=== PATIENT | female | born 1955 | race Caucasian/White ===

== ENCOUNTER 2020-09-30 14:31 | Emergency (ER) | payer MEDICARE, OTHER, SELFPAY ==
[2020-09-30] VITALS (14 sets, daily range): BP systolic 140–180; BP diastolic 79–96; PULSE 63–84; RESP 9–25; TEMP 36.1–36.5; O2SAT 98–100
--- NOTE | ~2020-09-30 | XR_ITS ---
EXAMINATION: XR chest 1V portable DATE: 09/30/2020 15:19 INDICATION: Cough and fever. TECHNIQUE: A single frontal view of the chest was obtained on 2 radiographs. COMPARISON: Chest 2 views 05/13/2019 FINDINGS: The chest demonstrates clear lungs without pneumonia, pleural effusion, or pneumothorax. Th e heart size is normal. Surgical clips in the right upper quadrant are likely from cholecystectomy. T here are changes of anterior fusion procedure in cervical spine. IMPRESSION: 1. No acute cardiopulmonary disease. Reviewed, dictated and finalized at location A. LANGUAGE TRANSLATOR
--- NOTE | 2020-09-30 14:56 | ED.SOB ---
HPI - SOB/Dyspnea General Chief Complaint: Shortness of Breath/Dyspnea Stated Complaint: covid symptoms Time Seen by Provider: 09/30/20 14:43 Source: patient Mode of arrival: ambulatory Limitations: no limitations History of Present Illness HPI Narrative: Patient is a 65-year-old female who presents with 1 week duration of upper respiratory symptoms with some loose stools and a few episodes of emesis patient notes headache congestion nonproductive cough. Patient's daughter who had been visiting has Covid as well as her family. Patient on arrival no distress does not appear uncomfortable notes also intermittent fever Related Data Home Medications Medication Instructions Recorded Confirmed alprazolam 0.25 mg tablet 0.25 mg PO QID PRN tablet 09/07/20 bupropion HCl 150 mg tablet,12 hr 150 mg PO DAILY 09/07/20 sustained-release calcium citrate 250 mg 1 tablet PO TID 09/07/20 calcium-vitamin D3 5 mcg (200 unit) tablet conjugated estrogens 0.3 mg tablet 0.3 mg PO DAILY 09/07/20 docusate sodium 50 mg capsule 50 mg PO DAILY 09/07/20 fexofenadine 180 mg tablet 180 mg PO DAILY 09/07/20 hydrochlorothiazide 12.5 mg tablet 12.5 mg PO DAILY 09/07/20 ipratropium bromide 0.03 % nasal 2 spray INTRANASAL BID 09/07/20 spray mecobalamin (vitamin B12) 1,000 1,000 mcg PO DAILY 09/07/20 mcg chewable tablet lzqysapf-qbzvwai-wrbc-lutein tablet tablet PO .QD tablet 09/07/20 omeprazole 20 mg capsule,delayed 20 mg PO DAILY 09/07/20 release tramadol 50 mg tablet 50 mg PO Q8H PRN tablet 09/07/20 zolpidem 10 mg tablet 10 mg PO .QHS tablet 09/07/20 Allergies Allergy/AdvReac Type Severity Reaction Status Date / Time No Known Allergies Allergy Unverified 09/30/20 14:55 Review of Systems Review of Systems: All systems reviewed & are unremarkable except as noted in HPI and below PMFSH Past Medical History Medical History Allergic rhinitis Anxiety Convergence insufficiency Depression GERD (gastroesophageal reflux disease) History of closed head injury Hypertension Insomnia Surgical History Surgical History History of cholecystectomy History of fusion of cervical spine History of hysterectomy History of lumpectomy benign History of Yoly-en-Y gastric bypass History of tubal ligation Hx of nasal septoplasty Plantar fasciitis Family History Family History Father Heart disease Mother Breast cancer Other Family history of malignant melanoma Social History Social History Smoking status: Never smoker Alcohol intake: never Gender identity (if verbalized by the patient): Female Exam Narrative: Exam Narrative: GENERAL: Well-appearing, well-nourished, and in no acute distress. HEAD: Normocephalic, atraumatic. EYES: PERRLA and EOMI. ENT: Nares clear, no rhinorrhea or epistaxis. Mucous membranes moist. CHEST: Clear to auscultation. No respiratory distress. No wheezes rales or rhonchi HEART: Regular rate and rhythm. No murmur heard. EXTREMITIES: Normal range of motion. No edema. SKIN: Warm, dry, no rash. NEURO: No focal deficits. Alert and oriented x3. PSYCH: Normal mood and affect. Course Course Emergency Course: Patient evaluated in the emergency department for COVID-19 symptoms patient afebrile nontoxic-appearing no distress was hydrated felt appropriate for outpatient reevaluation patient felt appropriate for outpatient reevaluation given reasons to return no pneumonia no hypoxemia Vital Signs Vital signs: Vital Signs Temperature 97.7 F 09/30/20 14:46 Pulse Rate 72 09/30/20 14:46 Respiratory Rate 16 09/30/20 14:46 Blood Pressure 180/96 H 09/30/20 14:46 Pulse Oximetry 100 09/30/20 14:46 Temperature 97.7 F 09/30/20 14:46 Pulse Rate 72 12
[2020-09-30 15:42] LABS: Basophils Absolute Auto 0.1 K/mm3 (0.0-0.1); Basophils Percent Auto 0.9 % (0.2-1.2); Eosinophils Percent Auto 0.3 % (0-4.4); Hematocrit 42.2 % (37.0-47.0); Hemoglobin 14.5 g/dL (12.0-15.0); Immature Granulocyte Absolute 0.01 K/mm3 (0.00-0.031); Immature Granulocyte Percent A 0.2 % (0-0.5); Lymphocytes Absolute Auto 1.89 K/mm3 (0.9-3.2); Lymphocytes Percent Auto 32.2 % (18.3-44.2); Mean Corpuscular HGB Conc 34.4 g/dl (32-36); Mean Corpuscular Hemoglobin 30.4 pg (26-34); Mean Corpuscular Volume 88.5 fl (80-100); Mean Platelet Volume 9.1 fl (7.4-10.4); Monocytes Absolute Auto 0.3 K/mm3 (0.1-0.6); Monocytes Percent Auto 5.6 % (2.6-8.5); Neutrophils Absolute Auto 3.6 K/mm3 (1.3-6.7); Neutrophils Percent Auto 60.8 % (45.5-73.1); Platelet Count Result 273 k/mm3 (150-375); Red Blood Count 4.77 M/mm3 (4.2-5.4); Red Cell Distribution Width 12.4 % (11.5-14.5); White Blood Count 5.9 K/mm3 (4.5-10.0)
[2020-09-30] MEDS: SODIUM CHLORIDE 0.9% IV 1,000 ML 999 ML IV CONT (15:47)
[2020-09-30 15:53] LABS: Alanine Aminotransferase 16 U/L (4-35); Albumin Level 4.5 g/dL (3.5-5.1); Alkaline Phosphatase 71 U/L (38-126); Anion Gap 9 mmol/L (8-16); Aspartate Amino Transferase 33 U/L (14-36); Bilirubin,Total 1.2 mg/dL (0.2-1.3); Blood Urea Nitrogen 8 mg/dL (7-17); Carbon Dioxide 32 mmol/L (22-30); Chloride 92 mmol/L (98-107); Estimated CRCL calculation 56 ml/min; Estimated Glomerular Filt Rate > 60; Glucose 105 mg/dL (65-105); Magnesium 2.2 mg/dL (1.6-2.3); Potassium 3.6 mmol/L (3.4-5.0); Sodium 133 mmol/L (137-145)
[2020-09-30 23:40] LABS: SARS-CoV-2 RNA PCR Negative
== END 2020-09-30 18:18 | disposition home or self-care (01) ==
PROVIDERS: Emergency Medicine Emergency Medical Services; Emergency Provider Emergency Medicine; PCP Family Medicine
DX: U07.1 COVID-19 (principal); F41.9 Anxiety disorder, unspecified; F32.9 Major depressive disorder, single episode, unspecified; K21.9 Gastro-esophageal reflux disease without esophagitis; I10 Essential (primary) hypertension; H51.11 Convergence insufficiency; Z98.1 Arthrodesis status; Z98.84 Bariatric surgery status
CPT/HCPCS: 36415; 71045; 80053; 83735; 85025; 87635; 96361; 96365; 99284; C9803; J0131; J7030; U0003

== ENCOUNTER 2020-12-28 15:08 | Emergency (ER) | payer MEDICARE, OTHER, SELFPAY ==
--- NOTE | ~2020-12-28 | XR_ITS ---
EXAMINATION: XR lumbar spine 2-3V EXAM DATE: 12/28/2020 19:22 INDICATION: Low back pain shooting towards left leg this morning. TECHNIQUE: Lumber spine frontal, lateral, lateral L5-S1 projections for interpretation. Comparison is made to prior examination from 02/21/2012. FINDINGS: Mild to moderate lumbar levoscoliosis. There is 4 mm retrolisthesis L2 on L3 and L3 on L4, 3 mm anterolisthesis L4 on L5 without spondylolysis. Diffuse mild to moderate lumbar disc disease. T here is severe lower lumbar facet arthropathy. Mild anterior wedged appearance at L1 is unchanged, ch ronic. No acute fracture line. Sacrum, sacroiliac joints, sacral arcuate lines are intact. There are cholecystectomy clips. Some left upper quadrant abdominal clips as well. IMPRESSION: 1. Severe lower lumbar facet arthropathy. 2. Mild to moderate disc disease and levoscoliosis. 3. Mild subluxations. Reviewed, dictated and finalized at location A.
[2020-12-28 15:46] VITALS: BP 180/97; PULSE 78; RESP 18; TEMP 36.5; O2SAT 100
--- NOTE | 2020-12-28 17:05 | ED.GENADULT ---
HPI - General Adult General Chief complaint: Back Pain/Injury <John Hemphill PA-C - Last Filed: 12/28/20 21:02> Stated complaint: low back pain <VIMAL Pablo Last Filed: 12/28/20 21:02> Time Seen by Provider: 12/28/20 16:42 <VIMAL Pablo Last Filed: 12/28/20 21:02> Source: patient and family <VIMLA Pablo Last Filed: 12/28/20 21:02> Mode of arrival: ambulatory <VIMAL Pablo Last Filed: 12/28/20 21:02> Limitations: no limitations <VIMAL Pablo Last Filed: 12/28/20 21:02> History of Present Illness HPI narrative: Patient is a 65-year-old female who presents to emergency department with mid lumbar back pain denies injury or trauma notes that she woke with this patient denies any injury or trauma patient does have history of chronic neck and back pain and headaches patient notes that she did not injure the back or do any strenuous activity patient on arrival appears uncomfortable patient has not been seen for this complaint took Tylenol earlier today with minimal improvement patient denies any recent illness or sick contacts <VIMAL Pablo Last Filed: 12/28/20 21:02> Related Data Home medications: Home Medications Medication Instructions Recorded Confirmed alprazolam 0.25 mg tablet 0.25 mg PO QID PRN tablet 09/07/20 11/04/20 bupropion HCl 150 mg tablet,12 hr 150 mg PO DAILY 09/07/20 11/04/20 sustained-release calcium citrate 250 mg 1 tablet PO TID 09/07/20 11/04/20 calcium-vitamin D3 5 mcg (200 unit) tablet conjugated estrogens 0.3 mg tablet 0.3 mg PO DAILY 09/07/20 11/04/20 docusate sodium 50 mg capsule 50 mg PO DAILY 09/07/20 11/04/20 fexofenadine 180 mg tablet 180 mg PO DAILY 09/07/20 11/04/20 hydrochlorothiazide 12.5 mg tablet 12.5 mg PO DAILY 09/07/20 11/04/20 ipratropium bromide 21 mcg (0.03 2 spray INTRANASAL BID 09/07/20 11/04/20 %) nasal spray mecobalamin (vitamin B12) 1,000 1,000 mcg PO DAILY 09/07/20 11/04/20 mcg chewable tablet wbduectq-msqsfis-mrcl-lutein tablet tablet PO .QD tablet 09/07/20 11/04/20 omeprazole 20 mg capsule,delayed 20 mg PO DAILY 09/07/20 11/04/20 release tramadol 50 mg tablet 50 mg PO Q8H PRN tablet 09/07/20 11/04/20 zolpidem 10 mg tablet 10 mg PO .QHS tablet 09/07/20 11/04/20 <John Hemphill PA-C - Last Filed: 12/28/20 21:02> Allergies/adverse reactions: Allergies Allergy/AdvReac Type Severity Reaction Status Date / Time No Known Allergies Allergy Verified 12/28/20 16:51 <John Hemphill PA-C - Last Filed: 12/28/20 21:02> Review of Systems Review of Systems: All systems reviewed & are unremarkable except as noted in HPI and below <John Hemphill PA-C - Last Filed: 12/28/20 21:02> [facility] Past Medical History Medical History: Medical History Allergic rhinitis Anxiety Convergence insufficiency Depression GERD (gastroesophageal reflux disease) History of closed head injury Hypertension Insomnia <John Hemphill PA-C - Last Filed: 12/28/20 21:02> Surgical History Surgical History: Surgical History History of cholecystectomy History of fusion of cervical spine History of hysterectomy History of lumpectomy benign History of Yoly-en-Y gastric bypass History of tubal ligation Hx of nasal septoplasty Plantar fasciitis <John Hemphill PA-C - Last Filed: 12/28/20 21:02> Family History Family History: Family History Father Heart disease Mother Breast cancer Other Family history of malignant melanoma <John Hemphill PA-C - Last Filed: 12/28/20 21:02> Social History Social History: Social History Smoking status: Never smoker Second hand tobacco smoke exposure: No A
[2020-12-28] MEDS: LIDOCAINE 5% PATCH 1 PATCH TRANSDERM (18:05)
[2020-12-28] MEDS: diazePAM (*CRX) 5 MG TABLET 2.5 MG PO (18:08)
[2020-12-28] MEDS: KETOROLAC 30 MG/ML VIAL (*BKC) IV PUSH (18:08)
[2020-12-28] MEDS: SODIUM CHLORIDE 0.9% IV 1,000 ML 999 ML IV CONT (18:51)
[2020-12-28] MEDS: ONDANSETRON INJ 4 MG/2 ML VIAL IV PUSH (18:51)
[2020-12-28] MEDS: HYDROcodone/acetaminophen (*CRX) 7.5-325 MG TABLET 1 TAB PO (18:59)
--- NOTE | 2020-12-28 19:15 | PC.NURSE ---
Assumed care of pt, pt to XRAY at this time. Spouse at bedside.
[2020-12-28 19:46] VITALS: BP 180/83; PULSE 75; RESP 15; O2SAT 100
[2020-12-28] MEDS: diazePAM INJ (*CRX) 10 MG/2 ML SYRINGE 2.5 MG IV PUSH (19:46)
[2020-12-28 20:05] LABS: Add Urine Microscopic? YES; Appearance Urine Clear (Clear); Bacteria Urine Trace /hpf; Bilirubin Urine Negative (Negative); Blood Urine Negative (Negative); Color Urine Straw (Yellow); Glucose Urine UA Negative (Negative); Ketones Urine 1+ mg/dL (Negative); Leukocyte Esterase Ur Negative LEU/UL (Negative); Mucus Urine Rare /lpf; Nitrate Urine Negative (Negative); Protein Urine Negative (Negative); RBC Urine 0-2 /hpf (0-2); Specific Grav Ur 1.005 (1.001-1.035); Squamous Epithelial Cell Urine Occasional /hpf (Few); Urobilinogen Urine Negative mg/dL (<2.0); WBC Urine 0-3 /hpf
[2020-12-28 20:48] VITALS: BP 163/67; PULSE 71; RESP 18; O2SAT 100
== END 2020-12-28 21:15 | disposition home or self-care (01) ==
PROVIDERS: Emergency Medicine Emergency Medical Services; Emergency Provider General Practice; PCP Family Medicine
DX: M54.16 Radiculopathy, lumbar region (principal); K21.9 Gastro-esophageal reflux disease without esophagitis; I10 Essential (primary) hypertension; F41.9 Anxiety disorder, unspecified; F32.9 Major depressive disorder, single episode, unspecified; Z98.1 Arthrodesis status; Z98.84 Bariatric surgery status
CPT/HCPCS: 72100; 81001; 96361; 96374; 96375; 99284; A9270; J1885; J2405; J3360; J7030

== ENCOUNTER 2020-12-31 00:33 | Emergency (ER) | payer MEDICARE, OTHER, SELFPAY ==
[2020-12-31 00:44] VITALS: BP 164/79; PULSE 77; RESP 15; TEMP 36.4; O2SAT 100
[2020-12-31] MEDS: FAMOTIDINE 20 MG/2 ML VIAL IV PUSH (00:53)
[2020-12-31] MEDS: diphenhydrAMINE HCl INJ 50 MG/ML VIAL IV PUSH (00:55)
[2020-12-31] MEDS: methylPREDNISolone SOD SUCC 125 MG VIAL IV PUSH (00:55)
--- NOTE | 2020-12-31 01:24 | ED.GENADULT ---
HPI - General Adult General Chief complaint: Allergic Reaction Stated complaint: allergic reaction Time Seen by Provider: 12/31/20 00:42 History of Present Illness HPI narrative: Patient is a 65-year-old female who presents to emergency department with chief complaint of allergic reaction. Patient reports she has been treated with medications for her back and today noticed that she started having some swelling in her lips noticed her tongue was a little swollen and had itching on her face and eyes and also swelling around her eyelids. Patient denies shortness of breath denies fever denies nausea vomiting denies urticaria. Related Data Home Medications Medication Instructions Recorded Confirmed alprazolam 0.25 mg tablet 0.25 mg PO QID PRN tablet 09/07/20 12/30/20 bupropion HCl 150 mg tablet,12 hr 150 mg PO DAILY 09/07/20 12/30/20 sustained-release calcium citrate 250 mg 1 tablet PO TID 09/07/20 12/30/20 calcium-vitamin D3 5 mcg (200 unit) tablet conjugated estrogens 0.3 mg tablet 0.3 mg PO DAILY 09/07/20 12/30/20 docusate sodium 50 mg capsule 50 mg PO DAILY 09/07/20 12/30/20 fexofenadine 180 mg tablet 180 mg PO DAILY 09/07/20 12/30/20 hydrochlorothiazide 12.5 mg tablet 12.5 mg PO DAILY 09/07/20 12/30/20 ipratropium bromide 21 mcg (0.03 2 spray INTRANASAL BID 09/07/20 12/30/20 %) nasal spray mecobalamin (vitamin B12) 1,000 1,000 mcg PO DAILY 09/07/20 12/30/20 mcg chewable tablet okeyippo-egkvbuy-phgu-lutein tablet tablet PO .QD tablet 09/07/20 12/30/20 omeprazole 20 mg capsule,delayed 20 mg PO DAILY 09/07/20 12/30/20 release tramadol 50 mg tablet 50 mg PO Q8H PRN tablet 09/07/20 12/30/20 zolpidem 10 mg tablet 10 mg PO .QHS tablet 09/07/20 12/30/20 Allergies Allergy/AdvReac Type Severity Reaction Status Date / Time metaxalone [From Skelaxin] Allergy Swelling Verified 12/31/20 00:50 of Lip/Tongue/Throat Review of Systems Review of Systems: Narrative: A 10 system review of systems was completed on the patient and is negative except for what is stated in the HPI. Nursing and ancillary documentation was reviewed. PMFSH Past Medical History Medical History Allergic rhinitis Anxiety Convergence insufficiency Depression GERD (gastroesophageal reflux disease) History of closed head injury Hypertension Insomnia Surgical History Surgical History History of cholecystectomy History of fusion of cervical spine History of hysterectomy History of lumpectomy benign History of Yoly-en-Y gastric bypass History of tubal ligation Hx of nasal septoplasty Plantar fasciitis Family History Family History Father Heart disease Mother Breast cancer Other Family history of malignant melanoma Social History Social History Smoking status: Never smoker Second hand tobacco smoke exposure: No Alcohol intake: never Substance use: never Substance use type: does not use Gender identity (if verbalized by the patient): Female Exam Narrative: Exam Narrative: GENERAL: Well-appearing, well-nourished, and in no acute distress. HEAD: Normocephalic, atraumatic. EYES: PERRLA and EOMI. ENT: Nares clear, no rhinorrhea or epistaxis. Mucous membranes moist. NECK: Supple. CHEST: Clear to auscultation. No respiratory distress. HEART: Regular rate and rhythm. No murmur heard. Normal peripheral pulses. ABDOMEN: Soft, nontender, nondistended, normal active bowel sounds. EXTREMITIES: Normal range of motion. No edema. SKIN: Warm, dry, there is an allergic type rash of the face.. NEURO: No focal deficits. Alert and oriented x3. PSYCH: Normal mood and affect. Course Vital Signs Vital signs: Vital Signs Temperature 36.4 C 12/31/20 00:44 Pulse Rat
[2020-12-31] MEDS: oxyCODONE/ACETAMINOPHEN (*CRX) 5-325 MG TABLET 1 TABLET PO (02:01)
[2020-12-31] MEDS: ONDANSETRON INJ 4 MG/2 ML VIAL IV PUSH (02:01)
[2020-12-31 02:02] VITALS: BP 144/75; PULSE 74; RESP 15; O2SAT 98
== END 2020-12-31 02:11 | disposition home or self-care (01) ==
PROVIDERS: Emergency Provider Emergency Medicine; PCP Family Medicine
DX: T78.40XA Allergy, unspecified, initial encounter (principal); F41.9 Anxiety disorder, unspecified; F32.9 Major depressive disorder, single episode, unspecified; K21.9 Gastro-esophageal reflux disease without esophagitis; I10 Essential (primary) hypertension; H51.11 Convergence insufficiency; Z98.84 Bariatric surgery status; Z98.1 Arthrodesis status
CPT/HCPCS: 96374; 96375; 99284; A9270; J1200; J2405; J2930

== ENCOUNTER 2021-01-01 10:09 | Emergency (ER) | payer MEDICARE, OTHER, SELFPAY ==
[2021-01-01 10:16] VITALS: BP 144/81; PULSE 84; RESP 16; TEMP 36.7; O2SAT 100
[2021-01-01] MEDS: methylPREDNISolone SOD SUCC 125 MG VIAL IM (10:31)
--- NOTE | 2021-01-01 10:34 | ED.GENADULT ---
HPI - General Adult General Chief complaint: Allergic Reaction Stated complaint: allergic reaction Time Seen by Provider: 01/01/21 10:15 Source: patient Mode of arrival: ambulatory Limitations: no limitations History of Present Illness HPI narrative: Patient is a 65-year-old female who presents to emergency department with chief complaint of allergic reaction. Patient reports she has been treated with medications for her back earlier this week, Gaylord and Skelaxin, and began noticing allergic reaction on Monday. She states she was given a steroid pack but did not take it as her symptoms were improving and she was going to wait until Monday as she receives her second covid shot this weekend. She noticed that she started having some swelling in her eyelids and itching of her tongue. She states she stopped the skelaxin but did take a hydrocodone. She states she took Benadryl one dose yesterday, but no other allergy medications. Patient denies shortness of breath, fever, chills, nausea, vomiting, chest pain, inability to swallow or handle secretions. Related Data Home Medications Medication Instructions Recorded Confirmed alprazolam 0.25 mg tablet 0.25 mg PO QID PRN tablet 09/07/20 12/30/20 bupropion HCl 150 mg tablet,12 hr 150 mg PO DAILY 09/07/20 12/30/20 sustained-release calcium citrate 250 mg 1 tablet PO TID 09/07/20 12/30/20 calcium-vitamin D3 5 mcg (200 unit) tablet conjugated estrogens 0.3 mg tablet 0.3 mg PO DAILY 09/07/20 12/30/20 docusate sodium 50 mg capsule 50 mg PO DAILY 09/07/20 12/30/20 fexofenadine 180 mg tablet 180 mg PO DAILY 09/07/20 12/30/20 hydrochlorothiazide 12.5 mg tablet 12.5 mg PO DAILY 09/07/20 12/30/20 ipratropium bromide 21 mcg (0.03 2 spray INTRANASAL BID 09/07/20 12/30/20 %) nasal spray mecobalamin (vitamin B12) 1,000 1,000 mcg PO DAILY 09/07/20 12/30/20 mcg chewable tablet nmumxhua-cxagumx-tjij-lutein tablet tablet PO .QD tablet 09/07/20 12/30/20 omeprazole 20 mg capsule,delayed 20 mg PO DAILY 09/07/20 12/30/20 release tramadol 50 mg tablet 50 mg PO Q8H PRN tablet 09/07/20 12/30/20 zolpidem 10 mg tablet 10 mg PO .QHS tablet 09/07/20 12/30/20 Allergies Allergy/AdvReac Type Severity Reaction Status Date / Time metaxalone [From Skelaxin] Allergy Swelling Verified 01/01/21 10:20 of Lip/Tongue/Throat Review of Systems Review of Systems: Narrative: CONSTITUTIONAL: Denies fever, chills, or sweats. EYES: Denies visual changes, redness, or discharge. ENT: Denies rhinorrhea, congestion, sore throat, or otalgia. CARDIOVASCULAR: Denies chest pain, palpitations, or edema. RESPIRATORY: Denies cough or dyspnea. GASTROINTESTINAL: Denies abdominal pain, nausea, vomiting, or diarrhea. GENITOURINARY: Denies dysuria or hematuria. SKIN: Reports rash and itching. MUSCULOSKELETAL: Denies back pain, myalgia, or joint pain NEUROLOGIC: Denies headache, numbness, dizziness, or weakness. PSYCHIATRIC: Denies anxiety or depression. [facility] Past Medical History Medical History Allergic rhinitis Anxiety Convergence insufficiency Depression GERD (gastroesophageal reflux disease) History of closed head injury Hypertension Insomnia Surgical History Surgical History History of cholecystectomy History of fusion of cervical spine History of hysterectomy History of lumpectomy benign History of Yoly-en-Y gastric bypass History of tubal ligation Hx of nasal septoplasty Plantar fasciitis Family History Family History Father Heart disease Mother Breast cancer Other Family history of malignant melanoma Social History Social History Smoking status: Never smoker Second hand tobacco smoke exposure: No Alcohol intake: never Substance us
[2021-01-01 12:14] VITALS: BP 138/77; PULSE 80; RESP 18; O2SAT 99
== END 2021-01-01 12:16 | disposition home or self-care (01) ==
PROVIDERS: Emergency Provider Emergency Medicine; PCP Family Medicine
DX: T78.40XA Allergy, unspecified, initial encounter (principal); F41.9 Anxiety disorder, unspecified; F32.9 Major depressive disorder, single episode, unspecified; K21.9 Gastro-esophageal reflux disease without esophagitis; I10 Essential (primary) hypertension; H51.11 Convergence insufficiency; Z98.1 Arthrodesis status; Z98.84 Bariatric surgery status
CPT/HCPCS: 96372; 99283; J2930

== ENCOUNTER 2021-04-23 22:49 | Emergency (ER) | payer MEDICARE, OTHER, SELFPAY ==
--- NOTE | 2021-04-23 23:08 | ECG_ITS ---
Measurements Intervals [place] Rate: 72 P: 64 [place]: 165 QRS: 50 QRSD: 93 T: 45 QT: 411 QTc: 453 Interpretive Statements SINUS RHYTHM NORMAL ECG Electronically Signed On 04-24-2021 7:11:03 CDT by Clifford Jimenez D.O.
[2021-04-23 23:14] VITALS: BP 153/93; PULSE 88; RESP 18; O2SAT 100
[2021-04-23] MEDS: methylPREDNISolone SOD SUCC 125 MG VIAL IV PUSH (23:25)
[2021-04-23] MEDS: FAMOTIDINE 20 MG/2 ML VIAL IV PUSH (23:25)
[2021-04-23] MEDS: diphenhydrAMINE HCl INJ 50 MG/ML VIAL IV PUSH (23:25)
--- NOTE | 2021-04-23 23:46 | ED.GENADULT ---
HPI - General Adult General Chief complaint: Allergic Reaction Stated complaint: Allergic reaction Time Seen by Provider: 04/23/21 23:04 History of Present Illness HPI narrative: Patient 66-year-old female presents the emergency department with chief complaint of allergic reaction. The patient reports this evening she ate some watermelon and cherries and then a little bit later noticed that she started having itching and started having swelling that developed around her face the patient states this feels similar to whenever she had allergic reactions before in the past. Patient reports that her tongue feels slightly swollen but denies significant angioedema of her oropharynx. The patient reports that she is not required epinephrine before in the past with allergic reactions. Related Data Home Medications Medication Instructions Recorded Confirmed alprazolam 0.25 mg tablet 0.25 mg PO QID PRN tablet 09/07/20 12/30/20 bupropion HCl 150 mg tablet,12 hr 150 mg PO DAILY 09/07/20 12/30/20 sustained-release calcium citrate 250 mg 1 tablet PO TID 09/07/20 12/30/20 calcium-vitamin D3 5 mcg (200 unit) tablet conjugated estrogens 0.3 mg tablet 0.3 mg PO DAILY 09/07/20 12/30/20 docusate sodium 50 mg capsule 50 mg PO DAILY 09/07/20 12/30/20 fexofenadine 180 mg tablet 180 mg PO DAILY 09/07/20 12/30/20 ipratropium bromide 21 mcg (0.03 2 spray INTRANASAL BID 09/07/20 12/30/20 %) nasal spray mecobalamin (vitamin B12) 1,000 1,000 mcg PO DAILY 09/07/20 12/30/20 mcg chewable tablet ejchmkfe-ycmgflj-qwme-lutein tablet tablet PO .QD tablet 09/07/20 12/30/20 omeprazole 20 mg capsule,delayed 20 mg PO DAILY 09/07/20 12/30/20 release zolpidem 10 mg tablet 10 mg PO .QHS tablet 09/07/20 12/30/20 Allergies Allergy/AdvReac Type Severity Reaction Status Date / Time metaxalone [From Skelaxin] Allergy Swelling Verified 01/05/21 10:08 of Lip/Tongue/Throat Review of Systems Review of Systems: Narrative: A 10 system review of systems was completed on the patient and is negative except for what is stated in the HPI. Nursing and ancillary documentation was reviewed. [facility] Past Medical History Medical History Allergic rhinitis Anxiety Convergence insufficiency Depression GERD (gastroesophageal reflux disease) History of closed head injury Hypertension Insomnia Surgical History Surgical History History of cholecystectomy History of fusion of cervical spine History of hysterectomy History of lumpectomy benign History of Yoly-en-Y gastric bypass History of tubal ligation Hx of nasal septoplasty Plantar fasciitis Family History Family History Father Heart disease Mother Breast cancer Other Family history of malignant melanoma Social History Social History Smoking status: Never smoker Second hand tobacco smoke exposure: No Alcohol intake: never Substance use: never Substance use type: does not use Gender identity (if verbalized by the patient): Female Exam Narrative: Exam Narrative: GENERAL: Well-appearing, well-nourished, and in no acute distress. HEAD: Normocephalic, atraumatic. EYES: PERRLA and EOMI. ENT: Nares clear, no rhinorrhea or epistaxis. Mucous membranes moist. NECK: Supple. CHEST: Clear to auscultation. No respiratory distress. HEART: Regular rate and rhythm. No murmur heard. Normal peripheral pulses. ABDOMEN: Soft, nontender, nondistended, normal active bowel sounds. EXTREMITIES: Normal range of motion. No edema. SKIN: Warm, dry, no rash. NEURO: No focal deficits. Alert and oriented x3. PSYCH: Normal mood and affect. Course Course Emergency Course: EKG is sinus rhythm rate of [address] elevation or ST depression Vital Signs
[2021-04-24 00:33] VITALS: BP 149/76; PULSE 69; RESP 18; O2SAT 99
[2021-04-24 06:19] VITALS: BP 162/68; PULSE 74; RESP 16; O2SAT 98
== END 2021-04-24 01:30 | disposition home or self-care (01) ==
PROVIDERS: Emergency Provider Emergency Medicine; PCP Family Medicine
DX: T78.40XA Allergy, unspecified, initial encounter (principal); K21.9 Gastro-esophageal reflux disease without esophagitis; I10 Essential (primary) hypertension; H51.11 Convergence insufficiency; F41.9 Anxiety disorder, unspecified; F32.9 Major depressive disorder, single episode, unspecified; Z98.1 Arthrodesis status; Z98.84 Bariatric surgery status
CPT/HCPCS: 93005; 96374; 96375; 99284; J1200; J2930

== ENCOUNTER → 2021-05-21 08:37 | Outpatient (CLI) | payer MEDICARE, OTHER, SELFPAY ==
[2021-05-22 04:11] LABS: SARS-CoV-2 RNA PCR Positive
== END ==
PROVIDERS: PCP Family Medicine; Visit Provider Family Medicine
DX: U07.1 COVID-19 (principal)
CPT/HCPCS: C9803; U0003; U0005

== ENCOUNTER 2021-05-23 06:58 | Inpatient (IN) | payer MEDICARE, OTHER, SELFPAY ==
[2021-05-23] VITALS (8 sets, daily range): BP systolic 128–153; BP diastolic 69–88; PULSE 66–110; RESP 14–20; TEMP 36.5–37.1; O2SAT 99–100; BMI 23.2
--- NOTE | ~2021-05-23 | XR_ITS ---
EXAMINATION: XR chest 1V portable INDICATION: Shortness of breath TECHNIQUE: Portable AP chest at 0822 hours COMPARISON: 09/30/2020 FINDINGS: The lungs are free of acute opacities. There is no pleural effusion or pneumothorax. The ca rdiomediastinal silhouette is normal. There are partially imaged changes of cervical spine fusion pro cedure. IMPRESSION: 1. No acute cardiopulmonary abnormality. Reviewed, dictated and finalized at location A.
[2021-05-23 08:18] LABS: Alveolar/Arterial O2 Gradient 16.6 mmHg; Base Excess ABG 5.9 mEq/l (+/-2.0); Device ROOM AIR; Fractional Inspired Oxygen 21 %; Modified Allen's Test Pass; Oxygen Content ABG 19.4 %vol (16.0-22.0); Oxyhemoglobin 96.3 % THb (90.0-100.0); PCO2 ABG 32.8 mmHg (35.0-45.0); PO2 ABG 93.9 mmHg (80.0-100.0); PO2 FiO2 Ratio Arterial Blood 4.47 %; Site Drawn LEFT RADIAL; Total Hemoglobin 14.3 g/dL (12.0-18.0); pH ABG 7.549 (7.350-7.450)
[2021-05-23 08:22] LABS: Basophils Percent Auto 0.8 % (0.2-1.2); Eosinophils Percent Auto 0.4 % (0-4.4); Hematocrit 42.9 % (37.0-47.0); Hemoglobin 13.9 g/dL (12.0-15.0); Lymphocytes Absolute Auto 1.17 K/mm3 (0.9-3.2); Lymphocytes Percent Auto 44.8 % (18.3-44.2); Mean Corpuscular HGB Conc 32.4 g/dl (32-36); Mean Corpuscular Volume 92.7 fl (80-100); Mean Platelet Volume 11.3 fl (7.4-10.4); Monocytes Absolute Auto 0.3 K/mm3 (0.1-0.6); Monocytes Percent Auto 10.3 % (2.6-8.5); Neutrophils Absolute Auto 1.1 K/mm3 (1.3-6.7); Neutrophils Percent Auto 43.7 % (45.5-73.1); Platelet Count Result 223 k/mm3 (150-375); Red Blood Count 4.63 M/mm3 (4.2-5.4); Red Cell Distribution Width 12.6 % (11.5-14.5); White Blood Count 2.6 K/mm3 (4.5-10.0)
[2021-05-23 08:43] LABS: Alanine Aminotransferase 18 U/L (4-35); Albumin Level 4.2 g/dL (3.5-5.1); Alkaline Phosphatase 53 U/L (38-126); Anion Gap 4 mmol/L (8-16); Aspartate Amino Transferase 48 U/L (14-36); Blood Urea Nitrogen 8 mg/dL (7-17); Calcium 8.6 mg/dL (8.4-10.2); Carbon Dioxide 27 mmol/L (22-30); Chloride 92 mmol/L (98-107); Estimated CRCL calculation 62 ml/min; Estimated Glomerular Filt Rate > 60; Glucose 90 mg/dL (65-110); Potassium 3.7 mmol/L (3.4-5.0); Sodium 123 mmol/L (137-145)
--- NOTE | 2021-05-23 10:17 | ED.GENADULT ---
HPI - General Adult General Chief complaint: Upper Respiratory Infection Stated complaint: COVID +, not feeling well. Time Seen by Provider: 05/23/21 07:40 Source: patient and RN notes reviewed Limitations: no limitations History of Present Illness HPI narrative: Patient is 66 years old white female came from home, complaining of lightheadedness, dizziness, nausea when she tried to stand up. And feeling wobbly while walking. Also feeling dry and thirsty. Started 5 days ago with slight dry cough. 1 day later patient tested positive for COVID-19 infection. Patient is fully vaccinated for Covid 19,, last dose was December 2020. Related Data Home Medications Medication Instructions Recorded Confirmed bupropion HCl 150 mg tablet,12 hr 150 mg PO DAILY 09/07/20 12/30/20 sustained-release conjugated estrogens 0.3 mg tablet 0.3 mg PO DAILY 09/07/20 12/30/20 omeprazole 20 mg capsule,delayed 20 mg PO DAILY 09/07/20 12/30/20 release zolpidem 10 mg tablet 10 mg PO .QHS tablet 09/07/20 12/30/20 alprazolam 0.25 mg tablet 0.25 mg PO DAILY PRN tablet 05/19/21 Allergies Allergy/AdvReac Type Severity Reaction Status Date / Time metaxalone [From Skelaxin] Allergy Swelling Verified 05/23/21 07:24 of Lip/Tongue/Throat Review of Systems Review of Systems: CONSTITUTIONAL: Denies fever, chills, or sweats. EYES: Denies visual changes, redness, or discharge. ENT: Denies rhinorrhea, congestion, sore throat, or otalgia. CARDIOVASCULAR: Denies chest pain, palpitations, or edema. RESPIRATORY: Denies cough or dyspnea. GASTROINTESTINAL: Denies abdominal pain, nausea, vomiting, or diarrhea. GENITOURINARY: Denies dysuria or hematuria. SKIN: Denies rash or itching. MUSCULOSKELETAL: Denies back pain, joint pain, or myalgia. NEUROLOGIC: Denies headache, numbness, or weakness. PSYCHIATRIC: Denies anxiety or depression. [facility] Past Medical History Medical History Allergic rhinitis Anxiety Convergence insufficiency Depression GERD (gastroesophageal reflux disease) History of closed head injury Hypertension Insomnia Surgical History Surgical History History of cholecystectomy History of fusion of cervical spine History of hysterectomy History of lumpectomy benign History of Yoly-en-Y gastric bypass History of tubal ligation Hx of nasal septoplasty Plantar fasciitis Family History Family History Father Heart disease Mother Breast cancer Other Family history of malignant melanoma Social History Social History Smoking status: Never smoker Second hand tobacco smoke exposure: No Alcohol intake: never Substance use: never Substance use type: does not use Gender identity (if verbalized by the patient): Female Exam Narrative: General appearance: Well-developed, well-nourished, looks ill Skin: Normal color Head: Normocephalic, nontraumatic Eyes: Clear conjunctiva ENT: Dry oral cavity Neck: Supple, nontender Chest and respiratory: Airway patent, no respiratory distress, no accessory muscle use Heart: Regular rate/rhythm Abdomen: Soft, nontender, no organomegaly, quiet bowel sounds Vascular: Normal peripheral pulses, normal capillary refill. Musculoskeletal: Normal range of motion, nontender back Neurologic: Alert and oriented ?3, MANAGEMENT LEAD is normal as tested, no gross motor deficit Course Course Emergency Course: Stable Vital Signs Vital signs: Vital Signs Temperature 36.9 C 05/23/21 07:21 Pulse Rate 110 H 05/23/21
[2021-05-23] MEDS: SODIUM CHLORIDE 0.9% IV 1,000 ML 999 ML (10:31)
[2021-05-23] MEDS: SODIUM CHLORIDE 0.9% IV 1,000 ML 999 ML IV CONT (12:55)
[2021-05-23] MEDS: ONDANSETRON INJ 4 MG/2 ML VIAL IV PUSH (13:01)
[2021-05-23] MEDS: SODIUM CHLORIDE 0.9% IV 1,000 ML 150 ML IV CONT ×2 (16:37→23:38)
--- NOTE | 2021-05-23 16:44 | PC.NURSE ---
This patient, Sophie Lara, was admitted to [facility] Room 301-01. Patient/family oriented to hospital policies and general routines including ID bracelet, bed and alarms, visiting hours, pain management, procedures, bathroom and other care routines, personal items, smoking policy, room service/diet, and visiting hours. Information on how to activate the Rapid Response Team has been discussed. Patient/Family are encouraged to report perceived risks to care and to ask questions if they do not understand what they are told or what they should do.
--- NOTE | 2021-05-23 18:03 | PM.IMHP ---
H&P: HPI History of Present Illness Date/Time: 05/23/21 18:03 Chief Complaint: shortness of breath Narrative: Patient is a 66-year-old lady with history of some depression and anxiety presenting with shortness of breath subjectively since Monday. Over this time she has also felt lethargic, and has lost her appetite, and has not been able to taste food, also diminished sense of smell, all classic COVID symptoms. Although she has been vaccinated x2 with the Pfizer vaccine, her sister has COVID, and has been in close proximity with her for quite some time. Patient has been feeling overall better since yesterday, when her symptoms were at her worst, and was not able to fall asleep, and had diaphoresis. And was not able to walk. Past medical history: Depression anxiety sleep Allergies: Metaxalone documented, however patient says only allergies are environmental Medications: Mainly for depression anxiety, including Xanax and bupropion Family history: Heart disease, including early MT in brother Social history: Denies drugs alcohol and tobacco Surgeries: Remote, including hysterectomy ER course: Vitals unremarkable, patient saturating 94 and above on room air, afebrile Labs: No leukocytosis, ABG significant for pH of 7.5, alkalosis Chest x-ray: Consistent with bilateral opacities indicative of COVID Interventions: 1 L normal saline Review of Systems Cardiovascular: Cardiovascular: Denies chest pain and Denies palpitations Respiratory: Respiratory: Denies no additional respiratory complaints, Denies cough, Denies dyspnea and Denies wheezing Gastrointestinal: Gastrointestinal: Denies abdominal pain, Denies bloating, Denies constipation and Denies diarrhea Neurologic: Denies confusion, Denies headache(s) and Denies numbness PMFSH Past Medical History Medical History Allergic rhinitis Anxiety Convergence insufficiency Depression GERD (gastroesophageal reflux disease) History of closed head injury Hypertension Insomnia Surgical History Surgical History History of cholecystectomy History of fusion of cervical spine History of hysterectomy History of lumpectomy benign History of Yoly-en-Y gastric bypass History of tubal ligation Hx of nasal septoplasty Plantar fasciitis Family History Family History Father Heart disease Mother Breast cancer Other Family history of malignant melanoma Social History Social History Smoking status: Never smoker Second hand tobacco smoke exposure: No Alcohol intake: never Substance use: never Substance use type: does not use Gender identity (if verbalized by the patient): Female Spiritual care concerns: No Meds Home Medications and Allergies Home Medications Medication Instructions Recorded Confirmed Type bupropion HCl 150 mg tablet,12 hr 150 mg PO DAILY 09/07/20 05/23/21 History sustained-release conjugated estrogens 0.3 mg tablet 0.3 mg PO DAILY 09/07/20 05/23/21 History omeprazole 20 mg capsule,delayed 20 mg PO DAILY 09/07/20 05/23/21 History release zolpidem 10 mg tablet 10 mg PO .QHS tablet 09/07/20 05/23/21 History epinephrine 0.3 mg/0.3 mL 0.3 mg IM ONCE #2 ea 04/27/21 05/23/21 Rx injection, auto-injector alprazolam 0.25 mg tablet 0.25 mg PO QID PRN tablet 05/19/21 05/23/21 History hydrochlorothiazide 12.5 mg tablet 12.5 mg PO DAILY #90 tablet 05/19/21 05/23/21 Rx ipratropium bromide 21 mcg (0.03 2 spray INTRANASAL BID #90 ml 05/19/21 05/23/21 Rx %) nasal spray Allergies Allergy/AdvReac Type Severity Reaction Status Date / Time metaxalone [From Skelaxin] Allergy Swelling Verified 05/23/21 13:02 of Lip/Tongue/Throat Vital Signs Vital Signs - 24 hr 05/23/21 07:21 05/23/21 12:48 05/23/21 14:10 Temper
[2021-05-23] MEDS: ALPRAZolam (*CRX) 0.25 MG TABLET PO ×2 (18:39→23:30)
[2021-05-23] MEDS: IPRATROPIUM NASAL SPRAY 0.03% 15 ML BOTTLE 2 SPRAY NASAL (19:00)
[2021-05-23] MEDS: ESTROGENS, CONJUGATED 0.3 MG TABLET PO (23:29)
[2021-05-23] MEDS: ZOLPIDEM TARTRATE (*CRX) 5 MG TABLET 10 MG PO (23:30)
[2021-05-24] VITALS: BP 108/60; BP 127/61; PULSE 65; PULSE 69; PULSE 70; RESP 18; TEMP 36.3; TEMP 36.7; O2SAT 100; O2SAT 99
[2021-05-24 04:00] VITALS: BP 126/66; PULSE 66; RESP 18; TEMP 36.6; O2SAT 100
[2021-05-24] MEDS: SODIUM CHLORIDE 0.9% IV 1,000 ML 150 ML IV CONT (06:48)
[2021-05-24 07:01] LABS: Basophils Percent Auto 0.7 % (0.2-1.2); Hematocrit 39.7 % (37.0-47.0); Hemoglobin 13.4 g/dL (12.0-15.0); Lymphocytes Absolute Auto 2.07 K/mm3 (0.9-3.2); Lymphocytes Percent Auto 71.6 % (18.3-44.2); Mean Corpuscular HGB Conc 33.8 g/dl (32-36); Mean Corpuscular Volume 88.8 fl (80-100); Mean Platelet Volume 10.6 fl (7.4-10.4); Monocytes Absolute Auto 0.2 K/mm3 (0.1-0.6); Monocytes Percent Auto 7.6 % (2.6-8.5); Neutrophils Absolute Auto 0.6 K/mm3 (1.3-6.7); Neutrophils Percent Auto 20.1 % (45.5-73.1); Platelet Count Result 213 k/mm3 (150-375); Red Blood Count 4.47 M/mm3 (4.2-5.4); Red Cell Distribution Width 12.3 % (11.5-14.5); White Blood Count 2.9 K/mm3 (4.5-10.0)
[2021-05-24 08:00] VITALS: BP 111/70; PULSE 64; PULSE 72; RESP 16; TEMP 36.9; O2SAT 100
[2021-05-24 08:38] LABS: Alanine Aminotransferase 14 U/L (4-35); Albumin Level 3.7 g/dL (3.5-5.1); Alkaline Phosphatase 59 U/L (38-126); Anion Gap 2 mmol/L (8-16); Aspartate Amino Transferase 28 U/L (14-36); Bilirubin,Total 0.2 mg/dL (0.2-1.3); Blood Urea Nitrogen 7 mg/dL (7-17); Calcium 7.9 mg/dL (8.4-10.2); Carbon Dioxide 25 mmol/L (22-30); Chloride 105 mmol/L (98-107); Estimated CRCL calculation 71 ml/min; Estimated Glomerular Filt Rate > 60; Glucose 81 mg/dL (65-110); Magnesium 1.9 mg/dL (1.6-2.3); Phosphorus 3.4 mg/dL (2.5-4.5); Potassium 3.8 mmol/L (3.4-5.0); Sodium 132 mmol/L (137-145)
[2021-05-24] MEDS: buPROPion HCL SR (12 HR) 150 MG TAB PO (09:20)
[2021-05-24] MEDS: ENOXAPARIN 40 MG/0.4 ML SYRINGE SUB-Q (09:20)
[2021-05-24] MEDS: hydroCHLOROthiazide 12.5 MG CAPSULE PO (09:20)
[2021-05-24] MEDS: PANTOPRAZOLE 40 MG TABLET PO (09:22)
[2021-05-24] MEDS: IPRATROPIUM NASAL SPRAY 0.03% 15 ML BOTTLE 2 SPRAY NASAL ×2 (09:22→18:40)
[2021-05-24] MEDS: ALPRAZolam (*CRX) 0.25 MG TABLET PO ×3 (10:01→21:55)
--- NOTE | 2021-05-24 10:06 | PM.IMPN ---
Progress Note: A&P Assessment and Plan (1) COVID-19 virus infection: Code(s): U07.1 - COVID-19 Status: Acute (2) Acute hyperventilation syndrome: Code(s): F45.8 - Other somatoform disorders Status: Acute (3) Hormone replacement therapy (HRT): Code(s): Z79.890 - Hormone replacement therapy Status: Acute (4) Depression: Code(s): F32.9 - Major depressive disorder, single episode, unspecified Status: Acute (5) Anxiety: Code(s): F41.9 - Anxiety disorder, unspecified Status: Acute (6) GERD (gastroesophageal reflux disease): Code(s): K21.9 - Gastro-esophageal reflux disease without esophagitis Status: Acute (7) Hypertension: Qualifiers: Hypertension type: essential hypertension Qualified Code(s): I10 - Essential (primary) hypertension Code(s): I10 - Essential (primary) hypertension Status: Acute Additional Plan COVID-19 pneumonia patient is vaccinated x2 however lives with daughter who apparently tested positive recently experiencing shortness of breath for the last few days, without cough saturation is 95-100 on room air, therefore remdesivir and steroids are not indicated will admit for observation and monitor oxygen saturation closely anxiety and depression continue home regimen of Xanax and bupropion that appears to be working for her hold Ambien inpatient, can use Benadryl if patient having difficulty getting to sleep Hypovolemic Hyponatremia patient was on ns at 150/hr overnight, however sodium increased significantly by 9 today (123-132) will stop fluids, and check sodium again at noon appreciate nephrology recs as patient Na appears to be labile, and want to prevent rapid changes moving forward Subjective Date/time seen: 05/24/21 10:06 no acute medical complaints, mild headache, no breathing difficulty Review of Systems Constitutional: Constitutional: Denies headache(s) ENT: Denies headache(s) Cardiovascular: Cardiovascular: Denies chest pain, Denies palpitations and Denies dyspnea Respiratory: Respiratory: Denies no additional respiratory complaints, Denies cough, Denies dyspnea and Denies wheezing Gastrointestinal: Gastrointestinal: Denies abdominal pain, Denies bloating, Denies constipation and Denies diarrhea Musculoskeletal: Musculoskeletal: Denies numbness Neurologic: Denies confusion, Denies headache(s) and Denies numbness Psychiatric: Psychiatric: Denies confusion Endocrine: Endocrine: Denies palpitations Allergic/Immunologic: Allergic/Immunologic: Denies wheezing Exam Const: General: no acute distress; No confusion Orientation/consciousness: No confusion Neck: Neck: no JVD Resp: Effort & Inspection: normal respiratory effort Auscultation: clear to auscultation bilaterally Cardio: Rate: regular rate Rhythm: regular rhythm GI: Inspection: non-distended Skin: General skin exam: normal color and no rashes or lesions noted Neuro: General: gait normal and No confusion Speech: normal speech Objective Data Vital Signs Vital Signs: Vital Signs - 24 hr 05/23/21 12:48 05/23/21 14:10 05/23/21 15:18 Temperature 97.7 F 98.2 F 98.3 F Pulse Rate 76 76 81 Respiratory Rate 14 18 16 Blood Pressure 153/82 H 148/77 H 141/69 H Pulse Oximetry 100 99 100 05/23/21 15:45 05/23/21 16:25 05/23/21 16:30 Temperature 98.4 F Pulse Rate 81 70 70 Respiratory Rate 20 20 20 Blood Pressure 141/69 H 137/76 Pulse Oximetry 100 100 100 05/23/21 20:00 05/24/21 00:00 05/24/21 04:00 Temperature 98.8 F 98.1 F 97.8 F Pulse Rate 66 69 66 Respiratory Rate 18 18 18 Blood Pressure 139/71 108/60 126/66 Pulse Oximetry 100 99 100 05/24/21 08:00 Temperature 98.5 F Pulse Rate 72 Respiratory Rate 16 Blood Pressure 111/70 Pulse Oximetry 100 Intake/Output Intake/Output: Intake & Output 05/21/21 05/22/21 05/23/21 05/24/21 23:59 23:59 23:59 23:59 Intake Total 9946 0494
[2021-05-24 12:00] VITALS: BP 125/72; PULSE 65; RESP 16; TEMP 36.9; O2SAT 100
[2021-05-24 13:11] LABS: Alanine Aminotransferase 15 U/L (4-35); Albumin Level 3.7 g/dL (3.5-5.1); Alkaline Phosphatase 63 U/L (38-126); Anion Gap 1 mmol/L (8-16); Aspartate Amino Transferase 28 U/L (14-36); Bilirubin,Total 0.2 mg/dL (0.2-1.3); Blood Urea Nitrogen 6 mg/dL (7-17); Calcium 7.9 mg/dL (8.4-10.2); Carbon Dioxide 30 mmol/L (22-30); Chloride 101 mmol/L (98-107); Estimated CRCL calculation 62 ml/min; Estimated Glomerular Filt Rate > 60; Glucose 82 mg/dL (65-110); Potassium 3.2 mmol/L (3.4-5.0); Sodium 132 mmol/L (137-145)
[2021-05-24 16:00] VITALS: BP 135/77; PULSE 66; RESP 14; TEMP 37.1; O2SAT 99
--- NOTE | 2021-05-24 16:22 | PM.CNNEP ---
Assessment and Plan Assessment and plan (1) Acute hyponatremia: Code(s): E87.1 - Hypo-osmolality and hyponatremia Status: Acute Assessment and Plan: The patient has hyponatremia. It looks like the sodium was only 133 back in September so she has an element of chronic hyponatremia. The sodium was normal in 2017, the only other time it was checked at [place]. That was before her closed head injury. It is possible she has mild hyponatremia from her closed head injury versus hydrochlorothiazide verses bupropion or any combination thereof. It does not look like she has an active cancer occurring. She does not have any chronic pulmonary issue that would cause chronic hyponatremia. The patient has acute hyponatremia on top of the chronic. This is probably related to her COVID possibly as a new lung issue, although her chest x-ray was negative. She might not have been eating as much food since she has lost her taste and so the balance of water plus solute intake might have weaned her toward excess free water intake and the presence of the bupropion, hydrochlorothiazide, close head injury may allow this to tip her toward the hyponatremic state. In addition the patient was dehydrated which can cause worsened hyponatremia. She did improve her sodium when she got some isotonic IV fluids. In fact her sodium improved just a little bit too quickly so I have ordered D5W to be given to bring the sodium level back down and will repeat the sodium after that is in. In the meantime will check for other causes of hyponatremia including cortisol issues, thyroid, and check an SPEP. I will not fluid restriction now since she corrected so quickly but if we get stuck we may have to reconsider this down the line. (2) COVID-19 virus infection: Code(s): U07.1 - COVID-19 Status: Acute Assessment and Plan: The patient is on isolation. She is getting supportive care. (3) History of closed head injury: Code(s): Z87.820 - Personal history of traumatic brain injury Status: Acute Assessment and Plan: This is stable. (4) GERD (gastroesophageal reflux disease): Code(s): K21.9 - Gastro-esophageal reflux disease without esophagitis Status: Acute Assessment and Plan: She is on medication for this (5) Hypertension: Qualifiers: Hypertension type: essential hypertension Qualified Code(s): I10 - Essential (primary) hypertension Code(s): I10 - Essential (primary) hypertension Status: Acute Assessment and Plan: her blood pressure is well controlled. We will hold the hydrochlorothiazide. History of Present Illness Reason for Consult Consult date: 05/24/21 Chief Complaint Chief complaint: COVID +, hyponatremia, neutropenia History of Present Illness Narrative: Sophie is a very pleasant 66-year-old lady who has multiple medical problems including traumatic brain injury about 2 and half years ago, depression, anxiety, sleep disorder, GERD, hypertension, allergic rhinitis. The patient came in the hospital because she was short of breath. This had been going on for a few days. She had poor appetite loss her sense of taste. She was tested in the ER and found to be positive for COVID. Her shortness of breath is better. She is not on oxygen. she was felt to be dehydrated so if she received normal saline overnight. Her sodium level on admission was low at 123. By morning after some IV fluids The sodium sherwin to 132. This was repeated and was still 132. Renal consultation was requested. She is off the IV fluids. The patient says she is up-to-date in cancer screening. She has no past history of cancer herself although her mother had breast cancer. She is on hydrochlorothiazide and bupropion at home although these are not new medications. She says she is thirsty all the time and drinks a lot of fluid but does not really pus
[2021-05-24] MEDS: DEXTROSE 5% 1,000 ML 1,000 ML 200 ML IV CONT (16:29)
[2021-05-24] MEDS: traMADol HCL (*CRX) 50 MG TABLET PO (17:38)
[2021-05-24 18:03] LABS: Sodium 132 mmol/L (137-145)
[2021-05-24 20:00] VITALS: BP 130/62; PULSE 63; RESP 18; TEMP 36.2; O2SAT 99
[2021-05-24 20:25] LABS: Sodium 133 mmol/L (137-145)
[2021-05-24] MEDS: ESTROGENS, CONJUGATED 0.3 MG TABLET PO (21:50)
[2021-05-24] MEDS: ZOLPIDEM TARTRATE (*CRX) 5 MG TABLET 10 MG PO (23:46)
[2021-05-24] MEDS: DOCUSATE SODIUM 100 MG CAPSULE PO (23:46)
[2021-05-25] VITALS (7 sets, daily range): BP systolic 109–150; BP diastolic 61–88; PULSE 65–93; RESP 16–18; TEMP 36.2–37.2; O2SAT 98–100
[2021-05-25 02:19] LABS: Sodium Urine Random 56 meq/L
[2021-05-25 07:05] LABS: Basophils Percent Auto 0.8 % (0.2-1.2); Eosinophils Percent Auto 0.4 % (0-4.4); Hematocrit 38.8 % (37.0-47.0); Hemoglobin 12.5 g/dL (12.0-15.0); Lymphocytes Absolute Auto 1.46 K/mm3 (0.9-3.2); Lymphocytes Percent Auto 58.2 % (18.3-44.2); Mean Corpuscular HGB Conc 32.2 g/dl (32-36); Mean Corpuscular Hemoglobin 30.4 pg (26-34); Mean Corpuscular Volume 94.4 fl (80-100); Mean Platelet Volume 10.6 fl (7.4-10.4); Monocytes Absolute Auto 0.2 K/mm3 (0.1-0.6); Monocytes Percent Auto 8.4 % (2.6-8.5); Neutrophils Absolute Auto 0.8 K/mm3 (1.3-6.7); Neutrophils Percent Auto 32.2 % (45.5-73.1); Platelet Count Result 177 k/mm3 (150-375); Red Blood Count 4.11 M/mm3 (4.2-5.4); Red Cell Distribution Width 12.5 % (11.5-14.5); White Blood Count 2.5 K/mm3 (4.5-10.0)
[2021-05-25 07:11] LABS: Alanine Aminotransferase 14 U/L (4-35); Albumin Level 3.5 g/dL (3.5-5.1); Alkaline Phosphatase 58 U/L (38-126); Anion Gap 5 mmol/L (8-16); Aspartate Amino Transferase 28 U/L (14-36); Bilirubin,Total 0.3 mg/dL (0.2-1.3); Blood Urea Nitrogen 8 mg/dL (7-17); Carbon Dioxide 29 mmol/L (22-30); Chloride 97 mmol/L (98-107); Estimated CRCL calculation 62 ml/min; Estimated Glomerular Filt Rate > 60; Glucose 83 mg/dL (65-110); Phosphorus 3.4 mg/dL (2.5-4.5); Potassium 3.1 mmol/L (3.4-5.0); Sodium 131 mmol/L (137-145)
[2021-05-25] MEDS: POTASSIUM CHLORIDE 20 MEQ TABLET 40 MEQ PO (08:20)
[2021-05-25] MEDS: ENOXAPARIN 40 MG/0.4 ML SYRINGE SUB-Q ×2 (08:23→22:05)
[2021-05-25] MEDS: ALPRAZolam (*CRX) 0.25 MG TABLET PO ×3 (08:23→22:41)
[2021-05-25] MEDS: buPROPion HCL SR (12 HR) 150 MG TAB PO (08:23)
[2021-05-25] MEDS: ONDANSETRON INJ 4 MG/2 ML VIAL IV PUSH (08:23)
[2021-05-25] MEDS: PANTOPRAZOLE 40 MG TABLET PO (08:24)
--- NOTE | 2021-05-25 12:03 | PM.IMPN ---
Progress Note: A&P Assessment and Plan (1) COVID-19 virus infection: Code(s): U07.1 - COVID-19 Status: Acute (2) Acute hyperventilation syndrome: Code(s): F45.8 - Other somatoform disorders Status: Acute (3) Hormone replacement therapy (HRT): Code(s): Z79.890 - Hormone replacement therapy Status: Acute (4) Depression: Code(s): F32.9 - Major depressive disorder, single episode, unspecified Status: Acute (5) Anxiety: Code(s): F41.9 - Anxiety disorder, unspecified Status: Acute (6) GERD (gastroesophageal reflux disease): Code(s): K21.9 - Gastro-esophageal reflux disease without esophagitis Status: Acute (7) Hypertension: Qualifiers: Hypertension type: essential hypertension Qualified Code(s): I10 - Essential (primary) hypertension Code(s): I10 - Essential (primary) hypertension Status: Acute Additional Plan COVID-19 pneumonia patient is vaccinated x2 however lives with daughter who apparently tested positive recently experiencing shortness of breath for the last few days, without cough saturation is 95-100 on room air, therefore remdesivir and steroids are not indicated will admit for observation and monitor oxygen saturation closely anxiety and depression continue home regimen of Xanax and bupropion that appears to be working for her hold Ambien inpatient, can use Benadryl if patient having difficulty getting to sleep Hypovolemic Hyponatremia patient was on ns at 150/hr overnight, however sodium increased significantly by 9 today (123-132) will stop fluids, and check sodium again at noon appreciate nephrology recs as patient Na appears to be labile, and want to prevent rapid changes moving forward 05/25/21 12:03 Patient remains on room air, complains of cough but no shortness of fever or chills patient does complaint of nausea but no vomiting and diarrhea, suspect most likely secondary to COVID-19, will start the patient on Zofran and Imodium, patient with hyponatremia seen by Nephrology suspect multifactorial secondary to history of close head injury, hydrochlorothiazide, bupropion and now with COVID pneumonia patient being hydrated with normal saline and sodium is slightly trending up will continue to monitor. Subjective Date/time seen: 05/25/21 12:03 Patient remains on room air, complains of cough but no shortness of fever or chills patient does complaint of nausea but no vomiting and diarrhea, suspect most likely secondary to COVID-19, will start the patient on Zofran and Imodium, patient with hyponatremia seen by Nephrology suspect multifactorial secondary to history of close head injury, hydrochlorothiazide, bupropion and now with COVID pneumonia patient being hydrated with normal saline and sodium is slightly trending up will continue to monitor. Review of Systems Review of Systems: All systems reviewed & are unremarkable except as noted in HPI and below Exam Narrative: Patient is comfortable, NAD HEENT: eyes are clear and none icteric LUNGS: normal respiratory effort ABD: not distended Lower extremities: no edema SKIN: nonjaundiced Neuro: grossly intact normal speech. Objective Data Vital Signs Vital Signs: Vital Signs - 24 hr 05/24/21 16:00 05/24/21 20:00 05/25/21 00:00 Temperature 98.8 F 97.2 F L 97.3 F L Pulse Rate 66 63 65 Respiratory Rate 14 18 18 Blood Pressure 135/77 130/62 127/61 Pulse Oximetry 99 99 100 05/25/21 05:00 05/25/21 08:00 05/25/21 11:54 Temperature 97.2 F L 98.8 F 98.9 F Pulse Rate 67 93 74 Respiratory Rate 18 16 16 Blood Pressure 122/88 120/76 109/61 Pulse Oximetry 98 100 100 Intake/Output Intake/Output: Intake & Output 05/22/21 05/23/21 05/24/21 05/25/21 23:59 23:59 23:59 23:59 Intake Total 4580 3760 1230 Output Total 2650 1600 Balance 4580 1110 -370 Meds/Results Medications: Active Medications Generic Name Dose Route St
--- NOTE | 2021-05-25 12:19 | PM.PNNEP ---
Progress Note: A&P Assessment and Plan (1) Acute hyponatremia: Code(s): E87.1 - Hypo-osmolality and hyponatremia Status: Acute Assessment and Plan: The patient has hyponatremia. she has chronic hyponatremia. It is possible she has mild hyponatremia from her closed head injury versus hydrochlorothiazide verses bupropion or any combination thereof. The patient has acute hyponatremia on top of the chronic. this may be related to water drinking out of proportion to the food intake tipping the balance toward hyponatremia. sodium iimproved slt too fast so given d5w and now at goal of 131. 8/15 Na 123 8/16 Na 132 8/17 Na 131 then 132 continue watching. no fluid restriction for now. check na in am (2) COVID-19 virus infection: Code(s): U07.1 - COVID-19 Status: Acute Assessment and Plan: The patient is on isolation. She is getting supportive care. (3) History of closed head injury: Code(s): Z87.820 - Personal history of traumatic brain injury Status: Acute Assessment and Plan: This is stable. (4) GERD (gastroesophageal reflux disease): Code(s): K21.9 - Gastro-esophageal reflux disease without esophagitis Status: Acute Assessment and Plan: She is on medication for this (5) Hypertension: Qualifiers: Hypertension type: essential hypertension Qualified Code(s): I10 - Essential (primary) hypertension Code(s): I10 - Essential (primary) hypertension Status: Acute Assessment and Plan: her blood pressure is well controlled. We will continue to hold the hydrochlorothiazide. Subjective Date/time seen: 05/25/21 12:19 Interval history: patient feels better. no cp or sob. anxiety better. no sob or cough but just has more energy. Review of Systems Cardiovascular: Cardiovascular: Reports no additional cardiovascular complaints Respiratory: Respiratory: Reports no additional respiratory complaints Gastrointestinal: Gastrointestinal: Reports no additional gastrointestinal complaints Genitourinary: Genitourinary: Reports no additional female genitourinary complaints Exam Narrative: WDWN in NAD skin no rash head ncat lungs clear cor reg no rub abd BS+ nontender and soft ext no edema. Objective Data Vital Signs Vital Signs: Vital Signs - 24 hr 05/24/21 16:00 05/24/21 20:00 05/25/21 00:00 Temperature 37.1 C 36.2 C L 36.3 C L Pulse Rate 66 63 65 Respiratory Rate 14 18 18 Blood Pressure 135/77 130/62 127/61 Pulse Oximetry 99 99 100 05/25/21 05:00 05/25/21 08:00 05/25/21 11:54 Temperature 36.2 C L 37.1 C 37.2 C Pulse Rate 67 93 74 Respiratory Rate 18 16 16 Blood Pressure 122/88 120/76 109/61 Pulse Oximetry 98 100 100 Intake/Output Intake/Output: Intake & Output 05/22/21 05/23/21 05/24/21 05/25/21 23:59 23:59 23:59 23:59 Intake Total 4580 3760 1230 Output Total 2650 1600 Balance 4580 1110 -370 Meds/Results Medications: Active Medications Generic Name Dose Route Start Last Admin Trade Name Freq PRN Reason Stop Dose Admin Alprazolam 0.25 mg 05/23/21 17:50 05/25/21 08:23 Alprazolam (*Crx) 0.25 Mg Tablet PO 0.25 mg QID PRN Administration Anxiety Bupropion HCl 150 mg 05/24/21 09:00 05/25/21 08:23 Bupropion Hcl Sr (12 Hr) 150 Mg Tab PO 150 mg DAILY NAIN Administration Docusate Sodium 100 mg 05/25/21 21:00 Docusate Sodium 100 Mg Capsule PO 06/24/21 21:01 HS NAIN Enoxaparin Sodium 40 mg 05/25/21 09:00 05/25/21 08:23 Enoxaparin 40 Mg/0.4 Ml Syringe SUB-Q 40 mg Q12HR NAIN Administration Estrogens Conjugated 0.3 mg 05/23/21 21:00 05/24/21 21:50 Estrogens, Conjugated 0.3 Mg Tablet PO 0.3 mg HS NAIN Administration Ipratropium [place] 2 spray 05/23/21 17:00 05/24/21 18:40 Ipratropium Nasal [place] 0.03% 15 Ml Bottle NASAL 2 spray BID NIAN Administration Loperamide HCl 2 mg 05/25/21 11:14
[2021-05-25 12:37] LABS: Sodium 132 mmol/L (137-145)
[2021-05-25] MEDS: traMADol HCL (*CRX) 50 MG TABLET PO (15:08)
[2021-05-25] MEDS: ESTROGENS, CONJUGATED 0.3 MG TABLET PO (22:06)
[2021-05-26] MEDS: ZOLPIDEM TARTRATE (*CRX) 5 MG TABLET 10 MG PO (00:14)
[2021-05-26 03:59] VITALS: BP 132/57; PULSE 66; RESP 17; TEMP 36.7; O2SAT 100
[2021-05-26 06:36] LABS: Albumin Level 3.6 g/dL (3.5-5.1); Anion Gap 4 mmol/L (8-16); Blood Urea Nitrogen 7 mg/dL (7-17); Calcium 8.1 mg/dL (8.4-10.2); Carbon Dioxide 27 mmol/L (22-30); Chloride 104 mmol/L (98-107); Estimated CRCL calculation 71 ml/min; Estimated Glomerular Filt Rate > 60; Glucose 80 mg/dL (65-110); Phosphorus 3.5 mg/dL (2.5-4.5); Potassium 3.4 mmol/L (3.4-5.0); Sodium 135 mmol/L (137-145)
[2021-05-26 08:00] VITALS: BP 132/67; PULSE 72; RESP 16; TEMP 36.8; O2SAT 98
[2021-05-26] MEDS: IPRATROPIUM NASAL SPRAY 0.03% 15 ML BOTTLE 2 SPRAY NASAL (08:19)
[2021-05-26] MEDS: PANTOPRAZOLE 40 MG TABLET PO (08:20)
[2021-05-26] MEDS: POTASSIUM CHLORIDE 20 MEQ TABLET 40 MEQ PO (08:20)
[2021-05-26] MEDS: ALPRAZolam (*CRX) 0.25 MG TABLET PO (08:20)
[2021-05-26] MEDS: ENOXAPARIN 40 MG/0.4 ML SYRINGE SUB-Q (08:20)
[2021-05-26] MEDS: buPROPion HCL SR (12 HR) 150 MG TAB PO (08:21)
[2021-05-26 12:00] VITALS: BP 117/69; PULSE 84; RESP 16; TEMP 36.3; O2SAT 100
--- NOTE | 2021-05-26 14:03 | PM.DS ---
DS: Admitting Diagnosis Admitting Diagnosis Chief Complaint: shortness of breath DS: Discharge Diagnosis Discharge Diagnosis (1) COVID-19 virus infection: Code(s): U07.1 - COVID-19 Status: Acute (2) Acute hyperventilation syndrome: Code(s): F45.8 - Other somatoform disorders Status: Acute (3) Hormone replacement therapy (HRT): Code(s): Z79.890 - Hormone replacement therapy Status: Acute (4) Depression: Code(s): F32.9 - Major depressive disorder, single episode, unspecified Status: Acute (5) Anxiety: Code(s): F41.9 - Anxiety disorder, unspecified Status: Acute (6) GERD (gastroesophageal reflux disease): Code(s): K21.9 - Gastro-esophageal reflux disease without esophagitis Status: Acute (7) Hypertension: Qualifiers: Hypertension type: essential hypertension Qualified Code(s): I10 - Essential (primary) hypertension Code(s): I10 - Essential (primary) hypertension Status: Acute DS: Summary Hospital Course Reason for hospitalization: Chief Complaint: shortness of breath Narrative: Patient is a 66-year-old lady with history of some depression and anxiety presenting with shortness of breath subjectively since Monday. Over this time she has also felt lethargic, and has lost her appetite, and has not been able to taste food, also diminished sense of smell, all classic COVID symptoms. Although she has been vaccinated x2 with the Pfizer vaccine, her sister has COVID, and has been in close proximity with her for quite some time. Patient has been feeling overall better since yesterday, when her symptoms were at her worst, and was not able to fall asleep, and had diaphoresis. And was not able to walk. Hospital Course: patient was discharged on 2020 Patient remains on room air, complains of cough but no shortness of fever or chills patient does complaint of nausea but no vomiting and diarrhea, suspect most likely secondary to COVID-19, will start the patient on Zofran and Imodium, patient with hyponatremia seen by Nephrology suspect multifactorial secondary to history of close head injury, hydrochlorothiazide, bupropion and now with COVID pneumonia patient being hydrated with normal saline and sodium is slightly trending up will continue to monitor. patient's diarrhea have resolved, sodium is close to normal, is clinically stable will discharge the patient today Time Spent with Patient Time attestation: Total time spent providing and/or coordinating discharge services: Exam Narrative: Patient is comfortable, NAD HEENT: eyes are clear and none icteric LUNGS: normal respiratory effort ABD: not distended Lower extremities: no edema SKIN: nonjaundiced Neuro: grossly intact normal speech. DS: Data Data Completed and Pending Labs on day of discharge: Labs from last 24 hours 05/26/21 05:42 Sodium 135 L Potassium 3.4 Chloride 104 Carbon Dioxide 27 Anion Gap 4 L BUN 7 Creatinine 0.60 L Estim Creat Clear Calc 71 Estimated GFR > 60 Glucose 80 Calcium 8.1 L Phosphorus 3.5 Albumin 3.6 Discharge Plan Discharge Attending physician on discharge: Brenton Pablo Consulting providers: Darryl Parks ; Emil Nunez Discharging Clinician: Brenton Pablo Patient Disposition: Home, Self-Care Activity: as tolerated Diet: heart healthy Discharge Instructions: Patient will need to follow up with her primary care and repeat CBC in 2 weeks, Patient to wear mask and keep social distance and avoid general public. patient is instructed if any symptoms redevelop to go to nearest ER. Patient Instructions: Antibiotic Form Stand Alone Forms: General Discharge Information Follow-up/Referrals: Mango French MD [Primary Care Provider] - Discharge Medications: New loperamide 2 mg Capsule 2 mg PO PRN PRN (Reason: Diarrhea) Qty: 20 RF: 0 ondansetron HCl [Zofran] 4 mg tab
[2021-05-26 15:18] VITALS: O2SAT 98
[2021-05-28 21:59] LABS: Osmolality, Urine 238 mOsm/kg (50-1200)
== END 2021-05-26 15:40 | disposition home or self-care (01) | DRG 178 ==
LOC: ANHED 10:28 → ANH3MEDSUR 14:05
PROVIDERS: Internal Medicine Nephrology; Admitting Provider Internal Medicine; Emergency Provider Emergency Medicine; PCP Family Medicine; Visit Provider Family Medicine
DX: U07.1 COVID-19 (principal); E87.1 Hypo-osmolality and hyponatremia; F45.8 Other somatoform disorders; I10 Essential (primary) hypertension; K21.9 Gastro-esophageal reflux disease without esophagitis; F41.9 Anxiety disorder, unspecified; F32.9 Major depressive disorder, single episode, unspecified; Z90.49 Acquired absence of other specified parts of digestive tract; Z90.710 Acquired absence of both cervix and uterus; Z98.1 Arthrodesis status; Z79.890 Hormone replacement therapy; Z87.820 Personal history of traumatic brain injury
CPT/HCPCS: 36415; 36600; 71045; 80053; 80069; 82533; 82805; 83735; 83930; 83935; 84100; 84295; 84300; 84443; 85025; 96361; 96372; 96374; 96375; 99285; A9270; C9803; G0378; J0131; J1650; J2405; J7030; J7070; U0003; U0005

== ENCOUNTER 2021-06-25 10:20 | Emergency (ER) | payer MEDICARE, OTHER, SELFPAY ==
--- NOTE | ~2021-06-25 | XR_ITS ---
EXAMINATION: XR chest 2V DATE: 06/25/2021 10:50 INDICATION: Left chest pain TECHNIQUE: PA and lateral views of the chest are obtained. COMPARISON: 05/23/2021 FINDINGS: The lungs are free of acute opacities. There is no pleural effusion or pneumothorax. The ca rdiomediastinal silhouette is normal. There is mild thoracic spondylosis. There are surgical changes in the upper abdomen and lower cervical spine. IMPRESSION: 1. No acute cardiopulmonary abnormality. Reviewed, dictated and finalized at location A.
--- NOTE | 2021-06-25 10:25 | ECG_ITS ---
Measurements Intervals [place] Rate: 70 P: 72 IA: 159 QRS: 63 QRSD: 99 T: 48 QT: 381 QTc: 412 Interpretive Statements SINUS RHYTHM NORMAL ECG Electronically Signed On 06-25-2021 14:04:17 CDT by Clifford Jiemnez D.O.
[2021-06-25 10:27] VITALS: PULSE 72; RESP 16; TEMP 36.7; O2SAT 100
[2021-06-25 10:48] LABS: Basophils Absolute Auto 0.1 K/mm3 (0.0-0.1); Basophils Percent Auto 1.2 % (0.2-1.2); Eosinophils Absolute Auto 0.1 K/mm3 (0-0.3); Eosinophils Percent Auto 1.2 % (0-4.4); Hematocrit 39.1 % (37.0-47.0); Hemoglobin 13.1 g/dL (12.0-15.0); Immature Granulocyte Absolute 0.01 K/mm3 (0.00-0.031); Immature Granulocyte Percent A 0.2 % (0-0.5); Lymphocytes Absolute Auto 2.13 K/mm3 (0.9-3.2); Lymphocytes Percent Auto 50.2 % (18.3-44.2); Mean Corpuscular HGB Conc 33.5 g/dl (32-36); Mean Corpuscular Hemoglobin 30.8 pg (26-34); Mean Platelet Volume 9.2 fl (7.4-10.4); Monocytes Absolute Auto 0.3 K/mm3 (0.1-0.6); Monocytes Percent Auto 7.8 % (2.6-8.5); Neutrophils Absolute Auto 1.7 K/mm3 (1.3-6.7); Neutrophils Percent Auto 39.4 % (45.5-73.1); Platelet Count Result 237 k/mm3 (150-375); Red Blood Count 4.25 M/mm3 (4.2-5.4); Red Cell Distribution Width 13.4 % (11.5-14.5); White Blood Count 4.2 K/mm3 (4.5-10.0)
[2021-06-25 10:58] LABS: INR 0.9; Prothrombin Time 12.1 Seconds (11.1-14.7)
[2021-06-25 10:59] LABS: Partial Thromboplastin Time 25.9 SECONDS (22.3-36.8)
[2021-06-25 11:00] LABS: Anion Gap 8 mmol/L (8-16); Blood Urea Nitrogen 10 mg/dL (7-17); Calcium 9.3 mg/dL (8.4-10.2); Carbon Dioxide 31 mmol/L (22-30); Chloride 95 mmol/L (98-107); Estimated CRCL calculation 62 ml/min; Estimated Glomerular Filt Rate > 60; Glucose 96 mg/dL (65-110); Potassium 3.8 mmol/L (3.4-5.0); Sodium 134 mmol/L (137-145)
[2021-06-25 11:11] LABS: Troponin I < 0.012 ng/mL (0.000-0.034)
[2021-06-25 11:49] VITALS: BP 149/89; PULSE 74; RESP 18; O2SAT 100
[2021-06-25 11:50] VITALS: PULSE 76
[2021-06-25] MEDS: ASPIRIN 81 MG CHEWABLE TABLET 324 MG PO (11:50)
--- NOTE | 2021-06-25 12:47 | ED.CHESTPAIN ---
HPI - Chest Pain General Chief Complaint: Chest Pain Stated Complaint: CP, Time Seen by Provider: 06/25/21 12:08 Source: patient and RN notes reviewed Mode of arrival: ambulatory Limitations: no limitations History of Present Illness HPI narrative: This is a 66 year old female with history of GERD, anxiety and hypertension who presents for evaluation chest pain. Patient reports yesterday around noon she developed burning mid sternal chest. She believed this pain was due to due to heart burn so she took Tums and Mylanta yesterday. She had no relief so she was worried about having a heart attack due to significant family history. Today she had left arm burning so she came to ER. She has not take any medication today. She denies associated cough, nausea, vomiting, shortness of breath or diaphoresis with her pain. She reports having similar pain after eating for while now. She has history of Gastric bypass 13 years ago. Related Data Home Medications Medication Instructions Recorded Confirmed bupropion HCl 150 mg tablet,12 hr 150 mg PO DAILY 09/07/20 06/07/21 sustained-release conjugated estrogens 0.3 mg tablet 0.3 mg PO DAILY 09/07/20 06/07/21 omeprazole 20 mg capsule,delayed 20 mg PO DAILY 09/07/20 06/07/21 release zolpidem 10 mg tablet 10 mg PO .QHS tablet 09/07/20 06/07/21 alprazolam 0.25 mg tablet 0.25 mg PO QID PRN tablet 05/19/21 06/07/21 docusate sodium 150 mg PO HS 05/24/21 06/07/21 Allergies Allergy/AdvReac Type Severity Reaction Status Date / Time metaxalone [From Skelaxin] Allergy Swelling Verified 06/25/21 11:47 of Lip/Tongue/Throat Review of Systems Review of Systems: All systems reviewed & are unremarkable except as noted in HPI and below PMFSH Past Medical History Medical History Allergic rhinitis Anxiety Convergence insufficiency Depression GERD (gastroesophageal reflux disease) History of closed head injury Hypertension Insomnia Surgical History Surgical History History of cholecystectomy History of fusion of cervical spine History of hysterectomy History of lumpectomy benign History of Yoly-en-Y gastric bypass History of tubal ligation Hx of nasal septoplasty Plantar fasciitis Family History Family History Father Heart disease Mother Breast cancer Other Family history of malignant melanoma Social History Social History Smoking status: Never smoker Second hand tobacco smoke exposure: No Alcohol intake: never Substance use: never Substance use type: does not use Gender identity (if verbalized by the patient): Female Sexual Orientation (if Verbalized by the Patient): Straight or Heterosexual Spiritual care concerns: No Exam Const: General: no acute distress and alert Orientation/consciousness: patient oriented x3 Eyes: EOM: EOMs intact bilaterally Resp: Effort & Inspection: normal respiratory effort and no retractions Auscultation: clear to auscultation bilaterally Cardio: Rate: regular rate Rhythm: regular rhythm Heart sounds: no murmurs GI: GI Palp: Yes Soft to palpation, No Tenderness to palpation present (GI) and No Guarding due to palpation present (GI) Auscultation: normal bowel sounds Skin: General skin exam: normal color Rashes: no rashes Neuro: General: patient oriented x3, moves all extremities and CN's II-XI intact bilaterally Extrem: General: normal to inspection Psych: Mental Status: mental status grossly normal Affect: normal affect Course Reevaluation(s) Reevaluation #1: PAtient feels much better after GI cocktail. This is likely GI but she will follow up with PCP given significant family history . I spoke with TECHNICAL SERVICES SPECIALIST at Dr. French's office and they will follow up with patient.
[2021-06-25] MEDS: BELLADONNA ALK/PHENOB ELIX 10 ML, MAG HYDROX/ALUMINUM HYD/SIMETH 30 ML, LIDOCAINE HCL 2... PO (12:55)
[2021-06-25 13:01] VITALS: BP 169/85; PULSE 70; RESP 18; O2SAT 100
[2021-06-25 13:12] LABS: D Dimer < 0.22 ug/mL (<0.48)
[2021-06-25 14:13] VITALS: BP 148/76; PULSE 76; RESP 18; O2SAT 98
[2021-06-25 14:17] LABS: Troponin I < 0.012 ng/mL (0.000-0.034)
[2021-06-25 15:51] VITALS: BP 140/76; PULSE 80; RESP 20; O2SAT 99
== END 2021-06-26 04:49 | disposition home or self-care (01) ==
PROVIDERS: Emergency Medicine; Emergency Provider General Practice; PCP Family Medicine
DX: R07.89 Other chest pain (principal); F41.9 Anxiety disorder, unspecified; F32.9 Major depressive disorder, single episode, unspecified; I10 Essential (primary) hypertension; G47.00 Insomnia, unspecified; Z87.19 Personal history of other diseases of the digestive system; Z90.49 Acquired absence of other specified parts of digestive tract; Z98.1 Arthrodesis status; Z90.710 Acquired absence of both cervix and uterus; Z98.84 Bariatric surgery status; Z98.51 Tubal ligation status
CPT/HCPCS: 36415; 71046; 80048; 84484; 85025; 85380; 85610; 85730; 93005; 99284; A9270

== ENCOUNTER 2021-07-28 03:11 | Day surgery (SDC) | payer MEDICARE, OTHER, SELFPAY ==
--- NOTE | 2021-07-27 10:27 | WPDANESEPPF ---
Anes - Initial Pre Proc Eval Procedure: Operation Date: 07/28/21 11:00 Proposed Procedures p Esophagogastroduodenoscopy - Papi Cagle MD Date/Time: 07/27/21 10:27 Surgeon: Papi Cagle MD Pre Op Diagnosis: dysphagia Patient Data Age: 66 Gender: F Height: Weight: Allergies Allergy/AdvReac Type Severity Reaction Status Date / Time No Known Allergies Allergy Verified 07/28/21 10:41 Home Medications Medication Instructions Recorded Confirmed Type bupropion HCl 150 mg tablet,12 hr 150 mg PO DAILY 09/07/20 07/09/21 History sustained-release conjugated estrogens 0.3 mg tablet 0.3 mg PO DAILY 09/07/20 07/09/21 History zolpidem 10 mg tablet 10 mg PO .QHS tablet 09/07/20 07/09/21 History epinephrine 0.3 mg/0.3 mL 0.3 mg IM ONCE #2 ea 04/27/21 07/09/21 Rx injection, auto-injector alprazolam 0.25 mg tablet 0.25 mg PO QID PRN tablet 05/19/21 07/09/21 History hydrochlorothiazide 12.5 mg tablet 12.5 mg PO DAILY #90 tablet 05/19/21 07/09/21 Rx ipratropium bromide 21 mcg (0.03 2 spray INTRANASAL BID #90 ml 05/19/21 07/09/21 Rx %) nasal spray docusate sodium 150 mg PO HS 05/24/21 07/09/21 History loperamide 2 mg PO PRN PRN #20 cap 05/26/21 07/09/21 Rx ondansetron HCl [Zofran] 4 mg PO Q8H PRN #20 tablet 05/26/21 07/09/21 Rx benzonatate 200 mg capsule 200 mg PO TID PRN #30 cap 06/15/21 07/09/21 Rx omeprazole 40 mg capsule,delayed 40 mg PO DAILY #30 cap 06/28/21 07/09/21 Rx release Patient hx anesthesia problems: none Family hx anesthesia problems: none Results Review: All pre-operative results and documents have been reviewed as part of the pre-operative evaluation. [facility] Past Medical History Medical History Allergic rhinitis Anxiety Convergence insufficiency Depression GERD (gastroesophageal reflux disease) History of closed head injury Hypertension Insomnia Surgical History Surgical History History of cholecystectomy History of fusion of cervical spine History of hysterectomy History of lumpectomy benign History of Yoly-en-Y gastric bypass History of tubal ligation Hx of nasal septoplasty Plantar fasciitis Family History Family History Father Heart disease Mother Breast cancer Other Family history of malignant melanoma Social History Social History (Updated 06/28/21 @ 10:26 by Helena Vo MA) Smoking status: Never smoker Second hand tobacco smoke exposure: No Alcohol intake: never Substance use: never Substance use type: does not use Living arrangements: with family Gender identity (if verbalized by the patient): Female Sexual Orientation (if Verbalized by the Patient): Straight or Heterosexual Spiritual care concerns: No Anes - Eval Final PreProcedure Day of Procedure 07/27/21 10:27 Patient weight: normal Heart: regular rate and rhythm Lungs: clear to auscultation and normal air movement Airway: Mallampati scale class II Neurological: alert and oriented Last oral intake: >/= 8 hours ASA classification: III Emergent: no Anesthetic plan: proceed Anesthesia type and monitoring: general GIVS and standard monitoring Results Review: All pre-operative results and documents have been reviewed as part of the pre-operative evaluation. Informed Consent: The patient's anesthetic plan and its attendant risks and benefits were discussed with the patient/family/POA. Questions were solicited and answers provided to the satisfaction of the patient/family/POA.
[2021-07-28 10:42] VITALS: BP 139/81; PULSE 74; RESP 16; TEMP 36.7; O2SAT 100; BMI 23.9
[2021-07-28] MEDS: LACTATED RINGERS 1,000 ML 150 ML IV CONT (10:55)
--- NOTE | 2021-07-28 11:24 | PM.HPGS ---
History of Present Illness History of Present Illness Consent: Risks, benefits, and alternatives have been discussed and questions answered. Patient agrees to proceed with procedure. Chief complaint: dysphagia Narrative: Sophie Lara is a 66 year old female with gastric bypass years ago lately with chest discomfort, better after using omeprazole. Review of Systems Constitutional: Constitutional: Denies headache(s) and Denies weakness Eyes: Eyes: Denies blurry vision ENT: Reports Normal hearing present, Denies headache(s) and Denies neck pain Cardiovascular: Cardiovascular: Denies chest pain and Denies dyspnea Respiratory: Respiratory: Denies dyspnea Gastrointestinal: Gastrointestinal: Reports no additional gastrointestinal complaints Genitourinary: Genitourinary: Denies dysuria Musculoskeletal: Musculoskeletal: Denies neck pain Integumentary/Breasts: Skin/Breast: Denies dry skin Neurologic: Reports Normal hearing present, Denies headache(s) and Denies weakness Psychiatric: Psychiatric: Denies anxiety Endocrine: Endocrine: Denies change in body appearance Hematologic/Lymphatic: Hematologic/Lymphatic: Denies easy bleeding Allergic/Immunologic: Allergic/Immunologic: Denies urticaria PMFSH Past Medical History Medical History (Updated 07/28/21 @ 11:25 by Papi Cagle MD) Allergic rhinitis Anxiety Convergence insufficiency Depression GERD (gastroesophageal reflux disease) History of closed head injury Hypertension Insomnia Non-cardiac chest pain Surgical History Surgical History (Updated 07/28/21 @ 11:25 by Papi Cagle MD) History of cholecystectomy History of fusion of cervical spine History of hysterectomy History of lumpectomy benign History of Yoly-en-Y gastric bypass History of tubal ligation Hx of nasal septoplasty Plantar fasciitis Family History Family History Father Heart disease Mother Breast cancer Other Family history of malignant melanoma Social History Social History (Updated 06/28/21 @ 10:26 by Helena Vo MA) Smoking status: Never smoker Second hand tobacco smoke exposure: No Alcohol intake: never Substance use: never Substance use type: does not use Living arrangements: with family Gender identity (if verbalized by the patient): Female Sexual Orientation (if Verbalized by the Patient): Straight or Heterosexual Spiritual care concerns: No Meds Home Medications and Allergies Home Medications Medication Instructions Recorded Confirmed Type bupropion HCl 150 mg tablet,12 hr 150 mg PO DAILY 09/07/20 07/28/21 History sustained-release conjugated estrogens 0.3 mg tablet 0.3 mg PO DAILY 09/07/20 07/28/21 History zolpidem 10 mg tablet 10 mg PO .QHS tablet 09/07/20 07/28/21 History epinephrine 0.3 mg/0.3 mL 0.3 mg IM ONCE #2 ea 04/27/21 07/28/21 Rx injection, auto-injector alprazolam 0.25 mg tablet 0.25 mg PO QID PRN tablet 05/19/21 07/28/21 History hydrochlorothiazide 12.5 mg tablet 12.5 mg PO DAILY #90 tablet 05/19/21 07/28/21 Rx ipratropium bromide 21 mcg (0.03 2 spray INTRANASAL BID #90 ml 05/19/21 07/28/21 Rx %) nasal spray docusate sodium 150 mg PO HS 05/24/21 07/28/21 History loperamide 2 mg PO PRN PRN #20 cap 05/26/21 07/28/21 Rx ondansetron HCl [Zofran] 4 mg PO Q8H PRN #20 tablet 05/26/21 07/28/21 Rx benzonatate 200 mg capsule 200 mg PO TID PRN #30 cap 06/15/21 07/28/21 Rx omeprazole 40 mg capsule,delayed 40 mg PO DAILY #30 cap 06/28/21 07/28/21 Rx release Allergies Allergy/AdvReac Type Severity Reaction Status Date / Time No Known Allergies Allergy Verified 07/28/21 10:41 Vital Signs Vital Signs - 24 hr 07/28/21 10:42 Temperature 98.1 F Pulse Rate 74 Respiratory Rate 16 Blood Pressure 139/81 Pulse Oximetry 100 Exam Const: General: comfortable and no acute distress HENMT: General nose exam: Normal
[2021-07-28 11:38] VITALS: BP 135/63; PULSE 75; RESP 11; O2SAT 100
[2021-07-28 11:48] VITALS: BP 120/96; PULSE 66; RESP 17; O2SAT 100
[2021-07-28 11:58] VITALS: BP 148/70; PULSE 60; RESP 14; O2SAT 100
== END 2021-07-28 12:25 | disposition home or self-care (01) ==
PROVIDERS: PCP Family Medicine; Visit Provider Internal Medicine Gastroenterology
PROC: 0DJ08ZZ Inspection of Upper Intestinal Tract, Via Natural or Artificial Opening Endoscopic (ICD-10-PCS; CPT 43235; principal; 2021-07-28 11:00)
DX: R07.89 Other chest pain (principal); Z98.84 Bariatric surgery status; H51.11 Convergence insufficiency; I10 Essential (primary) hypertension; K21.9 Gastro-esophageal reflux disease without esophagitis; F41.8 Other specified anxiety disorders; G47.00 Insomnia, unspecified; Z98.1 Arthrodesis status
CPT/HCPCS: 43239; 88305; J2704; J7120

== ENCOUNTER 2021-08-05 17:04 | Emergency (ER) | payer MEDICARE, OTHER, SELFPAY ==
[2021-08-05 17:12] VITALS: BP 149/81; PULSE 85; RESP 16; TEMP 36.7; O2SAT 100
--- NOTE | 2021-08-05 19:23 | ED.ALLEREA ---
HPI - Allergic Reaction General Chief complaint: Allergic Reaction Stated complaint: ALL RX, SWOLLEN EYES,TINGLING TONGUE Time Seen by Provider: 08/05/21 19:22 Source: patient Mode of arrival: ambulatory Limitations: no limitations History of Present Illness HPI narrative: The patient is a 66 yo female with a history of HTN, s/p CHI, GERD, AR, depression, anxiety, insomnia, HRT, s/p gastric bypass, allergic reactions, presenting for evaluation of allergic reaction. Patient states that [place] [employer] [place], patient with immediate eye swelling, tingling of her tongue and lips. Patient states she has a history of allergic reaction in December in the past for which there has not been a confirmed trigger. Patient has not followed up with allergy at this point but is waiting for cancellation appointment. Patient states that she did not have any shortness of breath, wheezing, nausea or vomiting. No abdominal pain. No episodes of diarrhea. No rash or hives. Patient took 50 mg of p.o. Benadryl with much improvement in her symptoms. She came to the emergency department because the last time this occurred, she had extensive swelling of her eyes and did require epinephrine. Patient denies any pain at this point. She reports itching and watering of her eyes. She denies eye pain or vision changes. Patient denies any new soaps, lotions or detergents. Related Data Home Medications Medication Instructions Recorded Confirmed bupropion HCl 150 mg tablet,12 hr 150 mg PO DAILY 09/07/20 07/30/21 sustained-release conjugated estrogens 0.3 mg tablet 0.3 mg PO DAILY 09/07/20 07/30/21 zolpidem 10 mg tablet 10 mg PO .QHS tablet 09/07/20 07/30/21 alprazolam 0.25 mg tablet 0.25 mg PO QID PRN tablet 05/19/21 07/30/21 Allergies Allergy/AdvReac Type Severity Reaction Status Date / Time azithromycin AdvReac Mild GI upset Verified 07/30/21 14:18 Review of Systems Review of Systems: CONSTITUTIONAL: Denies fever, chills, or sweats. EYES: Denies visual changes, redness, or discharge. Reports mild eyelid edema, itching eyes. ENT: Denies rhinorrhea, congestion, sore throat, or otalgia. CARDIOVASCULAR: Denies chest pain, palpitations, or edema. RESPIRATORY: Denies cough or dyspnea. GASTROINTESTINAL: Denies abdominal pain, nausea, vomiting, or diarrhea. GENITOURINARY: Denies dysuria or hematuria. SKIN: Denies rash or itching. MUSCULOSKELETAL: Denies back pain, joint pain, or myalgia. NEUROLOGIC: Denies headache, numbness, or weakness. [facility] Past Medical History Medical History Allergic rhinitis Anxiety Convergence insufficiency COVID-19 virus infection Depression GERD (gastroesophageal reflux disease) History of closed head injury Hypertension Insomnia Non-cardiac chest pain Surgical History Surgical History History of cholecystectomy History of fusion of cervical spine History of hysterectomy History of lumpectomy benign History of Yoly-en-Y gastric bypass History of tubal ligation Hx of nasal septoplasty Plantar fasciitis Family History Family History Father Heart disease Mother Breast cancer Other Family history of malignant melanoma Social History Social History Smoking status: Never smoker Second hand tobacco smoke exposure: No Alcohol intake: never Substance use: never Substance use type: does not use Gender identity (if verbalized by the patient): Female Sexual Orientation (if Verbalized by the Patient): Straight or Heterosexual Spiritual care concerns: No Exam Narrative: GENERAL: Awake, alert, conversant HEAD: Normocephalic, atraumatic. EYES: PERRLA and EOMI. ENT: Nares clear, no rhinorrhea or epistaxis. Mucous membranes moist. Uvula is midlin
[2021-08-05] MEDS: diphenhydrAMINE HCl CAP 25 MG CAPSULE PO (20:05)
[2021-08-05] MEDS: FAMOTIDINE 20 MG TABLET PO (20:06)
[2021-08-05 20:13] VITALS: BP 125/86; PULSE 88; RESP 18; O2SAT 98
[2021-08-05 20:47] VITALS: BP 125/77; PULSE 77; RESP 12; O2SAT 100
[2021-08-05] MEDS: ARTIFICIAL TEARS OPHTH SOLN 15 ML BOTTLE 1 DROP EACH EYE (20:47)
[2021-08-05] MEDS: ERYTHROMYCIN OPHTH OINTMENT 1 GM TUBE 1 APPLIC EACH EYE (20:47)
== END 2021-08-05 21:07 | disposition home or self-care (01) ==
LOC: ANHED 20:11
PROVIDERS: Emergency Provider Emergency Medicine; PCP Family Medicine
DX: T78.40XA Allergy, unspecified, initial encounter (principal); K21.9 Gastro-esophageal reflux disease without esophagitis; I10 Essential (primary) hypertension; Z86.16 Personal history of COVID-19; F32.9 Major depressive disorder, single episode, unspecified; F41.9 Anxiety disorder, unspecified; H51.11 Convergence insufficiency; Z98.1 Arthrodesis status; Z98.84 Bariatric surgery status
CPT/HCPCS: 99283; A9270; J1100

== ENCOUNTER 2021-12-16 09:12 | Outpatient (CLI) | payer MEDICARE, OTHER, SELFPAY ==
--- NOTE | ~2021-12-16 | DEXA_ITS ---
Bone Density Report Name: BREEZY MCKINNEY Age: 66 Sex: Female Ethnicity: White Date of : 1955 Indication: postmenopausal; hysterectomy; Referring Provider: Ortiz Corrales Study: Bone densitometry was performed. Exam Date: December 16, 2021 Accession number: [id number] Bone Density: Region BMD T-score Z-score Classification AP Spine (L1-L4) 1.168 1.1 2.9 Normal Femoral Neck (Left) 0.776 -0.7 0.9 Normal Total Hip (Left) 0.871 -0.6 0.7 Normal Total Hip Bilateral Avg 0.886 -0.5 0.8 Normal Femoral Neck (Right) 0.800 -0.4 1.1 Normal Total Hip (Right) 0.900 -0.3 0.9 Normal World Health Organization criteria for BMD impression classify patients as: Normal (T-score at or above -1.0), Osteopenia (T-score between -1.0 and -2.5), or Osteoporosis (T-score at or below -2.5). 10-year Fracture Risk: FRAX not reported because: All T-scores for Spine Total, Hip Total, Femoral Neck at or above -1.0 Clinical Information Provided by Patient: Has used the following medications: Vitamin D, Calcium Has the following medical conditions: Hysterectomy Patient maximum height was 66 Menopause Age: 49 No regular weight bearing exercise Drinks caffeinated beverages Onset of menses at age 13 Number of children 1 Impression: The patient has normal bone mass. Discussion: BONE DENSITY IS ABOVE THE MINIMUM DESIRABLE LEVEL AT ALL SKELETAL SITES TESTED. This patient?s bone mineral density is above the minimum desirable level (T-score -1.0 or better) at all sites measured. The patient should follow a healthful lifestyle (good nutrition with adequate calcium and vitamin D, and appropriate weight-bearing exercise). Follow-Up: Consider repeating this study in 5 years or sooner if there is some new clinical indication. Reported by: APOORVA on 12/16/2021 9:40:00 AM. Reviewed, dictated and finalized at location AMukesh HAMMER
== END 2021-12-16 09:13 | disposition home or self-care (01) ==
LOC: ANHIMG 09:14
PROVIDERS: PCP Family Medicine; Visit Provider Physician Assistant
DX: Z78.0 Asymptomatic menopausal state (principal)
CPT/HCPCS: 77080

== ENCOUNTER 2021-12-27 00:14 | Day surgery (SDC) | payer MEDICARE, OTHER, SELFPAY ==
[2021-12-15 14:47] VITALS: BMI 25.3
--- NOTE | 2021-12-25 12:47 | WPDANESEPPF ---
Anes - Initial Pre Proc Eval Procedure: Operation Date: 12/27/21 08:00 Proposed Procedures p Screening Colonoscopy - Papi Cagle MD Date/Time: 12/25/21 12:47 Surgeon: Papi Cagle MD Pre Op Diagnosis: neoplasm screening Patient Data Age: 66 Gender: F Height: 1.65 m Weight: 69 kg Allergies Allergy/AdvReac Type Severity Reaction Status Date / Time azithromycin AdvReac Mild GI upset Verified 12/27/21 06:39 Home Medications Medication Instructions Recorded Confirmed Type bupropion HCl 150 mg tablet,12 hr 150 mg PO DAILY 09/07/20 12/15/21 History sustained-release conjugated estrogens 0.3 mg tablet 0.3 mg PO DAILY 09/07/20 12/15/21 History zolpidem 10 mg tablet 10 mg PO .QHS tablet 09/07/20 12/15/21 History epinephrine 0.3 mg/0.3 mL 0.3 mg IM ONCE #2 ea 04/27/21 12/15/21 Rx injection, auto-injector alprazolam 0.25 mg tablet 0.25 mg PO QID PRN tablet 05/19/21 12/15/21 History ipratropium bromide 21 mcg (0.03 2 spray INTRANASAL BID #90 ml 05/19/21 12/15/21 Rx %) nasal spray tramadol 50 mg tablet 50 mg PO Q8H PRN #90 tablet 07/30/21 12/15/21 Rx hydrochlorothiazide 12.5 mg tablet 12.5 mg PO DAILY #90 tablet 09/20/21 12/15/21 Rx omeprazole 20 mg capsule,delayed 20 mg PO DAILY #90 cap 09/20/21 12/15/21 Rx release buspirone 5 mg tablet 5 mg PO TID #90 tablet 11/01/21 12/15/21 Rx Patient hx anesthesia problems: none Family hx anesthesia problems: none Results Review: All pre-operative results and documents have been reviewed as part of the pre-operative evaluation. [facility] Past Medical History Medical History Allergic rhinitis Anxiety Convergence insufficiency COVID-19 virus infection Depression GERD (gastroesophageal reflux disease) History of closed head injury Hypertension Insomnia Non-cardiac chest pain Surgical History Surgical History History of cholecystectomy History of fusion of cervical spine History of hysterectomy History of lumpectomy benign History of Yoly-en-Y gastric bypass History of tubal ligation Hx of nasal septoplasty Plantar fasciitis Family History Family History Father Heart disease Mother Breast cancer Other Family history of malignant melanoma Social History Social History Smoking status: Never smoker Second hand tobacco smoke exposure: No Alcohol intake: never Substance use: never Substance use type: does not use Living arrangements: with family Gender identity (if verbalized by the patient): Female Sexual Orientation (if Verbalized by the Patient): Straight or Heterosexual Spiritual care concerns: No Anes - Eval Final PreProcedure Day of Procedure 12/25/21 12:47 Patient weight: overweight Heart: regular rate and rhythm Lungs: clear to auscultation and normal air movement Airway: Mallampati scale class II Neurological: alert and oriented Last oral intake: >/= 8 hours ASA classification: II Emergent: no Anesthetic plan: proceed Anesthesia type and monitoring: general GIVS and standard monitoring Results Review: All pre-operative results and documents have been reviewed as part of the pre-operative evaluation. Informed Consent: The patient's anesthetic plan and its attendant risks and benefits were discussed with the patient/family/POA. Questions were solicited and answers provided to the satisfaction of the patient/family/POA.
[2021-12-27 06:40] VITALS: BP 139/81; PULSE 97; RESP 20; O2SAT 100; BMI 25.1
[2021-12-27] MEDS: LACTATED RINGERS 1,000 ML 150 ML IV CONT (06:57)
--- NOTE | 2021-12-27 07:22 | PM.HPGS ---
History of Present Illness History of Present Illness Consent: Risks, benefits, and alternatives have been discussed and questions answered. Patient agrees to proceed with procedure. Chief complaint: neoplasm screening Narrative: Sophie Lara is a 66 year old female here for screening colonoscopy, last one more than 10 years ago. Review of Systems Constitutional: Constitutional: Denies headache(s) and Denies weakness Eyes: Eyes: Denies blurry vision ENT: Reports Normal hearing present, Denies headache(s) and Denies neck pain Cardiovascular: Cardiovascular: Denies chest pain and Denies dyspnea Respiratory: Respiratory: Denies dyspnea Gastrointestinal: Gastrointestinal: Reports no additional gastrointestinal complaints Genitourinary: Genitourinary: Denies dysuria Musculoskeletal: Musculoskeletal: Denies neck pain Integumentary/Breasts: Skin/Breast: Denies dry skin Neurologic: Reports Normal hearing present, Denies headache(s) and Denies weakness Psychiatric: Psychiatric: Denies anxiety Endocrine: Endocrine: Denies change in body appearance Hematologic/Lymphatic: Hematologic/Lymphatic: Denies easy bleeding Allergic/Immunologic: Allergic/Immunologic: Denies urticaria PMFSH Past Medical History Medical History (Updated 12/27/21 @ 07:23 by Papi Cagle MD) Allergic rhinitis Anxiety Colon cancer screening Convergence insufficiency COVID-19 virus infection Depression GERD (gastroesophageal reflux disease) History of closed head injury Hypertension Insomnia Non-cardiac chest pain Surgical History Surgical History History of cholecystectomy History of fusion of cervical spine History of hysterectomy History of lumpectomy benign History of Yoly-en-Y gastric bypass History of tubal ligation Hx of nasal septoplasty Plantar fasciitis Family History Family History Father Heart disease Mother Breast cancer Other Family history of malignant melanoma Social History Social History Smoking status: Never smoker Second hand tobacco smoke exposure: No Alcohol intake: never Substance use: never Substance use type: does not use Living arrangements: with family Gender identity (if verbalized by the patient): Female Sexual Orientation (if Verbalized by the Patient): Straight or Heterosexual Spiritual care concerns: No Meds Home Medications and Allergies Home Medications Medication Instructions Recorded Confirmed Type bupropion HCl 150 mg tablet,12 hr 150 mg PO DAILY 09/07/20 12/15/21 History sustained-release conjugated estrogens 0.3 mg tablet 0.3 mg PO DAILY 09/07/20 12/15/21 History zolpidem 10 mg tablet 10 mg PO .QHS tablet 09/07/20 12/15/21 History epinephrine 0.3 mg/0.3 mL 0.3 mg IM ONCE #2 ea 04/27/21 12/15/21 Rx injection, auto-injector alprazolam 0.25 mg tablet 0.25 mg PO QID PRN tablet 05/19/21 12/15/21 History ipratropium bromide 21 mcg (0.03 2 spray INTRANASAL BID #90 ml 05/19/21 12/15/21 Rx %) nasal spray tramadol 50 mg tablet 50 mg PO Q8H PRN #90 tablet 07/30/21 12/15/21 Rx hydrochlorothiazide 12.5 mg tablet 12.5 mg PO DAILY #90 tablet 09/20/21 12/15/21 Rx omeprazole 20 mg capsule,delayed 20 mg PO DAILY #90 cap 09/20/21 12/15/21 Rx release buspirone 5 mg tablet 5 mg PO TID #90 tablet 11/01/21 12/15/21 Rx Allergies Allergy/AdvReac Type Severity Reaction Status Date / Time azithromycin AdvReac Mild GI upset Verified 12/27/21 06:39 Vital Signs Vital Signs - 24 hr 12/27/21 06:40 Pulse Rate 97 Respiratory Rate 20 Blood Pressure 139/81 Pulse Oximetry 100 Exam Const: General: comfortable and no acute distress HENMT: General nose exam: Normal nares present Eyes: General: appearance normal, both eyes and all related structures Neck: Neck: no JVD R
[2021-12-27 07:50] VITALS: BP 113/71; PULSE 79; RESP 22; O2SAT 100
[2021-12-27 08:00] VITALS: BP 153/84; PULSE 75; RESP 15; O2SAT 100
[2021-12-27 08:10] VITALS: BP 144/76; PULSE 76; RESP 22; O2SAT 100
== END 2021-12-27 08:21 | disposition home or self-care (01) ==
PROVIDERS: PCP Family Medicine; Visit Provider Internal Medicine Gastroenterology
PROC: 0DJD8ZZ Inspection of Lower Intestinal Tract, Via Natural or Artificial Opening Endoscopic (ICD-10-PCS; CPT 45378; principal; 2021-12-27 08:00)
DX: Z12.11 Encounter for screening for malignant neoplasm of colon (principal); D12.0 Benign neoplasm of cecum; K57.30 Diverticulosis of large intestine without perforation or abscess without bleeding; K64.8 Other hemorrhoids; I10 Essential (primary) hypertension; K21.9 Gastro-esophageal reflux disease without esophagitis; F41.8 Other specified anxiety disorders; Z98.1 Arthrodesis status; Z98.84 Bariatric surgery status
CPT/HCPCS: 45385; 88305; J2001; J2704; J7120

== ENCOUNTER 2022-01-02 07:31 | Emergency (ER) | payer MEDICARE, OTHER, SELFPAY ==
--- NOTE | ~2022-01-02 | XR_ITS ---
EXAMINATION: XR chest 2V DATE: 01/02/2022 08:42 INDICATION: Shortness of breath and cough TECHNIQUE: PA and lateral views of the chest were obtained. COMPARISON: Chest radiograph dated 06/25/2021 FINDINGS: The lungs are clear with no focal airspace opacities, pulmonary edema, pleural effusion or pneumothor ax. The cardiomediastinal silhouette is normal. Cholecystectomy clips in the right upper quadrant. Ad ditional surgical clips in the left upper quadrant. Plate-screw fixation for mid to lower cervical an terior spinal fusion. IMPRESSION: 1. No acute cardiopulmonary disease. Reviewed, dictated and finalized at location A.
[2022-01-02 07:34] VITALS: BP 164/87; PULSE 90; RESP 16; TEMP 36.6; O2SAT 97
--- NOTE | 2022-01-02 08:13 | ED.GENADULT ---
HPI - General Adult General Chief complaint: Upper Respiratory Infection Stated complaint: URI Time Seen by Provider: 01/02/22 07:45 Source: patient History of Present Illness HPI narrative: 66-year-old female presented to the emergency department for evaluation of 1 week of chest tightness cough and nasal congestion. Patient states over the course of the last week she has had worsening symptoms including cough nasal congestion and chest tightness. Patient states sometimes the cough is so bad that she feels she has to catch her breath. Patient is vaccinated against COVID. Patient did have Covid back in May. Patient is not a smoker. Related Data Home Medications Medication Instructions Recorded Confirmed bupropion HCl 150 mg tablet,12 hr 150 mg PO DAILY 09/07/20 12/15/21 sustained-release conjugated estrogens 0.3 mg tablet 0.3 mg PO DAILY 09/07/20 12/15/21 zolpidem 10 mg tablet 10 mg PO .QHS tablet 09/07/20 12/15/21 alprazolam 0.25 mg tablet 0.25 mg PO QID PRN tablet 05/19/21 12/15/21 Allergies Allergy/AdvReac Type Severity Reaction Status Date / Time azithromycin AdvReac Mild GI upset Verified 01/02/22 07:43 Review of Systems Review of Systems: CONSTITUTIONAL: Denies fever, chills, or sweats. EYES: Denies visual changes, redness, or discharge. ENT: Nasal congestion CARDIOVASCULAR: Denies chest pain, palpitations, or edema. RESPIRATORY: Cough and chest tightness. GASTROINTESTINAL: Denies abdominal pain, nausea, vomiting, or diarrhea. GENITOURINARY: Denies dysuria or hematuria. SKIN: Denies rash or itching. MUSCULOSKELETAL: Denies back pain, joint pain, or myalgia. NEUROLOGIC: Denies headache, numbness, or weakness. [facility] Past Medical History Medical History (Updated 01/02/22 @ 09:04 by Dakotah Hoover MD) Allergic rhinitis Anxiety Colon cancer screening Convergence insufficiency COVID-19 virus infection Depression GERD (gastroesophageal reflux disease) History of closed head injury Hypertension Insomnia Non-cardiac chest pain Surgical History Surgical History History of cholecystectomy History of fusion of cervical spine History of hysterectomy History of lumpectomy benign History of Yoly-en-Y gastric bypass History of tubal ligation Hx of nasal septoplasty Plantar fasciitis Family History Family History Father Heart disease Mother Breast cancer Other Family history of malignant melanoma Social History Social History Smoking status: Never smoker Second hand tobacco smoke exposure: No Alcohol intake: never Substance use: never Substance use type: does not use Gender identity (if verbalized by the patient): Female Sexual Orientation (if Verbalized by the Patient): Straight or Heterosexual Spiritual care concerns: No Exam Narrative: APPEARANCE: Well appearing, no pain, no distress, well-nourished. HEAD: normocephalic, atraumatic. EYES: PERRLA/EOMI, conjunctivae clear. NOSE: Normal no drainage THROAT: Pharynx clear, no exudate. NECK: Supple. No adenopathy, no masses. RESPIRATORY: Airway patent, respirations nonlabored. Clear to auscultation bilaterally, no rales, rhonchi, wheezing. CARDIOVASCULAR: Regular rate and rhythm without murmurs rubs or gallops. ABDOMINAL: Soft, nontender, nondistended, normal bowel sounds MUSCULOSKELETAL: Moves all extremities. Strength/ROM intact, No edema, No calf tenderness. NEURO: Alert. Cranial nerves II through XII intact. Grossly intact SKIN: Warm, dry. Normal Color Course Course Emergency Course: Patient did feel improved with treatment. Patient was negative for influenza. Chest x-ray showed no acute cardiopulmonary abnormality. Patient was discharged home with albuterol for chest tightness and Tessalon Perles for cough. All questions and concerns were addressed V
[2022-01-02 08:27] VITALS: PULSE 80; RESP 22
[2022-01-02] MEDS: ALBUTEROL SULFATE NEB 2.5 MG/0.5 ML INH 5 MG INHALATION (08:27)
[2022-01-02 08:33] VITALS: PULSE 87; RESP 22
[2022-01-02] MEDS: BENZONATATE 100 MG CAPSULE 200 MG PO (09:18)
[2022-01-02] MEDS: AZITHROMYCIN 250 MG TABLET 500 MG PO (09:18)
== END 2022-01-02 09:29 | disposition home or self-care (01) ==
PROVIDERS: Emergency Provider Emergency Medicine; PCP Family Medicine
DX: R05.9 Cough, unspecified (principal); I10 Essential (primary) hypertension; K21.9 Gastro-esophageal reflux disease without esophagitis; F41.9 Anxiety disorder, unspecified; F32.A Depression, unspecified; Z86.16 Personal history of COVID-19; Z98.1 Arthrodesis status; Z98.84 Bariatric surgery status
CPT/HCPCS: 71046; 87804; 94640; 99283; A9270

== ENCOUNTER 2022-03-01 15:09 | Outpatient (CLI) | payer MEDICARE, OTHER, SELFPAY ==
--- NOTE | ~2022-03-01 | XR_ITS ---
EXAMINATION: XR chest 2V 03/01/2022 15:36 INDICATION: Mid chest pain. PROCEDURE: 2 view chest COMPARISON: Comparison to multiple prior studies sequentially, with oldest reviewed study dated 09/09. FINDINGS: The lungs are clear. The cardiomediastinal silhouette is within normal limits. There are no pleural effusions. There is no pneumothorax suspected. IMPRESSION: 1: NO ACUTE CARDIOPULMONARY DISEASE. Reviewed, dictated and finalized at location A.
[2022-03-01 15:31] LABS: Basophils Absolute Auto 0.1 K/mm3 (0.0-0.1); Basophils Percent Auto 1.2 % (0.2-1.2); Eosinophils Percent Auto 0.6 % (0-4.4); Hematocrit 40.9 % (37.0-47.0); Hemoglobin 13.5 g/dL (12.0-15.0); Immature Granulocyte Absolute 0.01 K/mm3 (0.00-0.031); Immature Granulocyte Percent A 0.2 % (0-0.5); Lymphocytes Absolute Auto 1.56 K/mm3 (0.9-3.2); Lymphocytes Percent Auto 31.3 % (18.3-44.2); Mean Corpuscular Hemoglobin 30.3 pg (26-34); Mean Corpuscular Volume 91.9 fl (80-100); Mean Platelet Volume 9.6 fl (7.4-10.4); Monocytes Absolute Auto 0.4 K/mm3 (0.1-0.6); Monocytes Percent Auto 8.4 % (2.6-8.5); Neutrophils Absolute Auto 2.9 K/mm3 (1.3-6.7); Neutrophils Percent Auto 58.3 % (45.5-73.1); Platelet Count Result 274 k/mm3 (150-375); Red Blood Count 4.45 M/mm3 (4.2-5.4); Red Cell Distribution Width 12.8 % (11.5-14.5)
[2022-03-01 16:15] LABS: Alanine Aminotransferase 20 U/L (6-35); Albumin Level 4.4 g/dL (3.5-5.1); Alkaline Phosphatase 63 U/L (38-126); Anion Gap 6 mmol/L (8-16); Aspartate Amino Transferase 36 U/L (14-36); Bilirubin,Total 0.9 mg/dL (0.2-1.3); Blood Urea Nitrogen 12 mg/dL (7-17); Calcium 9.2 mg/dL (8.4-10.2); Carbon Dioxide 33 mmol/L (22-30); Chloride 93 mmol/L (98-107); Estimated Glomerular Filt Rate > 60; Glucose 99 mg/dL (65-110); Potassium 3.3 mmol/L (3.4-5.0); Sodium 132 mmol/L (137-145)
[2022-03-01 16:27] LABS: Troponin I < 0.012 ng/mL (0.000-0.034)
[2022-03-01 16:45] LABS: Thyroid Stimulating Hormone 0.903 uIU/mL (0.465-4.680)
== END 2022-03-01 15:10 | disposition home or self-care (01) ==
PROVIDERS: PCP Family Medicine; Visit Provider Physician Assistant
DX: R07.89 Other chest pain (principal); I10 Essential (primary) hypertension
CPT/HCPCS: 36415; 71046; 80053; 84443; 84484; 85025

== ENCOUNTER 2022-06-11 15:49 | Emergency (ER) | payer MEDICARE, OTHER, SELFPAY ==
[2022-06-11] VITALS (9 sets, daily range): BP systolic 110–157; BP diastolic 47–82; PULSE 69–83; RESP 10–20; TEMP 36.8; O2SAT 99–100
--- NOTE | 2022-06-11 16:17 | ED.ALLEREA ---
HPI - Allergic Reaction General Chief complaint: Allergic Reaction Stated complaint: allergic reaction Time Seen by Provider: 06/11/22 15:57 Source: patient and family Mode of arrival: ambulatory Limitations: no limitations History of Present Illness HPI narrative: Patient is 67 years old white female presents with sudden onset of swelling eyes with severe itching and tearing, numbness at the tip of the tongue and lips. She denies difficulty swallowing or breathing. History of allergy, was seen by service technician without a specific diagnosis, patient on inhaler as needed, patient went with her to shopping center with a lot of plants, [place] and trees.. Related Data Home Medications Medication Instructions Recorded Confirmed bupropion HCl 150 mg tablet,12 hr 150 mg PO DAILY 09/07/20 04/29/22 sustained-release conjugated estrogens 0.3 mg tablet 0.3 mg PO DAILY 09/07/20 04/29/22 (Premarin) zolpidem 10 mg tablet 10 mg PO .QHS 09/07/20 04/29/22 alprazolam 0.25 mg tablet 0.25 mg PO QID PRN Anxiety 05/19/21 04/29/22 Allergies Allergy/AdvReac Type Severity Reaction Status Date / Time azithromycin AdvReac Mild GI upset Verified 04/28/22 13:00 Review of Systems Review of Systems: All systems reviewed & are unremarkable except as noted in HPI and below PMFSH Past Medical History Medical History Allergic rhinitis Anxiety Colon cancer screening Convergence insufficiency COVID-19 virus infection Depression GERD (gastroesophageal reflux disease) History of closed head injury Hypertension Insomnia Non-cardiac chest pain Surgical History Surgical History History of cholecystectomy History of fusion of cervical spine History of hysterectomy History of lumpectomy benign History of Yoly-en-Y gastric bypass History of tubal ligation Hx of nasal septoplasty Plantar fasciitis Family History Family History Father Heart disease Mother Breast cancer Other Family history of malignant melanoma Social History Social History Smoking status: Never smoker Second hand tobacco smoke exposure: No Alcohol intake: never Substance use: never Substance use type: does not use Gender identity (if verbalized by the patient): Female Sexual Orientation (if Verbalized by the Patient): Straight or Heterosexual Spiritual care concerns: No Exam Narrative: General appearance: Well-developed, well-nourished Skin: Normal color Head: Normocephalic, nontraumatic Eyes: Edematous changes of the eyelids bilaterally, injected conjunctivae bilaterally, TEARS bilaterally ENT: Oropharynx normal, ears normal, nose normal Neck: Supple, nontender Chest and respiratory: Airway patent, no respiratory distress, no accessory muscle use Heart: Regular rate/rhythm Neurologic: Alert and oriented ?3, MANAGER RADIATION is normal as tested, no gross motor deficit Course Reevaluation(s) Reevaluation #1: Patient feeling much better, no tingling of the tongue or lips anymore, her allergic conjunctivitis improved up to 80%. Patient feeling great and ready to go home. Date: 06/11/22 Time: 17:42 Vital Signs Vital signs: Vital Signs Temperature 36.8 C 06/11/22 16:05 Pulse Rate 78 06/11/22 16:05 Respiratory Rate 18 06/11/22 16:05 Blood Pressure 155/82 H 06/11/22 16:05 Pulse Oximetry 100 06/11/22 16:05 Oxygen Delivery Room Air 06/11/22 16:05 Temperature 36.8 C 06/11/22 16:05 Pulse Rate 78 06/11/22 16:05 Respiratory Rate 18
[2022-06-11] MEDS: methylPREDNISolone SOD SUCC 125 MG VIAL IV PUSH (16:26)
[2022-06-11] MEDS: EPINEPHrine HCL INJ 1 MG/ML AMPUL 0.3 MG IM (16:26)
[2022-06-11] MEDS: FAMOTIDINE 20 MG/2 ML VIAL IV PUSH (16:50)
[2022-06-11] MEDS: OLOPATADINE 0.1% OPHTH SOLN 5 ML BTL 1 DROP EACH EYE (17:22)
== END 2022-06-11 18:01 | disposition home or self-care (01) ==
PROVIDERS: Emergency Provider Emergency Medicine; PCP Family Medicine
DX: T78.40XA Allergy, unspecified, initial encounter (principal); H10.11 Acute atopic conjunctivitis, right eye; K21.9 Gastro-esophageal reflux disease without esophagitis; I10 Essential (primary) hypertension; Z86.16 Personal history of COVID-19; Z98.84 Bariatric surgery status; F41.9 Anxiety disorder, unspecified; F32.A Depression, unspecified
CPT/HCPCS: 96372; 96374; 96375; 99284; A9270; J0171; J2930

== ENCOUNTER 2022-11-08 15:44 | Outpatient (CLI) | payer MEDICARE, OTHER, SELFPAY ==
--- NOTE | ~2022-11-08 | XR_ITS ---
XR knee LT min 4V 11/08/2022 16:17 Indication: Left knee pain Procedure: 4 views left knee Comparison: No prior studies for comparison. Findings: No fracture, subluxation or dislocation. No significant joint effusion. No foreign bodies. No joint space narrowing. Impression: 1: No significant bone or joint abnormality. Reviewed, dictated and finalized at location A. GRAM MAKER Impression: 1: No significant bone or joint abnormality.
== END 2022-11-08 15:45 | disposition home or self-care (01) ==
LOC: ANHIMG 15:48
PROVIDERS: PCP Family Medicine; Visit Provider Physician Assistant
DX: M25.562 Pain in left knee (principal)
CPT/HCPCS: 73564

== ENCOUNTER 2023-06-26 09:32 | Outpatient (CLI) | payer MEDICARE, OTHER, SELFPAY ==
[2023-06-26 10:34] LABS: Influenza A QL RT-PCR Negative (Negative); Influenza B QL RT-PCR Negative (Negative); SARS-CoV-2 RNA PCR Negative (Negative)
== END 2023-06-26 09:33 | disposition home or self-care (01) ==
PROVIDERS: PCP Family Medicine; Visit Provider Physician Assistant
DX: R50.9 Fever, unspecified (principal)
CPT/HCPCS: 87636

== ENCOUNTER 2023-09-07 12:19 | Outpatient (CLI) | payer MEDICARE, OTHER, SELFPAY ==
--- NOTE | ~2023-09-07 | XR_ITS ---
EXAMINATION: XR lumbar spine min 4V, XR sacrum coccyx min 2V DATE: 09/07/2023 12:52 INDICATION: Low back pain post fall TECHNIQUE: 1. Anteroposterior, lateral, and bilateral oblique views of the lumbar spine, and cone-down lateral v iew of the lumbosacral junction were obtained. 2. AP, angled AP and lateral views of the sacrum and coccyx were obtained. COMPARISON: 12/28/2020 and 02/21/2012 FINDINGS: Unchanged tenting the lumbar levoscoliosis. Also unchanged is 3-4 degree retrolisthesis L2 on L3 and L3 on L4 and 3 mm anterolisthesis L4 on L5. Chronic mild likely physiologic anterior wedging at L1. R emaining vertebral body heights are normal. Mild to moderate right-sided predominant disc height loss at L3-L4. Otherwise mild disc height loss with mild degenerative endplate changes throughout the rem ainder of the lumbar and visualized lower thoracic spine. No pars interarticularis defects. There is severe bilateral facet osteoarthritis at L4-L5 and on the left at L5-S1. Moderate facet osteoarthriti s on the right at L5-S1 and mild facet osteoarthritis the more cephalad lumbar spine. Sacral arches a re intact. No evident fracture. Stable appearance of mild rightward deviation of the coccyx which cou ld be either developmental or sequela of old trauma. There is mild osteoarthritis at the bilateral sa croiliac joints. Multiple phleboliths in the pelvis. Cholecystectomy clips in right upper quadrant. T here are additional surgical clips in the left abdomen. IMPRESSION: 1. No significant interval change in mild to moderate lumbar spondylosis with severe lower lumbar fac et osteoarthritis. Reviewed, dictated and finalized at location A. UET LINE COOK IMPRESSION: 1. No significant interval change in mild to moderate lumbar spondylosis with s evere lower lumbar facet osteoarthritis.
== END 2023-09-07 12:20 | disposition home or self-care (01) ==
PROVIDERS: PCP Family Medicine; Visit Provider Physician Assistant
DX: M54.50 Low back pain, unspecified (principal); M53.3 Sacrococcygeal disorders, not elsewhere classified; Z91.81 History of falling
CPT/HCPCS: 72110; 72220

== ENCOUNTER 2023-10-19 13:31 | Outpatient (CLI) | payer MEDICARE, OTHER, SELFPAY ==
--- NOTE | 2023-10-19 13:53 | ECHO_ITS ---
Patient Info Name: Sophie Lara Age: 68 years : 1955 Gender: Female Ht: 65 in Wt: 177 lbs BSA: 1.94 m2 HR: 74 bpm BP: 143 / 86 mmHg Technical Quality: Good Exam Date: 10/19/2023 2:00 PM Exam Location: Echo Lab Patient Status: Outpatient Admit Date: 10/19/2023 Staff Ordering Physician: Ortiz Corrales PA-C Attending Provider: Ortiz Corrales PA-C Referring Physician: Antoni PÉREZ; Exam Type: CA echo doppler color flow Study Info Indications I10 - Essential (primary) hypertension R06.09 - Other forms of dyspnea Complete two-dimensional, color flow and Doppler transthoracic echocardiogram is performed. Summary 1. Complete two-dimensional, color flow and Doppler transthoracic echocardiogram is performed. 2. Left ventricular chamber dimension is normal. 3. Left ventricular systolic function is normal, estimated at 60-65%. 4. The left ventricular diastolic function is grade I diastolic dysfunction. 5. E/e' 10 is mildly elevated. 6. Left atrial chamber dimension is moderately enlarged. 7. The mitral valve has moderately calcified annulus. 8. There is mild mitral valve regurgitation. 9. There is trace tricuspid valve regurgitation. Left Ventricle E/e' 10 is mildly elevated. Left ventricular chamber dimension is normal. Left ventricular systolic function is normal, estimated at 60-65%. The left ventricular diastolic function is grade I diastolic dysfunction. Right Ventricle Right ventricular systolic function is normal and with normal TAPSE 2.5 cm. Right ventricular chamber dimension is normal. Left Atria Left atrial chamber dimension is moderately enlarged. Right Atria Right atrial chamber dimension is normal. Aortic Valve The aortic valve is trileaflet. There is no aortic valve stenosis. There is no aortic valve regurgitation. Pulmonic Valve There is no pulmonic regurgitation. Mitral Valve The mitral valve has moderately calcified annulus. There is no mitral valve stenosis. There is mild mitral valve regurgitation. Tricuspid Valve There is trace tricuspid valve regurgitation. RVSP is not calculated due to an inadequate TR jet. Pericardium/Pleural There is no pericardial effusion. Inferior Vena Cava Normal inferior vena cava with >50% collapse upon inspiration consistent with normal right atrial pressure, 5 mmHg. Aorta The aortic root size at the sinus of Valsalva is normal. Left Ventricular Outflow Tract Name Value Normal LVOT 2D LVOT Diameter 2.0 cm LVOT Doppler LVOT Peak Gradient 3 mmHg LVOT Mean Gradient 1 mmHg LVOT VTI 24 cm LVOT VTI/AV VTI Ratio 0.7 LVOT Stroke Volume 76 ml LVOT CO 4.7 l/min LVOT CI 2.4 l/min/m2 Pulmonic Valve Name Value Normal PV Doppler PV Peak Gradient 2 mmHg
== END 2023-10-19 13:32 | disposition home or self-care (01) ==
LOC: ANHCARD 13:34
PROVIDERS: PCP Family Medicine; Visit Provider Physician Assistant
DX: M79.89 Other specified soft tissue disorders (principal); I10 Essential (primary) hypertension; R06.09 Other forms of dyspnea; R93.1 Abnormal findings on diagnostic imaging of heart and coronary circulation; I34.81 Nonrheumatic mitral (valve) annulus calcification; I34.0 Nonrheumatic mitral (valve) insufficiency; I07.1 Rheumatic tricuspid insufficiency
CPT/HCPCS: 93306

== ENCOUNTER 2024-04-13 18:47 | Emergency (ER) | payer MEDICARE, OTHER, SELFPAY ==
[2024-04-13] VITALS (9 sets, daily range): BP systolic 147–182; BP diastolic 63–97; PULSE 71–81; RESP 9–18; TEMP 36.3–37.3; O2SAT 97–100
--- NOTE | ~2024-04-13 | XR_ITS ---
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 RESULT: Lines, tubes, and devices: ACDF hardware. Surgical clips over the GE junction and right upper quadra nt. Lungs and pleura: Clear. Cardiomediastinal silhouette: Stable. Other: No acute osseous or upper abdominal finding. IMPRESSION: No acute cardiopulmonary process. Reviewed, dictated and finalized at location K.
--- NOTE | 2024-04-13 18:49 | ECG_ITS ---
Test Date: 2024-04-13 18:55:52 Measurements Intervals [place] Rate: 78 P: 56 TX: 161 QRS: 56 QRSD: 96 T: 50 QT: 382 QTc: 436 Interpretive Statements SINUS RHYTHM BASELINE ARTIFACT- I, II, III, AVR, AVL NORMAL ECG No previous ECG available for comparison Electronically Signed On 04-14-2024 07:32:49 CDT by Clifford Jimenez D.O.
[2024-04-13 19:03] LABS: Basophils Absolute Auto 0.1 K/mm3 (0.0-0.1); Basophils Percent Auto 0.8 % (0.2-1.2); Eosinophils Percent Auto 0.5 % (0-4.4); Hemoglobin 13.5 g/dL (12.0-15.0); Immature Granulocyte Absolute 0.01 K/mm3 (0.00-0.031); Immature Granulocyte Percent A 0.1 % (0-0.5); Lymphocytes Percent Auto 38.1 % (18.3-44.2); Mean Corpuscular HGB Conc 34.6 g/dl (32-36); Mean Corpuscular Volume 89.4 fl (80-100); Mean Platelet Volume 9.5 fl (7.4-10.4); Monocytes Absolute Auto 0.6 K/mm3 (0.1-0.6); Monocytes Percent Auto 7.4 % (2.6-8.5); Neutrophils Percent Auto 53.1 % (45.5-73.1); Platelet Count Result 289 k/mm3 (150-375); Red Blood Count 4.36 M/mm3 (4.2-5.4); Red Cell Distribution Width 13.3 % (11.5-14.5); White Blood Count 7.6 K/mm3 (4.5-10.0)
[2024-04-13] MEDS: ASPIRIN 81 MG CHEWABLE TABLET 324 MG PO (19:03)
[2024-04-13 19:13] LABS: Alanine Aminotransferase 19 U/L (6-35); Albumin Level 4.6 g/dL (3.5-5.1); Alkaline Phosphatase 71 U/L (38-126); Anion Gap 9 mmol/L (4-12); Aspartate Amino Transferase 34 U/L (14-36); Blood Urea Nitrogen 15 mg/dL (7-17); Calcium 9.2 mg/dL (8.4-10.2); Carbon Dioxide 29 mmol/L (22-30); Chloride 89 mmol/L (98-107); Estimated CRCL calculation 56 ml/min; Estimated Glomerular Filt Rate > 60; Glucose 102 mg/dL (65-110); Lipase 243 U/L (23-300); Potassium 3.5 mmol/L (3.4-5.0); Sodium 127 mmol/L (137-145)
[2024-04-13 19:15] LABS: INR 0.9; Prothrombin Time 12.4 Seconds (11.1-14.7)
[2024-04-13 19:17] LABS: Partial Thromboplastin Time 21.6 Seconds (22.3-36.8)
[2024-04-13 19:25] LABS: Troponin I < 0.012 ng/mL (0.000-0.034)
--- NOTE | 2024-04-13 22:01 | ECG_ITS ---
Test Date: 2024-04-13 22:01:16 Measurements Intervals [place] Rate: 66 P: 59 OR: 180 QRS: 47 QRSD: 97 T: 30 QT: 418 QTc: 440 Interpretive Statements SINUS RHYTHM BASELINE ARTIFACT- I, II, III, AVR, AVL, AVF NORMAL ECG Compared to ECG 04/13/2024 18:55:52 No significant changes Electronically Signed On 04-14-2024 07:44:51 CDT by Clifford Jimenez D.O.
[2024-04-13 22:21] LABS: Troponin I < 0.012 ng/mL (0.000-0.034)
--- NOTE | 2024-04-13 22:47 | ED.CHESTPAIN ---
HPI - Chest Pain General Chief Complaint: Chest Pain Stated Complaint: CHEST PAIN X 1/2 HOUR Time Seen by Provider: 04/13/24 19:03 History of Present Illness HPI narrative: Patient presents here after she had been moving furniture with her at home and started having some chest pressure. States it feels like it and Jose Elias wrap around her chest, with little bit of numbness to her left arm. Symptoms resolving. Family history of cardiac disease, no personal history. Related Data Home Medications Medication Instructions Recorded Confirmed bupropion HCl 150 mg tablet,12 hr 150 mg PO DAILY 09/07/20 02/29/24 sustained-release zolpidem 10 mg tablet 10 mg PO .QHS 09/07/20 02/29/24 alprazolam 0.25 mg tablet 0.25 mg PO QID PRN Anxiety 05/19/21 02/29/24 fexofenadine 180 mg tablet 180 mg PO DAILY 03/23/23 02/29/24 (Linda Allergy) Allergies Allergy/AdvReac Type Severity Reaction Status Date / Time No Known Allergies Allergy Verified 04/13/24 19:00 Review of Systems Review of Systems: All systems reviewed & are unremarkable except as noted in HPI and below PMFSH Past Medical History Medical History (Updated 04/13/24 @ 22:47 by Beth Pelaez MD) Allergic rhinitis Anxiety Colon cancer screening Convergence insufficiency COVID-19 virus infection Depression GERD (gastroesophageal reflux disease) History of closed head injury Hypertension Insomnia Non-cardiac chest pain Trochanteric bursitis, right hip Surgical History Surgical History History of cholecystectomy History of fusion of cervical spine History of hysterectomy History of lumpectomy benign History of Yoly-en-Y gastric bypass History of tubal ligation Hx of nasal septoplasty Plantar fasciitis Family History Family History Father Heart disease Mother Breast cancer Other Family history of malignant melanoma Social History Social History (Updated 02/29/24 @ 14:20 by Justa Baron CMA) Social History: caffeine use Smoking status: Never smoker Second hand tobacco smoke exposure: No Alcohol intake: never Substance use: never Substance use type: does not use Living arrangements: with family Occupation/Education: retired Gender identity (if verbalized by the patient): Female Sexual Orientation (if Verbalized by the Patient): Straight or Heterosexual Spiritual care concerns: No Exam Narrative: EXAMINATION OF ORGAN SYSTEMS/BODY AREAS: Constitutional: Vital signs per nursing GENERAL:[No acute distress, non-toxic appearing.] HEAD: Normal with no signs of head trauma. EYES: EOMI, conjunctiva normal ENT: Hearing grossly intact LUNGS: Nonlabored breathing. HEART: [Regular rate and rhythm], normal radial pulses ABD: [Soft], [nontender to palpation] EXT: Normal range of motion SKIN: [No rashes or lesions.] NEURO: [Alert and oriented x 3. No gross focal sensory or strength deficits.] PSYCH: Normal affect Course Vital Signs Vital signs: Vital Signs Temperature 97.4 F L 04/13/24 18:52 Pulse Rate 81 04/13/24 18:52 Respiratory Rate 18 04/13/24 18:52 Blood Pressure 182/87 H 04/13/24 18:52 Pulse Oximetry 100 04/13/24 18:52 Oxygen Delivery Room Air 04/13/24 18:52 Temperature 97.4 F L 04/13/24 18:52 Pulse Rate 74 04/13/24 21:32 Respiratory Rate 12 04/13/24 21:32 Blood Pressure 154/75 H 04/13/24 21:32 Pulse Oximetry 98 04/13/24 21:32 Oxygen Delivery Room Air 04/13/24 18:58 MDM - Chest Pain MDM Narrative Medical decision making narrative: ED COURSE AND MEDICAL DECISION MAKIN-year-old female presenting with chest pain; with some associated shortness of breath, nausea, radiation to left arm. EKG done in triage negative for acute ischemic changes. Cardiac workup is initiated. EKG: Performed in triage and interpreted by me. Normal sin
== END 2024-04-13 23:10 | disposition home or self-care (01) ==
PROVIDERS: Emergency Medicine; Emergency Provider Emergency Medicine; PCP Family Medicine
DX: R07.9 Chest pain, unspecified (principal); I10 Essential (primary) hypertension
CPT/HCPCS: 36415; 71046; 80053; 83690; 84484; 85025; 85610; 85730; 93005; 99284; A9270

== ENCOUNTER 2024-05-13 16:27 | Outpatient (CLI) | payer MEDICARE, OTHER, SELFPAY ==
--- NOTE | ~2024-05-13 | XR_ITS ---
[id number] Ordering provider: Mango French MD History: . M25.562 - Pain in left knee, NKI, PAIN FOR 3 DAYS . Comparison: None. FINDINGS: BONES: No acute fracture or dislocation. JOINT SPACES: Normal. SOFT TISSUES: Normal. IMPRESSION: No acute osseous abnormality left knee. Reviewed, dictated and finalized at location A.
--- NOTE | ~2024-05-13 | XR_ITS ---
[id number] Ordering provider: Mango French MD History: . M25.561 - Pain in right knee, NKI, PAIN FOR 3 DAYS . Comparison: None. FINDINGS: BONES: No acute fracture or dislocation. JOINT SPACES: Normal. SOFT TISSUES: Normal. IMPRESSION: No acute osseous abnormality right knee. Reviewed, dictated and finalized at location A.
== END 2024-05-13 16:28 | disposition home or self-care (01) ==
LOC: ANHIMG 16:29
PROVIDERS: PCP Family Medicine; Visit Provider Family Medicine
DX: M25.561 Pain in right knee (principal); M25.562 Pain in left knee
CPT/HCPCS: 73560

== ENCOUNTER 2024-05-21 10:18 | Outpatient (CLI) | payer MEDICARE, OTHER, SELFPAY ==
--- NOTE | ~2024-05-21 | MR_ITS ---
EXAMINATION: MR knee LT wo con DATE: 05/21/2024 11:03 INDICATION: Left knee pain. TECHNIQUE: Magnetic resonance imaging (MRI) of the left knee was performed without intravenous contra st. Sequences included axial PD-weighted FS FSE, coronal PD-weighted FSE and PD-weighted FS FSE, sagi ttal PD-weighted FSE, and sagittal T2-weighted FS FSE. COMPARISON: Left knee radiographs 05/13/2024 FINDINGS: Medial compartment: There is a complex tear involving body and posterior horn of medial meniscus. There is shallow partia l-thickness cartilage loss of femoral condyle and tibial condyle. Lateral compartment: There is an upper surface horizontal tear of anterior horn of lateral meniscus. There is cartilage arroyo rface irregularity of tibial condyle and femoral condyle. Patellofemoral compartment: There is deep cartilage fissuring of patellar median ridge and cartilage surface irregularity of the medial and lateral facets. There is cartilage surface irregularity of trochlea. Ligaments and tendons: The anterior and posterior cruciate ligaments are normal. There are changes of prior sprains of media l collateral ligament and fibular collateral ligament characterized by thickening and increased signa l intensity proximally. There is mild patellar tendinopathy. Fluid: There is a large knee joint effusion. There is mild prepatellar and superficial infrapatellar bursiti s. IMPRESSION: 1. Mild tricompartmental chondrosis. 2. Tears of medial and lateral menisci. 3. Large knee joint effusion. Reviewed, dictated and finalized at location A.
== END 2024-05-21 10:19 ==
LOC: MICIMG 10:19
PROVIDERS: PCP Family Medicine; Visit Provider Nurse Practitioner Family
DX: S83.282A Other tear of lateral meniscus, current injury, left knee, initial encounter (principal); S83.242A Other tear of medial meniscus, current injury, left knee, initial encounter; M25.462 Effusion, left knee; M94.262 Chondromalacia, left knee; X58.XXXA Exposure to other specified factors, initial encounter
CPT/HCPCS: 73721

== ENCOUNTER 2024-08-13 09:50 | Outpatient (CLI) | payer MEDICARE, OTHER, SELFPAY ==
--- NOTE | ~2024-08-13 | MR_ITS ---
MRI of the right knee Clinical history: Pain Technique: Coronal proton density and proton density-weighted images, sagittal proton-density and T2 fat-sat images, and axial proton-density fat-saturated images were acquired. Findings: Anterior and posterior cruciate ligaments are intact. Medial collateral ligament and the la teral collateral ligament complex are intact. Popliteus tendon is intact. There is horizontal tear extensive involving the anterior horn lateral meniscus extending into the morales dy segment. No medial meniscal tear seen. There is mild chondromalacia along the lateral patellar facet. There is minimal subchondral reactive marrow edema at the patellar apex. Remaining articular cartilage and bone marrow signals are intact. Extensor mechanism is intact. Small joint effusion present. No Rodney's cyst. Impression: Extensive horizontal tear of the anterior horn and body of the lateral meniscus. Mild chondromalacia patella, as above. Reviewed, dictated and finalized at [facility]. Impression: Extensive horizontal tear of the anterior horn and body of the lateral meniscus . Mild chondromalacia patella, as above.
== END 2024-08-13 09:51 | disposition home or self-care (01) ==
LOC: MICIMG 09:50
PROVIDERS: PCP Nurse Practitioner Family; Visit Provider Nurse Practitioner Family
DX: S83.281A Other tear of lateral meniscus, current injury, right knee, initial encounter (principal); X58.XXXA Exposure to other specified factors, initial encounter; M22.41 Chondromalacia patellae, right knee
CPT/HCPCS: 73721

== ENCOUNTER 2024-10-07 09:08 | Outpatient (CLI) | payer MEDICARE, OTHER, SELFPAY ==
[2024-10-07 10:03] LABS: Anion Gap 2 mmol/L (4-12); Blood Urea Nitrogen 11 mg/dL (7-17); Calcium 8.7 mg/dL (8.4-10.2); Carbon Dioxide 27 mmol/L (22-30); Chloride 101 mmol/L (98-107); Estimated Glomerular Filt Rate > 60; Glucose 87 mg/dL (65-110); Potassium 3.7 mmol/L (3.4-5.0); Sodium 130 mmol/L (137-145)
== END 2024-10-07 09:09 | disposition home or self-care (01) ==
LOC: ANHSURGERY 09:14
PROVIDERS: Anesthesiology; PCP Family Medicine; Visit Provider Orthopaedic Surgery
DX: Z01.818 Encounter for other preprocedural examination (principal); I10 Essential (primary) hypertension
CPT/HCPCS: 36415; 80048

== ENCOUNTER 2024-10-15 00:28 | Day surgery (SDC) | payer MEDICARE, OTHER, SELFPAY ==
[2024-09-27 11:41] VITALS: BMI 28.6
--- NOTE | 2024-09-27 13:25 | PC.NURSE ---
Report to the Outpatient Waiting Room, entrance under the green pavilion located off [facility], at time __11:30AM on date ___10/15/24.____. Planned Procedure Time: __1:30PM .? Time changes happen often and if your time is changed the preop area will call you the afternoon before. - You and your visitor will be asked to self-screen and do not enter if you have any COVID symptoms. Please call surgeon if you need to reschedule. - A mask is optional within the hospital at this time. Patients may have clear liquids (water, carbonated beverages, clear teas, apple juice) until 3 hours prior to surgery (10:30AM) with a maximum of 20 ounces. - No food from midnight until time of surgery and no smoking. This includes no chewing gum, candy or mints. Take only the following medications with a SIP of water on the morning of surgery: BUPROPION, BUSPIRONE. MAY USE INHALER, CLONAZEPAM & TRAMADOL NEEDED. DO NOT STOP ANY OF YOUR OTHER PRESCRIPTION MEDICATIONS PRIOR TO SURGERY EXCEPT THE FOLLOWING Medications to discontinue per physician ____HOLD ASPIRIN 7 DAYS PRE-OP PER DR CARNEY- LAST DOSE 10/07/24. HOLD ALL VITAMINS/SUPPLEMENTS 3 DAYS PRE-OP PER ANESTHESIA- LAST DOSE- 10/11/23. Please no make-up, nail filipino, hairspray, perfume, deodorant, or body powder the day of surgery.? No jewelry (including any body piercings) or valuables the day of surgery, leave them at home.? Please take a shower or bath the night before, or the morning of, surgery with an antibacterial soap.? Wear comfortable, loose fitting clothing.? Children are encouraged to wear pajamas. - Jewelry must be removed prior to entering the operating room.? Rings and piercings that are not removed may be cut off. - The hospital will not accept responsibility for valuables.? - Please leave all valuables, including medications, at home the day of surgery. If you are going home after surgery, a licensed road oiling truck driver must drive you home.? - NO public transportation without another adult if you receive anesthesia. - We recommend that an adult stay with you for 24 hours following discharge. - We also recommend that you do not drive, make important decision, drink alcoholic beverages, or take any drugs that were not prescribed by your health care provider for at least 24 hours after your discharge time. Follow any additional instructions given to you from your surgeon. Telephone instructions given to PATIENT and asked if any additional questions and then verbalized understanding. Patient advised to call surgeon office or pre surgery nurse liaison [phone] if any additional questions.
[2024-10-15] VITALS (12 sets, daily range): BP systolic 106–156; BP diastolic 62–87; PULSE 66–87; RESP 10–18; TEMP 36.1–36.6; O2SAT 98–100
--- NOTE | 2024-10-15 07:37 | WPDHPUPDATE1 ---
History and Physical Update Update Date/Time: 10/15/24 07:37 History and Physical has been reviewed, including an updated exam of the patient. There are NO changes in the patient's condition. Risks, benefits, and alternatives have been discussed and questions answered. Patient agrees to proceed with procedure.
[2024-10-15] MEDS: LACTATED RINGERS 1,000 ML 30 ML IV CONT ×2 (08:45→11:57)
[2024-10-15 09:22] LABS: Sodium 131 mmol/L (137-145)
--- NOTE | 2024-10-15 09:48 | WPDANESEPPF ---
Anes - Initial Pre Proc Eval Procedure: Operation Date: 10/15/24 10:30 Proposed Procedures p Left Knee Arthroscopy - López Mcgill MD Date/Time: 10/15/24 09:48 Surgeon: López Mcgill MD Pre Op Diagnosis: left knee lateral meniscus tear Patient Data Age: 69 Gender: F Height: 1.65 m Weight: 78.4 kg Last Vital Signs Temp 36.1 C L 10/15/24 09:00 Pulse 66 10/15/24 09:00 Resp 14 10/15/24 09:00 BP 142/62 H 10/15/24 09:00 Pulse Ox 100 10/15/24 09:00 O2 Del Method Room Air 10/15/24 09:00 Allergies Allergy/AdvReac Type Severity Reaction Status Date / Time No Known Allergies Allergy Verified 10/15/24 09:29 Home Medications ?Medication ?Instructions ?Recorded ?Confirmed ?Type bupropion HCl 150 mg tablet,12 hr 150 mg PO DAILY 09/07/20 10/15/24 History sustained-release zolpidem 10 mg tablet 10 mg PO .QHS 09/07/20 10/15/24 History fexofenadine 180 mg tablet 180 mg PO DAILY 03/23/23 10/15/24 History (Linda Allergy) aspirin 81 mg tablet,delayed 81 mg PO DAILY 05/23/24 10/15/24 History release (Adult Aspirin Regimen) clonazepam 0.5 mg tablet 0.5 mg PO BID 05/23/24 10/15/24 History nitroglycerin 0.4 mg sublingual 0.4 mg sublingual ONCE PRN chest 05/23/24 10/07/24 History tablet pain rosuvastatin 5 mg tablet 5 mg PO DAILY 05/23/24 10/15/24 History valacyclovir 500 mg tablet 1,000 mg (2 x 500 mg) PO BID PRN 05/27/24 10/07/24 Rx cold sores #90 tabs ipratropium bromide 42 mcg (0.06 2 spray intranasal BID #15 mL 09/12/24 10/15/24 Rx %) nasal spray buspirone 15 mg tablet 15 mg PO TID 09/27/24 10/15/24 History calcium 200 mg (as 5 tablet PO DAILY 09/27/24 10/15/24 History citrate)-vitamin D3 6.25 mcg (250 unit) tablet (Citracal-D3 Petites) chlorhexidine gluconate 4 % 1 applic topical ONCE #237 mL 09/27/24 10/15/24 Rx topical liquid (Hibiclens) cyanocobalamin (vitamin B-12) 1,000 mcg sublingual DAILY 09/27/24 10/15/24 History 1,000 mcg sublingual lozenge conjugated estrogens 0.3 mg tablet 0.3 mg PO DAILY #90 tabs 10/07/24 10/15/24 Rx (Premarin) diphenhydramine HCl 25 mg capsule 25 mg PO QHS PRN sleep #30 caps 10/07/24 10/15/24 Rx epinephrine 0.3 mg/0.3 mL 0.3 mg (0.3 mL) IM ONCE #2 ea 10/07/24 10/15/24 Rx injection, auto-injector (EpiPen 2-Godfrey) hydrochlorothiazide 25 mg tablet 25 mg PO DAILY #90 tabs 10/07/24 10/15/24 Rx lidocaine 5 % topical patch 1 patch topical DAILY PRN back 10/07/24 10/15/24 Rx pain #30 ea potassium chloride 10 mEq 10 meq PO DAILY #90 tabs 10/07/24 10/15/24 Rx tablet,extended release tramadol 50 mg tablet 50 mg PO Q8H PRN Headache #90 tabs 10/07/24 10/15/24 Rx fluticasone fur. 200 mcg-umeclid 1 inh inhalation HS 10/15/24 10/15/24 History 62.5 mcg-vilant 25 mcg inhalat.powder (Trelegy Ellipta) omeprazole 20 mg capsule,delayed 20 mg PO DAILY PRN indigestion 10/15/24 10/15/24 History release Laboratory Tests 10/15/24 08:59 Sodium 131 L mmol/L (137-145) Patient hx anesthesia problems: post op nausea/vomiting Family hx anesthesia problems: none Results Review: All pre-operative results and documents have been reviewed as part of the pre-operative evaluation. [facility]LY [facility] Past Medical History Medical History Lateral meniscus tear Right knee pain Tear meniscus knee Degenerative joint disease of knee Effusion of knee joint Left knee pain Trochanteric bursitis, right hip Colon cancer screening Non-cardiac chest pain COVID-19 virus infection Convergence insufficiency History of closed head injury Insomnia Anxiety Depression Allergic rhinitis GERD (gastroesophageal reflux disease) Hypertension Surgical History Surgical History History of lumpectomy benign History of hysterectomy History of tubal ligation History of fusion of cervical spine History of cholecystectomy Plantar fasciitis Hx of nasal septoplasty History of Yoly-en-Y gastric bypass Family History Family History Father Heart disease Mother Breast cancer Other Family history of malignant melanoma Social History Social History Social History: caffeine use Smoking status: Never smoker Second hand tobacco smoke exposure: No Alcohol intake: never Substance use: never Substance use type: does not use Living arrangements: with family Additional living arrangements comments: [facility] Occupation/Education: retired Gender identity (if verbalized by the patient): Female Sexual Orientation (if Verbalized by the Patient): Straight or Heterosexual Spiritual care concerns: No Anes - Eval Final PreProcedure Day of Procedure 10/15/24 09:48 Patient weight: overweight Heart: regular rate and rhythm Lungs: clear to auscultation Airway: Mallampati scale class II Neurological: alert and oriented Last oral intake: >/= 8 hours ASA classification: III Emergent: no Anesthetic plan: proceed Anesthesia type and monitoring: general LMA and standard monitoring Results Review: All pre-operative results and documents have been reviewed as part of the pre-operative evaluation. Informed Consent: The patient's anesthetic plan and its attendant risks and benefits were discussed with the patient/family/POA. Questions were solicited and answers provided to the satisfaction of the patient/family/POA.
[2024-10-15] MEDS: ACETAMINOPHEN 500 MG TABLET 1000 MG PO (09:55)
[2024-10-15] MEDS: ceFAZolin 2 GM/D5W 50 ML 2 GM/50 ML BAG IVPB (10:51)
[2024-10-15] MEDS: BUPivacaine HCL 0.5% 10 ML AMP 30 ML INFILTRATE (11:26)
[2024-10-15] MEDS: fentaNYL CITRATE INJ (*CRX) 100 MCG/2 ML VIAL 25 MCG IV PUSH ×6 (12:20→12:36)
--- NOTE | 2024-10-15 12:40 | W.PM.PROC2 ---
Procedure Note - Detailed Date of Procedure 10/15/24 Pre-op Diagnosis left knee medial and lateral meniscus tear Post-op Diagnosis Same Procedure Performed LEFT KNEE SCOPE Surgeon López Mcgill MD Anesthesia General Description of Procedure PATIENT WAS TAKEN TO THE OR. LEFT LEG WAS PREPPED AND DRAPED STERILE. TROCARS WERE PLACED IN THE USUAL FASHION. CAMERA WAS INTRODUCED. THERE WAS CHONDROMALACIA TO THE PATELLA FEMORAL JOINT. THERE WAS A LOT OF SYNOVITIS IN ALL COMPARTMENTS. THE MEDIAL COMPARTMENT SHOWED CHONDROMALACIA TO THE MEDIAL FEMORAL CONDYLE. A SHAVER WAS USED TO PREFORM A CHONDROPLASTY. THERE WAS A COMPLEX MEDIAL MENISCUS TEAR. THE TEAR WAS RESECTED WITH A BITER AND A SHAVER DOWN TO A SMOOTH BASE. THE ACL WAS INTACT. THE LATERAL MENISCUS WAS TORN AND WAS RESECTED DOWN TO A SMOOTH BASE. THE LATERAL COMPARTMENT HAD GRADE 2 CHONDROMALACIA. CHONDROPLASTY WAS PREFORMED. A SYNOVECTOMY WAS PREFORMED WELL. THE PATELLO FEMORAL JOINT UNDERWENT CHONDROPLASTY. THERE WAS GRADE AND 3 CHONDROMALACIA IN PART OF THE TROCHLEA AND PART OF THE PATELLA. SYNOVECTOMY WAS PREFORMED IN THE SUPERIOR MEDIAL COMPARTMENT. THE WOUNDS WERE APPROXIMATED WITH 4.0 NYLON. STERILE DRESSING WAS APPLIED. PATIENT WAS EXTUBATED. Estimated Blood Loss -5.0 Complications No immediate complications Condition Stable Disposition PACU
[2024-10-15] MEDS: ONDANSETRON INJ 4 MG/2 ML VIAL IV PUSH (12:51)
[2024-10-15] MEDS: diphenhydrAMINE HCl INJ 50 MG/ML VIAL 25 MG IV PUSH (13:05)
[2024-10-15] MEDS: oxyCODONE HCL (*CRX) 5 MG TAB IR PO (13:52)
== END 2024-10-15 14:45 | disposition home or self-care (01) ==
PROVIDERS: Anesthesiology; PCP Family Medicine; Visit Provider Orthopaedic Surgery
PROC: (CPT 29870; principal; 2024-10-15 10:30)
DX: S83.232A Complex tear of medial meniscus, current injury, left knee, initial encounter (principal); S83.282A Other tear of lateral meniscus, current injury, left knee, initial encounter; M94.262 Chondromalacia, left knee; M65.862 Other synovitis and tenosynovitis, left lower leg; I10 Essential (primary) hypertension; K21.9 Gastro-esophageal reflux disease without esophagitis; G47.00 Insomnia, unspecified; F41.9 Anxiety disorder, unspecified; F32.A Depression, unspecified; X58.XXXA Exposure to other specified factors, initial encounter; Z79.82 Long term (current) use of aspirin; Z79.891 Long term (current) use of opiate analgesic; Z79.51 Long term (current) use of inhaled steroids; Z98.890 Other specified postprocedural states; Z98.51 Tubal ligation status; Z98.1 Arthrodesis status; Z90.49 Acquired absence of other specified parts of digestive tract; Z98.84 Bariatric surgery status; Z80.3 Family history of malignant neoplasm of breast; Z80.8 Family history of malignant neoplasm of other organs or systems; Z82.49 Family history of ischemic heart disease and other diseases of the circulatory system
CPT/HCPCS: 29880; 36415; 84295; A9270; J0690; J1100; J1200; J2003; J2250; J2405; J2704; J3010; J7120

== ENCOUNTER 2025-04-17 09:29 | Outpatient (CLI) | payer MEDICARE, OTHER, SELFPAY ==
--- NOTE | ~2025-04-17 | XR_ITS ---
EXAM/PROCEDURE: XR abdomen/kub 1V - 04/17/2025 9:36 CDT HISTORY: 70 years old Female with K59.00 - Constipation X 1 MONTH COMPARISON: None available. TECHNIQUE: AP view(s) of the abdomen. FINDINGS: The bowel gas pattern is normal. There is no evidence for obstruction. Status post cholecystectomy. S urgical clips are seen in the left upper quadrant. No free intraperitoneal air is identified on this supine radiograph. The visualized soft tissue shadows are unremarkable. No gross bony abnormalities are seen. Visualized portions of lung bases are clear. IMPRESSION: No acute process. Reviewed, dictated and finalized at location A. IMPRESSION: No acute process.
--- OUTSIDE RECORDS SUMMARY | 2025-04-17 09:37 | XMS_ITS | Clinical Summary ---
Author Organization [employer] [facility] Address [address] [place] [id number] Care Team Providers Care Hand Shoes Sewer Name Role Phone Delfino Lima MD Primary Care Provider Family History Medical History Relation Name Comments Breast Cancer Mother Relation Name Status Comments Mother Social History Tobacco Use Types Packs/Day Years Used Date Smoking Tobacco: Never Assessed Comments Unknown Sex and Gender Information Value Date Recorded Sex Assigned at Not on file Legal Sex Female 10:30 PM CDT Gender Identity Not on file Sexual Orientation Not on file Plan of Treatment Health Maintenance Due Date Last Done Comments DTAP/TDAP/TD VACCINES (1 - Tdap) 02/07/1975 COLORECTAL SCREENING 02/07/2001 Colorectal Cancer Screening 02/07/2001 FIT-DNA Q 3 years 02/07/2001 FIT/FOBT Q 1 year 02/07/2001 Flex Sig/CT Colonography Q 5 years 02/07/2001 PNEUMOCOCCAL VACCINE 50+ YEA RS (1 of 1 - PCV) 02/07/2006 ZOSTER VACCINE (1 of 2) 02/07/2006 OSTEOPOROSIS SCREENING 02/07/2021 BREAST CANCER SCREENING 05/25/2021 05/25/2020, 11/12 INFLUENZA VACCINE (#1) 2025 RSV VACCINE (60+ or ) (1 - 1-dose 75+ series) 02/07/2031 Procedures Procedure Name Priority Date/Time Associated Diagnosis Comments MAMMO SCREEN BILAT W OR WO CAD Routine 05/25/2020 2:59 PM CDT Breast cancer screening by mammogram from Last 3 Months or Most Recently Relevant to Health Maintenance Results * MAMMO SCREEN BILAT W OR WO CAD (05/25/2020 2:59 PM CDT) Anatomical Region Laterality Modality Breast Bilateral Mammography 05/25/2020 3:00 PM CDT Impressions 05/25/2020 3:33 PM CDT IMPRESSION: No mammographic evidence of malignancy. RECOMMENDATIONS: Routine screening mammogram in one year. DICTATION LOCATION: [facility] Narrative 05/25/2020 3:33 PM CDT MAMMO SCREEN BILAT W OR WO CAD DATE: 05/25/2020 2:59 PM HISTORY: Routine screening TECHNIQUE: Full field digital craniocaudal and mediolateral oblique projections of both breasts were obtained. Computer aided diagnosis was performed. COMPARISON: 11/12/2018, 05/19/2017 and 03/14/2016. BREAST COMPOSITION: Heterogeneously dense, which limits the sensitivity of mammography. FINDINGS: No suspicious mass, suspicious microcalcifications, or architectural distortion in either breast is identified. Since the prior study, there has been no significant interval change. The computer aided diagnosis detects no significant abnormality. OVERALL FINAL ASSESSMENT: BI-RADS CATEGORY 1: Negative. Procedure Note Dimitri Roberts MD - 05/25/2020 MAMMO SCREEN BILAT W OR WO CAD DATE: 05/25/2020 2:59 PM HISTORY: Routine screening TECHNIQUE: Full field digital craniocaudal and mediolateral oblique projections of both breasts were obtained. Computer aided diagnosis was performed. COMPARISON: 11/12/2018, 05/19/2017 and 03/14/2016. BREAST COMPOSITION: Heterogeneously dense, which limits the sensitivity of mammography. FINDINGS: No suspicious mass, suspicious microcalcifications, or architectural distortion in either breast is identified. Since the prior study, there has been no significant interval change. The computer aided diagnosis detects no significant abnormality. OVERALL FINAL ASSESSMENT: BI-RADS CATEGORY 1: Negative. IMPRESSION: No mammographic evidence of malignancy. RECOMMENDATIONS: Routine screening mammogram in one year. DICTATION LOCATION: [facility] Vaibhav Garsia MD MAMMO ORDERABLES Final Result from Last 3 Months or Most Recently Relevant to Health Maintenance Insurance MEDICARE PART A AND B [facility] Care Teams Hand Shoes Sewer Relationship Specialty Start Date End Date Delfino Lima MD [address] [place] [address] PCP - General 06/12/18
--- OUTSIDE RECORDS SUMMARY | 2025-04-17 09:37 | XMS_ITS | Referral Summary ---
Author Organization [facility] Address [address] [place] [address] Care Team Providers Care Standard Machine Stitcher Name Role Phone Mango French MD Primary Care Provider Serafin Galicia DPM Unavailable [phone] Encounters Date Type Department Care Team Description 03/04/2025 Telephone [facility] Cardiology [address] [place] [phone] Martha Nguyen MD 02/17/2025 9:00 AM CDT Office Visit [facility] Medical [facility] Cardiology [address] [place] [phone] Martha Nguyen MD Essential hypertension (Primary Dx); WHEELER (dyspnea on exertion); Other chest pain; Family history of ischemic heart disease 02/10/2025 9:58 AM CDT - 02/10/2025 11:59 PM CDT Hospital Encounter [facility] [address] [place] [address] Screening mammogram, encounter for Discharge Disposition: Discharge to home or self care from Last 3 Months Allergies No known active allergies Medications cyanocobalamin (Vitamin B-12) 1,000 mcg tabletIndicatio ns:Prevention of Vitamin B12 Deficiency Take 1 tablet (1,000 mcg total) by mouth once a week Active calcium citrate/vitamin D3 (CITRACAL + D ORAL) Take 5 tablets by mouth daily Active folic acid/multivit-m in/lutein (CENTRUM SILVER ORAL) Take 2 tablets by mouth daily Active omeprazole (PriLOSEC) 20 mg capsule Take 1 capsule (20 mg total) by mouth daily Active buPROPion SR (WELLBUTRIN SR) 150 mg 12 hr tablet Take 1 tablet (150 mg total) by mouth daily Active HYDROCHLOROTHIA ZIDE ORAL Take 25 mg by mouth daily after lunch Active Trelegy Ellipta 200-62.5-25 mcg inhaler Inhale 1 puff as needed 2 Active zolpidem (AMBIEN) 10 mg tablet Take 1 tablet (10 mg total) by mouth nightly 8 Active traMADoL (ULTRAM) 50 mg tablet Take 1 tablet (50 mg total) by mouth every 6 (six) hours for 7 days 28 tablet 2 Active Additional Information Patient taking differently:50 mg oralAs needed, Reported on 02/17/2025 valACYclovir (VALTREX) 1 gram tablet Take 1 tablet (1,000 mg total) by mouth as needed Active Premarin 0.3 mg tablet 4 Active lidocaine (LIDODERM) 5 % daily as needed 4 Active potassium chloride ER 10 mEq CR tablet 4 Active clonazePAM (KlonoPIN) 0.5 mg tablet Take 1 tablet (0.5 mg total) by mouth 2 (two) times a day Active fexofenadine (JOHN) 180 mg tablet Take 1 tablet (180 mg total) by mouth daily Active busPIRone (BUSPAR) 10 mg tablet Take 1 tablet (10 mg total) by mouth 3 (three) times a day 4 Active docusate sodium (COLACE) 100 mg capsuleIndicati ons:constipatio n Take 3 capsules (300 mg total) by mouth nightly Active nitroglycerin (NITROSTAT) 0.[address] 1 tablet (0.4 mg total) under the tongue every 5 (five) minutes as needed for chest pain May repeat dose every 5 minutes for up to 3 doses total. 25 tablet 3 4 Active aspirin (Enteric Coated Aspirin) 81 mg enteric coated tablet Take 1 tablet (81 mg total) by mouth daily 4 04/29/20 25 Active ipratropium (ATROVENT) 42 mcg (0.06 %) nasal spray Administer 2 sprays into each nostril 2 (two) times a day 360 mL 3 5 Active rosuvastatin (CRESTOR) 5 mg tablet Take 1 tablet (5 mg total) by mouth daily 90 tablet 3 5 03/04/20 26 Active Active Problems Problem Noted Date Diagnosed Date Family history of ischemic heart disease 024 Essential hypertension 12/08/2023 WHEELER (dyspnea on exertion) 12/08/2023 Other chest pain 12/08/2023 Mild intermittent asthma without complication Deviated nasal septum 09/27/2019 Overview (09/27/2019): Added automatically from request for surgery [id number] Hypertrophy of nasal turbinates 09/27/2019 Overview (09/27/2019): Added automatically from request for surgery [id number] Depression 08/14/2012 Overview (01/13/2017): Depression Social History Tobacco Use Types Packs/Day Years Used Date Smoking Tobacco: Never Smokeless Tobacco: Never Tobacco Cessation:Counseling Given: Not Answered Alcohol Use Standard Drinks/Week Comments No 0 (1 standard drink = 0.6 oz pur e alcohol) AUDIT-C Answer Date Recorded Q1: How often do you have a drink containing alc ohol? Never 03/09/2022 Average Number of Drinks Not on file 022 Frequency of Binge Drinking Not on file 10/2021 Comments No Sex and Gender Information Value Date Recorded Sex Assigned at Not on file Legal Sex Female 10:58 AM MEDIA SERVICES DIRECTOR Gender Identity Female 12/04/2020 6:25 AM MEDIA SERVICES DIRECTOR Sexual Orientation Straight 12/04/2020 6: 25 AM MEDIA SERVICES DIRECTOR Last Filed Vital Signs Vital Sign Reading Time Taken Comments Blood Pressure 100/60 02/17/2025 9:00 AM CDT Pulse 80 02/17/2025 9:00 AM CDT Temperature 36.8 C (98.2 F) 07/02/2023 8:54 AM CDT Respiratory Rate 18 12/08/2023 9:55 AM MEDIA SERVICES DIRECTOR Oxygen Saturation 94% 02/17/2025 9:00 AM CDT Inhaled Oxygen Concentration - - Weight 73.5 kg (162 lb) 02/17/2025 9:00 AM CDT Height 167.6 cm (5' 6) 02/17/2025 9:00 AM CDT Body Mass Index 26.15 02/17/2025 9:00 AM CDT Plan of Treatment Not on file Medical Devices Implanted Type Area Senior Devops Engineer Device Identifier Shelf Expiration Date Model / Serial / Lot Unknown N/A: Neck Implantech [employer] 3x2in 1 Short Term Implantable Thk.03in Sheeting - [id number] Implanted:Qty: 1 on 11/01/2019 by Galo Chaney MD at [facility] Bilateral : Nose Implantech [id number] 01/08/2024 / / [id number] Procedures Procedure Name Priority Date/Time Associated Diagnosis Comments POCT LIPID PANEL Routine 02/17/2025 9:33 AM CDT Essential hypertension SCREENING MAMMOGRAM BILATERAL W ANIVAL Schedule Routine, Read Routine (OP Routine) 02/10/2025 10:22 AM CDT Screening mammogram, encounter for DEXA AXIAL SKELETON BONE DENSITY 1 OR MORE SITES Routine 08/06/2013 2:28 PM CDT from Last 3 Months or Most Recently Relevant to Health Maintenance Results * POCT lipid panel (02/17/2025 9:33 AM CDT) Cholesterol, POC 161 <200 MG/DL Comment:GLU = 73 HDL, POC 90 >=40 mg/dL Triglycerides, POC 69 <=149 mg/dL LDL Cholesterol POC 57 <=129 mg/dL Chol/HDL Ratio, POC 0.6 NONE Non-HDL Cholesterol, POC 71 NONE mg/dL Cholesterol Total, POC 161 30 - 199 mg/dL Capillary blood 02/17/2025 9 :33 AM CDT us Jareer Otham Rodney Nguyen MD POINT OF CARE TEST O RDERABLES Final Result * Screening Mammogram Bilateral W Anival (02/10/2025 10:22 AM CDT) Anatomical Region Laterality Modality Breast Bilateral Mammography Impressions 02/10/2025 10:33 AM CDT BI-RADS ATLAS category (overall): 2 - Benign There is no mammographic evidence of malignancy. A 1 year screening mammogram is recommended. The patient has been or will be contacted. We recommend annual screening mammography for women at average risk of breast cancer beginning at age 40, based on guidelines of the [employer] (ACR Practice Parameter for the Performance of Screening and Diagnostic Mammography) and [employer]. For women with and elevated risk of breast cancer, please refer to the ACR Practice Parameter for specific screening recommendations. The patient will be entered into a reminder system with a target due date of 1 year for her next screening exam. Narrative 02/10/2025 10:33 AM CDT Screening Mammogram Bilateral W Anival: 02/10/25 The study was acquired using full field digital technology and interpreted from soft copy. 2D digital mammographic views, as well as 3D digital tomosynthesis were performed in the CC and MLO projections. CLINICAL: Screening mammogram, encounter for. No relevant medical history has been documented for this patient. History of breast cancer in Mother, Other. COMPARISONS: 11/13/2023 Screening Mammogram Bilateral W Anival 09/19/2022 Screening Mammogram Bilateral W Anival 05/03/2022 Diagnostic Mammogram Right W Anival 05/03/2022 US Breast Right Limited BREAST TISSUE: There are scattered areas of fibroglandular density. FINDINGS: There are stable postoperative findings in the right breast. There are benign calcifications in the left breast. There is no new suspicious finding in either breast on mammogram. us Self Screening Mammogram IMG MAMMO PROCEDURES Fi nal Result * Dexa Axial Skeleton Bone Density 1 or 2 Site (08/06/2013 2:28 PM CDT) Anatomical Region Laterality Modality Body N/A Radiographic Jazmin ging 08/06/2013 2:28 PM CDT Impressions 08/06/2013 4:36 PM CDT 1. Normal bone mineral density of the lumbar spine, decreased 6.8% since baseline. 2. Normal bone mineral density of the left hip, decreased 21% since baseline. THIS IS AN ELECTRONICALLY VERIFIED REPORT 08/06/2013 4:33 PM: Lenny Hartley M.D. Lenny Hartley M.D. MD: 04:33 PM 04:33 PM [facility] [EOD] Narrative 08/06/2013 4:36 PM CDT EXAMINATION: Bone Density Study (DEXA) HISTORY: Post menopausal woman with clinical concern for low bone mineral density. COMPARISON: 03/14/2012, 03/14/2011, 01/18/2010, 01/30/2009, 12/12/2007 TECHNIQUE: Dual-energy X-ray absorptiometry of the lumbar spine and total left hip were performed. FINDINGS: Lumbar spine (from L1 through L4): The bone mineral density is 1.219 gm / cm sq. The T score is 1.6. The percentage of young normal mean is 116%. Total Left Hip: The bone mineral density is 1.036 gm / cm sq. The T score is 0.8. The percentage of young normal mean is 110%. Procedure Note Provider, MD Renetta - 02/23/2021 EXAMINATION: Bone Density Study (DEXA) HISTORY: Post menopausal woman with clinical concern for low bone mineral density. COMPARISON: 03/14/2012, 03/14/2011, 01/18/2010, 01/30/2009, 12/12/2007 TECHNIQUE: Dual-energy X-ray absorptiometry of the lumbar spine and totalleft hip were performed. FINDINGS: Lumbar spine (from L1 through L4): The bone mineral density is 1.219 gm / cm sq. The T score is 1.6. The percentage of young normal mean is 116%. Total Left Hip: The bone mineral density is 1.036 gm / cm sq. The T score is 0.8. The percentage of young normal mean is 110%. IMPRESSION: 1. Normal bone mineral density of the lumbar spine, decreased 6.8% since baseline. 2. Normal bone mineral density of the left hip, decreased 21% sincebaseline. THIS IS AN ELECTRONICALLY VERIFIED REPORT 08/06/2013 4:33 PM: Lenny Hartley M.D. Lenny Hartley M.D. MD: 04:33 PM 04:33 PM [facility] [EOD] Delfino Lima MD IMG DXA PROCEDURES Final Result from Last 3 Months or Most Recently Relevant to Health Maintenance Insurance MEDICARE [employer] MEDICARE FOR LIFE MEDICARE FOR LIFE Advance Directives For more information, please contact: [phone] * Full Code (Latest Code Status on File) Date Activated Date Inactivated Comments 11/01/2019 2:17 PM 11/01/2019 8:39 PM Care Teams Standard Machine Stitcher Relationship Specialty Start Date End Date Mango French MD [address] [place] [address] PCP - General Family Medicine 07/18/21 Serafin Galicia, DPRekha [address] [place] [address] Consulting Physician Podiatry 03/09/22
--- OUTSIDE RECORDS SUMMARY | 2025-04-17 09:37 | XMS_ITS | Clinical Summary ---
Author Organization [facility] Address [address] [place] [address] Care Team Providers Care Marketing Communications Manager Name Role Phone Mango French MD Primary Care Provider Serafin Galicia DPM Unavailable [phone] Allergies No known active allergies Medications cyanocobalamin [...] (09/27/2019): Added automatically from request for surgery [id number] Hypertrophy of nasal turbinates 09/27/2019 Overview (09/27/2019): Added automatically from request for surgery [id number] Depression 08/14/2012 Overview (01/13/2017): Depression Encounters Date Type Department Care Team Description 03/04/2025 Telephone [facility] Cardiology [address] [place] [address] Martha Nguyen MD 02/17/2025 9:00 AM CDT Office Visit [facility] Cardiology [address] [place] [address] Martha Nguyen MD Essential hypertension (Primary Dx); WHEELER (dyspnea on exertion); Other chest pain; Family history of ischemic heart disease 02/10/2025 9:58 AM CDT - 02/10/2025 11:59 PM CDT Hospital Encounter [facility] Medical Office [id number] [facility] [address] [place] [address] Screening mammogram, encounter for Discharge Disposition: Discharge to home or self care from Last 3 Months Surgical History Surgery Date Site/Laterality Comments GASTRIC BYPASS CHOLECYSTECTOMY HYSTERECTOMY CERVICAL FUSION ANKLE SURGERY Right BREAST LUMPECTOMY Left TUBAL LIGATION BREAST BIOPSY FOOT SURGERY 10/09/2021 - 11/08/2021 Left VARICOSE VEIN SURGERY 02/07/2016 - 03/08/2016 Left Medical History Medical History Date Comments Deviated nasal septum Hypertrophy of nasal turbinates Depression Migraine Anxiety Vertigo Hypertension Nephrolithiasis PONV (postoperative nausea and vomiting) has used patch in the past, pretty severe Concussion 2018 Hearing loss right Asthma Anxiety Covid-19 05/2021 Family History Medical History Relation Name Comments Heart disease Father Chavo Rebolledo Heart disease; Breast cancer Mother Cancer, breast ; Breast cancer Other 3 Cancer, breast ; Colon cancer Other 4 Cancer, colon; Relation Name Status Comments Father Chavo Rebolledo Alive Mother Alive Other 1 Alive Other 2 Alive Other 3 Other 4 Social History Tobacco Use Types Packs/Day Years [...] on file Legal Sex Female 10:58 AM NON LICENSED OPERATOR Gender Identity Female 12/04/2020 6:25 AM NON LICENSED OPERATOR Sexual Orientation Straight 12/04/2020 6: 25 AM NON LICENSED OPERATOR Obstetrics History Para Term AB IAB SAB Ectopic Multiple Livin g Live Births 1 Date Outcome GA Total Labor Labor/2nd/3rd Weight Sex Type Anes PTL Brooke A1 A5 Name Clin Last Filed Vital Signs Vital Sign Reading Time Taken Comments Blood Pressure 100/60 02/17/2025 9:00 AM CDT Pulse 80 02/17/2025 9:00 AM CDT Temperature 36.8 C (98.2 F) 07/02/2023 8:54 AM CDT Respiratory Rate 18 12/08/2023 9:55 AM NON LICENSED OPERATOR Oxygen Saturation 94% 02/17/2025 9:00 AM CDT Inhaled Oxygen Concentration - - Weight 73.5 kg (162 lb) 02/17/2025 9:00 AM CDT Height 167.6 cm (5' 6) 02/17/2025 9:00 AM CDT Body Mass Index 26.15 02/17/2025 9:00 AM CDT Plan of Treatment Health Maintenance Due Date Last Done Comments Colon Cancer Screening-Colonoscopy 1955 Depression Screening 1955 Hepatitis C Screening 1955 Hepatitis B Screening 02/07/1974 Pneumococcal vaccine 65+ (1 of 2 - PCV) 02/07/1975 Zoster Vaccine (1 of 2) 02/07/2006 Osteoporosis Screening-Bone Density Scan 08/06/2015 08/06/2013 Well Visit 65+ 02/07/2021 Fall Risk Assessment 03/02/2023 03/02/2022 Covid-19 Vaccine (4 - 2023-2 5 season) 2024 12/12/2021, 01/02/2021, 12/12/2020 Influenza Vaccine (#1) 2025 07/10/2020, 2014 DTaP/Tdap/Td Vaccine (3 - Td or Tdap) 06/17/2025 06/17/2015, 06/17/2015 Breast Cancer Screening-Mammogram 02/10/2026 02/10/2025, 11/13/2023, 09/19/2022, Additional history exists Medical Devices Implanted Type Area Substation Operator Automatic Device Identifier Shelf Expiration Date Model / Serial / Lot Unknown N/A: Neck Implantech [employer] 3x2in 1 Short Term Implantable Thk.03in Sheeting - [id number] Implanted:Qty: 1 on 11/01/2019 by Galo Chaney MD at [facility] Bilateral : Nose Implantech [id number] 01/08/2024 / / [id number] Procedures Procedure Name Priority Date/Time Associated Diagnosis [...] Capillary blood 02/17/2025 9 :33 AM CDT Martha Nguyen MD POINT OF CARE TEST O [...] age 40, based on guidelines of the [employer] (ACR Practice Parameter for the Performance of Screening and Diagnostic Mammography) and [employer]. For women [...] Hartley M.D. MD: 04:33 PM 04:33 PM [facility] [EOD] Narrative 08/06/2013 4:36 PM CDT EXAMINATION: [...] Hartley M.D. MD: 04:33 PM 04:33 PM [facility] [EOD] Delfino Lima MD IMG DXA PROCEDURES Final Result from Last 3 Months or Most Recently Relevant to Health Maintenance [place] [address] [facility] MEDICARE FOR LIFE MEDICARE FOR LIFE Advance Directives For more information, please contact: [phone] * Full Code (Latest Code Status on File) Date Activated Date Inactivated Comments 11/01/2019 2:17 PM 11/01/2019 8:39 PM Care Teams Marketing Communications Manager Relationship Specialty Start Date End Date Mango French MD [address] [place] [address] PCP - General Family Medicine 07/18/21 Serafin Galicia, CAROL [address] [place] [address] Consulting Physician Podiatry 03/09/22
--- OUTSIDE RECORDS SUMMARY | 2025-04-17 09:37 | XMS_ITS | Clinical Summary ---
Author Organization [facility] [employer] Address [address] [place] [address] Care Team Providers Care Software Sales Manager Name Role Phone Mango French MD Primary Care Provider [phone] Source Comments [facility] [employer],non-owned Affiliates and Associated Physician Practices is amultiple site organization consisting of ambulatory clinics and hospital sitesin [place], [place], [place] and [place]. This disclosure is being madepursuant to the Care Everywhere program and may not contain all information available regarding this patient. Last updated 18.[facility] [employer] Allergies Active Allergy Reactions Criticality Noted Date Comments Codeine Nausea and/or Vomiting Other reaction(s): Nausea only Reaction: NAUSEA, VOMITING, Methylprednisolone Rash Medium Reaction: RASH Morphine Other,Nausea and/or Vomiting Low Reaction: NAUSEA, VOMITING, Medications * Be aware that medications may not be up to date on this document. Alwaysverify current medications with the patient. ALPRAZolam (XANAX) 0.25 MG tablet Take 0.25 mg by mouth 3 times daily. Active estrogens, conjugated synthetic B, (ENJUVIA) 0.3 MG tablet Take 0.3 mg by mouth once daily. Active omeprazole (PRILOSEC) 20 MG capsule Take 20 mg by mouth daily before breakfast. Active calcium citrate (CITRACAL 950) 950 MG tablet Take by mouth 4 times daily. Active ondansetron (ZOFRAN) 4 MG tablet Take 1 Tab by mouth every 4 hours as needed for Nausea/Vomi ting. 12 Tab 0 05/15/2012 Active WELLBUTRIN SR 150 MG tablet 09/06/2018 Activ e PREMARIN 0.3 MG tablet 10/12/2018 Active zolpidem (AMBIEN) 10 MG tablet 09/06/2018 Active valACYclovir (VALTREX) 500 MG tablet PRN 12/12/2018 Active Active Problems Problem Noted Date Diagnosed Date Chronic migraine 12/28/2018 Peripheral vestibulopathy, left 12/02/2018 Chronic anxiety 12/02/2018 Post concussion syndrome 10/30/2018 Family History Relation Name Status Comments Father Mother Alive Social History Tobacco Use Types Packs/Day Years Used Date Smoking Tobacco: Never Smokeless Tobacco: Never Alcohol Use Standard Drinks/Week Comments No 0 (1 standard drink = 0.6 oz pur e alcohol) Comments No Sex and Gender Information Value Date Recorded Sex Assigned at Not on file Legal Sex Female 1:53 PM HUMAN RESOURCES BENEFITS ADMINISTRATOR Gender Identity Not on file Sexual Orientation Not on file Occupation Industry Job Start Date Job End Date Retired Not on file Not on file Not on file Last Filed Vital Signs Vital Sign Reading Time Taken Comments Blood Pressure 149/92 04/02/2019 12:57 PM CDT Pulse 87 04/02/2019 12:57 PM CDT Temperature 36.4 C (97.6 F) 05/15/2012 7:26 PM CDT Respiratory Rate 16 05/15/2012 7:26 PM CDT Oxygen Saturation 100% 05/15/2012 7:26 PM CDT Inhaled Oxygen Concentration - - Weight 76.7 kg (169 lb) 04/02/2019 12:57 PM CDT Height 167.6 cm (5' 6) 04/02/2019 12:57 PM CDT Body Mass Index 27.28 04/02/2019 12:57 PM CDT Plan of Treatment Health Maintenance Due Date Last Done Comments BONE DENSITY TESTING 1955 COLOGUARD (AGES 45-75) - COL ON CA SCREENING 1955 COLON MONITORING 1956 COLONOSCOPY - COLON CA SCREENING 1956 CT COLONOGRAPHY - COLON CA SCREENING 1955 Colorectal Cancer Screening 1955 FIT - COLON CA SCREENING 1956 FLEX SIG - COLON CA SCREENING 1955 LIPID TESTING 1955 MAMMOGRAM 1955 MEDICARE AWV 12 MONTHS 1955 HEPATITIS C SCREENING 02/03/1974 DTAP/TDAP/TD VACCINES (1 - Tdap) 02/07/1975 PNEUMOCOCCAL VACCINE 50+ (1 of 1 - PCV) 02/07/2006 ZOSTER VACCINE (1 of 2) 02/07/2006 Respiratory Syncytial Virus (RSV) Vaccine Pt: or over 60 yrs (1 - Risk 60-74 years 1-dose series) 2016 SCREENING FOR DIABETES 10/30/2018 05/15/2012 COVID-19 VACCINE (1 - 2023-2 5 season) 2024 DEPRESSION SCREENING 10/09/2024 INFLUENZA VACCINE (Season Ended) 2025 HEPATITIS B VACCINE Aged Out No longe r eligible based on patient's age to complete this topic HIB VACCINE Aged Out No longer eligi ble based on patient's age to complete this topic HPV VACCINE Aged Out No longer eligi ble based on patient's age to complete this topic MENINGOCOCCAL (Group B) VACC INE SHARED DECISION-MAKING Aged Out No longer eligibl e based on patient's age to complete this topic MENINGOCOCCAL GROUPS A/C/Y/W VACCINE Aged Out No longer eligible b ased on patient's age to complete this topic Procedures Procedure Name Priority Date/Time Associated Diagnosis Comments COMPREHENSIVE METABOLIC PANEL STAT 05/15/2012 5:05 PM CDT from Last 3 Months or Most Recently Relevant to Health Maintenance Results * (ABNORMAL) COMPREHENSIVE METABOLIC PANEL (05/15/2012 5:05 PM CDT) Glucose 116(H) 65 - 105 mg/dl [facility] BUN 9 7 - 21 mg/dl [facility] Creatinine 0.66 0.50 - 1.30 mg/dl [facility] Sodium 140 136 - 145 mmol/L [facility] Potassium 4.0 3.5 - 5.1 mmol/L [facility] Chloride 104 98 - 107 mmol/L [facility] CO2 27 22 - 30 mmol/L [facility] Calcium 9.0 8.5 - 10.1 mg/dl [facility] Bilirubin Total 1.0 0.2 - 1.0 mg/dl [facility] Alkaline Phosphatase 58 38 - 126 U/L [facility] AST 22 5 - 40 U/L [facility] ALT 21 12 - 78 U/L [facility] Protein Total 7.1 6.4 - 8.2 gm/dl [facility] Albumin 3.8 3.4 - 5.0 gm/dl [facility] eGFR By MDRD >60 >60 [facility] Blood specimen (specimen) BLOOD SPECIMEN / Unknown 05/15/2012 5:05 PM CDT 05/15/2012 5:13 PM CDT us Víctor Hopper DO LAB - CHEMISTRY ORDERABLES Shanta sylvester Result [facility] [address] [id number] from Last 3 Months or Most Recently Relevant to Health Maintenance Insurance MEDICARE [facility] (Home[address] [id number] MEDICARE [facility] Care Teams Software Sales Manager Relationship Specialty Start Date End Date Mango French MD [address] [place] [address] PCP - General 08/02/21
--- OUTSIDE RECORDS SUMMARY | 2025-04-17 09:37 | XMS_ITS | Encounter Summary ---
Author Organization [facility] Address [address] [place] [address] Care Team Providers Care Senior Cognos Developer Name Role Phone Mango French MD Primary Care Provider [phone] Encounter Details Date Type Department Care Team (Late st Contact Info) Description 12/18/2020 Lab Requisition [facility] [address] [place] [id number] Leo Hernandez MD [address] [place] [address] Social History Tobacco Use Types Packs/Day Years Used Date Smoking Tobacco: Never Smokeless Tobacco: Never Alcohol Use Standard Drinks/Week Comments No 0 (1 standard drink = 0.6 oz pur e alcohol) Comments No Sex and Gender Information Value Date Recorded Sex Assigned at Not on file Legal Sex Female 1:53 PM LAY OUT MACHINE OPERATOR Gender Identity Not on file Sexual Orientation Not on file Occupation Industry Job Start Date Job End Date Retired Not on file Not on file Not on file documented as of this encounter Plan of Treatment Not on file documented as of this encounter Procedures Procedure Name Priority Date/Time Associated Diagnosis Comments DERMATOPATHOLOGY Routine 12/16/2020 3:33 AM LAY OUT MACHINE OPERATOR documented in this encounter Results * DERMATOPATHOLOGY (12/16/2020 3:33 AM LAY OUT MACHINE OPERATOR) Case Report Dermatopathology Report Case: [id number] Authorizing Provider: Leo Hernandez MD Collected: 12/16/2020 03:33 AM Ordering Location: [facility] Received: 12/18/2020 07:28 AM Pathologist: Stella Burk MD Specimen: Skin, right mid back 1:58 PM CDT DERMATOPATHOLOGY LABORATORY Final Diagnosis Specimen A. 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 Path#[id number] 1:58 PM CDT DERMATOPATHOLOGY LABORATORY Gross Description Specimen A: Received is one formalin filled container labeled with the patient's name and designated right mid back. The specimen consists of a shave biopsy measuring 8x5x1 mm. Jar 0. 1:58 PM CDT DERMATOPATHOLOGY LABORATORY Microscopic Description Specimen A. SKIN, right mid back: This is a junctional nevus. There is architectural disorder characterized by a lentiginous proliferation of melanocytes between irregular nevus nests of cells along the dermal-epidermal junction. There is underlying lamellar fibroplasia of the papillary dermis. (Junctional Loc's Nevus or Junctional Dysplastic Nevus) 1 1:58 PM CDT DERMATOPATHOLOGY LABORATORY Disclaimer An external and internal positive and negative controls are appropriate for the histochemical, immunohistochemical and immunofluorescence stain(s) in this case (if any), except where stated explicitly. The performance characteristics of the stain(s) cited in this report were developed and its performance characteristic determined by the Dermatopathology Laboratory at [facility], directed by Dr. Viv Tracy. These tests need not be, and therefore are not, approved by the [place] Food and Drug Administration. The tests are used for clinical purposes. Billing Codes Specimen Charges Stain Charges 16286 1 1 1:58 PM CDT DERMATOPATHOLOGY LABORATORY Embedded Images 1:58 PM CDT DERMATOPATHOLOGY LABORATORY Pathology/Cytolo gy TISSUE SPECIMEN FROM SKIN / Unknown 12/16/2020 3:33 AM LAY OUT MACHINE OPERATOR 12/18/2020 7:28 AM LAY OUT MACHINE OPERATOR Leo Hernandez MD LAB - PATHOLOGY/CYTOLOGY ORDER NORMAN Final Result DERMATOPATHOLOGY LABORATORY [facility] - Department of Dermatology [facility] Medicine [address] [place] [address], [address] [phone] documented in this encounter Visit Diagnoses Not on filedocumented in this encounter Care Teams Senior Cognos Developer Relationship Specialty Start Date End Date Mango French MD [address] [place] [address] PCP - General 08/02/21 documented as of this encounter
--- OUTSIDE RECORDS SUMMARY | 2025-04-17 09:37 | XMS_ITS | Encounter Summary ---
Author Organization [facility] Address [address] [place] [address] Care Team Providers Care Conduit Installer Name Role Phone Mango French MD Primary Care Provider [phone] Encounter Details Date Type Department Care Team (Late st Contact Info) Description 08/17/2022 Lab Requisition [facility] [address] [place] [id number] Leo Hernandez MD [address] [place] [address] Social History Tobacco Use Types Packs/Day Years Used Date Smoking Tobacco: Never Smokeless Tobacco: Never Alcohol Use Standard Drinks/Week Comments No 0 (1 standard drink = 0.6 oz pur e alcohol) Comments No Sex and Gender Information Value Date Recorded Sex Assigned at Not on file Legal Sex Female 1:53 PM LEAD DRIVER Gender Identity Not on file Sexual Orientation Not on file Occupation Industry Job Start Date Job End Date Retired Not on file Not on file Not on file documented as of this encounter Plan of Treatment Not on file documented as of this encounter Procedures Procedure Name Priority Date/Time Associated Diagnosis Comments DERMATOPATHOLOGY Routine 08/03/2022 12:0 0 AM CDT documented in this encounter Results * DERMATOPATHOLOGY (08/03/2022 12:00 AM CDT) Case Report Dermatopathology Report Case: [id number] Authorizing Provider: Leo Hernandez MD Collected: 08/03/2022 12:00 AM Ordering Location: [facility] Received: 08/17/2022 11:38 AM Pathologist: Stella Burk MD Specimen: Skin, left lower lat leg 12:37 PM [facility] DERMATOPATHOLOGY LABORATORY Final Diagnosis Specimen A. SKIN, left lower lat leg: HYPERPLASTIC (HYPERTROPHIC) ACTINIC KERATOSIS, ERODED (L57.0) (see microscopic description) 12:37 PM LEAD DRIVER DERMATOPATHOLOGY LABORATORY at [address] [facility] Clinical History ISK vs SCC vs BCC. Path#[id number] 12:37 PM [facility] DERMATOPATHOLOGY LABORATORY Gross Description Specimen A: Received is one formalin filled container labeled with the patient's name and designated left lower lat leg. The specimen consists of a shave biopsy measuring 11x9x1 mm. Jar 0. 12:37 PM LEAD DRIVER DERMATOPATHOLOGY LABORATORY Microscopic Description Specimen A. SKIN, left lower lat leg: There is hyperkeratosis alternating with parakeratosis. There is epidermal hyperplasia with disorderly maturation of keratinocytes with nuclear pleomorphism confined to the lower half of the epidermis. The epidermis is focally eroded. BerEP4 stains with lower epidermis only weakly. Mib-1 stain highlights proliferating keratinocytes within the lower half of the epidermis. 12:37 PM [facility] DERMATOPATHOLOGY LABORATORY Disclaimer An external and internal positive and negative controls are appropriate for the histochemical, immunohistochemical and immunofluorescence stain(s) in this case (if any), except where stated explicitly. The performance characteristics of the stain(s) cited in this report were developed and its performance characteristic determined by the Dermatopathology Laboratory at [facility], directed by Dr. Viv Tracy. These tests need not be, and therefore are not, approved by the [place] Food and Drug Administration. The tests are used for clinical purposes. Billing Codes Specimen Charges Stain Charges 90700 1 06054 21771 1 1 12:37 PM [facility] DERMATOPATHOLOGY LABORATORY Embedded Images 12:37 PM [facility] DERMATOPATHOLOGY LABORATORY Pathology/Cytolog y TISSUE SPECIMEN FROM SKIN / Unknown 08/03/2022 08/17/2022 11:38 AM LEAD DRIVER us Leo Hernandez MD LAB - PATHOLOGY/CYTOLOGY ORDER NORMAN Final Result DERMATOPATHOLOGY LABORATORY [facility] - Department of Dermatology [address], [address] [phone] documented in this encounter Visit Diagnoses Not on filedocumented in this encounter Care Teams Conduit Installer Relationship Specialty Start Date End Date Mango French MD [address] [place] [address] PCP - General 08/02/21 documented as of this encounter
--- OUTSIDE RECORDS SUMMARY | 2025-04-17 09:37 | XMS_ITS | Clinical Summary ---
Author Organization [facility] Address [address] [place] [address] Care Team Providers Care Food Service Associate Name Role Phone Mango French MD Primary Care Provider [phone] Allergies Active Allergy Reactions Criticality Noted Date Comments Codeine Nausea and Vomiting,Nausea Only,Vomiting Low 10/07/2021 Other reaction(s): Nausea only Reaction: NAUSEA, VOMITING, Methylprednisolone Rash Medium 10/07/2021 Reaction: RASH Morphine Nausea and Vomiting,Nausea Only,Vomiting Low 10/07/2021 Reaction: NAUSEA, VOMITING, Oxycodone-Acetaminophen Vomiting Low 10/15/2019 Medications ALPRAZolam 0.25 MG tablet Take 0.25 mg by mouth 4 (four) times a day. Active buPROPion SR 100 MG 12 hr tablet Take 150 mg by mouth daily. Active calcium citrate 950 (200 CA) MG Tab tablet Take 600 mg by mouth daily. Takes since gastric bypass Active Estrogens Conj Synthetic B 0.3 MG Tab Take 0.3 mg by mouth daily. premarin Active omeprazole 20 MG capsule Take 20 mg by mouth daily. Active traMADol 50 MG tablet Take 1 tablet by mouth as needed. Takes for migraines, not taken in a while Active zolpidem CR 12.5 MG tablet Take 10 mg by mouth nightly. Active hydroCHLOROthi azide 12.5 MG tablet Take 12.5 mg by mouth every morning. Active Multiple Vitamins-[place] als (MULTIVITAMIN ADULTS OR) Take 2 tablets by mouth daily. Active Docusate Sodium (STOOL SOFTENER OR) Take 3 tablets by mouth nightly. Active polyethylene glycol packet Take 17 g by mouth nightly. Dissolve powder in 240 mL water Active busPIRone 5 MG tablet Take 5 mg by mouth see administration instructions. New, started Monday Take one tablet at bedtime, then two tablets for the next week. Now up to three times daily Active Cyanocobalamin (B-12) [address] 1 tablet under the tongue weekly. Active Active Problems No known active problems Family History Medical History Relation Comments No Known Problems Brother 1 Heart Attack Brother 2 Heart Attack Father Cancer Mother breast (mastecto my bilateral) renal failure stage four Mother No Known Problems Sister Relation Status Comments Brother 1 Alive Brother 2 Alive Father father and all o f his siblings had cardiac issues. Mother Alive Sister Alive Social History Tobacco Use Types Packs/Day Years Used Date Smoking Tobacco: Never Smokeless Tobacco: Never Alcohol Use Standard Drinks/Week Comments No 0 (1 standard drink = 0.6 oz pur e alcohol) Comments No Sex and Gender Information Value Date Recorded Sex Assigned at Not on file Legal Sex Female 6:55 PM CDT Gender Identity Not on file Sexual Orientation Not on file Last Filed Vital Signs Vital Sign Reading Time Taken Comments Blood Pressure 137/74 10/13/2021 12:46 PM KISS MACHINE OPERATOR Pulse 64 10/13/2021 12:46 PM KISS MACHINE OPERATOR Temperature 36.8 C (98.3 F) 10/13/2021 12:46 PM KISS MACHINE OPERATOR Respiratory Rate 16 10/13/2021 12:46 PM KISS MACHINE OPERATOR Oxygen Saturation 100% 10/13/2021 12:46 PM KISS MACHINE OPERATOR Inhaled Oxygen Concentration - - Weight 67.4 kg (148 lb 9.4 oz) 10/13/2021 8:00 A M KISS MACHINE OPERATOR Height 166.4 cm (5' 5.5) 10/13/2021 8:00 AM KISS MACHINE OPERATOR Body Mass Index 24.35 10/13/2021 8:00 AM KISS MACHINE OPERATOR Plan of Treatment Health Maintenance Due Date Last Done Comments Colorectal Cancer Screening Colonoscopy (10 Years) 1955 Hepatitis C 02/07/1974 Mammogram Screening 1996 Pneumococcal Vaccine: 50+ Years (1 of 1 - PCV) 02/07/2006 Zoster Vaccines (1 of 2) 02/07/2006 Annual Medicare Wellness Visit 02/07/2021 Dexa Scan (General) 02/07/2021 COVID-19 Vaccine (2023-2 5 season) 2024 01/02/2021, 12/12/2020 DTaP, Tdap and Td Vaccines ( 2 - Td or Tdap) 06/17/2025 06/17/2015 RSV Immunization or 60+ Years (1 - 1-dose 75+ series) 02/07/2031 Meningococcal B Vaccine Aged Out No l onger eligible based on patient's age to complete this topic Meningococcal Vaccine Aged Out No linda gaviota eligible based on patient's age to complete this topic RSV Immunizations Under 20 Months Aged Out No longer eligible b ased on patient's age to complete this topic Insurance [employer] MEDICARE Care Teams Food Service Associate Relationship Specialty Start Date End Date Mango French MD [address] [place] [address] PCP - General FAMILY PRACTICE 10/07/21
== END 2025-04-17 09:30 | disposition home or self-care (01) ==
PROVIDERS: PCP Family Medicine; Visit Provider Physician Assistant
DX: K59.00 Constipation, unspecified (principal); R14.0 Abdominal distension (gaseous)
CPT/HCPCS: 74018

== ENCOUNTER 2025-04-21 17:26 | Inpatient (IN) | payer MEDICARE, OTHER, SELFPAY ==
--- NOTE | ~2025-04-21 | CT_ITS ---
EXAMINATION: CT abdomen pelvis w con DATE: 04/21/2025 23:13 INDICATION: concern for SBO TECHNIQUE: Computed tomography (CT) of the abdomen and pelvis was performed with 100 mL Omnipaque-350 intravenous contrast. Automated exposure control and iterative reconstruction technique were employe d. The dose-length product was 410.42 mGy-cm. COMPARISON: None. FINDINGS: Lower thorax: Mitral calcification. Minimal bibasilar scar/atelectasis. Liver: Scattered subcentimeter hypodensities, too small to characterize but most likely represent cys ts or hemangiomas. Biliary/Gallbladder: Gallbladder is absent. No bile duct dilation. Pancreas: No mass or duct dilation. Spleen: Normal. Adrenals:No mass. Kidneys: No hydronephrosis. No obstructing calcification. 1.2 cm indeterminate density right upper po le and 1.2 cm indeterminate density left upper pole lesions. GI tract: Status post gastric bypass surgery. Small hiatal hernia. Mild distal esophageal and gastric wall edema. Uncomplicated small bowel anastomosis. No small or large bowel dilation. Normal appendix . Diverticulosis without diverticulitis. Mesentery/Peritoneum: No ascites, mass, or free air. Retroperitoneum: No mass. Atherosclerotic calcifications of intra-abdominal arterial vessels. Pelvis: Mild urinary bladder wall thickening. Absent uterus. Normal bilateral ovaries. Soft Tissues: Small uncomplicated fat-containing umbilical hernia. Fat density mass in the proximal l eft thigh muscles measuring up to 11.1 cm. Bones: No acute osseous finding. IMPRESSION: No CT evidence of bowel obstruction. Uncomplicated appearing gastric bypass. Mild esophagitis/gastritis. Indeterminate density bilateral renal lesions, recommend timely outpatient MRI or CT without and with contrast. 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 Mild urinary bladder wall thickening as can be seen with cystitis. Reviewed, dictated and finalized at location K.
--- OUTSIDE RECORDS SUMMARY | 2025-04-21 17:29 | XMS_ITS | Clinical Summary ---
Author Organization [facility] Address [address] [place] [address] Care Team Providers Care Marketing Producer Name Role Phone Manog French MD Primary Care Provider Serafin Galicia DPM Unavailable [phone] Allergies No known active allergies Medications cyanocobalamin [...] (09/27/2019): Added automatically from request for surgery [id number] Hypertrophy of nasal turbinates 09/27/2019 Overview (09/27/2019): Added automatically from request for surgery [id number] Depression 08/14/2012 Overview (01/13/2017): Depression Encounters Date Type Department Care Team Description 03/04/2025 Telephone [facility] Cardiology [address] [place] [address] Martha Nguyen MD 02/17/2025 9:00 AM CDT Office Visit [facility] Cardiology [address] [place] [address] Martha Nguyen MD Essential hypertension (Primary Dx); WHEELER (dyspnea on exertion); Other chest pain; Family history of ischemic heart disease 02/10/2025 9:58 AM CDT - 02/10/2025 11:59 PM CDT Hospital Encounter [facility] [address] [address] [facility] [address] [place] [address] Screening mammogram, encounter for Discharge Disposition: Discharge [...] on file Legal Sex Female 10:58 AM BAGGING SALVAGER Gender Identity Female 12/04/2020 6:25 AM BAGGING SALVAGER Sexual Orientation Straight 12/04/2020 6: 25 AM BAGGING SALVAGER Obstetrics History Para Term AB IAB SAB [...] CDT Respiratory Rate 18 12/08/2023 9:55 AM BAGGING SALVAGER Oxygen Saturation 94% 02/17/2025 9:00 AM CDT [...] history exists Medical Devices Implanted Type Area Vp Care Management Device Identifier Shelf Expiration Date Model / Serial / Lot Unknown N/A: Neck [employer]plant[employer] 3x2in 1 Short Term Implantable Thk.03in Sheeting - [id number] Implanted:Qty: 1 on 11/01/2019 by Galo Chaney MD at [facility] Bilateral : Nose Implantech [id number] 01/08/2024 / / [id number] Procedures Procedure Name Priority Date/Time Associated Diagnosis [...] age 40, based on guidelines of the [employer] [place] (ACR Practice Parameter for the Performance of Screening and Diagnostic Mammography) and [place]. For women [...] Hartley M.D. MD: 04:33 PM 04:33 PM [facility] [EOD] Delfino Lima MD IMG DXA PROCEDURES Final Result from Last 3 Months or Most Recently Relevant to Health Maintenance Insurance MEDICARE [facility] [employer] MEDICARE FOR LIFE MEDICARE FOR LIFE Advance Directives For more information, please contact: [phone] * Full Code (Latest Code Status on File) Date Activated Date Inactivated Comments 11/01/2019 2:17 PM 11/01/2019 8:39 PM Care Teams Marketing Producer Relationship Specialty Start Date End Date Mango French MD [address] [place] [address] PCP - General Family Medicine 07/18/21 Serafin Galicia, CAROL [address] [place] [address] Consulting Physician Podiatry 03/09/22
--- OUTSIDE RECORDS SUMMARY | 2025-04-21 17:29 | XMS_ITS | Referral Summary ---
Author Organization [facility] Building C Address [address] [place] [address] Care Team Providers Care Editor Continuity And Script Name Role Phone Mango French MD Primary Care Provider Serafin Galicia DPM Unavailable [phone] Encounters Date Type Department Care Team Description 03/04/2025 Telephone [facility] [address] [place] [phone] Martha Nguyen MD 02/17/2025 9:00 AM CDT Office Visit [facility] Cardiology [address] [place] [phone] Martha Nguyen MD Essential hypertension (Primary Dx); WHEELER (dyspnea on exertion); Other chest pain; Family history of ischemic heart disease 02/10/2025 9:58 AM CDT - 02/10/2025 11:59 PM CDT Hospital Encounter [facility] B[facility] [address] [place] [address] Screening mammogram, encounter for Discharge [...] (09/27/2019): Added automatically from request for surgery [id number] Hypertrophy of nasal turbinates 09/27/2019 Overview (09/27/2019): Added automatically from request for surgery [id number] Depression 08/14/2012 Overview (01/13/2017): Depression Social History [...] on file 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 Gender Identity Female 12/04/2020 6:25 AM 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 Sexual Orientation Straight 12/04/2020 6: 25 AM 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 Last Filed Vital Signs Vital Sign Reading Time Taken Comments Blood Pressure 100/60 02/17/2025 9:00 AM CDT Pulse 80 02/17/2025 9:00 AM CDT Temperature 36.8 C (98.2 F) 07/02/2023 8:54 AM CDT Respiratory Rate 18 12/08/2023 9:55 AM 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 Oxygen Saturation 94% 02/17/2025 9:00 AM CDT Inhaled Oxygen Concentration - - Weight 73.5 kg (162 lb) 02/17/2025 9:00 AM CDT Height 167.6 cm (5' 6) 02/17/2025 9:00 AM CDT Body Mass Index 26.15 02/17/2025 9:00 AM CDT Plan of Treatment Not on file Medical Devices Implanted Type Area Security System Sales Consultant Device Identifier Shelf Expiration Date Model / Serial / Lot Unknown N/A: Neck Implantech [employer] 3x2in 1 Short Term Implantable Thk.03in Sheeting - [id number] Implanted:Qty: 1 on 11/01/2019 by Galo Chaney MD at [facility] Bilateral : Nose Implantech [id number] 01/08/2024 / / [id number] Procedures Procedure Name Priority Date/Time Associated Diagnosis [...] age 41, based on guidelines of the [place] (ACR Practice Parameter for the Performance of Screening and Diagnostic Mammography) and [place] [employer]. For women [...] Hartley M.D. MD: 04:33 PM 04:33 PM [facility] [EOD] Narrative 08/06/2013 4:36 PM CDT EXAMINATION: [...] Hartley M.D. MD: 04:33 PM 04:33 PM [facility] [EOD] Delfino Lima MD IMG DXA PROCEDURES Final Result from Last 3 Months or Most Recently Relevant to Health Maintenance Insurance MEDICARE [facility] Address: [address] [address] [place] [address] [employer] MEDICARE FOR LIFE MEDICARE FOR LIFE Advance Directives For more information, please contact: [phone] * Full Code (Latest Code Status on File) Date Activated Date Inactivated Comments 11/01/2019 2:17 PM 11/01/2019 8:39 PM Care Teams Editor Continuity And Script Relationship Specialty Start Date End Date Mango French MD [address] [place] [address] PCP - General Family Medicine 07/18/21 Serafin Galicia, DPRekha [address] [place] [address] Consulting Physician Podiatry 03/09/22
--- OUTSIDE RECORDS SUMMARY | 2025-04-21 17:29 | XMS_ITS | Continuity of Care Document ---
Author Name [facility] Organization [facility] Care Team Providers Care Government Service Executive Name Role Phone [facility] Unavailable Unavailable Medications Combined list of outpatient medications from Department of Defense and Veterans Affairs facilities.Medications provided include 1) outpatient medications from the last 15 months, and 2) patient-reported medications. Medication Details Route Status Patient Instructions Prescription Expires Prescription Number Last Dispense Date Ordering Provider Order Date Order Qty Source ALPRAZolam 0.25 mg tablet See dose instruct ions in comments , # 120 EA, 3 total refill(s ), Acute Complet ed 04/23/2023 3 2022 120.0 Ambulat ory Pharmac y ALPRAZolam 0.25 mg tablet 0.25 mg, Oral, QID, # 120 EA, 0 total refill(s ), Hard Stop Oral (given by mouth) Complet ed 03/17/2024 3 2023 120.0 Ambulat ory Pharmac y ALPRAZolam 0.25 mg tablet 0.25 mg, Oral, QID, # 120 EA, 3 total refill(s ), Hard Stop Oral (given by mouth) Complet ed 08/19/2023 3 2022 120.0 Ambulat ory Pharmac y ALPRAZolam 0.25 mg tablet 0.25 mg, Oral, TID, # 90 EA, 1 total refill(s ), Hard Stop Oral (given by mouth) Discont inued 05/01/2024 4 2023 90.0 Ambulat ory Pharmac y ALPRAZolam 0.25 mg tablet 0.25 mg, Oral, TID, # 90 EA, 0 total refill(s ), Hard Stop Oral (given by mouth) Complet ed 04/14/2024 4 2023 90.0 Ambulat ory Pharmac y azelaic acid 15% topical gel APPLY TO FACE TWICE A DAY DIRECTED , # 50 g, 3 total refill(s ), Acute Complet ed 05/31/20232022 50.0 Ambulat ory Pharmac y azelaic acid 20% topical cream APPLY TO FACE TWICE A DAY DIRECTED , # 50 g, 2 total refill(s ), Acute Complet ed 05/31/2023 2 2022 50.0 Ambulat ory Pharmac y azelastine 137 mcg/inh (0.1%) nasal spray ADMINIST ER 2 SPRAYS INTO EACH NOSTRIL DAILY, # 30 mL, 5 total refill(s ), Acute Complet ed 06/28/2023 2 2022 30.0 Ambulat ory Pharmac y benzonatate 100 mg capsule 200 mg, Oral, TID, # 60 EA, 0 total refill(s ), Hard Stop Oral (given by mouth) Complet ed 06/07/2024 4 2023 60.0 Ambulat ory Pharmac y buPROPion (ZYBAN EQ) 150 MG ORAL TB12 Do not drink alcohol. Take or use exactly as directed .Obtain advice for OTCs.May impair driving. Swallow whole.Ch milo with your doctor before becoming . 02/13/2025 [id number] 4 2023 90 [facility] ([facility]) buPROPion 150 mg/12 hours (SR) oral tablet, extended release TAKE ONE TABLET IN THE MORNING, # 90 EA, 0 total refill(s ), Acute Discont inued 05/18/20232022 90.0 Ambulat ory Pharmac y buPROPion 150 mg/12 hours (SR) oral tablet, extended release TAKE ONE TABLET IN THE MORNING, # 90 EA, 0 total refill(s ), Acute Complet ed 02/19/20242023 90.0 Ambulat ory Pharmac y buPROPion SR 100 mg/12 hour tablet 100 mg, Oral, every morning, # 90 EA, 0 total refill(s ), Hard Stop Oral (given by mouth) Discont inued 05/18/2023 3 2022 90.0 Ambulat ory Pharmac y buPROPion SR 150 mg/12 hour tablet 150 mg, Oral, # 90 EA, 0 total refill(s ), Hard Stop Oral (given by mouth) Discont inued 05/18/2023 3 2022 90.0 Ambulat ory Pharmac y buPROPion SR 150 mg/12 hour tablet 150 mg, Oral, every morning, # 90 EA, 0 total refill(s ), Hard Stop Oral (given by mouth) Discont inued 05/01/2024 4 2023 90.0 Ambulat ory Pharmac y buPROPion SR 150 mg/12 hour tablet See Instruct ions, 0, 0, # 90 EA, 0 total refill(s ), Hard Stop Complet ed 02/20/2024 3 2023 90.0 Ambulat ory Pharmac y buPROPion SR 150 mg/12 hour tablet = 1 tab(s), Oral, Daily, # 90 EA, 1 total refill(s ), Hard Stop Oral (given by mouth) Ordered 11/21/2025 5 2024 90.0 Ambulat ory Pharmac y buPROPion SR 150 mg/12 hour tablet 150 mg, Oral, # 90 EA, 0 total refill(s ), Hard Stop Oral (given by mouth) Discont inued 07/23/2024 4 2023 90.0 Ambulat ory Pharmac y buPROPion SR 150 mg/12 hour tablet = 1 tab(s), Oral, Daily, # 90 EA, 0 total refill(s ), Hard Stop Oral (given by mouth) Complet ed 10/18/2024 4 2024 90.0 Ambulat ory Pharmac y buPROPion SR 150 mg/12 hour tablet 150 mg, Oral, every morning, # 90 EA, 0 total refill(s ), Hard Stop Oral (given by mouth) Discont inued 05/01/2024 3 2023 90.0 Ambulat ory Pharmac y busPIRone 10 mg tablet 10 mg, Oral, TID, # 270 EA, 0 total refill(s ), Hard Stop Oral (given by mouth) Complet ed 07/31/2024 4 2023 270.0 Ambulat ory Pharmac y busPIRone 10 mg tablet 10 mg, Oral, TID, # 270 EA, 0 total refill(s ), Hard Stop Oral (given by mouth) Discont inued 05/01/2024 4 2023 270.0 Ambulat ory Pharmac y busPIRone 15 mg tablet = 1 tab(s), Oral, TID, # 270 EA, 0 total refill(s ), Hard Stop Oral (given by mouth) Discont inued 11/28/2024 5 2024 270.0 Ambulat ory Pharmac y busPIRone 15 mg tablet = 1 tab(s), Oral, TID, # 270 EA, 0 total refill(s ), Hard Stop Oral (given by mouth) Complet ed 10/18/2024 4 2024 270.0 Ambulat ory Pharmac y busPIRone 15 mg tablet See Instruct ions, Take 2 tablets by mouth every morning, 1 tablet by mouth each afternoo n and 1 tablet by mouth every night., # 360 EA, 1 total refill(s ), Soft Stop Ordered 5 2024 360.0 Ambulat ory Pharmac y busPIRone 5 mg tablet 5 mg, Oral, TID, # 90 EA, 1 total refill(s ), Hard Stop Oral (given by mouth) Discont inued 01/18/2024 4 2023 90.0 Ambulat ory Pharmac y Clonazepam (Teva Brand) Tablet 0.5 mg Oral May cause drowsine ss.Do not drink alcohol. Take or use exactly as directed .Obtain advice for OTCs.May impair driving. Federal law prohibit s transfer of prescrip tion.Do not take if . 09/16/2024 [id number] 4 2023 90 [facility] ([facility]) Clonazepam (Teva Brand) Tablet 0.5 mg Oral May cause drowsine ss.Do not drink alcohol. Take or use exactly as directed .Obtain advice for OTCs.May impair driving. Federal law prohibit s transfer of prescrip tion.Do not take if . 08/12/2024 [id number] 4 2023 90 [facility] ([facility]) clonazePAM 0.5 mg tablet 0.5 mg, Oral, TID, # 90 EA, 0 total refill(s ), Hard Stop Oral (given by mouth) Discont inued 03/22/2024 4 2023 90.0 Ambulat ory Pharmac y clonazePAM 0.5 mg tablet = 1 tab(s), Oral, BID, # 60 EA, 0 total refill(s ), Hard Stop Oral (given by mouth) Complet ed 09/29/2024 4 2023 60.0 Ambulat ory Pharmac y clonazePAM 0.5 mg tablet 0.5 mg, Oral, Daily, # 30 EA, 0 total refill(s ), Hard Stop Oral (given by mouth) Discont inued 10/18/2023 4 2023 30.0 Ambulat ory Pharmac y clonazePAM 0.5 mg tablet = 1 tab(s), Oral, BID, # 60 EA, 2 total refill(s ), Hard Stop Oral (given by mouth) Discont inued 02/24/2025 5 2024 60.0 Ambulat ory Pharmac y clonazePAM 0.5 mg tablet See Instruct ions, # 60 EA, 0 total refill(s ), Hard Stop Discont inued 06/28/2024 4 2023 60.0 Ambulat ory Pharmac y clonazePAM 0.5 mg tablet = 1 tab(s), Oral, BID, # 60 EA, 0 total refill(s ), Hard Stop Oral (given by mouth) Complet ed 07/14/2024 4 2023 60.0 Ambulat ory Pharmac y clonazePAM 0.5 mg tablet 0.5 mg, Oral, TID, # 90 EA, 1 total refill(s ), Hard Stop Oral (given by mouth) Discont inued 05/30/2024 4 2023 90.0 Ambulat ory Pharmac y clonazePAM 0.5 mg tablet = 1 tab(s), Oral, BID, # 60 EA, 2 total refill(s ), Soft Stop Oral (given by mouth) Discont inued 03/17/2025 5 2024 60.0 Ambulat ory Pharmac y clonazePAM 0.5 mg tablet = 1 tab(s), Oral, BID, # 60 EA, 2 total refill(s ), Soft Stop Oral (given by mouth) Ordered 5 2024 60.0 Ambulat ory Pharmac y clonazePAM 0.5 mg tablet = 1 tab(s), Oral, BID, # 60 EA, 1 total refill(s ), Hard Stop Oral (given by mouth) Discont inued 11/28/2024 5 2024 60.0 Ambulat ory Pharmac y clonazePAM 0.5 mg tablet = 1 tab(s), Oral, BID, # 60 EA, 0 total refill(s ), Hard Stop Oral (given by mouth) Complet ed 08/19/2024 4 2023 60.0 Ambulat ory Pharmac y clonazePAM 0.5 mg tablet See Instruct ions, Oral, # 45 EA, 0 total refill(s ), Soft Stop Oral (given by mouth) Discont inued 03/17/2025 5 2024 45.0 Ambulat ory Pharmac y Compounded Prilosec Capsule Conventiona l 20 mg Oral Take or use exactly as directed .Obtain advice for OTCs.Swa llow whole. 02/20/2025 [id number] 4 2023 90 [facility] ([facility]) conjugated estrogens 0.3 mg tablet See Instruct ions, Oral, 0, # 90 EA, 2 total refill(s ), Hard Stop Oral (given by mouth) Ordered 11/21/2025 5 2024 90.0 Ambulat ory Pharmac y EPINEPHrine (eqv-epi-pe n) 0.3mg autoinjecto r kit [2EA] See Instruct ions, # 2 EA, 3 total refill(s ), Hard Stop Ordered 10/07/2025 5 2024 2.0 Ambulat ory Pharmac y Estrogens, Conjugated (Premarin) Tablet 0.3 mg Oral Take or use exactly as directed .Do not take if . 03/14/2025 [id number] 4 [address] [place] [address] [facility] ([facility]) flutic/umec lid/vilant 200-62.5-25 mcg inh (60EA) = 1 puff(s), Inhale, Daily, # 60 EA, 1 total refill(s ), Hard Stop Inhala tion (breat he in) Ordered 08/19/2025 5 2024 60.0 Ambulat ory Pharmac y Fluticasone Furoate 0.2mg/Actua t + Umeclidiniu m Coram 0.0625 mg/ Actuat + Vilanterol Trifenatate 0.025 mg/Actuat Disk w/inhalatio n device, Inhalation 03/14/2025 [id number] 03/14 4 [address] [place] [address] [facility] ([facility]) hydroCHLORO thiazide 25 mg tablet See Instruct ions, # 90 EA, 1 total refill(s ), Hard Stop Discont inued 04/23/2024 4 2023 90.0 Ambulat ory Pharmac y hydroCHLORO thiazide 25 mg tablet See Instruct ions, # 90 EA, 1 total refill(s ), Hard Stop Ordered 10/07/2025 5 2024 90.0 Ambulat ory Pharmac y hydroCHLORO thiazide 25 mg tablet 25 mg, Oral, Daily, # 90 EA, 1 total refill(s ), Hard Stop Oral (given by mouth) Complet ed 03/22/2024 3 2023 90.0 Ambulat ory Pharmac y hydroCHLORO thiazide 25 mg tablet See Instruct ions, # 90 EA, 1 total refill(s ), Hard Stop Discont inued 10/08/2024 4 2023 90.0 Ambulat ory Pharmac y hydrOXYzine hydrochlori de 50 mg tablet See Instruct ions, Oral, # 60 EA, 2 total refill(s ), Soft Stop Oral (given by mouth) Ordered 5 2024 60.0 Ambulat ory Pharmac y ipratropium 21 mcg/inh (0.03%) nasal spray ADMINIST ER 2 SPRAYS INTO EACH NOSTRIL THREE TIMES A DAY, # 30 mL, 10 total refill(s ), Acute Complet ed 06/28/2023 3 2022 30.0 Ambulat ory Pharmac y ipratropium 42 mcg/inh nasal spray [15mL] See Instruct ions, 0, # 15 mL, 3 total refill(s ), Hard Stop Ordered 09/12/2025 5 2024 15.0 Ambulat ory Pharmac y ipratropium 42 mcg/inh nasal spray [15mL] See Instruct ions, # 45 mL, 3 total refill(s ), Hard Stop Discont inued 09/16/2024 4 2023 45.0 Ambulat ory Pharmac y ipratropium 42 mcg/inh nasal spray [15mL] See Instruct ions, # 45 mL, 2 total refill(s ), Acute Complet ed 12/14/2023 3 2023 45.0 Ambulat ory Pharmac y lidocaine 5% patch See Instruct ions, # 30 EA, 2 total refill(s ), Hard Stop Ordered 10/07/2025 5 2024 30.0 Ambulat ory Pharmac y lidocaine 5% patch See Instruct ions, # 30 EA, 2 total refill(s ), Hard Stop Complet ed 03/22/2024 4 2023 30.0 Ambulat ory Pharmac y METHYLPREDN ISOLONE (methylpred nisolone), 4 MG, TAB DS PK, ORAL, ZYDUS PHARMACEU, 21 ea. DOSE-PACK Cancele d [id number] : 2023 0 Pharmac y Data Transac [employer] y nitroglycer in 0.4 mg sublingual tablet [25EA] See Instruct ions, # 25 EA, 3 total refill(s ), Hard Stop Ordered 04/29/2025 4 2023 25.0 Ambulat ory Pharmac y omeprazole 20 mg oral delayed release capsule TAKE ONE CAPSULE BY MOUTH EVERY DAY, # 90 EA, 1 total refill(s ), Acute Complet ed 09/21/2023 3 2022 90.0 Ambulat ory Pharmac y om[address] 20 mg capsule See Instruct ions, # 90 EA, 3 total refill(s ), Hard Stop Ordered 10/07/2025 5 2024 90.0 Ambulat ory Pharmac y omep[address]ole [address] 20 mg capsule 20 mg, See Instruct ions, Oral, Daily, # 90 EA, 2 total refill(s ), Hard Stop Oral (given by mouth) Complet ed 03/22/2024 4 2023 90.0 Ambulat ory Pharmac y om[address] 20 mg capsule 20 mg, Oral, Daily, # 90 EA, 2 total refill(s ), Hard Stop Oral (given by mouth) Discont inued 10/08/2024 4 2023 90.0 Ambulat ory Pharmac y potassium chloride ER 10 mEq tablet 10 mEq, Oral, Daily, # 90 EA, 1 total refill(s ), Hard Stop Oral (given by mouth) Discont inued 04/23/2024 3 2023 90.0 Ambulat ory Pharmac y potassium chloride ER [EQV-Klor-C on] 10 mEq tablet See Instruct ions, # 90 EA, 1 total refill(s ), Hard Stop Discont inued 04/23/2024 4 2023 90.0 Ambulat ory Pharmac y potassium chloride ER [EQV-Klor-C on] 10 mEq tablet See Instruct ions, # 90 EA, 1 total refill(s ), Hard Stop Ordered 10/07/2025 5 2024 90.0 Ambulat ory Pharmac y potassium chloride ER [EQV-Klor-C on] 10 mEq tablet See Instruct ions, # 90 EA, 1 total refill(s ), Hard Stop Discont inued 10/08/2024 4 2023 90.0 Ambulat ory Pharmac y Premarin 0.3 mg tablet See Instruct ions, Oral, # 90 EA, 1 total refill(s ), Hard Stop Oral (given by mouth) Discont inued 03/15/2024 4 2023 90.0 Ambulat ory Pharmac y Premarin 0.3 mg tablet See Instruct ions, # 90 EA, 2 total refill(s ), Hard Stop Discont inued 11/28/2024 4 2024 90.0 Ambulat ory Pharmac y Premarin 0.3 mg tablet 0.3 mg, Oral, Daily, # 90 EA, 2 total refill(s ), Hard Stop Oral (given by mouth) Discont inued 10/08/2024 4 2023 90.0 Ambulat ory Pharmac y rosuvastati n 5 mg tablet See Instruct ions, # 90 EA, 3 total refill(s ), Soft Stop Ordered 5 2024 90.0 Ambulat ory Pharmac y rosuvastati n 5 mg tablet See Instruct ions, # 30 EA, 11 total refill(s ), Hard Stop Complet ed 02/21/2025 5 2024 30.0 Ambulat ory Pharmac y traMADol 50 mg tablet 50 mg, Oral, every 8 hr, # 90 EA, 0 total refill(s ), Hard Stop Oral (given by mouth) Complet ed 06/23/2024 4 2023 90.0 Ambulat ory Pharmac y traMADol 50 mg tablet See Instruct ions, Oral, # 90 EA, 0 total refill(s ), Hard Stop Oral (given by mouth) Complet ed 04/03/2024 4 2023 90.0 Ambulat ory Pharmac y traMADol 50 mg tablet See Instruct ions, # 90 EA, 0 total refill(s ), Hard Stop Complet ed 11/07/2024 4 2024 90.0 Ambulat ory Pharmac y traMADol 50 mg tablet 50 mg, Oral, every 8 hr, # 90 EA, 0 total refill(s ), Hard Stop Oral (given by mouth) Complet ed 07/30/2024 4 2023 90.0 Ambulat ory Pharmac y traMADol 50 mg tablet See Instruct ions, Oral, # 90 EA, 0 total refill(s ), Hard Stop Oral (given by mouth) Complet ed 09/19/2023 3 2022 90.0 Ambulat ory Pharmac y traMADol 50 mg tablet = 1 tab(s), Oral, # 90 EA, 0 total refill(s ), Soft Stop Oral (given by mouth) Ordered 5 2024 90.0 Ambulat ory Pharmac y Tramadol Hydrochlori de 50 mg Tablet, Oral (Major) May cause drowsine ss.Obtai n advice for OTCs.Fed era law prohibit s transfer of prescrip tion. 07/30/2024 [id number] 4 2023 90 [facility] ([facility]) traZODone 50 mg tablet See Instruct ions, Oral, # 90 EA, 0 total refill(s ), Hard Stop Oral (given by mouth) Complet ed 09/12/2024 4 2023 90.0 Ambulat ory Pharmac y Trelegy Ellipta 200 mcg-62.5 mcg-25 mcg inh [60EA] See Instruct ions, Inhale, Daily, # 60 EA, 0 total refill(s ), Hard Stop Inhala tion (breat he in) Discont inued 03/14/2024 4 2023 60.0 Ambulat ory Pharmac y Trelegy Ellipta 200 mcg-62.5 mcg-25 mcg inh [60EA] See Instruct ions, Inhale, Daily, # 60 EA, 5 total refill(s ), Hard Stop Inhala tion (breat he in) Discont inued 08/20/2024 4 2023 60.0 Ambulat ory Pharmac y Trelegy Ellipta 200 mcg-62.5 mcg-25 mcg inh [60EA] See Instruct ions, # 60 EA, 0 total refill(s ), Hard Stop Discont inued 03/15/2024 3 2023 60.0 Ambulat ory Pharmac y valACYclovi r 1 g tablet 1 g, Oral, TID, # 21 EA, 2 total refill(s ), Hard Stop Oral (given by mouth) Discont inued 05/23/2024 4 2023 21.0 Ambulat ory Pharmac y valACYclovi r 500 mg tablet 500 mg, Oral, Daily, # 30 EA, 3 total refill(s ), Hard Stop Oral (given by mouth) Discont inued 05/27/2024 4 2023 30.0 Ambulat ory Pharmac y valACYclovi r 500 mg tablet 1000 mg, Oral, BID, # 90 EA, 0 total refill(s ), Hard Stop Oral (given by mouth) Discont inued 05/27/2024 4 2023 90.0 Ambulat ory Pharmac y valACYclovi r 500 mg tablet See Instruct ions, # 90 EA, 0 total refill(s ), Hard Stop Complet ed 06/20/2024 4 2023 90.0 Ambulat ory Pharmac y zolpidem 10 mg tablet = 1 tab(s), Oral, Daily, # 90 EA, 1 total refill(s ), Soft Stop Oral (given by mouth) Ordered 5 2024 90.0 Ambulat ory Pharmac y zolpidem 10 mg tablet See Instruct ions, 0, 0, # 30 EA, 1 total refill(s ), Hard Stop Discont inued 11/18/2024 4 2024 30.0 Ambulat ory Pharmac y zolpidem 10 mg tablet 10 mg, Oral, # 90 EA, 0 total refill(s ), Hard Stop Oral (given by mouth) Discont inued 05/01/2024 4 2023 90.0 Ambulat ory Pharmac y zolpidem 10 mg tablet 10 mg, Oral, # 90 EA, 0 total refill(s ), Hard Stop Oral (given by mouth) Discont inued 07/23/2024 4 2023 90.0 Ambulat ory Pharmac y zolpidem 10 mg tablet See Instruct ions, Oral, # 90 EA, 0 total refill(s ), Hard Stop Oral (given by mouth) Discont inued 01/30/2025 5 2024 90.0 Ambulat ory Pharmac y zolpidem 10 mg tablet See dose instruct ions in comments , # 30 EA, 2 total refill(s ), Acute Complet ed 04/23/2023 3 2022 30.0 Ambulat ory Pharmac y zolpidem 10 mg tablet = 1 tab(s), Oral, Daily, # 30 EA, 0 total refill(s ), Hard Stop Oral (given by mouth) Complet ed 08/19/2024 4 2023 30.0 Ambulat ory Pharmac y zolpidem 10 mg tablet 10 mg, Oral, every day at bedtime, # 90 EA, 0 total refill(s ), Hard Stop Oral (given by mouth) Complet ed 02/17/2024 3 2023 90.0 Ambulat ory Pharmac y zolpidem 10 mg tablet 10 mg, Oral, Daily, # 90 EA, 0 total refill(s ), Hard Stop Oral (given by mouth) Complet ed 08/19/2023 3 2022 90.0 Ambulat ory Pharmac y Zolpidem Tartrate (Ambien Godfrey) Tablet 10 mg Oral May cause drowsine ss.[place] law prohibit s transfer of prescrip tion. 08/12/2024 [id number] 4 2023 90 [facility] ([facility]) Allergies, Adverse Reactions, Alerts Combined list of allergies from Department of Defense and Veterans Affairs facilities. It does not include entries that were removed or entered in error. Substance Category Reaction Severity Reaction type Status Date Reported Comments Source No Known Allergies Drug allergy (disorder) active 09/25/2015 [facility] ([facility]) Immunizations Combined list of available immunizations from the Department of Defense and Veterans Affairs facilities. Immunization Series Date Given Administered By Site Reaction Lot Number CVX Code Drug Wireless Sales Associate Status Comments Source Influenza, injectable, MDCK, preservative free, quadrivalent 2019 [facility], () Not Given Influenza , injectabl e, MDCK, preservat дмитрий free, quadrival ent DoD Influenza, seasonal, injectable, preservative free 2014 [facility], () Not Given Influenza , seasonal, injectabl e, preservat дмитрий free DoD Procedures Combined list of: 1) Procedures from Department of Veterans Affairs facilities going back up to thelast 18 months, not all [place] non-surgical procedures are included; 2) All procedures from the Department of Defense facilities. Procedure Procedure Type Code Date Perfomer Comments Sourc e No data available for this section Ambulatory P harmacy Social History Combined list of available smoking, tobacco, and other social history from Department of Defense and Veterans Affairs facilities. Social History Type Response Date Comment Sourc e This section is an empty social history section. [facility] Assessment and Plan Combined list of future care activities from Department of Defense and Veterans Affairs facilities (e.g., assessment and plan notes, appointments, orders, and referrals). Additional future care activities may be listed in the Plan of Care section. Result Assessment and Plan Date Source Assessment and Plan No data available for this section 04/21/2025 Ambulatory Pharmacy Functional Status Combined list of recent functional and cognitive assessments recorded at Department of Defense and Veterans Affairs ([place]).VA Functional [place] Measurement (FIM) Scale: 1 = Total Assistance (Subject = 0% +), 2 = Maximal Assistance (Subject = 25% +), 3 = Moderate Assistance (Subject = 50% +), 4 = Minimal Assistance (Subject = 75% +), 5 = Supervision, 6 = Modified [place] (Device), 7 = Complete [place] (Timely, Safely). Assessment Date/Time Source Assessment Type Assessment Skill Assessment Score Assessment Details No data available for this section
--- OUTSIDE RECORDS SUMMARY | 2025-04-21 17:29 | XMS_ITS | Data Portability ---
Author Organization [place] [facility],, Myriam morales Address [address] [place] [address] Assessment No assessment recorded. Plan of Treatment Reminders Order Date Submit Date Provider Last Modified By Organization Details Last Modified Time Details Appointments None recorde d. Lab allergy test, skin 2018 bandar [facility], [address], [place], [address], 9 15:59:15 Referral None recorde d. Procedures None recorde d. Surgeries None recorde d. Imaging None recorde d. Medication Orders ipratro pium bromide 42 mcg (0.06 %) nasal spray 2018 bandar Not available 9 13:00:02 Spiriva Respima t 2.5 mcg/act uation solutio n for inhalat ion 2018 019 [id number], [address], [place], [id number], 9 14:48:31 Trelegy Ellipta 100 mcg-62. 5 mcg-25 mcg powder for inhalat ion 2018 019 [facility][id number], [address], [place], [id number], 9 11:22:06 ipratro pium bromide 42 mcg (0.06 %) nasal spray 2018 019 [facility][id number], [address], [place], [place], [id number], 9 12:54:21 azelast ine 137 mcg (0.1 %) nasal spray 2018 019 [email or web address] Not available 9 11:21:42 azelast ine 137 mcg (0.1 %) nasal spray 2018 019 [facility] #[id number], [address], [place], [place], [id number], 9 11:21:42 Patient TargetsNo targets recorded. Patient Instructions Encounter Date Encounter Id Patient Instructions Last Modified By Organization Details Last Modified Time 05/27/2019 [id number] managing your allergies: care instructions [email or web address] Not available 05/27/2019 14:42:14 seasonal allergies: care instructions [email or web address] Not available 05/27/2019 14:42:14 06/25/2019 [id number] asthma in adults: care instructions [email or web address] Not available 06/25/2019 12:53:42 learning about asthma [email or web address] Not available 06/25/2019 12:53:41 07/25/2019 [id number] asthma in adults: care instructions [email or web address] Not available 07/25/2019 13:00:03 learning about asthma [email or web address] Not available 07/25/2019 13:00:03 08/23/2019 [id number] rhinitis: care instructions [email or web address] Not available 08/23/2019 11:24:24 Reason for Referral None Reported. Results Created Date Observation Date Name Description Value Unit Range Abnormal Flag Note LastModifiedBy Organization Detail LastModifiedTime 05/27/2005/27/2019 aller gy test, skin Mites positi ve Not Available [facility] [address], [place], [address], 05/27/2019 13:13:32 05/27/2005/27/2019 aller gy test, skin Mold positi ve Not Available [facility] [address], [place], [address], 05/27/2019 13:13:32 05/27/20 19 05/27/2019 aller gy test, skin Cat positi ve Not Available [facility] [address], [place], [address], 05/27/2019 13:13:32 05/27/2005/27/2019 aller gy test, skin Dog positi ve Not Available [facility] [address] [facility] [address], [place], [address], 05/27/2019 13:13:32 05/27/2005/27/2019 aller gy test, skin Trees positi ve Not Available [facility] [address] [facility] [address], [place], [address], 05/27/2019 13:13:32 05/27/2005/27/2019 aller gy test, skin Grass positi ve Not Available [facility] [address] [facility] [address], [place], [address], 05/27/2019 13:13:32 05/27/2005/27/2019 aller gy test, skin Ragweed negati ve Not Available [facility] [address] [facility] [address], [place], [address], 05/27/2019 13:13:32 05/21/2005/13/2019 XR, chest , 2 view No observ ation record ed. [facility] [address] [facility] [address], [place], [address], 05/21/2019 15:07:32 Result Notes None recorded. Problems No Known Problems Medical Equipment None Reported. Allergies No known drug allergies Medications Name Sig Start Date Stop Date Status Note LastModified by Organization Details LastModified Time Wellbutrin SR 150 mg tablet, 12 hr sustained-r elease active Not Available Not Available Not Available valacyclovi r 500 mg tablet active Not Available Not Available Not Available alprazolam 0.25 mg tablet active Not Available Not Available Not Available omeprazole 20 mg capsule,del ayed release active Not Available Not Available Not Available azelastine 137 mcg (0.1 %) nasal spray Beattie 2 sprays twice a day by intranasa l route. 08/23 completed Not Available Not Available Not Available zolpidem 10 mg tablet active Not Available Not Available No t Available ipratropium bromide 42 mcg (0.06 %) nasal spray Beattie 2 sprays 3 times a day by intranasa l route. active Not Available Not Available No t Available fluticasone propionate 50 mcg/actuati on nasal spray,suspe nsion 08/23 completed Not Available Not Available Not Available Premarin 0.3 mg tablet active Not Available Not Available Not Available hydrochloro thiazide 12.5 mg tablet active Not Available Not Available Not Available Spiriva Respimat 2.5 mcg/actuati on solution for inhalation Inhale 2 puffs every day by inhalatio n route. 2018 active Not Available Not Available Not Avai lable Trelegy Ellipta 100 mcg-62.5 mcg-25 mcg powder for inhalation Inhale 1 puff every day by inhalatio n route. 08/23 completed Not Available Not Available Not Available Vitals Date Recorded Body height Body mass index (BMI) Body weight Body temperature Systolic And Diastolic Provider Name and Address Organization Details Last Updated DateTime 05/27/2019 165.1 cm 29.1 kg/m2 62180.6 6 g 98.1 [degF] 200/98 mm[Hg] Minal [facility], 9 13:00:37 Date Recorded Body height Body mass index (BMI) Body weight Body temperature Systolic And Diastolic Provider Name and Address Organization Details Last Updated DateTime 06/25/2019 165.1 cm 29 kg/m2 10276.0 7 g 97.6 [degF] 145/75 mm[Hg] M[facility], 9 12:12:58 Date Recorded Body height Body mass index (BMI) Body weight Body temperature Systolic And Diastolic Provider Name and Address Organization Details Last Updated DateTime 07/25/2019 165.1 cm 28.5 kg/m2 65979.3 g 98.3 [degF] 130/75 mm[Hg] Minal Wu [place] [facility], 9 12:29:45 Date Recorded Body height Body mass index (BMI) Body weight Body temperature Systolic And Diastolic Provider Name and Address Organization Details Last Updated DateTime 08/23/2019 165.1 cm 28.1 kg/m2 82382.1 1 g 97.7 [degF] 148/82 mm[Hg] Minal [facility], 9 10:39:51 Social History None recorded. Functional Status None recorded. Mental Status None recorded. Family History Nothing Reported. Medical History Condition Response Diabetes N Anxiety Disorder N Coronary Artery Disease N Gout N Arthritis N Kidney Stones N Hyperthyroidism N Tuberculosis N Cancer N Diverticulitis N Stroke N Asthma N Allergies N COPD N Depression N Stress N Hypothyroidism N GERD/Reflux N High Cholesterol N Liver Disease N Heart Disease N Pulmonary Embolism N Fibromyalgia N Hypertension N Osteoporosis N Kidney Disease N Gynecological HistoryNo gynecological history recorded. Obstetrics History GPAL:G 0 P 0 0 0 0 Past Encounters Encounter ID Performer Location Encounter Start Date Encounter Closed Date Diagnosis/Indication Diagnosis SNOMED-CT Code Diagnosis ICD10 Code Diagnosis Note [id number] Jermaine yanez MD OFFICE [address] [place] [phone] 8 05/27/2019 12:47:59 05/27/2019 15:09:11 Allergic rhinitis caused by pollen 63404189 J30.1 The patient's symptoms are compatible with allergic rhinitis. Skin testing confirmed the allergic nature of this condition. The three fundamenta l therapeuti c strategies were discussed with the patient. These include allergen avoidance, pharmacolo gic interventi on with intranasal corticoste roids, antihistam shaheen, and potentiall y intranasal antihistam shaheen. Finally allergy immunother apy was discussed. The patient was started on Nasacort and azelastine . [id number] Jermaine yanez MD OFFICE [address] [place] [phone] 06/25/2019 11:53:40 06/25/2019 13:03:25 Cough variant asthma 895332361 J45.991 We will try her on Trelegy as well as a ipratropiu m bromide nasal spray. Will return in 1 month for repeat evaluation . [id number] Jermanie yanez MD OFFICE [address] [place] [address] [place], [place] [address] 07/25/2019 12:08:15 07/25/2019 13:07:38 Cough variant asthma 826289535 J45.991 We will try switching her to Spiriva and continue him on the ipratropiu m bromide [id number] Jermaine yanez MD OFFICE [address] [place] [address],[facility] [address] [place] [phone] 8 08/23/2019 10:10:06 08/23/2019 11:28:38 Chronic rhinitis 10143231 J31.0 Chronic nasal congestion unresponsi ve to multiple nasal sprays. Will have her continue using ipratropiu m bromide 2 sprays on each side of her nose just once a day. She will use nasal saline 5 times a day. Health Concerns Section Related Observation LastModified by Organization Detai ls LastModified Time None Recorded Concern Status LastModified by Organization Details LastModified Time None Recorded Advance Directives Directive None Recorded Payers Insurance Date Sequence Insurance Name Policy Number Policy Urias Covered Member ID Urias Member ID Guarantor Name 08/21/2019 1 [place] Sophie Lara [id number] Sophie [place] 08/21/2019 2 FOR LIFE ( - MEDICARE SUPPLEMENT) Wade Lara [id number] Sophie Duavl Lara Notes Date Note Type Note Provider Name and Address Organization Details Recorded Time 05/27/2019 text/html Sophie comes in with a history of sinus congestion, stuffiness, and drainage which is perennial in nature. She tends up getting treated as if this represents a sinus infection 2-3 times a year with the antibiotics rarely improving symptoms. She is recently has seen Dr. Jordan who performed a CT after 3 rounds of Augmentin and she was completely clear. She was sent here for evaluation of possible allergies. She has tried Flonase, a long-acting antihistamine, and Benadryl at bedtime with modest improvement in symptoms. She has no other significant medical history. Jermaine Brumfield MD [address] [place], [place] [address], [place], [address], [facility], 05/27/2019 15:59:41 06/25/2019 text/html Shelley comes in wit h a cough which is productive of clear white bubbly sputum. It seems to be worse during the day. She rarely wakes up at night with this. She has tried nasal steroids as well as nasal antihistamines with no significant improvement. She is known to be a topic from her skin testing on the last visit. She has not tried any inhalers for this cough. MD [address], [place], [address], [facility], 06/25/2019 17:27:34 07/25/2019 text/html Shelley comes in for follow-up of her cough variant asthma. She is really been doing well taking ipratropium bromide nasal spray as well as trilogy. She however got oral irritation from the trilogy and stopped it. Her cough did return she wondering if there something else she could use. MD [address], [place], [address], [facility], 07/25/2019 14:50:49 08/23/2019 text/html Shelley comes in feeling much better in regards to her cough on the Spiriva though the ipratropium bromide nasal spray does not seem to have helped her sinus congestion. She does however feel like her mouth is quite dry. She has cut back on the Protropin bromide to just twice a day from 3 times a day and is been using the Spiriva 2.5 mcg per puff 2 puffs once daily. He denies any purulent secretions. She has had an MRI of her sinuses which were negative. MD [address], [place], [address], [facility], 08/23/2019 12:52:21 OBGyn Episode No OBEpisode recorded.
--- OUTSIDE RECORDS SUMMARY | 2025-04-21 17:29 | XMS_ITS | Patient Health Record ---
Author Organization [facility] [employer] Address [address] [facility] [address] [place] [address] Care Team Providers Care Virtual Classroom Manager Name Role Phone Mango French MD Primary Care Provider Unavaila Leana Duran Unavailable [phone] Corbin Chanda Unavailable [phone] Allergies No Known Allergies Results Component Value Reference Range Notes UDT Reviewed date:09/13/2024 03:54:43 PM Interpretation: Performing Lab: Notes/Report: THC n 0 - 50 ng/ml Cocaine n 0 - 300 ng/ml Amphetamine n 0 - 1000 ng/ml Buprenorphine (BUP) n 0 - 10 ng/ml Secobarbital (Bar) n 0 - 300 ng/ml Oxazepam (BZO) n 0 - 300 ng/ml 3-xnrsowsegx-3,5-nmjblfjo-9, 3-diphenylpyr rolidine (EDDP) n 0 - 300 ng/ml Methamphetamine (MET) n 0 - 1000 ng/ml Methylenedioxymethamphetamine (MDMA) n 0 - 500 ng/ml Morphine (MOP 300/[id number]) n 0 - 300 ng/ml Methadone (MTD) n 0 - 300 ng/ml Phencyclidine (PCP) n 0 - 25 ng/ml Nortriptyline (TCA) n 0 - 1000 ng/ml Oxycodone n 0 - 300 ng/ml x n 0 - 300 ng/ml UDT Reviewed date:11/21/2024 02:52:23 PM Interpretation: Performing Lab: Notes/Report: THC N 0 - 50 ng/ml Cocaine N 0 - 300 ng/ml Amphetamine N 0 - 1000 ng/ml Buprenorphine (BUP) N 0 - 10 ng/ml Secobarbital (Bar) N 0 - 300 ng/ml Oxazepam (BZO) N 0 - 300 ng/ml 2-ywhxolznpt-2,9-ulgtleew-1, 3-diphenylpyr rolidine (EDDP) N 0 - 300 ng/ml Methamphetamine (MET) N 0 - 1000 ng/ml Methylenedioxymethamphetamine (MDMA) N 0 - 500 ng/ml Morphine (MOP 300/[id number]) N 0 - 300 ng/ml Methadone (MTD) N 0 - 300 ng/ml Phencyclidine (PCP) N 0 - 25 ng/ml Nortriptyline (TCA) N 0 - 1000 ng/ml Oxycodone N 0 - 300 ng/ml x N 0 - 300 ng/ml UDT Reviewed date:01/20/2025 02:51:46 PM Interpretation: Performing Lab: Notes/Report: THC NEG 0 - 50 ng/ml Cocaine NEG 0 - 300 ng/ml Amphetamine NEG 0 - 1000 ng/ml Buprenorphine (BUP) NEG 0 - 10 ng/ml Secobarbital (Bar) NEG 0 - 300 ng/ml Oxazepam (BZO) NEG 0 - 300 ng/ml 4-qwhmelabdu-8,7-dvetxsth-1, 3-diphenylpyr rolidine (EDDP) NEG 0 - 300 ng/ml Methamphetamine (MET) NEG 0 - 1000 ng/ml Methylenedioxymethamphetamine (MDMA) NEG 0 - 500 ng/ml Morphine (MOP 300/[id number]) NEG 0 - 300 ng/ml Methadone (MTD) NEG 0 - 300 ng/ml Phencyclidine (PCP) NEG 0 - 25 ng/ml Nortriptyline (TCA) NEG 0 - 1000 ng/ml Oxycodone NEG 0 - 300 ng/ml x NEG 0 - 300 ng/ml Zolpidem Reviewed date:01/27/2025 12:42:09 PM Interpretation: Performing Lab: Notes/Report: Benzodiazepines Reviewed date:01/27/2025 12:42:02 PM Interpretation: Performing Lab:[address] [place] [address], [address] [place] [address], Director - [id number] Notes/Report: An exception occurred while processing this report and so it has incomplete data. Please contact [employer] for assistance. Not Medicated Consistent Not Medicated Consistent Medicated Consistent Not Medicated Consistent Not Medicated Consistent Not Medicated Consistent Not Medicated Consistent Not Medicated Consistent Not Medicated Consistent Medicated Consistent 7-Aminoclonazepam 145.9 20.0 ng/mL Temazepam NEGATIVE 40.0 ng/mL Oxazepam NEGATIVE 40.0 ng/mL Midazolam NEGATIVE 40.0 ng/mL Lorazepam NEGATIVE 40.0 ng/mL Nordiazepam NEGATIVE 40.0 ng/mL Diazepam NEGATIVE 40.0 ng/mL Clonazepam NEGATIVE 20.0 ng/mL Hydroxyalprazolam NEGATIVE 20.0 ng/mL Alprazolam NEGATIVE 20.0 ng/mL PDF Report [email or web address] RC_ORU Validity Testing Reviewed date:01/27/2025 12:42:15 PM Interpretation: Performing Lab: Notes/Report: Not Medicated Consistent Not Medicated Consistent Not Medicated Consistent Not Medicated Consistent Specific [place] 1.005 1.003 - 1.030 pH 6.9 3.0 - 10.9 Oxidants -10 200 g/mL Creatinine 63.3 20.0 - 300.0 mg/dL UDT Reviewed date:03/17/2025 12:18:06 PM Interpretation: Performing Lab: Notes/Report: THC n 0 - 50 ng/ml Cocaine n 0 - 300 ng/ml Amphetamine n 0 - 1000 ng/ml Buprenorphine (BUP) n 0 - 10 ng/ml Secobarbital (Bar) n 0 - 300 ng/ml Oxazepam (BZO) n 0 - 300 ng/ml 9-epolvgqgaz-1,7-szyiqphv-2, 3-diphenylpyr rolidine (EDDP) n 0 - 300 ng/ml Methamphetamine (MET) n 0 - 1000 ng/ml Methylenedioxymethamphetamine (MDMA) n 0 - 500 ng/ml Morphine (MOP 300/[id number]) n 0 - 300 ng/ml Methadone (MTD) n 0 - 300 ng/ml Phencyclidine (PCP) n 0 - 25 ng/ml Nortriptyline (TCA) n 0 - 1000 ng/ml Oxycodone n 0 - 300 ng/ml x n 0 - 300 ng/ml Reason For Referral No Information Medications Medication SIG (Take, Route, Frequency, Duration) Notes Start Date End Date Status clonazePAM 0.5 MG 1 tablet Orally Twice a day; Duration: 30 days As needed 03/17/2025 Active Zolpidem Tartrate 10 MG 1 tablet Oral once a day; Duration: 90 days As needed for insomnia 11/21/2024 09/12/2025 Active hydroCHLOROthiazide 25 MG Oral; Duration : 90 Days Active busPIRone HCl 15 MG 2 tablets every morning, 1 tablet each afternoon, 1 tablet every night Oral; Duration: 90 days do not fill until pt requests Active Nitroglycerin 0.4 MG Sublingual; Duration: 30 Days Active buPROPion HCl ER (SR) 150 MG 1 tablet Oral Once a day; Duration: 90 days Active Lidocaine 5% External 02/14/2024 Active Omeprazole 20 MG Oral 02/14/2024 Ac tive Potassium Chloride ER 10 MEQ Oral 02/14/2024 Active Vitamin B-12 1000 MCG Sublingual 02/14/2024 Active hydrOXYzine HCl 50 MG 1-2 tablets at bedtime Orally daily; Duration: 30 days As needed for sleep, do not take with benadryl 03/17/2025 Active traMADol HCl 50 MG Oral; Duration: 30 Days Active Omeprazole 20 MG Oral; Duration: 90 Days Active Rosuvastatin Calcium 5 MG Oral; Duration : 30 Days Active Immunizations Vaccine Route Administration Date Status Comme nts Pfizer [employer]inger[employer] Covid-19 Vac cine 2nd dose Unknown 01/02/2021 Administered Pfizer [employer] Covid-19 Vac cine 2nd dose Unknown 12/12/2021 Administered Social History Tobacco Use: Social History Observation Description Date Details (start date - stop date) Never Smoker NA - NA Sex Assigned At : Social History Observation Description Sex Assigned At Female Tobacco Control (Standard) Question Answer Notes Tobacco use: Nonsmoker AUDIT-C (Standard) Question Answer Notes Did you have a drink containing alcohol in the p ast year? No Problems Problem Type SNOMED Code ICD Code Onset Dates Problem Status W/U Status Risk Notes Problem Severe recurrent major depression without psychotic features (08347212) Major depressive disorder, recurrent severe without psychotic features (F33.2) Active confirmed Problem Generalized anxiety disorder (68983131) Generalized anxiety disorder (F41.1) Active confirmed Problem Posttraumatic stress disorder (19800313) Post-traumatic stress disorder, chronic (F43.12) Active confirmed Problem Insomnia disorder related to another mental disorder (40859602) Insomnia due to other mental disorder (F51.05) Active confirmed Problem Recurrent major depression (30524565) Major depressive disorder, recurrent, in remission (F33.40) Active confirmed Problem Recurrent major depression in remission (15965770) MDD (major depressive disorder), recurrent, in partial remission (F33.41) Active confirmed Vital Signs Heart Rate 77 /min 03/17/2025 Height-cm 165.10 cm 03/17/2025 Blood pressure diastolic 73 mm Hg 03/17/2025 Weight-kg 71.67 kg 03/17/2025 Height 65.00 in 03/17/2025 Blood pressure systolic 112 mm Hg 03/17/2025 Weight 158 lbs 03/17/2025 BMI 26.29 kg/m2 03/17/2025 Encounters Encounter Location Date Provider Diagnosis [employer] [facility] [address] [facility] [address] [place] [address] 05/01/2024 Thena Corbin Major depressive disorder, recurrent severe without psychotic features F33.2 ; Generalized anxiety disorder F41.1 ; Post-traumatic stress disorder, chronic F43.12 and Insomnia due to other mental disorder F51.[address] [facility] [employer] [facility] [address] [address] 06/13/2024 Thena Corbin Major depressive disorder, recurrent severe without psychotic features F33.2 ; Post-traumatic stress disorder, chronic F43.12 ; Generalized anxiety disorder F41.1 and Insomnia due to other mental disorder F51.[address] [facility] [employer] [facility] [address] [address] 07/19/2024 Thena Corbin Generalized anxiety disorder F41.1 ; Post-traumatic stress disorder, chronic F43.12 ; Major depressive disorder, recurrent, moderate F33.1 and Insomnia due to other mental disorder F51.[address] [facility] [employer] [facility] [address] [address] 09/12/2024 Thena Corbin Generalized anxiety disorder F41.1 ; MDD (major depressive disorder), recurrent, in partial remission F33.41 ; Post-traumatic stress disorder, chronic F43.12 and Insomnia due to other mental disorder F51.[address] [facility] [employer] [facility] [address] [address] 11/21/2024 Thena Corbin Generalized anxiety disorder F41.1 ; Post-traumatic stress disorder, chronic F43.12 ; Insomnia due to other mental disorder F51.05 ; Major depressive disorder, recurrent, moderate F33.1 and Benign essential HTN I10 [facility] [address] [place] [address] 01/20/2025 Leana Bro Generalized anxiety disorder F41.1 ; Major depressive disorder, recurrent, in remission F33.40 ; Post-traumatic stress disorder, chronic F43.12 ; Insomnia due to other mental disorder F51.05 ; Encounter for screening for depression Z13.31 and Encounter for screening for cardiovascular disorders Z13.6 [facility] [address] [place] [address] 03/17/2025 Leana Bro Generalized anxiety disorder F41.1 ; MDD (major depressive disorder), recurrent, in partial remission F33.41 ; Post-traumatic stress disorder, chronic F43.12 ; Insomnia due to other mental disorder F51.05 ; Encounter for screening for cardiovascular disorders Z13.6 and Negative depression screening Z13.31 [facility] [address] [place] [address] 08/26/2024 Thena Corbin Generalized anxiety disorder F41.1 and Insomnia due to other mental disorder F51.05 [facility] [address] [place] [address] 11/15/2024 Thena Corbin Insomnia due to othe r mental disorder F51.05 [facility] [address] [place] [address] 05/01/2024 Thena Corbin [facility] [address] [place] [address] 05/28/2024 Thena Corbin Generalized anxiety disorder F41.1 [facility] [address] [place] [address] 05/28/2024 Thena Corbin [facility], [facility] [address] [place] [address] 09/19/2024 Thena Corbin Generalized anxiety disorder F41.1 [facility] [address] [place] [address] 09/26/2024 Thena Corbin [facility], [facility] [address] [place] [address] 11/15/2024 Chanda Springt Assessments Encounter Date Diagnosis (ICD Code) Assessment Notes Treatment Notes Treatment Clinical Notes Section Notes 05/01/2024 Major depressive disorder, recurrent severe without psychotic features (ICD-10 - F33.2) 06/13/2024 Major depressive disorder, recurrent severe without psychotic features (ICD-10 - F33.2) 11/15/2024 Insomnia due to other mental disorder (ICD-10 - F51.05) 09/12/2024 MDD (major depressive disorder), recurrent, in partial remission (ICD-10 - F33.41) 09/19/2024 Generalized anxiety disorder (ICD-10 - F41.1) 11/21/2024 Generalized anxiety disorder (ICD-10 - F41.1) 11/21/2024 Post-traumatic stress disorder, chronic (ICD-10 - F43.12) 01/20/2025 Generalized anxiety disorder (ICD-10 - F41.1) 03/17/2025 Generalized anxiety disorder (ICD-10 - F41.1) Long-Term Risks of Benzodiazepines Benzodiazepines are commonly prescribed for anxiety, insomnia, and seizures, but their long-term use is associated with several significant risks, particularly in older adults. - Chronic benzodiazepine use can lead to physical and psychological dependence. - Withdrawal symptoms include rebound anxiety, insomnia, agitation, tremors, and, in severe cases, seizures. - Tapering is often required to prevent withdrawal complications. - Long-term use is linked to memory problems, reduced attention, and delayed thinking/reaction s. - Some studies suggest an increased risk of dementia, though causality remains debated. - Benzodiazepines cause sedation, impaired coordination, and muscle weakness, significantly increases fall risk. This can be especially dangerous in those on blood thinners and with medical conditions such as osteoporosis - The elderly are particularly vulnerable due to decreased metabolism and clearance of benzodiazepines, leading to prolonged sedation and enhanced adverse effects. - Increased sensitivity to cognitive impairment, delirium, and paradoxical reactions (e.g., agitation, aggression). 06/13/2024 Post-traumatic stress disorder, chronic (ICD-10 - F43.12) 05/01/2024 Generalized anxiety disorder (ICD-10 - F41.1) 05/28/2024 Generalized anxiety disorder (ICD-10 - F41.1) 07/19/2024 Generalized anxiety disorder (ICD-10 - F41.1) 07/19/2024 Post-traumatic stress disorder, chronic (ICD-10 - F43.12) 08/26/2024 Generalized anxiety disorder (ICD-10 - F41.1) 09/12/2024 Generalized anxiety disorder (ICD-10 - F41.1) 03/17/2025 MDD (major depressive disorder), recurrent, in partial remission (ICD-10 - F33.41) 01/20/2025 Major depressive disorder, recurrent, in remission (ICD-10 - F33.40) 09/12/2024 Post-traumatic stress disorder, chronic (ICD-10 - F43.12) 08/26/2024 Insomnia due to other mental disorder (ICD-10 - F51.05) 07/19/2024 Major depressive disorder, recurrent, moderate (ICD-10 - F33.1) 05/01/2024 Post-traumatic stress disorder, chronic (ICD-10 - F43.12) 06/13/2024 Generalized anxiety disorder (ICD-10 - F41.1) 03/17/2025 Post-traumatic stress disorder, chronic (ICD-10 - F43.12) 11/21/2024 Insomnia due to other mental disorder (ICD-10 - F51.05) 11/21/2024 Major depressive disorder, recurrent, moderate (ICD-10 - F33.1) 03/17/2025 Insomnia due to other mental disorder (ICD-10 - F51.05) Risks of Chronic Zolpidem (Ambien) Use - Long-term use can lead to physical and psychological dependence. - Stopping suddenly may cause withdrawal symptoms like anxiety, tremors, and rebound insomnia. Gradual tapering is recommended to minimize withdrawal effects - Over time, your body may require higher doses to achieve the same effect, increasing the risk of overdose and side effects. - Chronic use may affect memory, concentration, and decision-making. - Especially in older adults, Ambien can cause dizziness and impaired coordination, increasing the risk of falls and fractures. - Some users engage in activities (e.g., driving, eating, or talking) while not fully awake and have no memory of these actions. - Long-term use is linked to depression, anxiety, and mood swings. - Can worsen existing mental health conditions. - Combining Ambien with alcohol, benzodiazepines, or opioids increases the risk of respiratory depression, overdose, and . 01/20/2025 Post-traumatic stress disorder, chronic (ICD-10 - F43.12) 06/13/2024 Insomnia due to other mental disorder (ICD-10 - F51.05) 05/01/2024 Insomnia due to other mental disorder (ICD-10 - F51.05) 07/19/2024 Insomnia due to other mental disorder (ICD-10 - F51.05) 09/12/2024 Insomnia due to other mental disorder (ICD-10 - F51.05) 01/20/2025 Insomnia due to other mental disorder (ICD-10 - F51.05) 03/17/2025 Encounter for screening for cardiovascular disorders (ICD-10 - Z13.6) 11/21/2024 Benign essential HTN (ICD-10 - I10) 01/20/2025 Encounter for screening for depression (ICD-10 - Z13.31) 03/17/2025 Negative depression screening (ICD-10 - Z13.31) 01/20/2025 Encounter for screening for cardiovascular disorders (ICD-10 - Z13.6) 09/12/2024 Other 01/20/2025 Other Sophie Bales, female patient with history of brain injury 5 years ago, presenting for medication management of anxiety and sleep issues. Generalized Anxiety Disorder Assessment: Patient reports anxiety is pretty good most of the time with current medication regimen. She has been tapering off long-term benzodiazepine use (Xanax for over 20 years) and transitioned to clonazepam about a year ago. Current regimen includes buspirone 15 mg twice daily and clonazepam 0.5 mg twice daily. Patient occasionally feels she could use an additional dose mid-morning. History of brain injury 5 years ago significantly impacted anxiety levels initially. Plan: - Decrease clonazepam to 0.5 mg PO TID (half tablet three times daily) - Patient informed this represents a 25% dose reduction - Pharmacy to be asked to cut tablets to ensure accurate dosing - Continue buspirone 15 mg PO BID - Follow up in 8 weeks to reassess medication efficacy and tolerability Insomnia Assessment: Patient reports ongoing use of Ambien for sleep. Long-term use of Ambien carries risks similar to benzodiazepines. Patient did not report specific sleep concerns with current regimen. Plan: - Continue zolpidem (Ambien) 1 tablet PO qHS - Discuss risks of long-term zolpidem use and potential for future tapering - Consider alternative sleep aids, such as diphenhydramine (Benadryl), especially if patient has allergies History of Brain Injury Assessment: Patient reports brain injury 5 years ago, resulting in need for speech and physical therapy. Ongoing symptoms include light and sound sensitivity. Recent increase in headache frequency, potentially related to vision changes as per recent eye examination. Plan: - Monitor for changes in neurological symptoms - Encourage follow-up with cribber for new glasses if prescribed Chronic Idiopathic Urticaria/Angioed ginger Assessment: Patient reports history of recurrent episodes of eye swelling and itching, requiring multiple ER visits. Extensive allergy testing has been inconclusive. Patient has been prescribed an EpiPen for emergency use. No recent episodes reported. Plan: - Continue current management with EpiPen as needed for severe reactions - Monitor for recurrence of symptoms 03/17/2025 Francisco Bales is a female patient with a history of anxiety, depression, and brain injury, presenting with ongoing anxiety symptoms and sleep difficulties. Anxiety Assessment: Patient reports ongoing anxiety symptoms, including physical manifestations such as hand shaking during high anxiety episodes. She has a family history of anxiety, noting her father experienced similar symptoms. The patient is currently taking buspirone 15 mg three times daily, which she feels has been helpful. She was previously on Xanax for about 20 years and is now transitioning to clonazepam. The transition from benzodiazepines may be contributing to her current symptoms. Plan: - Continue buspirone 15 mg PO TID - Continue clonazepam - Patient may try taking half a tablet to adjust dosage - Informed patient that physical symptoms may be partly due to withdrawal from benzodiazepine transition - Consider adding propranolol for physical anxiety symptoms - Follow up in 2 months to reassess anxiety management Insomnia Assessment: Patient reports difficulty falling asleep and maintaining sleep. She is currently using Ambien, which is not always effective. She has been supplementing with Benadryl for sleep. The patient attributes her sleep difficulties to racing thoughts and inability to shut down her brain. Plan: - Continue Ambien as needed for sleep - Discontinue Benadryl for sleep - Start hydroxyzine as needed for sleep - May take 1-2 tablets - Can try half tablet if waking up in the middle of the night - Educate patient on potential long-term effects of Ambien use - Follow up in 2 months to reassess sleep quality and medication efficacy Depression Assessment: Patient reports improvement in depressive symptoms, stating her current state is nothing compared to what I used to be at all. She denies current suicidal ideation. The patient is taking Wellbutrin 150 mg daily for depression management. Plan: - Continue Wellbutrin 150 mg PO daily Plan Of Treatment Next Appt Details Provider Name:Leana stein, 05/15/2025 09:00:00 AM, [address], [facility] [address], [place], [address], Provider Name:Leana stein, 05/16/2025 08:45:00 AM, [address], [address], [place], [address], Insurance Providers Payer Name Payer Address Payer Phone Subscriber Number Group Number Insured Name Patient Relationship to Insured Coverage Start Date Coverage End Date Medicare-I l Medicare [address] [place] [address] [id number] SOPHIE MCKINNEY Self - patient is the insured For Life [address] [place] [address] [id number] SOPHIE MCKINNEY Self - patient is the insured Medical (General) History Medical History History ICD Code Problems: Chronic post-concussion headac he Chronic post-traumatic stress disorder Concussion injury of brain Family bereavement Insomnia disorder related to another men marta disorder Severe recurrent major depression withou t psychotic features Past Psychiatric History: Anxiety Disord er undefined Surgical History Surgery Date(Month/Year) Hysterectomy/revise vagina (43652) 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
--- OUTSIDE RECORDS SUMMARY | 2025-04-21 17:30 | XMS_ITS | Patient Health Record ---
Author Organization [facility] Address [address] [place], [place] [address] Care Team Providers Care Commercial Lines Insurance Agent Name Role Phone FrenchMango cadena Unavailable Unavailable Reason For Referral No Information Medications Medication SIG (Take, Route, Frequency, Duration) Notes Start Date End Date Status 12 HR bupropion hydrochloride 150 MG Extended Release Oral Tablet [Wellbutrin] ORAL 12 HR bupropion hydrochloride 150 MG Extended Release Oral Tablet [Wellbutrin]Original [id number] HR bupropion hydrochloride 150 MG Extended Release Oral Tablet [Wellbutrin] *Reorder from [facility] for eRx and 02/09/2018 Active omeprazole 20 MG Delayed Release Oral Tablet [Prilosec] ORAL omeprazole 20 MG Delayed Release Oral Tablet [Prilosec]Original Medicationomeprazole 20 MG Delayed Release Oral Tablet [Prilosec] *Reorder from [facility] for eRx and Interaction Alerts* 02/09/2018 Active zolpidem tartrate 10 MG Oral Tablet [Ambien] ORAL zolpidem tartrate 10 MG Oral Tablet [Ambien]Original Medicationzolpidem tartrate 10 MG Oral Tablet [Ambien] *Reorder from [facility] for eRx and Interaction Alerts* 02/09/2018 Active calcium carbonate 1250 MG / cholecalciferol 1000 UNT / vitamin K 0.4 MG Chewable Tablet ORAL calcium carbonate 1250 MG / cholecalciferol 1000 UNT / vitamin K 0.4 MG Chewable TabletOriginal Medicationcalcium carbonate 1250 MG / cholecalciferol 1000 UNT / vitamin K 0.4 MG Chewable Tablet *Reorder from Tn 02/09/2018 Active cobamamide 0.1 MG / vitamin B12 5 MG Sublingual Tablet cobamamide 0.1 MG / vitamin B12 5 MG Sublingual TabletOriginal Medicationcobamamide 0.1 MG / vitamin B12 5 MG Sublingual Tablet *Reorder from [facility] for eRx and Interaction Alerts* 02/09/2018 Active estrogens, conjugated (CARE HOME) 0.3 MG Oral Tablet [Premarin] ORAL estrogens, conjugated (CARE HOME) 0.3 MG Oral Tablet [Premarin]Original Medicationestrogens, conjugated (CARE HOME) 0.3 MG Oral Tablet [Premarin] *Reorder from [facility] for eRx and Interaction Alerts* 04/16/2021 Active alprazolam 0.25 MG Oral Tablet [Xanax] ORAL alprazolam 0.25 MG Oral Tablet [Xanax]Original Medicationalprazolam 0.25 MG Oral Tablet [Xanax] *Reorder from [facility] for eRx and Interaction Alerts* 02/09/2018 Active Plan Of Treatment No Information Insurance Providers Payer Name Payer Address Payer Phone Subscriber Number Group Number Insured Name Patient Relationship to Insured Coverage Start Date Coverage End Date Medicare Part B [facility] [address] [place] [address] [id number] BREEZY MCKINNEY Self - patient is the insured [employer] [address] [place], [place] [id number] ANU MCKINNEY Spouse - patient is the spouse of the insured
--- OUTSIDE RECORDS SUMMARY | 2025-04-21 17:30 | XMS_ITS | Encounter Summary ---
Author Organization [facility] Address [address] [facility] [place] [address] Care Team Providers Care Urban Planning Professor Name Role Phone Mango French MD Primary Care Provider [phone] Encounter Details Date Type Department Care Team (Late st Contact Info) Description 08/17/2022 Lab Requisition [facility] Care DermPath Lab [address] [facility] [place] [id number] Leo Hernandez MD [address] [place] [address] Social History Tobacco Use Types Packs/Day Years Used Date Smoking Tobacco: Never Smokeless Tobacco: Never Alcohol Use Standard Drinks/Week Comments No 0 (1 standard drink = 0.6 oz pur e alcohol) Comments No Sex and Gender Information Value Date Recorded Sex Assigned at Not on file Legal Sex Female 1:53 PM PRICING ACT[facility]ARY Gender Identity Not on file Sexual Orientation [...] AM CDT) Case Report Dermatopathology Report Case: [id number] Authorizing Provider: Leo Hernandez MD Collected: 08/03/2022 12:00 AM Ordering Location: [facility] Received: 08/17/2022 11:38 AM Pathologist: Stella Burk MD Specimen: Skin, left lower lat leg 12:37 PM [facility] DERMATOPATHOLOGY LABORATORY Final Diagnosis Specimen A. SKIN, left lower lat leg: HYPERPLASTIC (HYPERTROPHIC) ACTINIC KERATOSIS, ERODED (L57.0) (see microscopic description) 12:37 PM [facility] DERMATOPATHOLOGY LABORATORY at [address] [facility] Clinical History ISK vs SCC vs BCC. Path#[id number] 12:37 PM [facility] DERMATOPATHOLOGY LABORATORY Gross Description Specimen A: Received is one formalin filled container labeled with the patient's name and designated left lower lat leg. The specimen consists of a shave biopsy measuring 11x9x1 mm. Jar 0. 12:37 PM [facility] DERMATOPATHOLOGY LABORATORY Microscopic Description Specimen A. SKIN, left lower lat leg: There is hyperkeratosis alternating with parakeratosis. There is epidermal hyperplasia with disorderly maturation of keratinocytes with nuclear pleomorphism confined to the lower half of the epidermis. The epidermis is focally eroded. BerEP4 stains with lower epidermis only weakly. Mib-1 stain highlights proliferating keratinocytes within the lower half of the epidermis. 12:37 PM [facility] DERMATOPATHOLOGY LABORATORY Disclaimer An external and internal positive and negative controls are appropriate for the histochemical, immunohistochemical and immunofluorescence stain(s) in this case (if any), except where stated explicitly. The performance characteristics of the stain(s) cited in this report were developed and its performance characteristic determined by the Dermatopathology Laboratory at [facility], directed by Dr. Viv Tracy. These tests need not be, and therefore are not, approved by the [place] Food and Drug Administration. The tests are used for clinical purposes. Billing Codes Specimen Charges Stain Charges 85607 1 31910 58606 1 1 12:37 PM [facility] DERMATOPATHOLOGY LABORATORY Embedded Images 12:37 PM [facility] DERMATOPATHOLOGY LABORATORY Pathology/Cytolog y TISSUE SPECIMEN FROM SKIN / Unknown 08/03/2022 08/17/2022 11:38 AM [facility] us Leo Hernandez MD LAB - PATHOLOGY/CYTOLOGY ORDER NORMAN Final Result DERMATOPATHOLOGY LABORATORY [facility] - Department of Dermatology [address], [address] [phone] documented in this encounter Visit Diagnoses Not on filedocumented in this encounter Care Teams Urban Planning Professor Relationship Specialty Start Date End Date Mango French MD [address] [place] [address] PCP - General 08/02/21 documented as of this encounter
--- OUTSIDE RECORDS SUMMARY | 2025-04-21 17:30 | XMS_ITS | Clinical Summary ---
Author Organization [facility] Address [address] [facility] [place] [address] Care Team Providers Care Customer Service And Sales Consultant Name Role Phone Mango French MD Primary Care Provider [phone] Source Comments [facility],non-owned Affiliates and Associated Physician Practices is amultiple site organization consisting of ambulatory clinics and hospital sitesin [place], [place], [place] and [place]. This disclosure is being madepursuant to the Care Everywhere program and may not contain all information available regarding this patient. Last updated 18.[facility] Allergies Active Allergy Reactions Criticality Noted Date [...] on file Legal Sex Female 1:53 PM TUBE STATION ATTENDANT Gender Identity Not on file Sexual Orientation [...] season) 2024 DEPRESSION SCREENING 10/09/2024 INFLUENZA VACCINE (#1) 2025 HEPATITIS B VACCINE Aged Out No [...] CDT) Glucose 116(H) 65 - 105 mg/dl [facility] BUN 9 7 - 21 mg/dl [facility] Creatinine 0.66 0.50 - 1.30 mg/dl [facility] Sodium 140 136 - 145 mmol/L [facility] Potassium 4.0 3.5 - 5.1 mmol/L [facility] Chloride 104 98 - 107 mmol/L [facility] CO2 27 22 - 30 mmol/L [facility] Calcium 9.0 8.5 - 10.1 mg/dl [facility] Bilirubin Total 1.0 0.2 - 1.0 mg/dl [facility] Alkaline Phosphatase 58 38 - 126 U/L [facility] AST 22 5 - 40 U/L [facility] ALT 21 12 - 78 U/L [facility] Protein Total 7.1 6.4 - 8.2 gm/dl [facility] Albumin 3.8 3.4 - 5.0 gm/dl [facility] eGFR By MDRD >60 >60 [facility] Blood specimen (specimen) BLOOD SPECIMEN / Unknown 05/15/2012 5:05 PM CDT 05/15/2012 5:13 PM CDT us Víctor Hopper DO LAB - CHEMISTRY ORDERABLES Shanta sylvester Result [facility] [address] [id number] from Last 3 Months or Most Recently Relevant to Health Maintenance Insurance MEDICARE [facility] (Home[address] [id number] MEDICARE [facility] Care Teams Customer Service And Sales Consultant Relationship Specialty Start Date End Date Mango French MD [address] [place] [address] PCP - General 08/02/21
--- OUTSIDE RECORDS SUMMARY | 2025-04-21 17:30 | XMS_ITS | Clinical Summary ---
Author Organization [facility] Address [address] [place] [phone] Care Team Providers Care Marine Cargo Surveyor Name Role Phone Delfino Lima MD Primary [...] screening mammogram in one year. DICTATION LOCATION: [facility] Narrative 05/25/2020 3:33 PM CDT [...] screening mammogram in one year. DICTATION LOCATION: [facility] Vaibhav Garsia MD MAMMO ORDERABLES Final Result from Last 3 Months or Most Recently Relevant to Health Maintenance Insurance MEDICARE PART A AND B [facility] Care Teams Marine Cargo Surveyor Relationship Specialty Start Date End Date Delfino Lima MD [address] [place] [address] PCP - General 06/12/18
--- OUTSIDE RECORDS SUMMARY | 2025-04-21 17:30 | XMS_ITS | Encounter Summary ---
Author Organization [facility] Address [address] [place] [address] Care Team Providers Care Perinatal Director Name Role Phone Mango French MD Primary Care Provider [phone] Encounter Details Date Type Department Care Team (Late st Contact Info) Description 12/18/2020 Lab Requisition [facility] Care DermPath Lab [address] [facility] [place] [id number] Leo Hernandez MD [address] [place] [address] Social History Tobacco Use Types Packs/Day Years Used Date Smoking Tobacco: Never Smokeless Tobacco: Never Alcohol Use Standard Drinks/Week Comments No 0 (1 standard drink = 0.6 oz pur e alcohol) Comments No Sex and Gender Information Value Date Recorded Sex Assigned at Not on file Legal Sex Female 1:53 PM FOLLOW UP REP Gender Identity Not on file Sexual Orientation Not on file Occupation Industry Job Start Date Job End Date Retired Not on file Not on file Not on file documented as of this encounter Plan of Treatment Not on file documented as of this encounter Procedures Procedure Name Priority Date/Time Associated Diagnosis Comments DERMATOPATHOLOGY Routine 12/16/2020 3:33 AM FOLLOW UP REP documented in this encounter Results * DERMATOPATHOLOGY (12/16/2020 3:33 AM FOLLOW UP REP) Case Report Dermatopathology Report Case: [id number] Authorizing Provider: Leo Hernandez MD Collected: 12/16/2020 [...] 1358 CDT Clinical History Nevus vs MM. Path#[id number] 1:58 PM CDT DERMATOPATHOLOGY LABORATORY Gross Description [...] characteristic determined by the Dermatopathology Laboratory at [facility], directed by Dr. Viv Tracy. These tests need not be, and therefore are not, approved by the [place] Food and Drug Administration. The tests are used for clinical purposes. Billing Codes Specimen Charges Stain Charges 66972 1 1 1:58 PM CDT DERMATOPATHOLOGY LABORATORY Embedded Images 1:58 PM CDT DERMATOPATHOLOGY LABORATORY Pathology/Cytolo gy TISSUE SPECIMEN FROM SKIN / Unknown 12/16/2020 3:33 AM FOLLOW UP REP 12/18/2020 7:28 AM FOLLOW UP REP Leo Hernandez MD LAB - PATHOLOGY/CYTOLOGY ORDER NORMAN Final Result DERMATOPATHOLOGY LABORATORY [facility] - Department of Dermatology [facility] Medicine [address] [place] [address], [address] [phone] documented in this encounter Visit Diagnoses Not on filedocumented in this encounter Care Teams Perinatal Director Relationship Specialty Start Date End Date Mango French MD [address] [place] [address] PCP - General 08/02/21 documented as of this encounter
--- OUTSIDE RECORDS SUMMARY | 2025-04-21 17:30 | XMS_ITS | Clinical Summary ---
Author Organization [facility] Address [address] [place] [address] Care Team Providers Care Sales Team Leader Name Role Phone Mango French MD Primary Care Provider [phone] Allergies Active Allergy Reactions Criticality Noted Date [...] mg by mouth every morning. Active Multiple Vitamins-[place] als (MULTIVITAMIN ADULTS OR) Take 2 tablets [...] Comments Blood Pressure 137/74 10/13/2021 12:46 PM SKIN LIFTER BACON Pulse 64 10/13/2021 12:46 PM SKIN LIFTER BACON Temperature 36.8 C (98.3 F) 10/13/2021 12:46 PM SKIN LIFTER BACON Respiratory Rate 16 10/13/2021 12:46 PM SKIN LIFTER BACON Oxygen Saturation 100% 10/13/2021 12:46 PM SKIN LIFTER BACON Inhaled Oxygen Concentration - - Weight 67.4 kg (148 lb 9.4 oz) 10/13/2021 8:00 A M SKIN LIFTER BACON Height 166.4 cm (5' 5.5) 10/13/2021 8:00 AM SKIN LIFTER BACON Body Mass Index 24.35 10/13/2021 8:00 AM SKIN LIFTER BACON Plan of Treatment Health Maintenance Due Date [...] patient's age to complete this topic Insurance [employer] MEDICARE Care Teams Sales Team Leader Relationship Specialty Start Date End Date Mango French MD [address] [place] [address] PCP - General FAMILY PRACTICE 10/07/21
[2025-04-21 17:45] VITALS: BP 96/74; PULSE 74; RESP 18; TEMP 36.5; O2SAT 100
[2025-04-21 20:13] LABS: Hematocrit 37.3 % (37.0-47.0); Hemoglobin 12.7 g/dL (12.0-15.0); Immature Granulocyte Percent A 0.2 % (0-0.5); Lymphocytes Absolute Auto 2.11 K/mm3 (0.9-3.2); Mean Corpuscular HGB Conc 34.0 g/dl (32-36); Mean Corpuscular Hemoglobin 29.5 pg (26-34); Mean Corpuscular Volume 86.5 fl (80-100); Nucleated Red Blood Cells Absolute Auto 0.000 K/mm3 (0.0-0.012); Nucleated Red Blood Cells Perc 0.0 % (0.0-0.2); Platelet Count Result 320 k/mm3 (150-375); Red Blood Count 4.31 M/mm3 (4.2-5.4); White Blood Count 5.1 K/mm3 (4.5-10.0)
[2025-04-21 20:25] LABS: Alanine Aminotransferase 21 U/L (6-35); Albumin Level 4.7 g/dL (3.5-5.1); Alkaline Phosphatase 63 U/L (38-126); Anion Gap 11 mmol/L (4-12); Aspartate Amino Transferase 38 U/L (14-36); Bilirubin,Total 0.9 mg/dL (0.2-1.3); Blood Urea Nitrogen 9 mg/dL (7-17); Calcium 9.3 mg/dL (8.4-10.2); Carbon Dioxide 30 mmol/L (22-30); Chloride 82 mmol/L (98-107); Estimated CRCL calculation 58 ml/min; Estimated Glomerular Filt Rate > 60; Glucose 102 mg/dL (65-110); Lipase 109 U/L (23-300); Magnesium 2.0 mg/dL (1.6-2.3); Potassium 3.4 mmol/L (3.4-5.0); Sodium 123 mmol/L (137-145); Total Protein 7.8 g/dL (6.3-8.2)
[2025-04-21 22:28] VITALS: BP 186/81; PULSE 81; RESP 18; TEMP 36.6; O2SAT 100
[2025-04-21] MEDS: SODIUM CHLORIDE 0.9% IV 1,000 ML 999 ML IV CONT (22:38)
--- OUTSIDE RECORDS SUMMARY | 2025-04-21 22:38 | XMS_ITS | Encounter Summary ---
Author Organization [facility] Address [address] [place] [address] Care Team Providers Care Senior Construction Estimator Name Role Phone Mango French MD Primary Care Provider [phone] Encounter Details Date Type Department Care Team (Late st Contact Info) Description 12/18/2020 Lab Requisition [facility] Care DermPath Lab [address] [facility] [place] [phone] Leo Hernandez MD [address] [place] [address] Social History Tobacco Use Types Packs/Day Years Used Date Smoking Tobacco: Never Smokeless Tobacco: Never Alcohol Use Standard Drinks/Week Comments No 0 (1 standard drink = 0.6 oz pur e alcohol) Comments No Sex and Gender Information Value Date Recorded Sex Assigned at Not on file Legal Sex Female 1:53 PM CALENDER ROLL PRESS OPERATOR Gender Identity Not on file Sexual Orientation Not on file Occupation Industry Job Start Date Job End Date Retired Not on file Not on file Not on file documented as of this encounter Plan of Treatment Not on file documented as of this encounter Procedures Procedure Name Priority Date/Time Associated Diagnosis Comments DERMATOPATHOLOGY Routine 12/16/2020 3:33 AM CALENDER ROLL PRESS OPERATOR documented in this encounter Results * DERMATOPATHOLOGY (12/16/2020 3:33 AM CALENDER ROLL PRESS OPERATOR) Case Report Dermatopathology Report Case: [id number] Authorizing Provider: Leo Hernandez MD Collected: 12/16/2020 [...] 1358 CDT Clinical History Nevus vs MM. Path#[id number] 1:58 PM CDT DERMATOPATHOLOGY LABORATORY Gross Description [...] characteristic determined by the Dermatopathology Laboratory at [facility], directed by Dr. Viv Tracy. These tests need not be, and therefore are not, approved by the [place] Food and Drug Administration. The tests are used for clinical purposes. Billing Codes Specimen Charges Stain Charges 61438 1 1 1:58 PM CDT DERMATOPATHOLOGY LABORATORY Embedded Images 1:58 PM CDT DERMATOPATHOLOGY LABORATORY Pathology/Cytolo gy TISSUE SPECIMEN FROM SKIN / Unknown 12/16/2020 3:33 AM CALENDER ROLL PRESS OPERATOR 12/18/2020 7:28 AM CALENDER ROLL PRESS OPERATOR Leo Hernandez MD LAB - PATHOLOGY/CYTOLOGY ORDER NORMAN Final Result DERMATOPATHOLOGY LABORATORY [facility] - Department of Dermatology [facility] Medicine [address] [place] [address], [address] [phone] documented in this encounter Visit Diagnoses Not on filedocumented in this encounter Care Teams Senior Construction Estimator Relationship Specialty Start Date End Date Mango French MD [address] [place] [address] PCP - General 08/02/21 documented as of this encounter
--- OUTSIDE RECORDS SUMMARY | 2025-04-21 22:38 | XMS_ITS | Clinical Summary ---
Author Organization [facility] Address [address] [place] [address] Care Team Providers Care Speech Pathology Supervisor Name Role Phone Mango French MD Primary Care Provider [phone] Allergies Active Allergy Reactions Criticality Noted Date [...] mg by mouth every morning. Active Multiple Vitamins-Stone als (MULTIVITAMIN ADULTS OR) Take 2 tablets [...] Comments Blood Pressure 137/74 10/13/2021 12:46 PM TYPESETTERS PRINTER Pulse 64 10/13/2021 12:46 PM TYPESETTERS PRINTER Temperature 36.8 C (98.3 F) 10/13/2021 12:46 PM TYPESETTERS PRINTER Respiratory Rate 16 10/13/2021 12:46 PM TYPESETTERS PRINTER Oxygen Saturation 100% 10/13/2021 12:46 PM TYPESETTERS PRINTER Inhaled Oxygen Concentration - - Weight 67.4 kg (148 lb 9.4 oz) 10/13/2021 8:00 A M TYPESETTERS PRINTER Height 166.4 cm (5' 5.5) 10/13/2021 8:00 AM TYPESETTERS PRINTER Body Mass Index 24.35 10/13/2021 8:00 AM TYPESETTERS PRINTER Plan of Treatment Health Maintenance Due Date [...] patient's age to complete this topic Insurance [employer] MEDICARE Care Teams Speech Pathology Supervisor Relationship Specialty Start Date End Date Mango French MD [address] [facility] [address] [place] [address] PCP - General FAMILY PRACTICE 10/07/21
--- OUTSIDE RECORDS SUMMARY | 2025-04-21 22:38 | XMS_ITS | Referral Summary ---
Author Organization [facility] Address [address] [place] [address] Care Team Providers Care Weight Shifter Name Role Phone Mango French MD Primary Care Provider Serafin Galicia DPM Unavailable [phone] Encounters Date Type Department Care Team Description 03/04/2025 Telephone [facility] Medical Group Cardiology [address] [place] [phone] Martha Nguyen MD 02/17/2025 9:00 AM CDT Office Visit [facility] Medical [facility] Cardiology [address] [place] [phone] Martha Nguyen MD Essential hypertension (Primary Dx); WHEELER (dyspnea on exertion); Other chest pain; Family history of ischemic heart disease 02/10/2025 9:58 AM CDT - 02/10/2025 11:59 PM CDT Hospital Encounter [facility] Medical Office Bld[address] [facility] [address] [facility] [address] [place] [address] Screening mammogram, encounter for Discharge [...] (09/27/2019): Added automatically from request for surgery [id number] Hypertrophy of nasal turbinates 09/27/2019 Overview (09/27/2019): Added automatically from request for surgery [id number] Depression 08/14/2012 Overview (01/13/2017): Depression Social History [...] on file Legal Sex Female 10:58 AM HOOK AND EYE MACHINE OPERATOR Gender Identity Female 12/04/2020 6:25 AM HOOK AND EYE MACHINE OPERATOR Sexual Orientation Straight 12/04/2020 6: 25 AM HOOK AND EYE MACHINE OPERATOR Last Filed Vital Signs Vital Sign Reading Time Taken Comments Blood Pressure 100/60 02/17/2025 9:00 AM CDT Pulse 80 02/17/2025 9:00 AM CDT Temperature 36.8 C (98.2 F) 07/02/2023 8:54 AM CDT Respiratory Rate 18 12/08/2023 9:55 AM HOOK AND EYE MACHINE OPERATOR Oxygen Saturation 94% 02/17/2025 9:00 AM CDT Inhaled Oxygen Concentration - - Weight 73.5 kg (162 lb) 02/17/2025 9:00 AM CDT Height 167.6 cm (5' 6) 02/17/2025 9:00 AM CDT Body Mass Index 26.15 02/17/2025 9:00 AM CDT Plan of Treatment Not on file Medical Devices Implanted Type Area Histotechnologist Device Identifier Shelf Expiration Date Model / Serial / Lot Unknown N/A: Neck Implantech [employer] 3x2in 1 Short Term Implantable Thk.03in Sheeting - [id number] Implanted:Qty: 1 on 11/01/2019 by Galo Chaney MD at [facility] Bilateral : Nose Implantech [id number] 01/08/2024 / / [id number] Procedures Procedure Name Priority Date/Time Associated Diagnosis [...] age 40, based on guidelines of the [employer] (ACR Practice Parameter for the Performance of Screening and Diagnostic Mammography) and [employer]. For women [...] Hartley M.D. MD: 04:33 PM 04:33 PM [facility] [EOD] Narrative 08/06/2013 4:36 PM CDT EXAMINATION: [...] Hartley M.D. MD: 04:33 PM 04:33 PM [facility] [EOD] Delfino Lima MD IMG DXA PROCEDURES Final Result from Last 3 Months or Most Recently Relevant to Health Maintenance Insurance MEDICARE [facility] Address: [address] [address] [place] [address] [employer] MEDICARE FOR LIFE MEDICARE FOR LIFE Advance Directives For more information, please contact: [phone] * Full Code (Latest Code Status on File) Date Activated Date Inactivated Comments 11/01/2019 2:17 PM 11/01/2019 8:39 PM Care Teams Weight Shifter Relationship Specialty Start Date End Date Mango French MD [address] [place] [address] PCP - General Family Medicine 07/18/21 Serafin Galicia, DPRekha [address] [place] [address] Consulting Physician Podiatry 03/09/22
--- OUTSIDE RECORDS SUMMARY | 2025-04-21 22:38 | XMS_ITS | Continuity of Care Document ---
Author Name [facility] Organization [facility] Care Team Providers Care Network Firewall Engineer Name Role Phone [facility] Unavailable Unavailable Medications Combined list of outpatient [...] advice for OTCs.May impair driving. Swallow whole.Ch imlo with your doctor before becoming . 02/13/2025 [id number] 4 2023 90 [facility] Renato TIRADO ([facility]) buPROPion 150 mg/12 hours (SR) oral tablet, [...] prescrip tion.Do not take if . 09/16/2024 [id number] 4 2023 90 [employer] Renato TIRADO ([facility]) Clonazepam (Teva Brand) Tablet 0.5 mg Oral May cause drowsine ss.Do not drink alcohol. Take or use exactly as directed .Obtain advice for OTCs.May impair driving. Federal law prohibit s transfer of prescrip tion.Do not take if . 08/12/2024 [id number] 4 2023 90 [facility] Renato TIRADO ([facility]) clonazePAM 0.5 mg tablet 0.5 mg, Oral, [...] .Obtain advice for OTCs.Swa llow whole. 02/20/2025 [id number] 4 2023 90 [facility] Renato TIRADO ([facility]) conjugated estrogens 0.3 mg tablet See Instruct [...] directed .Do not take if . 03/14/2025 [id number] 4 [address] [place] [address] Renato TIRADO ([facility]) flutic/umec lid/vilant 200-62.5-25 mcg inh (60EA) = 1 puff(s), Inhale, Daily, # 60 EA, 1 total refill(s ), Hard Stop Inhala tion (breat he in) Ordered 08/19/2025 5 2024 60.0 Ambulat ory Pharmac y Fluticasone Furoate 0.2mg/Actua t + Umeclidiniu m [place] 0.0625 mg/ Actuat + Vilanterol Trifenatate 0.025 mg/Actuat Disk w/inhalatio n device, Inhalation 03/14/2025 [id number] 03/14 4 [address] [place] [address] Renato TIRADO ([facility]) hydroCHLORO thiazide 25 mg tablet See Instruct [...] ZYDUS PHARMACEU, 21 ea. DOSE-PACK Cancele d [id number] : 2023 0 Pharmac y Data Transac [...] prohibit s transfer of prescrip tion. 07/30/2024 [id number] 4 2023 90 [facility] Renato TIRADO ([facility]) traZODone 50 mg tablet See Instruct ions, [...] prohibit s transfer of prescrip tion. 08/12/2024 [id number] 4 2023 90 [facility] Renato [facility]IRADO ([facility]) Allergies, Adverse Reactions, Alerts Combined list of allergies from Department of Defense and Veterans Affairs facilities. It does not include entries that were removed or entered in error. Substance Category Reaction Severity Reaction type Status Date Reported Comments Source No Known Allergies Drug allergy (disorder) active 09/25/2015 [facility] ([facility]) Immunizations Combined list of available immunizations from the Department of Defense and Veterans Affairs facilities. Immunization Series Date Given Administered By Site Reaction Lot Number CVX Code Drug Tie Sawyer Status Comments Source Influenza, injectable, MDCK, preservative [...] up to thelast 18 months, not all [place] non-surgical procedures are included; 2) All procedures [...] section is an empty social history section. [facility] Assessment and Plan Combined list of future care activities from Department of Defense and Veterans Affairs facilities (e.g., assessment and plan notes, appointments, orders, and referrals). Additional future care activities may be listed in the Plan of Care section. Result Assessment and Plan Date Source Assessment and Plan No data available for this section 04/22/2025 Ambulatory Pharmacy Functional Status Combined list of recent functional and cognitive assessments recorded at [facility] [place] Functional Saline Measurement (FIM) Scale: 1 = Total Assistance (Subject = 0% +), 2 = Maximal Assistance (Subject = 25% +), 3 = Moderate Assistance (Subject = 50% +), 4 = Minimal Assistance (Subject = 75% +), 5 = Supervision, 6 = Modified Saline (Device), 7 = Complete Saline (Timely, Safely). Assessment Date/Time Source Assessment Type Assessment Skill Assessment Score Assessment Details No data available for this section
--- OUTSIDE RECORDS SUMMARY | 2025-04-21 22:38 | XMS_ITS | Encounter Summary ---
Author Organization [facility] Address [address] [place] [address] Care Team Providers Care Analysis Director Name Role Phone Mango French MD Primary Care Provider [phone] Encounter Details Date Type Department Care Team (Late st Contact Info) Description 08/17/2022 Lab Requisition [facility] Care Derm[facility] Lab [address] [place] [id number] Leo Hernandez MD [address] [place] [address] Social History Tobacco Use Types Packs/Day Years Used Date Smoking Tobacco: Never Smokeless Tobacco: Never Alcohol Use Standard Drinks/Week Comments No 0 (1 standard drink = 0.6 oz pur e alcohol) Comments No Sex and Gender Information Value Date Recorded Sex Assigned at Not on file 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 SKIN, left lower lat leg: HYPERPLASTIC (HYPERTROPHIC) ACTINIC KERATOSIS, ERODED (L57.0) (see microscopic description) 12:37 PM PLUMBING ASSEMBLER DERMATOPATHOLOGY LABORATORY at [address] [facility] Clinical History ISK vs SCC vs BCC. Path#[id number] 12:37 PM [facility] DERMATOPATHOLOGY LABORATORY Gross Description Specimen A: Received is one formalin filled container labeled with the patient's name and designated left lower lat leg. The specimen consists of a shave biopsy measuring 11x9x1 mm. Jar 0. 12:37 PM PLUMBING ASSEMBLER DERMATOPATHOLOGY LABORATORY Microscopic Description Specimen A. SKIN, left lower lat leg: There is hyperkeratosis alternating with parakeratosis. There is epidermal hyperplasia with disorderly maturation of keratinocytes with nuclear pleomorphism confined to the lower half of the epidermis. The epidermis is focally eroded. BerEP4 stains with lower epidermis only weakly. Mib-1 stain highlights proliferating keratinocytes within the lower half of the epidermis. 12:37 PM [facility] DERMATOPATHOLOGY LABORATORY Disclaimer An external and internal positive and negative controls are appropriate for the histochemical, immunohistochemical and immunofluorescence stain(s) in this case (if any), except where stated explicitly. The performance characteristics of the stain(s) cited in this report were developed and its performance characteristic determined by the Dermatopathology Laboratory at [facility], directed by Dr. Viv Tracy. These tests need not be, and therefore are not, approved by the [place] Food and Drug Administration. The tests are used for clinical purposes. Billing Codes Specimen Charges Stain Charges 09178 1 91831 11637 1 1 12:37 PM [facility] DERMATOPATHOLOGY LABORATORY Embedded Images 12:37 PM [facility] DERMATOPATHOLOGY LABORATORY Pathology/Cytolog y TISSUE SPECIMEN FROM SKIN / Unknown 08/03/2022 08/17/2022 11:38 AM PLUMBING ASSEMBLER us Leo Hernandez MD LAB - PATHOLOGY/CYTOLOGY ORDER NORMAN Final Result DERMATOPATHOLOGY LABORATORY [facility] - Department of Dermatology [address] [phone] documented in this encounter Visit Diagnoses Not on filedocumented in this encounter Care Teams Analysis Director Relationship Specialty Start Date End Date Mango French MD [address] [place] [address] PCP - General 08/02/21 documented as of this encounter
--- OUTSIDE RECORDS SUMMARY | 2025-04-21 22:38 | XMS_ITS | Clinical Summary ---
Author Organization [facility] Address [address] [place] [address] Care Team Providers Care Manager Dish Name Role Phone Mango French MD Primary Care Provider [phone] Source Comments [facility],non-owned Affiliates and Associated Physician Practices is amultiple site organization consisting of ambulatory clinics and hospital sitesin [place], [place], [place] and [place]. This disclosure is being madepursuant to the Care Everywhere program and may not contain all information available regarding this patient. 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 Gender Identity Not on file Sexual Orientation [...] CDT) Glucose 116(H) 65 - 105 mg/dl [facility] BUN 9 7 - 21 mg/dl [facility] Creatinine 0.66 0.50 - 1.30 mg/dl [facility] Sodium 140 136 - 145 mmol/L [facility] Potassium 4.0 3.5 - 5.1 mmol/L [facility] Chloride 104 98 - 107 mmol/L [facility] CO2 27 22 - 30 mmol/L [facility] Calcium 9.0 8.5 - 10.1 mg/dl [facility] Bilirubin Total 1.0 0.2 - 1.0 mg/dl [facility] Alkaline Phosphatase 58 38 - 126 U/L [facility] AST 22 5 - 40 U/L [facility] ALT 21 12 - 78 U/L [facility] Protein Total 7.1 6.4 - 8.2 gm/dl [facility] Albumin 3.8 3.4 - 5.0 gm/dl [facility] eGFR By MDRD >60 >60 [facility] Blood specimen (specimen) BLOOD SPECIMEN / Unknown 05/15/2012 5:05 PM CDT 05/15/2012 5:13 PM CDT us Víctor Hopper DO LAB - CHEMISTRY ORDERABLES Shanta sylvester Result [facility] [address] [id number] from Last 3 Months or Most Recently Relevant to Health Maintenance Insurance MEDICARE [facility] ([address] [id number] MEDICARE [facility] Care Teams Manager Dish Relationship Specialty Start Date End Date Mango French MD [address] [place] [address] PCP - General 08/02/21
--- OUTSIDE RECORDS SUMMARY | 2025-04-21 22:38 | XMS_ITS | Clinical Summary ---
Author Organization [facility] Address [address] [place] [address] Care Team Providers Care Snack Foods Mixer Operator Name Role Phone Mango French MD Primary Care Provider Serafin Galicia DPM Unavailable [phone] Allergies No known active allergies Medications cyanocobalamin [...] (09/27/2019): Added automatically from request for surgery [id number] Hypertrophy of nasal turbinates 09/27/2019 Overview (09/27/2019): Added automatically from request for surgery [id number] Depression 08/14/2012 Overview (01/13/2017): Depression Encounters Date Type Department Care Team Description 03/04/2025 Telephone [facility] Medical [facility] Cardiology [address] [place] [address] Martha Nguyen MD 02/17/2025 9:00 AM CDT Office Visit [facility] [address] [place] [address] Martha Nguyen MD Essential hypertension (Primary Dx); WHEELER (dyspnea on exertion); Other chest pain; Family history of ischemic heart disease 02/10/2025 9:58 AM CDT - 02/10/2025 11:59 PM CDT Hospital Encounter [facility] [id number] [facility] [address] [place] [address] Screening mammogram, encounter for Discharge Disposition: Discharge [...] on file Legal Sex Female 10:58 AM RELOCATION ASSOCIATE Gender Identity Female 12/04/2020 6:25 AM RELOCATION ASSOCIATE Sexual Orientation Straight 12/04/2020 6: 25 AM RELOCATION ASSOCIATE Obstetrics History Para Term AB IAB SAB [...] CDT Respiratory Rate 18 12/08/2023 9:55 AM RELOCATION ASSOCIATE Oxygen Saturation 94% 02/17/2025 9:00 AM CDT [...] history exists Medical Devices Implanted Type Area Food Service Device Identifier Shelf Expiration Date Model / Serial / Lot Unknown N/A: Neck [employer]plant[employer] 3x2in 1 Short Term Implantable Thk.03in Sheeting - [id number] Implanted:Qty: 1 on 11/01/2019 by Galo Chaney MD at [facility] Bilateral : Nose Implantech [id number] 01/08/2024 / / [id number] Procedures Procedure Name Priority Date/Time Associated Diagnosis [...] age 40, based on guidelines of the [employer] (ACR Practice Parameter for the Performance of Screening and Diagnostic Mammography) and [employer]. For women [...] Hartley M.D. MD: 04:33 PM 04:33 PM [facility] [EOD] Delfino Lima MD IMG DXA PROCEDURES Final Result from Last 3 Months or Most Recently Relevant to Health Maintenance Insurance MEDICARE [facility] [employer] MEDICARE FOR LIFE MEDICARE FOR LIFE Advance Directives For more information, please contact: [phone] * Full Code (Latest Code Status on File) Date Activated Date Inactivated Comments 11/01/2019 2:17 PM 11/01/2019 8:39 PM Care Teams Snack Foods Mixer Operator Relationship Specialty Start Date End Date Mango French MD [address] [place] [address] PCP - General Family Medicine 07/18/21 Serafin Galicia, CAROL [address] [place] [address] Consulting Physician Podiatry 03/09/22
--- OUTSIDE RECORDS SUMMARY | 2025-04-21 22:38 | XMS_ITS | Clinical Summary ---
Author Organization [facility] Address [address] [place] [address] Care Team Providers Care Roofing Laborer Name Role Phone Delfino Lima MD Primary [...] screening mammogram in one year. DICTATION LOCATION: [facility] Narrative 05/25/2020 3:33 PM CDT MAMMO SCREEN [...] screening mammogram in one year. DICTATION LOCATION: [facility] Vaibhav Garsia MD MAMMO ORDERABLES Final Result from Last 3 Months or Most Recently Relevant to Health Maintenance Insurance MEDICARE PART A AND B [facility] FOR LIFE [facility] Address: [facility] [address] [place] [address] Care Teams Roofing Laborer Relationship Specialty Start Date End Date Delfino Lima MD [address] [place] [address] PCP - General 06/12/18
--- NOTE | 2025-04-21 23:25 | ED.ABDPAIN ---
HPI - Abdominal Pain General Chief Complaint: Abdominal Pain Stated Complaint: ?sbo, sent by PCP Time Seen by Provider: 04/21/25 22:24 History of Present Illness HPI narrative: Patient is 70-year-old female who presents emergency department this evening complaining of abdominal g. Her primary care physician sent her here for CT abdomen pelvis to rule out obstruction. Patient states that she has been having these episodes of constipation so she was placed on laxatives last week and since then she has been having very loose stools. Related Data Home Medications ?Medication ?Instructions ?Recorded ?Confirmed ?Last Taken ?Type bupropion HCl 150 mg tablet,12 hr 150 mg PO DAILY 09/07/20 04/21/25 10/15/24 History sustained-release zolpidem 10 mg tablet 10 mg PO .QHS 09/07/20 04/21/25 10/14/24 History fexofenadine 180 mg tablet 180 mg PO DAILY 03/23/23 04/21/25 10/14/24 History (Linda Allergy) aspirin 81 mg tablet,delayed 81 mg PO DAILY 05/23/24 04/21/25 10/07/24 History release (Adult Aspirin Regimen) clonazepam 0.5 mg tablet 0.5 mg PO BID 05/23/24 04/21/25 10/15/24 History nitroglycerin 0.4 mg sublingual 0.4 mg sublingual ONCE PRN chest 05/23/24 04/21/25 Unknown History tablet pain rosuvastatin 5 mg tablet 5 mg PO DAILY 05/23/24 04/21/25 10/14/24 History buspirone 15 mg tablet 15 mg PO TID 09/27/24 04/21/25 10/15/24 History calcium 200 mg (as 5 tablet PO DAILY 09/27/24 04/21/25 10/12/24 History citrate)-vitamin D3 6.25 mcg (250 unit) tablet (Citracal-D3 Petites) cyanocobalamin (vitamin B-12) 1,000 mcg sublingual DAILY 09/27/24 04/21/25 10/12/24 History 1,000 mcg sublingual lozenge fluticasone fur. 200 mcg-umeclid 1 inh inhalation HS 10/15/24 04/21/25 10/14/24 History 62.5 mcg-vilant 25 mcg inhalat.powder (Trelegy Ellipta) omeprazole 20 mg capsule,delayed 20 mg PO DAILY PRN indigestion 10/15/24 04/21/25 Unknown History release hydroxyzine HCl 50 mg tablet 50 mg PO BID 04/17/25 04/21/25 Unknown History Allergies Allergy/AdvReac Type Severity Reaction Status Date / Time No Known Allergies Allergy Verified 04/17/25 08:18 Review of Systems Review of Systems: All systems are reviewed and are negative unless stated otherwise in the HPI. [facility] Past Medical History Medical History Lateral meniscus tear Right knee pain Tear meniscus knee Degenerative joint disease of knee Effusion of knee joint Left knee pain Trochanteric bursitis, right hip Colon cancer screening Non-cardiac chest pain COVID-19 virus infection Convergence insufficiency History of closed head injury Insomnia Anxiety Depression Allergic rhinitis GERD (gastroesophageal reflux disease) Hypertension Surgical History Surgical History History of lumpectomy benign History of hysterectomy History of tubal ligation History of fusion of cervical spine History of cholecystectomy Plantar fasciitis Hx of nasal septoplasty History of Yoly-en-Y gastric bypass Family History Family History Father Heart disease Mother Breast cancer Other Family history of malignant melanoma Social History Social History Social History: caffeine use Smoking status: Never smoker Second hand tobacco smoke exposure: No Alcohol intake: never Substance use: never Substance use type: does not use Living arrangements: with family Additional living arrangements comments: [facility] Occupation/Education: retired Gender identity (if verbalized by the patient): Female Sexual Orientation (if Verbalized by the Patient): Straight or Heterosexual Spiritual care concerns: No Exam Narrative: General: Alert, awake, afebrile, in no acute distress. HEENT: PERRL, no rhinorrhea, no post nasal drip, oropharynx clear. Neck: Trachea midline, no JVD, no lymphadenopathy. Cardiovascular: Regular rate and rhythm, no murmurs, rubs or gallops, no peripheral edema. Respiratory: Clear to auscultation bilaterally, no tachypnea, no wheezing, no rhonchi, no rubs, no respiratory distress. Abdomen: Soft, nontender, nondistended, no rebound, no guarding, no peritoneal signs. Musculoskeletal: No joint swelling or deformity, normal muscle tone. Skin: No rashes or petechia, no signs of infection. Psychiatric: Alert and oriented, normal behavior and judgment for situation. Neurological: Alert and oriented to person, place, and time. Follows all commands. No focal deficits, speech is clear and fluent. Course Vital Signs Vital signs: Vital Signs Temperature 97.7 F 04/21/25 17:45 Pulse Rate 74 04/21/25 17:45 Respiratory Rate 18 04/21/25 17:45 Blood Pressure 96/74 L 04/21/25 17:45 Pulse Oximetry 100 04/21/25 17:45 Oxygen Delivery Room Air 04/21/25 17:45 Temperature 97.9 F 04/21/25 22:28 Pulse Rate 81 04/21/25 22:28 Respiratory Rate 18 04/21/25 22:28 Blood Pressure 186/81 H 04/21/25 22:28 Pulse Oximetry 100 04/21/25 22:28 Oxygen Delivery Room Air 04/21/25 22:28 MDM - Abdominal Pain MDM Narrative Medical decision making narrative: The patient was evaluated by myself in the emergency department. History is obtained from patient who is an independent historian and physical exam was performed. External medical records were reviewed at this time. IV was established and pertinent tests were ordered. Patient was administered 1 L IV fluid bolus with normal saline. Laboratory results obtained revealing a sodium level of 123. Patient does have chronic hyponatremia, however, her sodium levels have been ranging between [id number] in the last 6 months. Otherwise remainder of the tremor is unremarkable. Imaging studies obtained included CT abdomen pelvis with IV contrast which was independently interpreted by me revealing: IMPRESSION: No CT evidence of bowel obstruction. Uncomplicated appearing gastric bypass. Mild esophagitis/gastritis. Indeterminate density bilateral renal lesions, recommend timely outpatient MRI or CT without and with contrast. 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 Mild urinary bladder wall thickening as can be seen with cystitis. Differential diagnosis considerations include gastroenteritis, colitis, dehydration, electrolyte derangements, acute viral syndrome. Comorbidities impacting this visit include history of hyponatremia. I have evaluated and discussed social determinants of health with the patient that could potentially impact subsequent diagnosis and treatment plans. On repeat assessment of the patient, reevaluation revealed that the patient is doing well and is in no acute distress. Patient symptoms have improved since she she arrived to our emergency department. Repeat vital signs were all reviewed and noted to be stable. Differential diagnosis and treatment plan were discussed with the patient at bedside. Patient agrees with discussion and after shared medical decision making agrees with admission. All questions were answered to the patient's satisfaction. Case was discussed with the on-call medical/surgery registered nurse Dr. Castro at 2350 who did not have any additional recommendations. Patient was continued on maintenance fluids at a rate of 100 cc/hour. Will recheck her sodium level 4 hours from the initial blood draw. Case was discussed with the on-call hospitalist Dr. Pop at 0015 who accepted IMU admission. Lab Data 04/21/25 20:08 04/21/25 20:09 Labs: Lab Results 04/21/25 04/21/25 04/21/25 Range/Units 20:08 20:09 23:06 WBC 5.1 (4.5-10.0) K/mm3 RBC 4.31 (4.2-5.4) M/mm3 Hgb 12.7 (12.0-15.0) g/dL Hct 37.3 (37.0-47.0) % MCV 86.5 (80-100) fl MCH 29.5 (26-34) pg MCHC 34.0 (32-36) g/dl RDW 12.6 (11.5-14.5) % Plt Count 320 (150-375) k/mm3 MPV 9.2 (7.4-10.4) fl Immature Gran % (Auto) 0.2 (0-0.5) % Neut % (Auto) 48.1 (45.5-73.1) % Lymph % (Auto) 41.6 (18.3-44.2) % [place] % (Auto) 7.5 (2.6-8.5) % Eos % (Auto) 1.6 (0-4.4) % Baso % (Auto) 1.0 (0.2-1.2) % Lymph # (Auto) 2.11 (0.9-3.2) K/mm3 [place] # (Auto) 0.4 (0.1-0.6) K/mm3 Eos # (Auto) 0.1 (0-0.3) K/mm3 Baso # (Auto) 0.1 (0.0-0.1) K/mm3 Abs Immat Gran (auto) 0.01 (0.00-0.031) K/mm3 Absolute Neuts (auto) 2.4 (1.3-6.7) K/mm3 Absolute Nucleated RBC 0.000 (0.0-0.012) K/mm3 Nucleated RBC % 0.0 (0.0-0.2) % Sodium 123 L (137-145) mmol/L Potassium 3.4 (3.4-5.0) mmol/L Chloride 82 L (98-107) mmol/L Carbon Dioxide 30 (22-30) mmol/L Anion Gap 11 (4-12) mmol/L BUN 9 (7-17) mg/dL Creatinine 0.71 (0.7-1.0) mg/dL Estim Creat Clear Calc 58 ml/min Estimated GFR > 60 (59 - ) Glucose 102 (65-110) mg/dL Serum Osmolality Pending Calcium 9.3 (8.4-10.2) mg/dL Magnesium 2.0 (1.6-2.3) mg/dL Total Bilirubin 0.9 (0.2-1.3) mg/dL AST 38 H (14-36) U/L ALT 21 (6-35) U/L Alkaline Phosphatase 63 (38-126) U/L Total Protein 7.8 (6.3-8.2) g/dL Albumin 4.7 (3.5-5.1) g/dL Lipase 109 (23-300) U/L Urine Color Yellow (Yellow) Urine Appearance Clear (Clear) Urine pH 7.5 (5.0-9.0) Ur Specific [place] 1.006 (1.001-1.035) Urine Protein Negative (Negative) mg/dL Urine Glucose (UA) Negative (Negative) mg/dL Urine Ketones 1+ H (Negative) mg/dL Ur Blood (Man) Trace (Negative) Urine Nitrate Negative (Negative) Urine Bilirubin Negative (Negative) Urine Urobilinogen 0.2 (<2.0) mg/dL Leukocyte Esterase Rfl Negative (Negative) ORI/UL Urine RBC 3-5 H (0-2) /hpf Urine WBC 0-5 (0-3) /hpf Ur Squamous Epith Cells None seen (Few) /hpf Urine Bacteria None seen /hpf Urine Casts 0-2 Urine Osmolality Pending Ur Random Sodium 21 meq/L Ur Random Urea 125 MG/DL Urine Creatinine 23.0 mg/dL Imaging Data Radiologist's impression: ITS Impressions Abdomen/Pelvis CT 04/21/25 23:15 IMPRESSION: No CT evidence of bowel obstruction. Uncomplicated appearing gastric bypass. Mild esophagitis/gastritis. Indeterminate density bilateral renal lesions, recommend timely outpatient MRI or CT without and with contrast. 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 Mild urinary bladder wall thickening as can be seen with cystitis. Discharge Plan Discharge Clinical Impression: Acute hyponatremia, Diarrhea Patient Disposition: Still a Patient Condition: Improved Instructions: Antibiotic Form Patient Language: Norwegian Prescriptions: No Action fexofenadine [Linda Allergy] 180 mg tablet 180 mg PO DAILY clonazepam 0.5 mg tablet 0.5 mg PO BID rosuvastatin 5 mg tablet 5 mg PO DAILY nitroglycerin 0.4 mg tablet, sublingual 0.4 mg sublingual ONCE PRN (Reason: chest pain) aspirin [Adult Aspirin Regimen] 81 mg tablet,delayed release (DR/EC) 81 mg PO DAILY Premarin 0.3 mg tablet 0.3 mg PO DAILY Qty: 90 2RF Rx Instructions: cyclically potassium chloride 10 mEq tablet extended release 10 meq PO DAILY Qty: 90 1RF hydrochlorothiazide 25 mg tablet 25 mg PO DAILY Qty: 90 1RF Patient Comments: QAM lidocaine 5 % adhesive patch,medicated 1 patch topical DAILY PRN (Reason: back pain) Qty: 30 2RF Patient Comments: TO BACK NEEDED Rx Instructions: leave on most painful area for up to 12 hrs epinephrine [EpiPen 2-Godfrey] 0.3 mg/0.3 mL auto-injector 0.3 mg IM ONCE Qty: 2 3RF Patient Comments: hx of reaction, seen pulling machine operator, could not diagnose cause. Rx Instructions: as a single dose; may repeat once bupropion HCl 150 mg tablet sustained-release 12 hr 150 mg PO DAILY zolpidem 10 mg tablet 10 mg PO .QHS hydroxyzine HCl 50 mg tablet 50 mg PO BID buspirone 15 mg tablet 15 mg PO TID calcium citrate-vitamin D3 [Citracal-D3 Petites] 200 mg-6.25 mcg (250 unit) tablet 5 tablet PO DAILY cyanocobalamin (vitamin B-12) 1,000 mcg lozenge 1,000 mcg sublingual DAILY omeprazole 20 mg capsule,delayed release(DR/EC) 20 mg PO DAILY PRN (Reason: indigestion) Trelegy Ellipta 200-62.5-25 mcg blister with device 1 inh inhalation HS Patient Comments: PT STATES SHE TAKES PRN valacyclovir 500 mg tablet 1,000 mg PO BID PRN (Reason: cold sores) Qty: 90 0RF Rx Instructions: Take 2 tabs (1000 mg) twice daily for one day as needed for cold sores ipratropium bromide 42 mcg (0.06 %) spray,non-aerosol 2 spray intranasal BID Qty: 15 3RF Rx Instructions: administer into each nostril tramadol 50 mg tablet 50 mg PO Q8H PRN (Reason: Headache) Qty: 90 0RF Follow-up/Referrals: Mango French MD [Primary Care Provider] -
[2025-04-21 23:32] LABS: Add Urine Microscopic? YES; Appearance Urine Clear (Clear); Glucose Urine UA Negative (Negative); Leukocyte Esterase Ur Negative LEU/UL (Negative); Nitrate Urine Negative (Negative); Non Pathogenic Casts 0-2; Specific Grav Ur 1.006 (1.001-1.035)
[2025-04-21 23:36] LABS: Urea Random Urine 125 MG/DL
[2025-04-21] MEDS: SODIUM CHLORIDE 0.9% IV 1,000 ML 100 ML IV CONT (23:38)
[2025-04-22] VITALS (12 sets, daily range): BP systolic 112–134; BP diastolic 61–78; PULSE 66–77; RESP 18–20; TEMP 36.5–36.9; O2SAT 98–100; BMI 25.3
[2025-04-22 01:09] LABS: Anion Gap 9 mmol/L (4-12); Blood Urea Nitrogen 7 mg/dL (7-17); Calcium 8.7 mg/dL (8.4-10.2); Carbon Dioxide 28 mmol/L (22-30); Chloride 89 mmol/L (98-107); Estimated CRCL calculation 65 ml/min; Estimated Glomerular Filt Rate > 60; Glucose 95 mg/dL (65-110); Potassium 2.9 mmol/L (3.4-5.0); Sodium 126 mmol/L (137-145)
[2025-04-22] MEDS: traMADol HCL (*CRX) 25 MG TABLET PO (01:18)
--- NOTE | 2025-04-22 04:24 | ADMGEN ---
This patient, Sophie Lara, was admitted to IMU Room 213-01. Patient/family oriented to hospital policies and general routines including ID bracelet, bed and alarms, visiting hours, pain management, procedures, bathroom and other care routines, personal items, smoking policy, room service/diet, and visiting hours. Information on how to activate the Rapid Response Team has been discussed. Patient/Family are encouraged to report perceived risks to care and to ask questions if they do not understand what they are told or what they should do.
--- NOTE | 2025-04-22 05:54 | PC.NURSE ---
24 hour urine started at 0430.
--- NOTE | 2025-04-22 06:15 | P.HP_ITS ---
H&P: HPI History of Present Illness Date/Time: 04/22/25 06:15 Chief Complaint: Diarrhea Narrative: 70-year-old female presents with diarrhea since 4 days prior to admission. Many years ago she had a bowel obstruction and has since been taking MiraLax and stool softener every night. About 1 month prior to admission she had bloating and abdominal distension and severe constipation, 4 days prior to admission her primary care told her to take more laxatives. She took magnesium citrate, Senokot, bisacodyl. This is when her symptoms began. She presented [facility] with abdominal pain. Sent here from her primary care to rule out obstruction. Sodium 123. She does have chronic hyponatremia ranging between [address] abdomen pelvis did not reveal bowel obstruction. Given 1 L normal saline. Tylenol. Tramadol. Nephrology consulted from ER. Advised continue with 100 cc of normal saline per hour. Review of Systems Review of Systems: All systems reviewed & are unremarkable except as noted in HPI and below (Subjective) PMFSH Past Medical History Medical History Lateral meniscus tear Right knee pain Tear meniscus knee Degenerative joint disease of knee Effusion of knee joint Left knee pain Trochanteric bursitis, right hip Colon cancer screening Non-cardiac chest pain COVID-19 virus infection Convergence insufficiency History of closed head injury Insomnia Anxiety Depression Allergic rhinitis GERD (gastroesophageal reflux disease) Hypertension Surgical History Surgical History History of lumpectomy benign History of hysterectomy History of tubal ligation History of fusion of cervical spine History of cholecystectomy Plantar fasciitis Hx of nasal septoplasty History of Yoly-en-Y gastric bypass Family History Family History Father Heart disease Mother Breast cancer Other Family history of malignant melanoma Social History Social History Social History: caffeine use Smoking status: Never smoker Second hand tobacco smoke exposure: No Alcohol intake: never Substance use: never Substance use type: does not use Do You Feel Safe in your Home?: Yes Lack of Transportation: No Lack of Food: Never True Current Housing: I Have Housing Concerned About Future Housing: No Difficulty Paying Gas/Electric Bills: No Difficulty Paying for Meds: No Currently Unemployed: No Education: High School Diploma/GED Difficulty w/ Childcare or Family Care: No Living arrangements: with family Additional living arrangements comments: [facility] Occupation/Education: retired Gender identity (if verbalized by the patient): Female Sexual Orientation (if Verbalized by the Patient): Straight or Heterosexual Spiritual care concerns: No Meds Home Medications and Allergies Home Medications ?Medication ?Instructions ?Recorded ?Confirmed ?Type bupropion HCl 150 mg tablet,12 hr 150 mg PO DAILY 09/07/20 04/22/25 History sustained-release zolpidem 10 mg tablet 10 mg PO .QHS 09/07/20 04/22/25 History fexofenadine 180 mg tablet 180 mg PO DAILY 03/23/23 04/22/25 History (Linda Allergy) aspirin 81 mg tablet,delayed 81 mg PO DAILY 05/23/24 04/22/25 History release (Adult Aspirin Regimen) clonazepam 0.5 mg tablet 0.5 mg PO BID 05/23/24 04/22/25 History nitroglycerin 0.4 mg sublingual 0.4 mg sublingual ONCE PRN chest 05/23/24 04/22/25 History tablet pain rosuvastatin 5 mg tablet 5 mg PO DAILY 05/23/24 04/22/25 History valacyclovir 500 mg tablet 1,000 mg (2 x 500 mg) PO BID PRN 05/27/24 04/22/25 Rx cold sores #90 tabs ipratropium bromide 42 mcg (0.06 2 spray intranasal BID #15 mL 09/12/24 04/22/25 Rx %) nasal spray buspirone 15 mg tablet 15 mg PO TID 09/27/24 04/22/25 History calcium 200 mg (as 5 tablet PO DAILY 09/27/24 04/22/25 History citrate)-vitamin D3 6.25 mcg (250 unit) tablet (Citracal-D3 Petites) cyanocobalamin (vitamin B-12) 1,000 mcg sublingual DAILY 09/27/24 04/22/25 History 1,000 mcg sublingual lozenge epinephrine 0.3 mg/0.3 mL 0.3 mg (0.3 mL) IM ONCE #2 ea 10/07/24 04/22/25 Rx injection, auto-injector (EpiPen 2-Godfrey) hydrochlorothiazide 25 mg tablet 25 mg PO DAILY #90 tabs 10/07/24 04/22/25 Rx lidocaine 5 % topical patch 1 patch topical DAILY PRN back 10/07/24 04/22/25 Rx pain #30 ea potassium chloride 10 mEq 10 meq PO DAILY #90 tabs 10/07/24 04/22/25 Rx tablet,extended release fluticasone fur. 200 mcg-umeclid 1 inh inhalation HS PRN shortness 10/15/24 04/22/25 History 62.5 mcg-vilant 25 mcg of breath or wheezing inhalat.powder (Trelegy Ellipta) omeprazole 20 mg capsule,delayed 20 mg PO DAILY PRN indigestion 10/15/24 04/22/25 History release conjugated estrogens 0.3 mg tablet 0.3 mg PO DAILY #90 tabs 11/21/24 04/22/25 Rx (Premarin) tramadol 50 mg tablet 50 mg PO Q8H PRN Headache #90 tabs 03/19/25 04/22/25 Rx hydroxyzine HCl 50 mg tablet 50 mg PO HS 04/17/25 04/22/25 History Allergies Allergy/AdvReac Type Severity Reaction Status Date / Time No Known Allergies Allergy Verified 04/17/25 08:18 Vital Signs Vital Signs - 24 hr 04/21/25 17:45 04/21/25 22:28 04/22/25 01:20 Temperature 97.7 F 97.9 F 98.5 F Pulse Rate 74 81 69 Respiratory Rate 18 18 18 Blood Pressure 96/74 L 186/81 H 134/78 Pulse Oximetry 100 100 100 Oxygen Delivery Room Air Room Air 04/22/25 03:46 04/22/25 04:19 04/22/25 04:42 Temperature 98.4 F 97.7 F Pulse Rate 74 66 Respiratory Rate 18 18 Blood Pressure 117/68 132/73 Pulse Oximetry 98 100 Oxygen Delivery Room Air 04/22/25 05:57 Temperature Pulse Rate 70 Respiratory Rate Blood Pressure Pulse Oximetry Oxygen Delivery Exam Const: General: comfortable and no acute distress Eyes: Pupils: Equal, round and reactive pupils present Neck: Neck: supple Resp: Effort & Inspection: normal respiratory effort Auscultation: clear to auscultation bilaterally Cardio: Rate: regular rate Rhythm: regular rhythm GI: GI Palp: Yes Soft to palpation and No Tenderness to palpation present (GI) Extrem: General: no edema H&P: Results Labs Labs: Short CBC 04/21/25 Range/Units 20:08 WBC 5.1 (4.5-10.0) K/mm3 Hgb 12.7 (12.0-15.0) g/dL Hct 37.3 (37.0-47.0) % Plt Count 320 (150-375) k/mm3 BMP 04/21/25 04/22/25 20:09 00:51 Sodium 123 L 126 L Potassium 3.4 2.9 L Chloride 82 L 89 L Carbon Dioxide 30 28 BUN 9 7 Creatinine 0.71 0.63 L Glucose 102 95 Calcium 9.3 8.7 Liver Function 04/21/25 Range/Units 20:09 Total Bilirubin 0.9 (0.2-1.3) mg/dL AST 38 H (14-36) U/L ALT 21 (6-35) U/L Alkaline Phosphatase 63 (38-126) U/L Albumin 4.7 (3.5-5.1) g/dL Urine 04/21/25 Range/Units 23:06 Urine Color Yellow (Yellow) Urine Appearance Clear (Clear) Urine pH 7.5 (5.0-9.0) Ur Specific [place] 1.006 (1.001-1.035) Urine Protein Negative (Negative) mg/dL Urine Glucose (UA) Negative (Negative) mg/dL Assessment and Plan Assessment and plan (1) Acute hyponatremia: Code(s): E87.1 - Hypo-osmolality and hyponatremia Status: Acute (2) Diarrhea: Code(s): R19.7 - Diarrhea, unspecified Status: Acute Plan 70-year-old female presents with diarrhea since 4 days prior to admission. Many years ago she had a bowel obstruction and has since been taking MiraLax and stool softener every night. About 1 month prior to admission she had bloating and abdominal distension and severe constipation, 4 days prior to admission her primary care told her to take more laxatives. She took magnesium citrate, Senokot, bisacodyl. This is when her symptoms began. She presented [facility] with abdominal pain. Sent here from her primary care to rule out obstruction. Sodium 123. She does have chronic hyponatremia ranging between [address] abdomen pelvis did not reveal bowel obstruction. Given 1 L normal saline. Tylenol. Tramadol. Nephrology consulted from ER. Advised continue with 100 cc of normal saline per hour. ----- Reports her abdomen is now soft. Still having loose stools. Brown. She does not like rice but is amenable to the other components of the brat diet. Continue normal saline. Recheck sodium. Avoid laxatives. Full code. SCDs. Hospitalist MIPS Advance Care Plan I have confirmed that the patient's Advanced Care Plan is present, code status is documented, or surrogate decision maker is listed in patient medical record.: Yes Medication Reconciliation I have utilized all available resources to obtain, update and review the patients current medications (includes all prescriptions, OTC, herbals, c annabis, and nutritional supplements).: Yes
[2025-04-22] MEDS: KCL 20 MEQ/SW 100 ML 100 ML 50 MEQ IVPB (06:27)
[2025-04-22] MEDS: POTASSIUM CHLORIDE 20 MEQ ER TABLET 40 MEQ PO (06:31)
[2025-04-22 06:54] LABS: Hematocrit 35.2 % (37.0-47.0); Hemoglobin 11.9 g/dL (12.0-15.0); Immature Granulocyte Percent A 0.3 % (0-0.5); Lymphocytes Absolute Auto 1.69 K/mm3 (0.9-3.2); Mean Corpuscular HGB Conc 33.8 g/dl (32-36); Mean Corpuscular Hemoglobin 30.3 pg (26-34); Mean Corpuscular Volume 89.6 fl (80-100); Nucleated Red Blood Cells Absolute Auto 0.000 K/mm3 (0.0-0.012); Nucleated Red Blood Cells Perc 0.0 % (0.0-0.2); Platelet Count Result 298 k/mm3 (150-375); Red Blood Count 3.93 M/mm3 (4.2-5.4); White Blood Count 3.8 K/mm3 (4.5-10.0)
[2025-04-22 07:07] LABS: Anion Gap 6 mmol/L (4-12); Blood Urea Nitrogen 6 mg/dL (7-17); Calcium 8.6 mg/dL (8.4-10.2); Carbon Dioxide 29 mmol/L (22-30); Chloride 95 mmol/L (98-107); Estimated CRCL calculation 63 ml/min; Estimated Glomerular Filt Rate > 60; Glucose 83 mg/dL (65-110); Magnesium 1.9 mg/dL (1.6-2.3); Potassium 3.1 mmol/L (3.4-5.0); Sodium 130 mmol/L (137-145)
[2025-04-22] MEDS: ASPIRIN 81 MG ENTERIC TABLET PO (09:12)
[2025-04-22] MEDS: ROSUVASTATIN 5 MG TABLET PO (09:13)
[2025-04-22] MEDS: LORATADINE 10 MG TABLET PO (09:13)
[2025-04-22] MEDS: buPROPion HCL SR (12 HR) 150 MG TAB PO (09:13)
[2025-04-22] MEDS: clonazePAM (*CRX) 0.5 MG TABLET PO ×2 (09:13→16:42)
--- NOTE | 2025-04-22 09:32 | PM.IMPN ---
Progress Note: A&P Assessment and Plan (1) Acute hyponatremia: Code(s): E87.1 - Hypo-osmolality and hyponatremia Status: Acute (2) Diarrhea: Code(s): R19.7 - Diarrhea, unspecified Status: Acute Plan 70-year-old female presents with diarrhea since 4 days prior to admission. Many years ago she had a bowel obstruction and has since been taking MiraLax and stool softener every night. About 1 month prior to admission she had bloating and abdominal distension and severe constipation, 4 days prior to admission her primary care told her to take more laxatives. She took magnesium citrate, Senokot, bisacodyl. This is when her symptoms began. She presented [facility] with abdominal pain. Sent here from her primary care to rule out obstruction. Sodium 123. She does have chronic hyponatremia ranging between [address] abdomen pelvis did not reveal bowel obstruction. Given 1 L normal saline. Tylenol. Tramadol. Nephrology consulted from ER. Advised continue with 100 cc of normal saline per hour. Acute diarrhea Patient has chronic diarrhea. Patient is alos on multiple laxative medications Patient has history of Leal CT surgery CT abdomen shows no acute issues Hold laxative medications now Consult GI for evaluation treatment Acute hyponatremia Received normal saline Sodium is trending up 1:30 a.m. today Hypokalemia Replete with potassium chloride 40 mg b.i.d. p.o. Follow-up BMP, keya, Subjective Date/time seen: 04/22/25 09:32 Interval history: I saw examined the patient today. Patient still has general weakness, patient still has watery diarrhea denies abdomen pain, patient denies focal weakness, chest pain shortness breast Exam Narrative: GENERAL: Pleasant, in no acute distress. Well-nourished. - EYES: EOMI. Anicteric. - HENT: Moist mucous membranes. - LUNGS: Clear to auscultation bilaterally, no wheezing, rhonchi, or rales. - CARDIOVASCULAR: Regular rate and rhythm. No murmur. No JVD. - ABDOMEN: Soft, non-tender and non-distended. No palpable masses. - EXTREMITIES: No edema. Peripheral pulses 2+. Non-tender. - NEUROLOGIC: No focal neurological deficits. CN II-XII grossly intact. - PSYCHIATRIC: Awake, Alert and oriented x 3. Appropriate mood and affect. - SKIN: No rashes or lesions. Warm. - LYMPH: No cervical lymphadenopathy. Objective Data Vital Signs Vital Signs: Vital Signs - 24 hr 04/21/25 17:45 04/21/25 22:28 04/22/25 01:20 Temperature 97.7 F 97.9 F 98.5 F Pulse Rate 74 81 69 Respiratory Rate 18 18 18 Blood Pressure 96/74 L 186/81 H 134/78 Pulse Oximetry 100 100 100 Oxygen Delivery Room Air Room Air 04/22/25 03:46 04/22/25 04:19 04/22/25 04:42 Temperature 98.4 F 97.7 F Pulse Rate 74 66 Respiratory Rate 18 18 Blood Pressure 117/68 132/73 Pulse Oximetry 98 100 Oxygen Delivery Room Air 04/22/25 05:57 04/22/25 07:58 Temperature 97.7 F Pulse Rate 70 70 Respiratory Rate 18 Blood Pressure 130/65 Pulse Oximetry 100 Oxygen Delivery Intake/Output Intake/Output: Intake & Output 04/19/25 04/20/25 04/21/25 04/22/25 23:59 23:59 23:59 23:59 Intake Total 1000 1550 Output Total 500 Balance 1000 1050 Meds/Results Medications: Active Medications Generic Name Dose Route Start Last Admin Trade Name Freq PRN Reason Stop Dose Admin Aspirin 81 mg 04/22/25 09:00 04/22/25 09:12 Aspirin 81 Mg Enteric Tablet PO 81 mg DAILY NAIN Administration Bupropion HCl 150 mg 04/22/25 09:00 04/22/25 09:13 Bupropion Hcl Sr (12 Hr) 150 Mg Tab PO 150 mg DAILY NAIN Administration Buspirone HCl 15 mg 04/22/25 06:25 04/22/25 06:30 Buspirone Hcl 5 Mg Tablet PO 15 mg Q8HR NAIN Administration Clonazepam 0.5 mg 04/22/25 09:00 04/22/25 09:13 Clonazepam (*Crx) 0.5 Mg Tablet PO 0.5 mg BID NAIN Administration Sodium Chloride 1,000 mls @ 30 mls/hr 04/21/25 22:47 04/22/25 00:53 Normal Saline Iv IV CONT 04/22/25 22:46 Infused .Q24H STA Infusion Lidocaine 1 patch 04/22/25 06:06 Lidocaine 5% Patch TOPICAL DAILY PRN back pain Loratadine 10 mg 04/22/25 09:00 04/22/25 09:13 Loratadine 10 Mg Tablet PO 10 mg QAM NAIN Administration Pantoprazole Sodium 40 mg 04/22/25 06:25 Pantoprazole 40 Mg Tablet PO DAILY PRN indigestion Rosuvastatin Calcium 5 mg 04/22/25 09:00 04/22/25 09:13 Rosuvastatin 5 Mg Tablet PO 5 mg DAILY NAIN Administration Radiology Results: ITS Impressions Abdomen/Pelvis CT 04/21/25 23:15 IMPRESSION: No CT evidence of bowel obstruction. Uncomplicated appearing gastric bypass. Mild esophagitis/gastritis. Indeterminate density bilateral renal lesions, recommend timely outpatient MRI or CT without and with contrast. 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 Mild urinary bladder wall thickening as can be seen with cystitis. Labs Labs: Laboratory Results - last 24 hr 04/21/25 04/21/25 04/21/25 20:08 20:09 23:06 WBC 5.1 RBC 4.31 Hgb 12.7 Hct 37.3 MCV 86.5 MCH 29.5 MCHC 34.0 RDW 12.6 Plt Count 320 MPV 9.2 Immature Gran % (Auto) 0.2 Neut % (Auto) 48.1 Lymph % (Auto) 41.6 [place] % (Auto) 7.5 Eos % (Auto) 1.6 Baso % (Auto) 1.0 Lymph # (Auto) 2.11 [place] # (Auto) 0.4 Eos # (Auto) 0.1 Baso # (Auto) 0.1 Abs Immat Gran (auto) 0.01 Absolute Neuts (auto) 2.4 Absolute Nucleated RBC 0.000 Nucleated RBC % 0.0 Sodium 123 L Potassium 3.4 Chloride 82 L Carbon Dioxide 30 Anion Gap 11 BUN 9 Creatinine 0.71 Estim Creat Clear Calc 58 Estimated GFR > 60 Glucose 102 Calcium 9.3 Magnesium 2.0 Total Bilirubin 0.9 AST 38 H ALT 21 Alkaline Phosphatase 63 Total Protein 7.8 Albumin 4.7 Lipase 109 Urine Color Yellow Urine Appearance Clear Urine pH 7.5 Ur Specific [place] 1.006 Urine Protein Negative Urine Glucose (UA) Negative Urine Ketones 1+ H Ur Blood (Man) Trace Urine Nitrate Negative Urine Bilirubin Negative Urine Urobilinogen 0.2 Leukocyte Esterase Rfl Negative Urine RBC 3-5 H Urine WBC 0-5 Ur Squamous Epith Cells None seen Urine Bacteria None seen Urine Casts 0-2 Ur Random Sodium 21 Ur Random Urea 125 Urine Creatinine 23.0 04/22/25 04/22/25 00:51 06:34 WBC 3.8 L RBC 3.93 L Hgb 11.9 L Hct 35.2 L MCV 89.6 MCH 30.3 MCHC 33.8 RDW 12.6 Plt Count 298 MPV 9.4 Immature Gran % (Auto) 0.3 Neut % (Auto) 41.6 L Lymph % (Auto) 44.5 H [place] % (Auto) 10.5 H Eos % (Auto) 1.8 Baso % (Auto) 1.3 H Lymph # (Auto) 1.69 [place] # (Auto) 0.4 Eos # (Auto) 0.1 Baso # (Auto) 0.1 Abs Immat Gran (auto) 0.01 Absolute Neuts (auto) 1.6 Absolute Nucleated RBC 0.000 Nucleated RBC % 0.0 Sodium 126 L 130 L Potassium 2.9 L 3.1 L Chloride 89 L 95 L Carbon Dioxide 28 29 Anion Gap 9 6 BUN 7 6 L Creatinine 0.63 L 0.65 L Estim Creat Clear Calc 65 63 Estimated GFR > 60 > 60 Glucose 95 83 Calcium 8.7 8.6 Magnesium 1.9 Total Bilirubin AST ALT Alkaline Phosphatase Total Protein Albumin Lipase Urine Color Urine Appearance Urine pH Ur Specific [place] Urine Protein Urine Glucose (UA) Urine Ketones Ur Blood (Man) Urine Nitrate Urine Bilirubin Urine Urobilinogen Leukocyte Esterase Rfl Urine RBC Urine WBC Ur Squamous Epith Cells Urine Bacteria Urine Casts Ur Random Sodium Ur Random Urea Urine Creatinine
--- NOTE | 2025-04-22 11:56 | P.CONNP_ITS ---
Assessment and Plan Assessment and plan (1) Hyponatremia: Code(s): E87.1 - Hypo-osmolality and hyponatremia Status: Acute Assessment and Plan: * acute on chronic * clinically improved since admission * given favorable response to IVFs, suspect an acute component of hypovolemic hyponatremia * would follow the trend of repeat sodium levels * if her sodium worsens, then will proceed with further work-up and evaluation I will continue to follow the patient with you while he remains hospitalized and make further recommendations as deemed necessary. Thank you for allowing me to participate in the care of this patient. L History of Present Illness Reason for Consult Consult date: 04/22/25 Reason for consult: hyponatremia Chief Complaint Chief complaint: Hyponatremia, Acute on chronic History of Present Illness Narrative: The patient is a 70-year-old female presents to [facility] ER with complaints of abdominal pain. Several years ago she had a bowel obstruction and has since been taking MiraLax and stool softener every night. About 1 month prior to admission she had bloating and abdominal distension and severe constipation, 4 days prior to admission her primary care told her to take more laxatives. She took magnesium citrate, Senokot, bisacodyl. This is when her symptoms of abdominal pain started. She went to see her PCP but was ent here to rule out obstruction. Workup and evaluation emergency room demonstrated the patient be hemodynamically stable and afebrile. Routine blood work was only significant for sodium level of [address] scan of the abdomen pelvis did not reveal any evidence of bowel obstruction. She was given a L of normal saline as well as pain medications and subsequently admitted to the hospital for further evaluation therapy. She was continued on IV fluid resuscitation. Renal consultation was requested due to her acute on chronic hyponatremia. From review of her records as well as discuss with the patient, she has had some degree of chronic hyponatremia is back as far as 2020 if not longer. In that time frame, her sodium level has fluctuated anywhere from 127-138 millimoles per L. as far she is aware, she is not entirely sure why her sodium level runs low and she cannot recall any specific interventions or testing that was done to evaluate for this issue/problem. Since her admission and with IV fluids, her sodium level has slowly improved as noted by repeat testing. Currently, at the time my evaluation, she appears to be in no acute distress. Review of Systems 2 Review of Systems: As per HPI. [facility] Past Medical History Medical History Lateral meniscus tear Right knee pain Tear meniscus knee Degenerative joint disease of knee Effusion of knee joint Left knee pain Trochanteric bursitis, right hip Colon cancer screening Non-cardiac chest pain COVID-19 virus infection Convergence insufficiency History of closed head injury Insomnia Anxiety Depression Allergic rhinitis GERD (gastroesophageal reflux disease) Hypertension Surgical History Surgical History History of lumpectomy benign History of hysterectomy History of tubal ligation History of fusion of cervical spine History of cholecystectomy Plantar fasciitis Hx of nasal septoplasty History of Yoly-en-Y gastric bypass Family History Family History Father Heart disease Mother Breast cancer Other Family history of malignant melanoma Social History Social History Social History: caffeine use Smoking status: Never smoker Second hand tobacco smoke exposure: No Alcohol intake: never Substance use: never Substance use type: does not use Do You Feel Safe in your Home?: Yes Lack of Transportation: No Lack of Food: Never True Current Housing: I Have Housing Concerned About Future Housing: No Difficulty Paying Gas/Electric Bills: No Difficulty Paying for Meds: No Currently Unemployed: No Education: High School Diploma/GED Difficulty w/ Childcare or Family Care: No Living arrangements: with family Additional living arrangements comments: [facility] Occupation/Education: retired Gender identity (if verbalized by the patient): Female Sexual Orientation (if Verbalized by the Patient): Straight or Heterosexual Spiritual care concerns: No Meds Home Medications and Allergies Home Medications ?Medication ?Instructions ?Recorded ?Confirmed ?Type bupropion HCl 150 mg tablet,12 hr 150 mg PO DAILY 09/07/20 05/15/25 History sustained-release zolpidem 10 mg tablet 10 mg PO .QHS 09/07/20 05/15/25 History fexofenadine 180 mg tablet 180 mg PO DAILY 03/23/23 05/15/25 History (Linda Allergy) aspirin 81 mg tablet,delayed 81 mg PO DAILY 05/23/24 05/15/25 History release (Adult Aspirin Regimen) clonazepam 0.5 mg tablet 0.5 mg PO BID 05/23/24 05/15/25 History nitroglycerin 0.4 mg sublingual 0.4 mg sublingual ONCE PRN chest 05/23/24 05/15/25 History tablet pain rosuvastatin 5 mg tablet 5 mg PO DAILY 05/23/24 05/15/25 History valacyclovir 500 mg tablet 1,000 mg (2 x 500 mg) PO BID PRN 05/27/24 05/15/25 Rx cold sores #90 tabs ipratropium bromide 42 mcg (0.06 2 spray intranasal BID #15 mL 09/12/24 05/15/25 Rx %) nasal spray buspirone 15 mg tablet 15 mg PO TID 09/27/24 05/15/25 History calcium 200 mg (as 5 tablet PO DAILY 09/27/24 05/15/25 History citrate)-vitamin D3 6.25 mcg (250 unit) tablet (Citracal-D3 Petites) cyanocobalamin (vitamin B-12) 1,000 mcg sublingual DAILY 09/27/24 05/15/25 History 1,000 mcg sublingual lozenge epinephrine 0.3 mg/0.3 mL 0.3 mg (0.3 mL) IM ONCE #2 ea 10/07/24 05/15/25 Rx injection, auto-injector (EpiPen 2-Godfrey) lidocaine 5 % topical patch 1 patch topical DAILY PRN back 10/07/24 05/15/25 Rx pain #30 ea fluticasone fur. 200 mcg-umeclid 1 inh inhalation HS PRN shortness 10/15/24 05/15/25 History 62.5 mcg-vilant 25 mcg of breath or wheezing inhalat.powder (Trelegy Ellipta) omeprazole 20 mg capsule,delayed 20 mg PO DAILY PRN indigestion 10/15/24 05/15/25 History release conjugated estrogens 0.3 mg tablet 0.3 mg PO DAILY #90 tabs 11/21/24 05/15/25 Rx (Premarin) tramadol 50 mg tablet 50 mg PO Q8H PRN Headache #90 tabs 03/19/25 05/15/25 Rx hydroxyzine HCl 50 mg tablet 50 mg PO HS 04/17/25 05/15/25 History tenapanor 50 mg tablet (Ibsrela) 50 mg Tablet#6 Samples 05/16/25 05/16/25 Sample Allergies Allergy/AdvReac Type Severity Reaction Status Date / Time No Known Allergies Allergy Verified 05/15/25 13:37 Vital Signs Vital Signs Temp Pulse Resp BP Pulse Ox O2 Del Method 04/22/25 11:45 97.7 F 67 18 133/72 100 04/22/25 10:00 74 04/22/25 08:00 68 04/22/25 07:58 97.7 F 70 18 130/65 100 04/22/25 05:57 70 04/22/25 04:42 97.7 F 66 18 132/73 100 04/22/25 04:19 Room Air 04/22/25 03:46 98.4 F 74 18 117/68 98 04/22/25 01:20 98.5 F 69 18 134/78 100 04/21/25 22:28 97.9 F 81 18 186/81 H 100 Room Air Exam 2 Narrative: GENERAL APPEARANCE: well developed well nourished male in no acute distress HEENT: normocephalic, atraumatic, normal conjunctiva and sclera, nares patient NECK: no lymphadenopathy, thyromegaly, or JVD MOUTH: normal lips, teeth, and gums CARDIOVASCULAR: RRR, normal S1 and S2, no rub RESPIRATORY: clear to auscultation bilaterally ABDOMEN: soft, nontender, nondistended, positive bowel sounds present EXTREMITIES: no evidence of cyanosis, clubbing, or edema NEUROLOGICAL: alert and oriented x 3; CN II - XII intact bilaterally; no focal deficits noted Results Lab Results 04/22/25 06:34 04/23/25 03:39 Lab results: Most recent lab results Calcium 8.6 mg/dL (8.4-10.2) 04/22/25 06:34 Magnesium 1.9 mg/dL (1.6-2.3) 04/22/25 06:34 Urine Creatinine 23.0 mg/dL 04/21/25 23:06
--- NOTE | 2025-04-22 12:24 | P.CONGI_ITS ---
Assessment and Plan Assessment and plan (1) Chronic constipation: Code(s): K59.09 - Other constipation Status: Acute (2) Diarrhea: Code(s): R19.7 - Diarrhea, unspecified Status: Acute (3) Abdominal bloating: Code(s): R14.0 - Abdominal distension (gaseous) Status: Acute (4) Hematochezia: Code(s): K92.1 - Melena Status: Acute (5) Family history of colon cancer: Code(s): Z80.0 - Family history of malignant neoplasm of digestive organs Status: Acute (6) Personal history of colonic polyps: Code(s): Z86.0100 - Personal history of colon polyps, unspecified Status: Acute (7) Dysphagia: Qualifiers: Dysphagia type: esophageal phase Qualified Code(s): R13.19 - Other dysphagia Code(s): R13.10 - Dysphagia, unspecified Status: Acute (8) GERD (gastroesophageal reflux disease): Qualifiers: Esophagitis presence: esophagitis presence not specified Qualified Code(s): K21.9 - Gastro-esophageal reflux disease without esophagitis Code(s): K21.9 - Gastro-esophageal reflux disease without esophagitis Status: Acute (9) Abnormal digestive system diagnostic imaging: Code(s): R93.3 - Abnormal findings on diagnostic imaging of other parts of digestive tract Status: Acute Plan 1. Chronic constipation/diarrhea/hematochezia/fecal incontinence/bloating/personal history of colon polyps/family history of colon cancer: Last colonoscopy 12/27/2021 at which time she had a tubular adenomatous colon polyp removed in a 5 year repeat was recommended. Patient with longstanding history of chronic constipation and a bowel obstruction many years ago. Following her bowel obstruction she has been taking MiraLax and stool softeners daily as a bowel regimen. This bowel regimen had been working well for but approximately a month ago she started having diarrhea and fecal incontinence. She states that sometimes the stool is very soft and sometimes liquid. On she was advised by her PCP to do a bowel clean out with magnesium citrate, Senokot, and bisacodyl and since then she has been having persistent diarrhea but states that the frequency has been slowly improving. CT shows no signs of obstruction or cause of constipation. Unclear at this time if the patient is having true diarrhea over the past month or overflow diarrhea but given her history we will start with treating for constipation. DDX: True diarrhea secondary to motility disorder, inflammation or infection versus constipation with overflow diarrhea versus obstipation versus pelvic floor dysfunction * stool studies ordered * start Linzess 72 mcg daily starting tomorrow. Patient will need to be discharged on Linzess 72 mcg daily * Patient to follow up with me in the office in a few weeks to adjust treatment if needed 2. GERD/dysphagia/abnormal imaging digestive-gastritis and esophagitis/decreased appetite: The patient on omeprazole 20 mg daily and reflux is well controlled. She has never had an EGD. Recent CT showed mild esophagitis and gastritis. Patient admits to intermittent dysphagia with solid foods but denies any difficulty swallowing pills or liquids. Patient admits to decreased appetite over the past week but denies any early satiety or unexplained weight loss. * Continue PPI * Will discuss scheduling an EGD during outpatient visit Thank you very much for allowing me to share in the care of this very nice patient. This report may have been done utilizing a voice recognition system. Attempts have been made to correct errors. However, there may be uncorrected grammatical, spelling, and recognition errors present. GI Consult Note Consult date/time: 04/22/25 12:24 Reason for consult: diarrhea HPI: Sophie Lara is a 70 year old female with PMSH of Yoly-en-Y bypass, insomnia, anxiety, depression, traumatic brain injury, GERD, HTN, hysterectomy, cholecystectomy and prior history of bowel obstruction many years ago. She presented to the emergency room yesterday with complaints of abdominal pain. GI has been consulted for diarrhea. Patient was accompanied by her Wade throughout the entire visit. Patient with a longstanding history of constipation and has been using MiraLax and stool softeners daily which was keeping her constipation relatively well controlled. About a month ago she started having diarrhea consistency range from soft to liquid and at times narrow in caliber with episodes of fecal incontinence. She has intermittent trace rectal bleeding thought to be secondary to known hemorrhoids. She has a history of bowel obstruction many years ago and according to the patient's description she was told that she had surgical adhesions in the past. On there was concern that the patient may have a blockage and she was told to take magnesium citrate, Senokot, and bisacodyl and has been experiencing diarrhea since then but for bowel frequency is slightly improving. Patient complains of intermittent dysphagia with solid foods but denies any difficulty swallowing liquids or pills. She states that she has been having this swallowing difficulty since shortly after her gastric bypass. She is on omeprazole 20 mg daily and her reflux is well controlled. She admits to abdominal bloating and decreased appetite over the past week. She is prescribed tramadol but only takes this on a very rare basis but is likely not contributing to her constipation. She denies any abdominal pain, nausea, vomiting, odynophagia, regurgitation, early satiety, unexplained weight loss, or melena. Patient is on aspirin 81 mg daily but denies any other NSAID or anticoagulant use. She is a nondrinker nonsmoker and denies marijuana use. Family history includes maternal grandfather with colon cancer and maternal uncle with colon cancer. ENDOSCOPY HISTORY: EGD: Patient has never had an EGD COLONOSCOPY: 12/27/[address] Boswell for CRC screening Findings: A few diverticula were present in the descending colon and sigmoid colon. The diverticula were not actively bleeding There was a single 8 mm polyp observed at the ileocecal valve. Hot snare polypectomy was performed polyp was completely excised A few small sized internal hemorrhoids were seen in the rectum that were not actively bleeding Five year repeat colonoscopy recommended Bx results: A. ILEOCECAL VALVE POLYP, ENDOSCOPIC HOT SNARE POLYPECTOMY: - TUBULAR ADENOMA LABS AND STOOL STUDIES: Labs 04/22/2025: Sodium 130, potassium 3.1, BUN 6, creatinine 0.65, GFR >60, calcium 8.6 WBC 4, Hgb 12, Hct 35, MCV 89, platelets 298 Total bilirubin 0.9, AST 38, ALT 21, Alkaline Phos 63, albumin 4.7, lipase 109 Labs 11/13/2024: Sodium 138, potassium 3.9, BUN 14, creatinine 0.85, GFR 75, calcium 9.3 WBC 5, Hgb 13, Hct 41, MCV 93, platelets 315 Total bilirubin 0.8, AST 20, ALT 18, Alkaline Phos 60, albumin 4.5 Triglycerides 83, total cholesterol 180, B12 915, vitamin-D 43, folate > 24, TSH 2.01 IMAGING: CT abd/pelvis w/contrast 04/21/2025: FINDINGS: Lower thorax: Mitral calcification. Minimal bibasilar scar/atelectasis. Liver: Scattered subcentimeter hypodensities, too small to characterize but most likely represent cysts or hemangiomas. Biliary/Gallbladder: Gallbladder is absent. No bile duct dilation. Pancreas: No mass or duct dilation. Spleen: Normal. Adrenals:No mass. Kidneys: No hydronephrosis. No obstructing calcification. 1.2 cm indeterminate density right upper pole and 1.2 cm indeterminate density left upper pole lesions. GI tract: Status post gastric bypass surgery. Small hiatal hernia. Mild distal esophageal and gastric wall edema. Uncomplicated small bowel anastomosis. No small or large bowel dilation. Normal appendix. Diverticulosis without diverticulitis. Mesentery/Peritoneum: No ascites, mass, or free air. Retroperitoneum: No mass. Atherosclerotic calcifications of intra-abdominal arterial vessels. Pelvis: Mild urinary bladder wall thickening. Absent uterus. Normal bilateral ovaries. Soft Tissues: Small uncomplicated fat-containing umbilical hernia. Fat density mass in the proximal left thigh muscles measuring up to 11.1 cm. Bones: No acute osseous finding. IMPRESSION: No CT evidence of bowel obstruction. Uncomplicated appearing gastric bypass. Mild esophagitis/gastritis. Indeterminate density bilateral renal lesions, recommend timely outpatient MRI or CT without and with contrast. 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 Mild urinary bladder wall thickening as can be seen with cystitis. Abdominal XRay 04/17/2025: IMPRESSION: No acute process. Review of Systems 2 Constitutional: Constitutional: Reports as per HPI ENT: Reports as per HPI Cardiovascular: Cardiovascular: Reports as per HPI, Denies chest pain and Denies dyspnea Respiratory: Respiratory: Denies cough and Denies dyspnea Gastrointestinal: Gastrointestinal: Reports as per HPI Musculoskeletal: Musculoskeletal: Reports as per HPI Integumentary/Breasts: Skin/Breast: Reports as per HPI Psychiatric: Psychiatric: Reports as per HPI Endocrine: Endocrine: Reports no additional endocrine complaints Hematologic/Lymphatic: Hematologic/Lymphatic: Reports no additional hematologic/lymphatic complaints [facility] Past Medical History Medical History Lateral meniscus tear Right knee pain Tear meniscus knee Degenerative joint disease of knee Effusion of knee joint Left knee pain Trochanteric bursitis, right hip Colon cancer screening Non-cardiac chest pain COVID-19 virus infection Convergence insufficiency History of closed head injury Insomnia Anxiety Depression Allergic rhinitis GERD (gastroesophageal reflux disease) Hypertension Surgical History Surgical History History of lumpectomy benign History of hysterectomy History of tubal ligation History of fusion of cervical spine History of cholecystectomy Plantar fasciitis Hx of nasal septoplasty History of Yoly-en-Y gastric bypass Family History Family History Father Heart disease Mother Breast cancer Other Family history of malignant melanoma Social History Social History Social History: caffeine use Smoking status: Never smoker Second hand tobacco smoke exposure: No Alcohol intake: never Substance use: never Substance use type: does not use Do You Feel Safe in your Home?: Yes Lack of Transportation: No Lack of Food: Never True Current Housing: I Have Housing Concerned About Future Housing: No Difficulty Paying Gas/Electric Bills: No Difficulty Paying for Meds: No Currently Unemployed: No Education: High School Diploma/GED Difficulty w/ Childcare or Family Care: No Living arrangements: with family Additional living arrangements comments: [facility] Occupation/Education: retired Gender identity (if verbalized by the patient): Female Sexual Orientation (if Verbalized by the Patient): Straight or Heterosexual Spiritual care concerns: No Meds Home Medications and Allergies Home Medications ?Medication ?Instructions ?Recorded ?Confirmed ?Type bupropion HCl 150 mg tablet,12 hr 150 mg PO DAILY 09/07/20 04/22/25 History sustained-release zolpidem 10 mg tablet 10 mg PO .QHS 09/07/20 04/22/25 History fexofenadine 180 mg tablet 180 mg PO DAILY 03/23/23 04/22/25 History (Linda Allergy) aspirin 81 mg tablet,delayed 81 mg PO DAILY 05/23/24 04/22/25 History release (Adult Aspirin Regimen) clonazepam 0.5 mg tablet 0.5 mg PO BID 05/23/24 04/22/25 History nitroglycerin 0.4 mg sublingual 0.4 mg sublingual ONCE PRN chest 05/23/24 04/22/25 History tablet pain rosuvastatin 5 mg tablet 5 mg PO DAILY 05/23/24 04/22/25 History valacyclovir 500 mg tablet 1,000 mg (2 x 500 mg) PO BID PRN 05/27/24 04/22/25 Rx cold sores #90 tabs ipratropium bromide 42 mcg (0.06 2 spray intranasal BID #15 mL 09/12/24 04/22/25 Rx %) nasal spray buspirone 15 mg tablet 15 mg PO TID 09/27/24 04/22/25 History calcium 200 mg (as 5 tablet PO DAILY 09/27/24 04/22/25 History citrate)-vitamin D3 6.25 mcg (250 unit) tablet (Citracal-D3 Petites) cyanocobalamin (vitamin B-12) 1,000 mcg sublingual DAILY 09/27/24 04/22/25 History 1,000 mcg sublingual lozenge epinephrine 0.3 mg/0.3 mL 0.3 mg (0.3 mL) IM ONCE #2 ea 10/07/24 04/22/25 Rx injection, auto-injector (EpiPen 2-Godfrey) hydrochlorothiazide 25 mg tablet 25 mg PO DAILY #90 tabs 10/07/24 04/22/25 Rx lidocaine 5 % topical patch 1 patch topical DAILY PRN back 10/07/24 04/22/25 Rx pain #30 ea potassium chloride 10 mEq 10 meq PO DAILY #90 tabs 10/07/24 04/22/25 Rx tablet,extended release fluticasone fur. 200 mcg-umeclid 1 inh inhalation HS PRN shortness 10/15/24 04/22/25 History 62.5 mcg-vilant 25 mcg of breath or wheezing inhalat.powder (Trelegy Ellipta) omeprazole 20 mg capsule,delayed 20 mg PO DAILY PRN indigestion 10/15/24 04/22/25 History release conjugated estrogens 0.3 mg tablet 0.3 mg PO DAILY #90 tabs 11/21/24 04/22/25 Rx (Premarin) tramadol 50 mg tablet 50 mg PO Q8H PRN Headache #90 tabs 03/19/25 04/22/25 Rx hydroxyzine HCl 50 mg tablet 50 mg PO HS 04/17/25 04/22/25 History Allergies Allergy/AdvReac Type Severity Reaction Status Date / Time No Known Allergies Allergy Verified 04/17/25 08:18 Vital Signs Vital Signs - 24 hr 04/21/25 17:45 04/21/25 22:28 04/22/25 01:20 Temperature 97.7 F 97.9 F 98.5 F Pulse Rate 74 81 69 Respiratory Rate 18 18 18 Blood Pressure 96/74 L 186/81 H 134/78 Pulse Oximetry 100 100 100 Oxygen Delivery Room Air Room Air 04/22/25 03:46 04/22/25 04:19 04/22/25 04:42 Temperature 98.4 F 97.7 F Pulse Rate 74 66 Respiratory Rate 18 18 Blood Pressure 117/68 132/73 Pulse Oximetry 98 100 Oxygen Delivery Room Air 04/22/25 05:57 04/22/25 07:58 04/22/25 08:00 Temperature 97.7 F Pulse Rate 70 70 68 Respiratory Rate 18 Blood Pressure 130/65 Pulse Oximetry 100 Oxygen Delivery 04/22/25 10:00 04/22/25 11:45 Temperature 97.7 F Pulse Rate 74 67 Respiratory Rate 18 Blood Pressure 133/72 Pulse Oximetry 100 Oxygen Delivery Exam 2 Const: General: cooperative, healthy appearing, comfortable, no acute distress and well developed Orientation/consciousness: oriented to person, oriented to place, oriented to time and patient oriented x3 HENMT: Head: normal to inspection, normocephalic and atraumatic Mouth: Yes Normal oral and palatal mucosa present and Yes moist mucous membranes Eyes: General: appearance normal, both eyes and all related structures C onjunctivae: conjunctivae normal Sclera: sclerae normal Pupils: Equal, round and reactive pupils present Neck: Neck: normal visual inspection Chest: Chest palpation & inspection: normal inspection of the chest Resp: Effort & Inspection: normal respiratory effort and able to speak in complete sentences Auscultation: clear to auscultation bilaterally Cardio: Jugular venous distension: no JVD Rate: regular rate Rhythm: r egular rhythm Heart sounds: S1 normal heart sound present and S2 normal heart sound present GI: Inspection: normal to inspection GI Palp: Yes Soft to palpation and Yes No hepatosplenomegaly present Auscultation: normal bowel sounds Rectal Exam: deferred Skin: General skin exam: normal color and no rashes or lesions noted Neuro: General: oriented to person, oriented to place, oriented to time and patient oriented x3 Cranial nerves: Yes Equal, round and reactive pupils present Speech: normal speech Extrem: General: normal to inspection and no clubbing, cyanosis or edema Psych: Appearance: grossly normal and well kempt Affect: normal affect Results Labs 04/22/25 06:34 04/22/25 06:34 Labs: Short CBC 04/21/25 04/22/25 Range/Units 20:08 06:34 WBC 5.1 3.8 L (4.5-10.0) K/mm3 Hgb 12.7 11.9 L (12.0-15.0) g/dL Hct 37.3 35.2 L (37.0-47.0) % Plt Count 320 298 (150-375) k/mm3 BMP 04/21/25 04/22/25 04/22/25 20:09 00:51 06:34 Sodium 123 L 126 L 130 L Potassium 3.4 2.9 L 3.1 L Chloride 82 L 89 L 95 L Carbon Dioxide 30 28 29 BUN 9 7 6 L Creatinine 0.71 0.63 L 0.65 L Glucose 102 95 83 Calcium 9.3 8.7 8.6 Liver Function 04/21/25 Range/Units 20:09 Total Bilirubin 0.9 (0.2-1.3) mg/dL AST 38 H (14-36) U/L ALT 21 (6-35) U/L Alkaline Phosphatase 63 (38-126) U/L Albumin 4.7 (3.5-5.1) g/dL Urine 04/21/25 Range/Units 23:06 Urine Color Yellow (Yellow) Urine Appearance Clear (Clear) Urine pH 7.5 (5.0-9.0) Ur Specific [place] 1.006 (1.001-1.035) Urine Protein Negative (Negative) mg/dL Urine Glucose (UA) Negative (Negative) mg/dL
[2025-04-22] MEDS: POTASSIUM CHLORIDE 20 MEQ PACKET (FOR LIQUID) 40 MEQ PO ×2 (12:43→16:50)
[2025-04-22 20:50] LABS: Sodium 129 mmol/L (137-145)
[2025-04-22] MEDS: ZOLPIDEM TARTRATE (*CRX) 5 MG TABLET 10 MG PO (22:06)
[2025-04-23 04:24] LABS: Magnesium 2.1 mg/dL (1.6-2.3)
[2025-04-23] MEDS: LINACLOTIDE 72 MCG CAPSULE PO (06:32)
[2025-04-23 06:58] LABS: Anion Gap 8 mmol/L (4-12); Blood Urea Nitrogen 8 mg/dL (7-17); Calcium 8.6 mg/dL (8.4-10.2); Carbon Dioxide 23 mmol/L (22-30); Chloride 99 mmol/L (98-107); Estimated CRCL calculation 64 ml/min; Estimated Glomerular Filt Rate > 60; Glucose 104 mg/dL (65-110); Potassium 4.2 mmol/L (3.4-5.0); Sodium 130 mmol/L (137-145)
[2025-04-23 08:00] VITALS: BP 143/65; PULSE 72; RESP 16; TEMP 36.8; O2SAT 100
[2025-04-23] MEDS: ROSUVASTATIN 5 MG TABLET PO (09:23)
[2025-04-23] MEDS: buPROPion HCL SR (12 HR) 150 MG TAB PO (09:23)
[2025-04-23] MEDS: ASPIRIN 81 MG ENTERIC TABLET PO (09:23)
[2025-04-23] MEDS: LORATADINE 10 MG TABLET PO (09:24)
[2025-04-23] MEDS: clonazePAM (*CRX) 0.5 MG TABLET PO (09:24)
--- NOTE | 2025-04-23 11:24 | P.DS_ITS ---
DS: Admitting Diagnosis Discharge Date 04/23/25 Admitting Diagnosis diarrhea DS: Discharge Diagnosis Discharge Diagnosis (1) Acute hyponatremia: Code(s): E87.1 - Hypo-osmolality and hyponatremia Status: Acute (2) Diarrhea: Code(s): R19.7 - Diarrhea, unspecified Status: Acute Plan Acute diarrhea Patient has chronic diarrhea. Patient is alos on multiple laxative medications Patient has history of Leal CT surgery CT abdomen shows no acute issues Hold laxative medications started on Linzess and she is feeling better follow with GI clinic for EGD as outpatient GI on board Acute hyponatremia improving Received normal saline Hypokalemia improved Replete with potassium chloride 40 mg b.i.d. p.o. DS: Summary Hospital Course Hospital Course: 70-year-old female presents with diarrhea since 4 days prior to admission. Many years ago she had a bowel obstruction and has since been taking MiraLax and stool softener every night. About 1 month prior to admission she had bloating and abdominal distension and severe constipation, 4 days prior to admission her primary care told her to take more laxatives. She took magnesium citrate, Senokot, bisacodyl. This is when her symptoms began. She presented [facility] with abdominal pain. Sent here from her primary care to rule out obstruction. Sodium 123. She does have chronic hyponatremia ranging between [address] abdomen pelvis did not reveal bowel obstruction. Given 1 L normal saline. Tylenol. Tramadol. Nephrology consulted from ER. Advised continue with 100 cc of normal saline per hour. 04/23/25 Patient was seen and examined at bedside . She is working with her. Abdominal pain improving. Diarrhea improved. Sodium and potassium improving. GI team on board. Patient started on linzess. Patient can be discharged and follow up with GI as outpatient Status at Discharge Overall status at discharge: patient is progressing back to baseline Time Spent with Patient Time attestation: Total time spent providing and/or coordinating discharge services: Time spent: Greater than 30 minutes Exam Narrative: GENERAL: Pleasant, in no acute distress. Well-nourished. - EYES: EOMI. Anicteric. - HENT: Moist mucous membranes. - LUNGS: Clear to auscultation bilateral ly, no wheezing, rhonchi, or rales. - CARDIOVASCULAR: Regular rate and rhyth m. No murmur. No JVD. - ABDOMEN: Soft, non-tender and non-dist ended. No palpable masses. - EXTREMITIES: No edema. Peripheral puls es 2+. Non-tender. - NEUROLOGIC: No focal neurological defi cits. CN II-XII grossly intact. - PSYCHIATRIC: Awake, Alert and oriented x 3. Appropriate mood and affect. - SKIN: No rashes or lesions. Warm. - LYMPH: No cervical lymphadenopathy. Const: General: comfortable and no acute distress Eyes: Pupils: Equal, round and reactive pupils present Neck: Neck: supple Resp: Effort & Inspection: normal respiratory effort Auscultation: clear to auscultation bilaterally Cardio: Rate: regular rate Rhythm: regular rhythm Neuro: Cranial nerves: Yes Equal, round and reactive pupils present Extrem: General: no edema DS: Data Data Completed and Pending Labs on day of discharge: Labs from last 24 hours 04/23/25 04/23/25 04/23/25 09:35 04:45 03:39 Sodium 130 L Potassium 4.2 Chloride 99 Carbon Dioxide 23 Anion Gap 8 BUN 8 Creatinine 0.64 L Estim Creat Clear Calc 64 Estimated GFR > 60 Glucose 104 Calcium 8.6 Magnesium 2.1 Urine Total Volume Pending Ur Uric Acid 24 Hr Pending Stool Calprotectin Pending Stool Pancreat Elastase Pending Stool H.pylori Ag (EIA) Pending 04/22/25 20:31 Sodium 129 L Potassium Chloride Carbon Dioxide Anion Gap BUN Creatinine Estim Creat Clear Calc Estimated GFR Glucose Calcium Magnesium Urine Total Volume Ur Uric Acid 24 Hr Stool Calprotectin Stool Pancreat Elastase Stool H.pylori Ag (EIA) Discharge Plan Discharge Attending physician on discharge: John Regalado Consulting providers: Tracey Castro; Papi Cagle Discharging Clinician: John Regalado Anticipated Discharge Date/Time: 04/23/25 11:31 Patient Disposition: Home Activity: as tolerated Diet: as tolerated Discharge Instructions: continue Linzess follow with GI clinic as outpatient hold off taking hydrochlorothiazide as it can cause your sodium be low. please discuss with your PCP Patient Instructions: Antibiotic Form Patient Language: Polish Stand Alone Forms: General Discharge Information Follow-up/Referrals: Mango French MD [Primary Care Provider] - 1 Week Papi Cagle MD [Physician] - Call for Appointment Discharge Medications: New Linzess 72 mcg Capsule 72 mcg PO DAILY@0630 Qty: 30 0RF Continued fexofenadine [Linda Allergy] 180 mg tablet 180 mg PO DAILY clonazepam 0.5 mg tablet 0.5 mg PO BID rosuvastatin 5 mg tablet 5 mg PO DAILY nitroglycerin 0.4 mg tablet, sublingual 0.4 mg sublingual ONCE PRN (Reason: chest pain) aspirin [Adult Aspirin Regimen] 81 mg tablet,delayed release (DR/EC) 81 mg PO DAILY Premarin 0.3 mg tablet 0.3 mg PO DAILY Qty: 90 2RF Rx Instructions: cyclically potassium chloride 10 mEq tablet extended release 10 meq PO DAILY Qty: 90 1RF lidocaine 5 % adhesive patch,medicated 1 patch topical DAILY PRN (Reason: back pain) Qty: 30 2RF Patient Comments: TO BACK NEEDED Rx Instructions: leave on most painful area for up to 12 hrs epinephrine [EpiPen 2-Godfrey] 0.3 mg/0.3 mL auto-injector 0.3 mg IM ONCE Qty: 2 3RF Patient Comments: hx of reaction, seen dental technician apprentice, could not diagnose cause. Rx Instructions: as a single dose; may repeat once bupropion HCl 150 mg tablet sustained-release 12 hr 150 mg PO DAILY zolpidem 10 mg tablet 10 mg PO .QHS hydroxyzine HCl 50 mg tablet 50 mg PO HS buspirone 15 mg tablet 15 mg PO TID calcium citrate-vitamin D3 [Citracal-D3 Petites] 200 mg-6.25 mcg (250 unit) tablet 5 tablet PO DAILY cyanocobalamin (vitamin B-12) 1,000 mcg lozenge 1,000 mcg sublingual DAILY omeprazole 20 mg capsule,delayed release(DR/EC) 20 mg PO DAILY PRN (Reason: indigestion) Trelegy Ellipta 200-62.5-25 mcg blister with device 1 inh inhalation HS PRN (Reason: shortness of breath or wheezing) Patient Comments: PT STATES SHE TAKES PRN valacyclovir 500 mg tablet 1,000 mg PO BID PRN (Reason: cold sores) Qty: 90 0RF Rx Instructions: Take 2 tabs (1000 mg) twice daily for one day as needed for cold sores ipratropium bromide 42 mcg (0.06 %) spray,non-aerosol 2 spray intranasal BID Qty: 15 3RF Rx Instructions: administer into each nostril tramadol 50 mg tablet 50 mg PO Q8H PRN (Reason: Headache) Qty: 90 0RF Discontinued hydrochlorothiazide 25 mg tablet 25 mg PO DAILY Qty: 90 1RF Patient Comments: QAM Other Ambulatory Orders: Basic Metabolic Panel (Routine) Timeframe: 2 Days Location: Determined by Patient Ordered By: John Regalado Date of admission: 04/22/25 00:21 Primary Care Provider: Mango French Admitting Provider: Caty Pop Attending physician on admission: Caty Pop Condition: Improved
[2025-04-23 12:00] VITALS: BP 150/78; PULSE 64; RESP 16; TEMP 37; O2SAT 100
[2025-04-24 23:07] LABS: Osmolality, Serum 247 mOsmol/kg (280-301)
[2025-04-25 05:07] LABS: Calprotectin, Fecal 78 ug/g (0-120)
[2025-04-25 15:09] LABS: Pancreatic Elastase, Fecal 196 (>200)
== END 2025-04-23 12:43 | disposition home or self-care (01) | DRG 641 ==
LOC: ANHED 23:29 → ANHIMU 04-22 01:09
PROVIDERS: Emergency Medicine; Hospitalist; Internal Medicine Nephrology; Nurse Practitioner Family; Admitting Provider General Practice; Emergency Provider Emergency Medicine; PCP Family Medicine; Visit Provider Internal Medicine
DX: E87.1 Hypo-osmolality and hyponatremia (principal); K21.9 Gastro-esophageal reflux disease without esophagitis; E87.6 Hypokalemia; I10 Essential (primary) hypertension; K52.9 Noninfective gastroenteritis and colitis, unspecified; R13.10 Dysphagia, unspecified; Z90.49 Acquired absence of other specified parts of digestive tract; Z98.84 Bariatric surgery status; Z79.82 Long term (current) use of aspirin; Z86.0100 Personal history of colon polyps, unspecified
CPT/HCPCS: 36415; 74177; 80048; 80053; 81001; 82570; 82653; 83690; 83735; 83930; 83993; 84295; 84300; 84540; 84560; 85025; 87045; 87046; 87338; 87427; 96360; 99285; A9270; J3480; J7030; Q9967

== ENCOUNTER 2025-05-12 09:36 | Outpatient (CLI) | payer MEDICARE, OTHER, SELFPAY ==
--- NOTE | ~2025-05-12 | MR_ITS ---
MRI of the abdomen: Clinical indication: Renal lesions, liver lesion. Technique: Coronal SSFSE ARC, WATER:coronal LAVA-FLEX, Coronal 2D FIESTA FatSat, Axial SSFSE BH ARC, Axial 3D DualEcho BH, Axial SSFSE-IR, Axial DWI b=500, Axial 2D FIESTA FatSat, pre and dynamic postco ntrast Axial LAVA ARC, postcontrast Coronal In and Opposed phase LAVA FLEX. Following intravenous adm inistration of 14 cc MultiHance gadolinium, T1-weighted fat-sat imaging was performed in the axial an d coronal planes. COMPARISON: CT scan dated 04/21/2025 Findings: Gallbladder absent. The common bile duct is normal in course and caliber. No filling defect s are seen within the CBD. No evidence of intrahepatic biliary ductal dilatation. The pancreatic duct is normal in size. Spleen, pancreas, and adrenal glands appear normal. Small hepatic cysts present. Small bilateral dianna gn renal cysts are present. The aorta and the paraaortic regions appear normal. No suspicious postcontrast enhancement identified. Impression: Small benign hepatic and renal cysts. No suspicious abnormality seen. Reviewed, dictated and finalized at location M. Impression: Small benign hepatic and renal cysts. No suspicious abnormality seen.
--- OUTSIDE RECORDS SUMMARY | 2025-05-12 09:49 | XMS_ITS | Continuity of Care Document ---
Author Name [facility] Organization [facility] Care Team Providers Care Estate Planner Name Role Phone [facility] Unavailable Unavailable Medications Combined list of outpatient [...] with your doctor before becoming . 02/13/2025 [id number] 4 2023 90 [employer] Renato TIRADO ([facility]) buPROPion 150 mg/12 hours (SR) oral tablet, [...] prescrip tion.Do not take if . 09/16/2024 [id number] 4 2023 90 [employer] Renato TIRADO ([facility]) Clonazepam (Teva Brand) Tablet 0.5 mg Oral May cause drowsine ss.Do not drink alcohol. Take or use exactly as directed .Obtain advice for OTCs.May impair driving. Federal law prohibit s transfer of prescrip tion.Do not take if . 08/12/2024 [id number] 4 2023 90 [employer] Renato TIRADO ([facility]) clonazePAM 0.5 mg tablet 0.5 mg, Oral, [...] .Obtain advice for OTCs.Swa llow whole. 02/20/2025 [id number] 4 2023 90 [employer] Renato TIRADO ([facility]) conjugated estrogens 0.3 mg tablet See Instruct [...] directed .Do not take if . 03/14/2025 [id number] 4 [address] [place] [address] Renato TIRADO ([facility]) flutic/umec lid/vilant 200-62.5-25 mcg inh (60EA) = 1 puff(s), Inhale, Daily, # 60 EA, 1 total refill(s ), Hard Stop Inhala tion (breat he in) Ordered 08/19/2025 5 2024 60.0 Ambulat ory Pharmac y Fluticasone Furoate 0.2mg/Actua t + Umeclidiniu m [place] 0.0625 mg/ Actuat + Vilanterol Trifenatate 0.025 mg/Actuat Disk w/inhalatio n device, Inhalation 03/14/2025 [id number] 03/14 4 [address] [place] [address] Renato TIRADO ([facility]) hydroCHLORO thiazide 25 mg tablet See Instruct [...] 4 2023 30.0 Ambulat ory Pharmac y linaclotide 72 mcg capsule = 1 cap(s), Oral, Daily, # 30 EA, 0 total refill(s ), Soft Stop Oral (given by mouth) Ordered 5 2024 30.0 Ambulat ory Pharmac y nitroglycer in 0.4 mg sublingual tablet [25EA] See Instruct ions, # 25 EA, 3 total refill(s ), Hard Stop Complet ed 04/29/2025 4 2024 25.0 Ambulat ory Pharmac y omeprazole 20 [...] 5 2024 90.0 Ambulat ory Pharmac y traZODone 50 mg tablet See Instruct ions, [...] Tablet 10 mg Oral May cause drowsine ss.[facility] al law prohibit s transfer of prescrip tion. 08/12/2024 [id number] 4 2023 90 [employer] Renato HOLGUINB ([facility]) Allergies, Adverse Reactions, Alerts Combined list of allergies from Department of Defense and Veterans Affairs facilities. It does not include entries that were removed or entered in error. Substance Category Reaction Severity Reaction type Status Date Reported Comments Source No Known Allergies Drug allergy (disorder) active 09/25/2015 [employer] Renato HOLGUINB ([facility]) Immunizations Combined list of available immunizations from the Department of Defense and Veterans Affairs facilities. Immunization Series Date Given Administered By Site Reaction Lot Number CVX Code Drug Gift Shop Assistant Status Comments Source Influenza, injectable, MDCK, preservative [...] up to thelast 18 months, not all [place] non-surgical procedures are included; 2) All procedures [...] section is an empty social history section. [facility] Assessment and Plan Combined list of future care activities from Department of Defense and Veterans Affairs facilities (e.g., assessment and plan notes, appointments, orders, and referrals). Additional future care activities may be listed in the Plan of Care section. Result Assessment and Plan Date Source Assessment and Plan No data available for this section 05/12/2025 Ambulatory Pharmacy Functional Status Combined list of recent functional and cognitive assessments recorded at [facility] of Defense and [facility] Affairs ([place] Functional [place] Measurement (FIM) Scale: 1 = Total Assistance (Subject = 0% +), 2 = Maximal Assistance (Subject = 25% +), 3 = Moderate Assistance (Subject = 50% +), 4 = Minimal Assistance (Subject = 75% +), 5 = Supervision, 6 = Modified [place] (Device), 7 = Complete [place] (Timely, Safely). Assessment Date/Time Source Assessment Type Assessment Skill Assessment Score Assessment Details No data available for this section
--- OUTSIDE RECORDS SUMMARY | 2025-05-12 09:49 | XMS_ITS | Clinical Summary ---
Author Organization [facility] [employer] Address [address] [place] [address] Care Team Providers Care Livestock Showman Name Role Phone Mango French MD Primary Care Provider [phone] Source Comments [facility] [employer]non-owned Affiliates and Associated Physician Practices is amultiple site organization consisting of ambulatory clinics and hospital sitesin [place], [place], [place] and [place]. This disclosure is being madepursuant to the Care Everywhere program and may not contain all information available regarding this patient. Last updated 18.[facility] [employer] Allergies Active Allergy Reactions Criticality Noted Date [...] on file Legal Sex Female 1:53 PM FLIGHT SERVICE AGENT Gender Identity Not on file Sexual Orientation [...] CDT) Glucose 116(H) 65 - 105 mg/dl [facility] BUN 9 7 - 21 mg/dl [facility] Creatinine 0.66 0.50 - 1.30 mg/dl [facility] Sodium 140 136 - 145 mmol/L [facility] Potassium 4.0 3.5 - 5.1 mmol/L [facility] Chloride 104 98 - 107 mmol/L [facility] CO2 27 22 - 30 mmol/L [facility] Calcium 9.0 8.5 - 10.1 mg/dl [facility] Bilirubin Total 1.0 0.2 - 1.0 mg/dl [facility] Alkaline Phosphatase 58 38 - 126 U/L [facility] AST 22 5 - 40 U/L [facility] ALT 21 12 - 78 U/L [facility] Protein Total 7.1 6.4 - 8.2 gm/dl [facility] Albumin 3.8 3.4 - 5.0 gm/dl [facility] eGFR By MDRD >60 >60 [facility] Blood specimen (specimen) BLOOD SPECIMEN / Unknown 05/15/2012 5:05 PM CDT 05/15/2012 5:13 PM CDT us Víctor Hopper DO LAB - CHEMISTRY ORDERABLES Shanta sylvester Result [facility] [address] [id number] from Last 3 Months or Most Recently Relevant to Health Maintenance Insurance MEDICARE [facility] ([address] [id number] MEDICARE [facility] Care Teams Livestock Showman Relationship Specialty Start Date End Date Mango French MD [address] [place] [address] PCP - General 08/02/21
--- OUTSIDE RECORDS SUMMARY | 2025-05-12 09:49 | XMS_ITS | Patient Health Record ---
Author Organization [facility] Address [address] [place], [place] [id number] Care Team Providers Care Certified Maintenance Welder Name Role Phone FrenchMango cadena Unavailable Unavailable Reason For Referral No Information Medications Medication SIG (Take, Route, Frequency, Duration) Notes Start Date End Date Status 12 HR bupropion hydrochloride 150 MG Extended Release Oral Tablet [Wellbutrin] ORAL 12 HR bupropion hydrochloride 150 MG Extended Release Oral Tablet [Wellbutrin]Original Lurilnbshn58 HR bupropion hydrochloride 150 MG Extended Release Oral Tablet [Wellbutrin] *Reorder from [facility] for eRx and 02/09/2018 Active omeprazole 20 MG Delayed Release Oral Tablet [Prilosec] ORAL omeprazole 20 MG Delayed Release Oral Tablet [Prilosec]Original Medicationomeprazole 20 MG Delayed Release Oral Tablet [Prilosec] *Reorder from [facility] and Interaction Alerts* 02/09/2018 Active zolpidem tartrate 10 MG Oral Tablet [Ambien] ORAL zolpidem tartrate 10 MG Oral Tablet [Ambien]Original Medicationzolpidem tartrate 10 MG Oral Tablet [Ambien] *Reorder from [facility] and Interaction Alerts* 02/09/2018 Active calcium carbonate 1250 MG / cholecalciferol 1000 UNT / vitamin K 0.4 MG Chewable Tablet ORAL calcium carbonate 1250 MG / cholecalciferol 1000 UNT / vitamin K 0.4 MG Chewable TabletOriginal Medicationcalcium carbonate 1250 MG / cholecalciferol 1000 UNT / vitamin K 0.4 MG Chewable Tablet *Reorder from Pr 02/09/2018 Active cobamamide 0.1 MG / vitamin B12 5 MG Sublingual Tablet cobamamide 0.1 MG / vitamin B12 5 MG Sublingual TabletOriginal Medicationcobamamide 0.1 MG / vitamin B12 5 MG Sublingual Tablet *Reorder from [facility] for [facility] and Interaction Alerts* 02/09/2018 Active estrogens, conjugated (MCC) 0.3 MG Oral Tablet [Premarin] ORAL estrogens, conjugated (MCC) 0.3 MG Oral Tablet [Premarin]Original Medicationestrogens, conjugated (MCC) 0.3 MG Oral Tablet [Premarin] *Reorder from [facility] and Interaction Alerts* 04/16/2021 Active alprazolam 0.25 MG Oral Tablet [Xanax] ORAL alprazolam 0.25 MG Oral Tablet [Xanax]Original Medicationalprazolam 0.25 MG Oral Tablet [Xanax] *Reorder from [facility] for [facility] and Interaction Alerts* 02/09/2018 Active Plan Of Treatment No Information Insurance Providers Payer Name Payer Address Payer Phone Subscriber Number Group Number Insured Name Patient Relationship to Insured Coverage Start Date Coverage End Date Medicare Part B [facility] [address] [place] [address] [id number] BREEZY MCKINNEY Self - patient is the insured [employer] [address] [place], [place] [id number] ANU MCKINNEY Spouse - patient is the spouse of the insured
--- OUTSIDE RECORDS SUMMARY | 2025-05-12 09:49 | XMS_ITS | Referral Summary ---
Author Organization [facility] Address [address] [place] [address] Care Team Providers Care Weapons Designer Name Role Phone Mango French MD Primary Care Provider Serafin Galicia DPM Unavailable [phone] Encounters Date Type Department Care Team Description 03/04/2025 Telephone [facility] Medical [facility] Cardiology [address] [place] [phone] Martha Nguyen MD 02/17/2025 9:00 AM CDT Office Visit [facility] Medical [facility] Cardiology [address] [place] [phone] Martha Nguyen MD Essential hypertension (Primary Dx); WHEELER (dyspnea on exertion); Other chest pain; Family history of ischemic heart disease 02/10/2025 9:58 AM CDT - 02/10/2025 11:59 PM CDT Hospital Encounter [facility] Medical Office Bldg [facility] [address] [place] [address] Screening mammogram, encounter for Discharge [...] (81 mg total) by mouth daily 4 Active ipratropium (ATROVENT) 42 mcg (0.06 %) [...] (09/27/2019): Added automatically from request for surgery [id number] Hypertrophy of nasal turbinates 09/27/2019 Overview (09/27/2019): Added automatically from request for surgery [id number] Depression 08/14/2012 Overview (01/13/2017): Depression Social History [...] on file Legal Sex Female 10:58 AM CORSAGE MAKER Gender Identity Female 12/04/2020 6:25 AM CORSAGE MAKER Sexual Orientation Straight 12/04/2020 6: 25 AM CORSAGE MAKER Last Filed Vital Signs Vital Sign Reading Time Taken Comments Blood Pressure 100/60 02/17/2025 9:00 AM CDT Pulse 80 02/17/2025 9:00 AM CDT Temperature 36.8 C (98.2 F) 07/02/2023 8:54 AM CDT Respiratory Rate 18 12/08/2023 9:55 AM CORSAGE MAKER Oxygen Saturation 94% 02/17/2025 9:00 AM CDT Inhaled Oxygen Concentration - - Weight 73.5 kg (162 lb) 02/17/2025 9:00 AM CDT Height 167.6 cm (5' 6) 02/17/2025 9:00 AM CDT Body Mass Index 26.15 02/17/2025 9:00 AM CDT Plan of Treatment Not on file Medical Devices Implanted Type Area Assistant Sales Manager Device Identifier Shelf Expiration Date Model / Serial / Lot Unknown N/A: Neck Implantech [employer] 3x2in 1 Short Term Implantable Thk.03in Sheeting - [id number] Implanted:Qty: 1 on 11/01/2019 by Galo Chaney MD at [facility] Bilateral : Nose Implantech [id number] 01/08/2024 / / [id number] Procedures Procedure Name Priority Date/Time Associated Diagnosis [...] blood 02/17/2025 9 :33 AM CDT us Martha Nguyen MD POINT OF CARE TEST [...] age 40, based on guidelines of the [employer] (ACR Practice Parameter for the Performance of Screening and Diagnostic Mammography) and [employer]. For women [...] Hartley M.D. MD: 04:33 PM 04:33 PM [facility] [E[facility]] Narrative 08/06/2013 4:36 PM [...] Hartley M.D. MD: 04:33 PM 04:33 PM [facility] [[facility]] Delfino Lima MD IMG DXA PROCEDURES Final Result from Last 3 Months or Most Recently Relevant to Health Maintenance Insurance MEDICARE [employer] MEDICARE FOR LIFE MEDICARE FOR LIFE Advance Directives For more information, please contact: [phone] * Full Code (Latest Code Status on File) Date Activated Date Inactivated Comments 11/01/2019 2:17 PM 11/01/2019 8:39 PM Care Teams Weapons Designer Relationship Specialty Start Date End Date Mango French MD [address] [place] [address] PCP - General Family Medicine 07/18/21 Serafin Galicia, DPM [address] [place] [address] Consulting Physician Podiatry 03/09/22
--- OUTSIDE RECORDS SUMMARY | 2025-05-12 09:49 | XMS_ITS | Encounter Summary ---
Author Organization [facility] Address [address] [place] [address] Care Team Providers Care Alligator Hunter Name Role Phone Mango French MD Primary Care Provider [phone] Encounter Details Date Type Department Care Team (Late st Contact Info) Description 12/18/2020 Lab Requisition [facility] Care DermPath Lab [address] [place] [phone] Leo Hernandez MD [address] [address] Social History Tobacco Use Types Packs/Day Years Used Date Smoking Tobacco: Never Smokeless Tobacco: Never Alcohol Use Standard Drinks/Week Comments No 0 (1 standard drink = 0.6 oz pur e alcohol) Comments No Sex and Gender Information Value Date Recorded Sex Assigned at Not on file Legal Sex Female 1:53 PM AUTOMOTIVE SERVICE DIRECTOR Gender Identity Not on file Sexual Orientation Not on file Occupation Industry Job Start Date Job End Date Retired Not on file Not on file Not on file documented as of this encounter Plan of Treatment Not on file documented as of this encounter Procedures Procedure Name Priority Date/Time Associated Diagnosis Comments DERMATOPATHOLOGY Routine 12/16/2020 3:33 AM AUTOMOTIVE SERVICE DIRECTOR documented in this encounter Results * DERMATOPATHOLOGY (12/16/2020 3:33 AM AUTOMOTIVE SERVICE DIRECTOR) Case Report Dermatopathology Report Case: [id number] Authorizing Provider: Leo Hernandez MD Collected: 12/16/2020 [...] 1358 CDT Clinical History Nevus vs MM. Path#[id number] 1:58 PM CDT DERMATOPATHOLOGY LABORATORY Gross Description [...] characteristic determined by the Dermatopathology Laboratory at [facility], directed by Dr. Viv Tracy. These tests need not be, and therefore are not, approved by the [place] Food and Drug Administration. The tests are used for clinical purposes. Billing Codes Specimen Charges Stain Charges 96330 1 1 1:58 PM CDT DERMATOPATHOLOGY LABORATORY Embedded Images 1:58 PM CDT DERMATOPATHOLOGY LABORATORY Pathology/Cytolo gy TISSUE SPECIMEN FROM SKIN / Unknown 12/16/2020 3:33 AM AUTOMOTIVE SERVICE DIRECTOR 12/18/2020 7:28 AM AUTOMOTIVE SERVICE DIRECTOR Leo Hernandez MD LAB - PATHOLOGY/CYTOLOGY ORDER NORMAN Final Result DERMATOPATHOLOGY LABORATORY [facility] - Department of Dermatology [facility] Medicine [address] [place] [address], [address] [phone] documented in this encounter Visit Diagnoses Not on filedocumented in this encounter Care Teams Alligator Hunter Relationship Specialty Start Date End Date Mango French MD [address] [place] [address] PCP - General 08/02/21 documented as of this encounter
--- OUTSIDE RECORDS SUMMARY | 2025-05-12 09:49 | XMS_ITS | Clinical Summary ---
Author Organization [facility] Address [address] [place] [phone] Care Team Providers Care Counseling Services Manager Name Role Phone Delfino Lima MD Primary [...] screening mammogram in one year. DICTATION LOCATION: [facility] Narrative 05/25/2020 3:33 PM CDT MAMMO SCREEN [...] screening mammogram in one year. DICTATION LOCATION: [facility] Vaibhav Garsia MD MAMMO ORDERABLES Final Result from Last 3 Months or Most Recently Relevant to Health Maintenance Insurance MEDICARE PART A AND B [facility] Address: [facility] [address] [place] [address] Care Teams Counseling Services Manager Relationship Specialty Start Date End Date Delfino Lima MD [address] [place] [address] PCP - General 06/12/18
--- OUTSIDE RECORDS SUMMARY | 2025-05-12 09:49 | XMS_ITS | Clinical Summary ---
Author Organization [facility] Address [address] [place] [address] Care Team Providers Care Business Proposal Rep Name Role Phone Mango French MD Primary Care Provider Serafin Galicia DPM Unavailable [phone] Allergies No known active allergies Medications cyanocobalamin [...] (09/27/2019): Added automatically from request for surgery [id number] Hypertrophy of nasal turbinates 09/27/2019 Overview (09/27/2019): Added automatically from request for surgery [id number] Depression 08/14/2012 Overview (01/13/2017): Depression Encounters Date Type Department Care Team Description 03/04/2025 Telephone [facility] Cardiology [address] [place] [address] Martha Nguyen MD 02/17/2025 9:00 AM CDT Office Visit [facility] Medical [facility] Cardiology [address] [place] [address] Martha Nguyen MD Essential hypertension (Primary Dx); WHEELER (dyspnea on exertion); Other chest pain; Family history of ischemic heart disease 02/10/2025 9:58 AM CDT - 02/10/2025 11:59 PM CDT Hospital Encounter [facility] Medical Office [address] [facility] [address] [facility] [place] [address] Screening mammogram, encounter for Discharge Disposition: Discharge [...] on file Legal Sex Female 10:58 AM HYDROLOGY TEACHER Gender Identity Female 12/04/2020 6:25 AM HYDROLOGY TEACHER Sexual Orientation Straight 12/04/2020 6: 25 AM HYDROLOGY TEACHER Obstetrics History Para Term AB IAB SAB [...] CDT Respiratory Rate 18 12/08/2023 9:55 AM HYDROLOGY TEACHER Oxygen Saturation 94% 02/17/2025 9:00 AM CDT [...] history exists Medical Devices Implanted Type Area Needle Valve Operator Device Identifier Shelf Expiration Date Model / Serial / Lot Unknown N/A: Neck Implantech - Allied[employer] 3x2in 1 Short Term Implantable Thk.03in Sheeting - [id number] Implanted:Qty: 1 on 11/01/2019 by Galo Chaney MD at [facility] Bilateral : Nose Implantech [id number] 01/08/2024- / / [id number] Procedures Procedure Name Priority Date/Time Associated Diagnosis [...] age 40, based on guidelines of the [place] [employer] (ACR Practice Parameter for the Performance of Screening and Diagnostic Mammography) and [place]. For women [...] Hartley M.D. MD: 04:33 PM 04:33 PM [facility] [E[facility]] Narrative 08/06/2013 4:36 PM CDT [...] Hartley M.D. MD: 04:33 PM 04:33 PM [facility] [E[facility]] Delfion Lima MD IMG DXA PROCEDURES Final Result from Last 3 Months or Most Recently Relevant to Health Maintenance Insurance MEDICARE [facility] [employer] [facility] Address: [address] [place] [address] MEDICARE FOR LIFE MEDICARE FOR LIFE Advance Directives For more information, please contact: [phone] * Full Code (Latest Code Status on File) Date Activated Date Inactivated Comments 11/01/2019 2:17 PM 11/01/2019 8:39 PM Care Teams Business Proposal Rep Relationship Specialty Start Date End Date Mango French MD [address] [place] [address] PCP - General Family Medicine 07/18/21 Serafin Galicia, CAROL [address] [place] [address] Consulting Physician Podiatry 03/09/22
--- OUTSIDE RECORDS SUMMARY | 2025-05-12 09:49 | XMS_ITS | Encounter Summary ---
Author Organization [facility] Address [address] [place] [address] Care Team Providers Care Supervisor Transferring And Boxing Name Role Phone Mango French MD Primary Care Provider [phone] Encounter Details Date Type Department Care Team (Late st Contact Info) Description 08/17/2022 Lab Requisition [facility] Care DermPath Lab [address] [place] [id number] Leo Hernandez MD [address] [place] [address] Social History Tobacco Use Types Packs/Day Years Used Date Smoking Tobacco: Never Smokeless Tobacco: Never Alcohol Use Standard Drinks/Week Comments No 0 (1 standard drink = 0.6 oz pur e alcohol) Comments No Sex and Gender Information Value Date Recorded Sex Assigned at Not on file Legal Sex Female 1:53 PM HUMAN SERVICES MANAGER Gender Identity Not on file Sexual Orientation [...] AM CDT) Case Report Dermatopathology Report Case: [id number] Authorizing Provider: Leo Hernanedz MD Collected: 08/03/2022 12:00 AM Ordering Location: [facility] Received: 08/17/2022 11:38 AM Pathologist: Stella Burk MD Specimen: Skin, left lower lat leg 12:37 PM [facility] DERMATOPATHOLOGY LABORATORY Final Diagnosis Specimen A. SKIN, left lower lat leg: HYPERPLASTIC (HYPERTROPHIC) ACTINIC KERATOSIS, ERODED (L57.0) (see microscopic description) 12:37 PM HUMAN SERVICES MANAGER DERMATOPATHOLOGY LABORATORY at [address] [facility] Clinical History ISK vs SCC vs BCC. Path#[id number] 12:37 PM [facility] DERMATOPATHOLOGY LABORATORY Gross Description Specimen A: Received is one formalin filled container labeled with the patient's name and designated left lower lat leg. The specimen consists of a shave biopsy measuring 11x9x1 mm. Jar 0. 12:37 PM HUMAN SERVICES MANAGER DERMATOPATHOLOGY LABORATORY Microscopic Description Specimen A. SKIN, left lower lat leg: There is hyperkeratosis alternating with parakeratosis. There is epidermal hyperplasia with disorderly maturation of keratinocytes with nuclear pleomorphism confined to the lower half of the epidermis. The epidermis is focally eroded. BerEP4 stains with lower epidermis only weakly. Mib-1 stain highlights proliferating keratinocytes within the lower half of the epidermis. 12:37 PM [facility] DERMATOPATHOLOGY LABORATORY Disclaimer An external and internal positive and negative controls are appropriate for the histochemical, immunohistochemical and immunofluorescence stain(s) in this case (if any), except where stated explicitly. The performance characteristics of the stain(s) cited in this report were developed and its performance characteristic determined by the Dermatopathology Laboratory at [facility], directed by Dr. Viv Tracy. These tests need not be, and therefore are not, approved by the [place] Food and Drug Administration. The tests are used for clinical purposes. Billing Codes Specimen Charges Stain Charges 13886 1 93104 88549 1 1 12:37 PM [facility] DERMATOPATHOLOGY LABORATORY Embedded Images 12:37 PM [facility] DERMATOPATHOLOGY LABORATORY Pathology/Cytolog y TISSUE SPECIMEN FROM SKIN / Unknown 08/03/2022 08/17/2022 11:38 AM HUMAN SERVICES MANAGER us Leo Hernandez MD LAB - PATHOLOGY/CYTOLOGY ORDER NORMAN Final Result DERMATOPATHOLOGY LABORATORY [facility] - Department of Dermatology [address], [address] [phone] documented in this encounter Visit Diagnoses Not on filedocumented in this encounter Care Teams Supervisor Transferring And Boxing Relationship Specialty Start Date End Date Mango French MD [address] [place] [address] PCP - General 08/02/21 documented as of this encounter
--- OUTSIDE RECORDS SUMMARY | 2025-05-12 09:49 | XMS_ITS | Clinical Summary ---
Author Organization [facility] Address [address] [place] [address] Care Team Providers Care Commissary Officer Name Role Phone Mango French MD Primary Care Provider [phone] Allergies Active Allergy Reactions Criticality Noted Date [...] mg by mouth every morning. Active Multiple Vitamins-Computer Systems Auditor als (MULTIVITAMIN ADULTS OR) Take 2 tablets [...] Comments Blood Pressure 137/74 10/13/2021 12:46 PM NUCLEAR REACTOR OPERATOR Pulse 64 10/13/2021 12:46 PM NUCLEAR REACTOR OPERATOR Temperature 36.8 C (98.3 F) 10/13/2021 12:46 PM NUCLEAR REACTOR OPERATOR Respiratory Rate 16 10/13/2021 12:46 PM NUCLEAR REACTOR OPERATOR Oxygen Saturation 100% 10/13/2021 12:46 PM NUCLEAR REACTOR OPERATOR Inhaled Oxygen Concentration - - Weight 67.4 kg (148 lb 9.4 oz) 10/13/2021 8:00 A M NUCLEAR REACTOR OPERATOR Height 166.4 cm (5' 5.5) 10/13/2021 8:00 AM NUCLEAR REACTOR OPERATOR Body Mass Index 24.35 10/13/2021 8:00 AM NUCLEAR REACTOR OPERATOR Plan of Treatment Health Maintenance Due [...] patient's age to complete this topic Insurance [facility] MEDICARE Care Teams Commissary Officer Relationship Specialty Start Date End Date Mango French MD [address] [place] [address] PCP - General FAMILY PRACTICE 10/07/21
--- OUTSIDE RECORDS SUMMARY | 2025-05-12 09:49 | XMS_ITS | Patient Health Record ---
Author Organization [facility] [employer] Address [address] [facility] [address] [place] [address] Care Team Providers Care Control Valve Mechanic Name Role Phone Mango French MD Primary Care Provider Unavaila Leana Duran Unavailable [phone] Corbin Chanda Unavailable [phone] Allergies No Known Allergies Results Component Value Reference Range Notes UDT Reviewed date:09/13/2024 03:54:43 PM Interpretation: Performing Lab: Notes/Report: THC n 0 - 50 ng/ml Cocaine n 0 - 300 ng/ml Amphetamine n 0 - 1000 ng/ml Buprenorphine (BUP) n 0 - 10 ng/ml Secobarbital (Bar) n 0 - 300 ng/ml Oxazepam (BZO) n 0 - 300 ng/ml 8-buudcazquw-0,1-nanazwdw-4, 3-diphenylpyr rolidine (EDDP) n 0 - 300 ng/ml Methamphetamine (MET) n 0 - 1000 ng/ml Methylenedioxymethamphetamine (MDMA) n 0 - 500 ng/ml Morphine (MOP 300/MMZ1804) n 0 - 300 ng/ml Methadone (MTD) [...] Oxazepam (BZO) N 0 - 300 ng/ml 7-cuzizrzqrq-6,6-blwozkym-0, 3-diphenylpyr rolidine (EDDP) N 0 - 300 ng/ml Methamphetamine (MET) N 0 - 1000 ng/ml Methylenedioxymethamphetamine (MDMA) N 0 - 500 ng/ml Morphine (MOP 300/[id number]) N 0 - 300 ng/ml Methadone (MTD) [...] Oxazepam (BZO) NEG 0 - 300 ng/ml 8-hwftxddenl-0,5-bjmwoxpx-0, 3-diphenylpyr rolidine (EDDP) NEG 0 - 300 ng/ml Methamphetamine (MET) NEG 0 - 1000 ng/ml Methylenedioxymethamphetamine (MDMA) NEG 0 - 500 ng/ml Morphine (MOP 300/KNC9125) NEG 0 - 300 ng/ml Methadone (MTD) NEG 0 - 300 ng/ml Phencyclidine (PCP) NEG 0 - 25 ng/ml Nortriptyline (TCA) NEG 0 - 1000 ng/ml Oxycodone NEG 0 - 300 ng/ml x NEG 0 - 300 ng/ml UDT Reviewed date:03/17/2025 12:18:06 PM Interpretation: Performing Lab: Notes/Report: THC n 0 - 50 ng/ml Cocaine n 0 - 300 ng/ml Amphetamine n 0 - 1000 ng/ml Buprenorphine (BUP) n 0 - 10 ng/ml Secobarbital (Bar) n 0 - 300 ng/ml Oxazepam (BZO) n 0 - 300 ng/ml 9-xcrpkpeosy-4,4-lhubpstv-4, 3-diphenylpyr rolidine (EDDP) n 0 - 300 ng/ml Methamphetamine (MET) n 0 - 1000 ng/ml Methylenedioxymethamphetamine (MDMA) n 0 - 500 ng/ml Morphine (MOP 300/TIG6686) n 0 - 300 ng/ml Methadone (MTD) n 0 - 300 ng/ml Phencyclidine (PCP) n 0 - 25 ng/ml Nortriptyline (TCA) n 0 - 1000 ng/ml Oxycodone n 0 - 300 ng/ml x n 0 - 300 ng/ml Validity Testing Reviewed date:01/27/2025 12:42:15 PM Interpretation: Performing Lab: Notes/Report: Not Medicated Consistent Not Medicated Consistent Not Medicated Consistent Not Medicated Consistent Specific Kountze 1.005 1.003 - 1.030 pH 6.9 3.0 - 10.9 Oxidants -10 200 g/mL Creatinine 63.3 20.0 - 300.0 mg/dL Benzodiazepines Reviewed date:01/27/2025 12:42:02 PM Interpretation: Performing Lab:[address] [place] [address], [address] [place] [address], Director - [phone] Notes/Report: An exception occurred while processing this report and so it has incomplete data. Please contact [employer] for assistance. Not Medicated Consistent Not Medicated [...] NEGATIVE 20.0 ng/mL PDF Report [email or web address] [email or web address] Zolpidem Reviewed date:01/27/2025 12:42:09 PM Interpretation: Performing Lab: Notes/Report: Reason For Referral No Information Medications Medication [...] Route Administration Date Status Comme nts Pfizer BiontSaaSMAX Covid-19 Vac cine 2nd dose Unknown 01/02/2021 [...] Severe recurrent major depression without psychotic features (68366861) Major depressive disorder, recurrent severe without psychotic features (F33.2) Active confirmed Problem Generalized anxiety disorder (57637110) Generalized anxiety disorder (F41.1) Active confirmed Problem Posttraumatic stress disorder (69517415) Post-traumatic stress disorder, chronic (F43.12) Active confirmed Problem Insomnia disorder related to another mental disorder (08126139) Insomnia due to other mental disorder (F51.05) Active confirmed Problem Recurrent major depression (78189587) Major depressive disorder, recurrent, in remission (F33.40) Active confirmed Problem Recurrent major depression in remission (47184917) MDD (major depressive disorder), recurrent, in partial remission (F33.41) Active confirmed Vital Signs Heart Rate 77 /min 03/17/2025 Height-cm 165.10 cm 03/17/2025 Blood pressure diastolic 73 mm Hg 03/17/2025 Weight-kg 71.67 kg 03/17/2025 Height 65.00 in 03/17/2025 Blood pressure systolic 112 mm Hg 03/17/2025 Weight 158 lbs 03/17/2025 BMI 26.29 kg/m2 03/17/2025 Encounters Encounter Location Date Provider Diagnosis [facility] [employer] [place] [id number] [facility] [address] [address] 06/13/2024 Thena Corbin Major depressive disorder, recurrent severe without psychotic features F33.2 ; Post-traumatic stress disorder, chronic F43.12 ; Generalized anxiety disorder F41.1 and Insomnia due to other mental disorder F51.05 [facility] [address] [address] 07/19/2024 Thena Corbin Generalized anxiety disorder F41.1 ; Post-traumatic stress disorder, chronic F43.12 ; Major depressive disorder, recurrent, moderate F33.1 and Insomnia due to other mental disorder F51.05 [facility] [place] [address] [address] 09/12/2024 Thena Corbin Generalized anxiety disorder F41.1 ; MDD (major depressive disorder), recurrent, in partial remission F33.41 ; Post-traumatic stress disorder, chronic F43.12 and Insomnia due to other mental disorder F51.05 [facility] [address] [address] 11/21/2024 Thena Corbin Generalized anxiety disorder F41.1 ; Post-traumatic stress disorder, chronic F43.12 ; Insomnia due to other mental disorder F51.05 ; Major depressive disorder, recurrent, moderate F33.1 and Benign essential HTN I10 [place] [address] [facility] [address] [address] 01/20/2025 Leana Bro Generalized anxiety disorder F41.1 ; Major depressive disorder, recurrent, in remission F33.40 ; Post-traumatic stress disorder, chronic F43.12 ; Insomnia due to other mental disorder F51.05 ; Encounter for screening for depression Z13.31 and Encounter for screening for cardiovascular disorders Z13.6 [place] [address] [address] 03/17/2025 Leana Bro Generalized anxiety disorder F41.1 ; MDD (major depressive disorder), recurrent, in partial remission F33.41 ; Post-traumatic stress disorder, chronic F43.12 ; Insomnia due to other mental disorder F51.05 ; Encounter for screening for cardiovascular disorders Z13.6 and Negative depression screening Z13.31 [place] [address] [address] 08/26/2024 Thena Corbin Generalized anxiety disorder F41.1 and Insomnia due to other mental disorder F51.05 [place] [address] [address] 11/15/2024 Thena Corbin Insomnia due to othe r mental disorder F51.05 [place] [address] [address] 05/28/2024 Thena Corbin Generalized anxiety disorder F41.1 [place] [address] [address] 05/28/2024 Thena Corbin [place] [address] [address] 09/19/2024 Thena Corbin Generalized anxiety disorder F41.1 [place] [address] [address] 09/26/2024 Thena Corbin [place] [address] [address] 11/15/2024 Thena Corbin Assessments Encounter Date Diagnosis (ICD Code) Assessment Notes Treatment Notes Treatment Clinical Notes Section Notes 11/15/2024 Insomnia due to other mental disorder (ICD-10 - F51.05) 06/13/2024 Major depressive disorder, recurrent severe without psychotic features (ICD-10 - F33.2) 06/13/2024 Post-traumatic stress disorder, chronic (ICD-10 - F43.12) 09/12/2024 MDD (major depressive disorder), recurrent, in partial remission (ICD-10 - F33.41) 09/19/2024 Generalized anxiety disorder (ICD-10 - F41.1) 08/26/2024 Generalized anxiety disorder (ICD-10 - F41.1) 09/12/2024 Generalized anxiety disorder (ICD-10 - F41.1) 05/28/2024 Generalized anxiety disorder (ICD-10 - F41.1) 07/19/2024 Generalized anxiety disorder (ICD-10 - F41.1) 07/19/2024 Post-traumatic stress disorder, chronic (ICD-10 - F43.12) 11/21/2024 Generalized anxiety disorder (ICD-10 - F41.1) [...] delirium, and paradoxical reactions (e.g., agitation, aggression). 03/17/2025 MDD (major depressive disorder), recurrent, in partial remission (ICD-10 - F33.41) 01/20/2025 Major depressive disorder, recurrent, in remission (ICD-10 - F33.40) 03/17/2025 Post-traumatic stress disorder, chronic (ICD-10 - F43.12) 11/21/2024 Insomnia due to other mental disorder (ICD-10 - F51.05) 07/19/2024 Major depressive disorder, recurrent, moderate (ICD-10 - F33.1) 09/12/2024 Post-traumatic stress disorder, chronic (ICD-10 - F43.12) 08/26/2024 Insomnia due to other mental disorder (ICD-10 - F51.05) 06/13/2024 Generalized anxiety disorder (ICD-10 - F41.1) 06/13/2024 Insomnia due to other mental disorder (ICD-10 - F51.05) 09/12/2024 Insomnia due to other mental disorder (ICD-10 - F51.05) 11/21/2024 Major depressive disorder, recurrent, moderate (ICD-10 - F33.1) 07/19/2024 Insomnia due to other mental disorder (ICD-10 - F51.05) 01/20/2025 Post-traumatic stress disorder, chronic (ICD-10 - F43.12) 03/17/2025 Insomnia due to other mental disorder [...] risk of respiratory depression, overdose, and . 03/17/2025 Encounter for screening for cardiovascular disorders (ICD-10 - Z13.6) 01/20/2025 Insomnia due to other mental disorder (ICD-10 - F51.05) 11/21/2024 Benign essential HTN (ICD-10 - I10) 01/20/2025 Encounter for screening for depression (ICD-10 - Z13.31) 03/17/2025 Negative depression screening (ICD-10 - Z13.31) 01/20/2025 Encounter for screening for cardiovascular disorders (ICD-10 - Z13.6) 09/12/2024 Other 01/20/2025 Francisco Bales, female patient with history of brain [...] in neurological symptoms - Encourage follow-up with manager mail for new glasses if prescribed Chronic Idiopathic [...] Details Provider Name:Leana stein, 05/15/2025 09:00:00 AM, [address], [facility] [address], [place], [address], Provider Name:Leana stein, 05/16/2025 08:45:00 AM, [address], [address], [place], [address], Insurance Providers Payer Name Payer Address Payer Phone Subscriber Number Group Number Insured Name Patient Relationship to Insured Coverage Start Date Coverage End Date Medicare-I l Medicare [address] [place] [phone] [id number] BREEZY MCKINNEY Self - patient is the insured For Life [address] [place] [address] [id number] BREEZY MCKINNEY Self - patient is the insured Medical (General) History Medical History History ICD Code Problems: Chronic post-concussion headac he Chronic post-traumatic stress disorder Concussion injury of brain Family bereavement Insomnia disorder related to another men marta disorder Severe recurrent major depression withou t psychotic features Past Psychiatric History: Anxiety Disord er undefined Surgical History Surgery Date(Month/Year) Hysterectomy/revise vagina (48393) 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
== END 2025-05-12 09:37 | disposition home or self-care (01) ==
PROVIDERS: PCP Family Medicine; Visit Provider Physician Assistant
DX: N28.1 Cyst of kidney, acquired (principal); K76.9 Liver disease, unspecified
CPT/HCPCS: 74183; A9577

== ENCOUNTER 2025-05-28 04:19 | Day surgery (SDC) | payer MEDICARE, OTHER, SELFPAY ==
[2025-05-20 09:59] VITALS: BMI 23.8
--- OUTSIDE RECORDS SUMMARY | 2025-05-28 04:24 | XMS_ITS | Clinical Summary ---
Author Organization [facility] Address [address] [place] [address] Care Team Providers Care Dial Printer Name Role Phone Mango French MD Primary Care Provider [phone] Allergies Active Allergy Reactions Criticality Noted Date [...] mg by mouth every morning. Active Multiple Vitamins-[place] als (MULTIVITAMIN ADULTS OR) Take 2 tablets [...] Comments Blood Pressure 137/74 10/13/2021 12:46 PM PAINTER TOUCH UP Pulse 64 10/13/2021 12:46 PM PAINTER TOUCH UP Temperature 36.8 C (98.3 F) 10/13/2021 12:46 PM PAINTER TOUCH UP Respiratory Rate 16 10/13/2021 12:46 PM PAINTER TOUCH UP Oxygen Saturation 100% 10/13/2021 12:46 PM PAINTER TOUCH UP Inhaled Oxygen Concentration - - Weight 67.4 kg (148 lb 9.4 oz) 10/13/2021 8:00 A M PAINTER TOUCH UP Height 166.4 cm (5' 5.5) 10/13/2021 8:00 AM PAINTER TOUCH UP Body Mass Index 24.35 10/13/2021 8:00 AM PAINTER TOUCH UP Plan of Treatment Health Maintenance Due Date [...] patient's age to complete this topic Insurance [employer] MEDICARE Care Teams Dial Printer Relationship Specialty Start Date End Date Mango French MD [address] [facility] [address] [place] [address] PCP - General FAMILY PRACTICE 10/07/21
--- OUTSIDE RECORDS SUMMARY | 2025-05-28 04:24 | XMS_ITS | Patient Health Record ---
Author Organization [facility] Address [address] [place], [place] [address] Care Team Providers Care Company Tanker Truck Driver Name Role Phone FrenchMango cadena Unavailable Unavailable Reason For Referral No Information Medications Medication SIG (Take, Route, Frequency, Duration) Notes Start Date End Date Status 12 HR bupropion hydrochloride 150 MG Extended Release Oral Tablet [Wellbutrin] ORAL 12 HR bupropion hydrochloride 150 MG Extended Release Oral Tablet [Wellbutrin]Original [id number] HR bupropion hydrochloride 150 MG Extended Release Oral Tablet [Wellbutrin] *Reorder from [facility] for eRx and 02/09/2018 Active omeprazole 20 MG Delayed Release Oral Tablet [Prilosec] ORAL omeprazole 20 MG Delayed Release Oral Tablet [Prilosec]Original Medicationomeprazole 20 MG Delayed Release Oral Tablet [Prilosec] *Reorder from [facility] for eRx and Interaction Alerts* 02/09/2018 Active zolpidem tartrate 10 MG Oral Tablet [Ambien] ORAL zolpidem tartrate 10 MG Oral Tablet [Ambien]Original Medicationzolpidem tartrate 10 MG Oral Tablet [Ambien] *Reorder from [facility] for eRx and Interaction Alerts* 02/09/2018 Active calcium carbonate 1250 MG / cholecalciferol 1000 UNT / vitamin K 0.4 MG Chewable Tablet ORAL calcium carbonate 1250 MG / cholecalciferol 1000 UNT / vitamin K 0.4 MG Chewable TabletOriginal Medicationcalcium carbonate 1250 MG / cholecalciferol 1000 UNT / vitamin K 0.4 MG Chewable Tablet *Reorder from [facility] 02/09/2018 Active cobamamide 0.1 MG / vitamin B12 5 MG Sublingual Tablet cobamamide 0.1 MG / vitamin B12 5 MG Sublingual TabletOriginal Medicationcobamamide 0.1 MG / vitamin B12 5 MG Sublingual Tablet *Reorder from [facility] for eRx and Interaction Alerts* 02/09/2018 Active estrogens, conjugated (PRISON) 0.3 MG Oral Tablet [Premarin] ORAL estrogens, conjugated (PRISON) 0.3 MG Oral Tablet [Premarin]Original Medicationestrogens, conjugated (PRISON) 0.3 MG Oral Tablet [Premarin] *Reorder from [facility] for eRx and Interaction Alerts* 04/16/2021 Active alprazolam 0.25 MG Oral Tablet [Xanax] ORAL alprazolam 0.25 MG Oral Tablet [Xanax]Original Medicationalprazolam 0.25 MG Oral Tablet [Xanax] *Reorder from [facility] for eRx and Interaction Alerts* 02/09/2018 Active Plan Of Treatment No Information Insurance Providers Payer Name Payer Address Payer Phone Subscriber Number Group Number Insured Name Patient Relationship to Insured Coverage Start Date Coverage End Date Medicare Part B [facility] [place] [address] [place] [address] [id number] BREEZY MCKINNEY Self - patient is the insured [employer] [address] [place], [place] [id number] ANU MCKINNEY Spouse - patient is the spouse of the insured
--- OUTSIDE RECORDS SUMMARY | 2025-05-28 04:24 | XMS_ITS | Clinical Summary ---
Author Organization [facility] Building C Address [address] [place] [address] Care Team Providers Care Repairer Controller Tester Name Role Phone Mango French MD Primary Care Provider Serafin Galicia DPM Unavailable [phone] Allergies No known active allergies Medications cyanocobalamin [...] (09/27/2019): Added automatically from request for surgery [id number] Hypertrophy of nasal turbinates 09/27/2019 Overview (09/27/2019): Added automatically from request for surgery [id number] Depression 08/14/2012 Overview (01/13/2017): Depression Encounters Date Type Department Care Team Description 03/04/2025 Telephone [facility] Cardiology [address] [place] [address] Martha Nguyen MD from Last 3 Months Surgical History Surgery [...] on file Legal Sex Female 10:58 AM SHELLFISH SORTER Gender Identity Female 12/04/2020 6:25 AM SHELLFISH SORTER Sexual Orientation Straight 12/04/2020 6: 25 AM SHELLFISH SORTER Obstetrics History Para Term AB IAB SAB [...] CDT Respiratory Rate 18 12/08/2023 9:55 AM SHELLFISH SORTER Oxygen Saturation 94% 02/17/2025 9:00 AM CDT [...] Fall Risk Assessment 03/02/2023 03/02/2022 Covid-19 Vaccine (2023-2 5 season) 2024 12/12/2021, 01/02/2021, 12/12/2020 Influenza Vaccine (#1) 2025 07/10/2020, 2014 DTaP/Tdap/Td Vaccine (3 - Td or Tdap) 06/17/2025 06/17/2015, 06/17/2015 Breast Cancer Screening-Mammogram 02/10/2026 02/10/2025, 11/13/2023, 09/19/2022, Additional history exists Medical Devices Implanted Type Area Mold Clamper Device Identifier Shelf Expiration Date Model / Serial / Lot Unknown N/A: Neck Implantech 23-700-30 Allied[employer] 3x2in 1 Short Term Implantable Thk.03in Sheeting - [id number] Implanted:Qty: 1 on 11/01/2019 by Galo Chaney MD at [facility] Bilateral : Nose Implantech [id number] 01/08/2024 23-700-30 / / [id number] Procedures Procedure Name Priority Date/Time Associated Diagnosis Comments SCREENING MAMMOGRAM BILATERAL W ANIVAL Schedule Routine, Read Routine (OP Routine) 02/10/2025 10:22 AM CDT Screening mammogram, encounter for DEXA AXIAL SKELETON BONE DENSITY 1 OR MORE SITES Routine 08/06/2013 2:28 PM CDT from Last 3 Months or Most Recently Relevant to Health Maintenance Results * Screening Mammogram Bilateral W Anival (02/10/2025 [...] age 41, based on guidelines of the [employer] (ACR Practice Parameter for the Performance of Screening and Diagnostic Mammography) and [employer]. For women [...] Modality Body N/A Radiographic Jazmin ging 08/06/2013 2:2 8 PM CDT Impressions 08/06/2013 4:36 PM CDT 1. Normal bone mineral density of the lumbar spine, decreased 6.8% since baseline. 2. Normal bone mineral density of the left hip, decreased 21% since baseline. THIS IS AN ELECTRONICALLY VERIFIED REPORT 08/06/2013 4:33 PM: Lenny Hartley M.D. Lenny Hartley M.D. MD: 04:33 PM 04:33 PM [facility] [EOD] Narrative 08/06/2013 4:36 PM CDT [...] Hartley M.D. MD: 04:33 PM 04:33 PM [facility] [EOD] Delfino Lima MD IMG DXA PROCEDURES Final Result from Last 3 Months or Most Recently Relevant to Health Maintenance Insurance MEDICARE [facility] Address: [address] [address] [employer] MEDICARE [facility] MEDICARE FOR LIFE Advance Directives For more information, please contact: [phone] * Full Code (Latest Code Status on File) Date Activated Date Inactivated Comments 11/01/2019 2:17 PM 11/01/2019 8:39 PM Care Teams Repairer Controller Tester Relationship Specialty Start Date End Date Mango French MD [address] [place] [address] PCP - General Family Medicine 07/18/21 Serafin Galicia, CAROL [address] [place] [address] Consulting Physician Podiatry 03/09/22
--- OUTSIDE RECORDS SUMMARY | 2025-05-28 04:24 | XMS_ITS | Clinical Summary ---
Author Organization [facility] Address [address] [place] [address] Care Team Providers Care Contract Accountant Name Role Phone Delfino Lima MD Primary Care Provider [phone] Family History Medical History Relation Name Comments [...] screening mammogram in one year. DICTATION LOCATION: [facility] Narrative 05/25/2020 3:33 PM CDT [...] screening mammogram in one year. DICTATION LOCATION: [facility] Vaibhav Garsia MD MAMMO ORDERABLES Final Result from Last 3 Months or Most Recently Relevant to Health Maintenance Insurance MEDICARE PART A AND B [facility] Care Teams Contract Accountant Relationship Specialty Start Date End Date Delfino Lima MD [address] [place] [address] PCP - General 06/12/18
--- OUTSIDE RECORDS SUMMARY | 2025-05-28 04:24 | XMS_ITS | Encounter Summary ---
Author Organization [facility] Address [address] [place] [address] Care Team Providers Care Floor Layer Tile Name Role Phone Mango French MD Primary Care Provider [phone] Encounter Details Date Type Department Care Team (Late st Contact Info) Description 08/17/2022 Lab Requisition [facility] Care DermPath Lab [address] [place] [id number] Leo Hernandez MD [address] [place] [address] Social History Tobacco Use Types Packs/Day Years Used Date Smoking Tobacco: Never Smokeless Tobacco: Never Alcohol Use Standard Drinks/Week Comments No 0 (1 standard drink = 0.6 oz pur e alcohol) Comments No Sex and Gender Information Value Date Recorded Sex Assigned at Not on file Legal Sex Female 1:53 PM PASTEURISER OPERATOR Gender Identity Not on file Sexual [...] AM CDT) Case Report Dermatopathology Report Case: [id number] Authorizing Provider: Leo Hernandez MD Collected: 08/03/2022 12:00 AM Ordering Location: [facility] Received: 08/17/2022 11:38 AM Pathologist: Stella Burk MD Specimen: Skin, left lower lat leg 12:37 PM [facility] DERMATOPATHOLOGY LABORATORY Final Diagnosis Specimen A. SKIN, left lower lat leg: HYPERPLASTIC (HYPERTROPHIC) ACTINIC KERATOSIS, ERODED (L57.0) (see microscopic description) 12:37 PM PASTEURISER OPERATOR DERMATOPATHOLOGY LABORATORY at [address] [facility] Clinical History ISK vs SCC vs BCC. Path#[id number] 12:37 PM [facility] DERMATOPATHOLOGY LABORATORY Gross Description Specimen A: Received is one formalin filled container labeled with the patient's name and designated left lower lat leg. The specimen consists of a shave biopsy measuring 11x9x1 mm. Jar 0. 12:37 PM PASTEURISER OPERATOR DERMATOPATHOLOGY LABORATORY Microscopic Description Specimen A. SKIN, left lower lat leg: There is hyperkeratosis alternating with parakeratosis. There is epidermal hyperplasia with disorderly maturation of keratinocytes with nuclear pleomorphism confined to the lower half of the epidermis. The epidermis is focally eroded. BerEP4 stains with lower epidermis only weakly. Mib-1 stain highlights proliferating keratinocytes within the lower half of the epidermis. 12:37 PM [facility] DERMATOPATHOLOGY LABORATORY Disclaimer An external and internal positive and negative controls are appropriate for the histochemical, immunohistochemical and immunofluorescence stain(s) in this case (if any), except where stated explicitly. The performance characteristics of the stain(s) cited in this report were developed and its performance characteristic determined by the Dermatopathology Laboratory at [facility], directed by Dr. Viv Tracy. These tests need not be, and therefore are not, approved by the [place] Food and Drug Administration. The tests are used for clinical purposes. Billing Codes Specimen Charges Stain Charges 05964 1 79935 43633 1 1 12:37 PM [facility] DERMATOPATHOLOGY LABORATORY Embedded Images 12:37 PM [facility] DERMATOPATHOLOGY LABORATORY Pathology/Cytolog y TISSUE SPECIMEN FROM SKIN / Unknown 08/03/2022 08/17/2022 11:38 AM PASTEURISER OPERATOR us Leo Hernandez MD LAB - PATHOLOGY/CYTOLOGY ORDER NORMAN Final Result DERMATOPATHOLOGY LABORATORY [facility] - Department of Dermatology [address], [address] [phone] documented in this encounter Visit Diagnoses Not on filedocumented in this encounter Care Teams Floor Layer Tile Relationship Specialty Start Date End Date Mango French MD [address] [place] [address] PCP - General 08/02/21 documented as of this encounter
--- OUTSIDE RECORDS SUMMARY | 2025-05-28 04:24 | XMS_ITS | Encounter Summary ---
Author Organization [facility] Address [address] [place] [address] Care Team Providers Care Punch Press Operator Name Role Phone Mango French MD Primary Care Provider [phone] Encounter Details Date Type Department Care Team (Late st Contact Info) Description 12/18/2020 Lab Requisition [facility] Care DermPath Lab [address] [place] [phone] Leo Hernandez MD [address] [place] [address] Social History Tobacco Use Types Packs/Day Years Used Date Smoking Tobacco: Never Smokeless Tobacco: Never Alcohol Use Standard Drinks/Week Comments No 0 (1 standard drink = 0.6 oz pur e alcohol) Comments No Sex and Gender Information Value Date Recorded Sex Assigned at Not on file 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 Gender Identity Not on file Sexual Orientation Not on file Occupation Industry Job Start Date Job End Date Retired Not on file Not on file Not on file documented as of this encounter Plan of Treatment Not on file documented as of this encounter Procedures Procedure Name Priority Date/Time Associated Diagnosis Comments DERMATOPATHOLOGY Routine 12/16/2020 3:33 AM MALTHOUSE LABORER documented in this encounter Results * DERMATOPATHOLOGY (12/16/2020 3:33 AM MALTHOUSE LABORER) Case Report Dermatopathology Report Case: [id number] Authorizing Provider: Leo Hernandez MD Collected: 12/16/2020 [...] 1358 CDT Clinical History Nevus vs MM. Path#[id number] 1:58 PM CDT DERMATOPATHOLOGY LABORATORY Gross Description [...] characteristic determined by the Dermatopathology Laboratory at [facility], directed by Dr. Viv Tracy. These tests need not be, and therefore are not, approved by the [place] Food and Drug Administration. The tests are used for clinical purposes. Billing Codes Specimen Charges Stain Charges 60305 1 1 1:58 PM CDT DERMATOPATHOLOGY LABORATORY Embedded Images 1:58 PM CDT DERMATOPATHOLOGY LABORATORY Pathology/Cytolo gy TISSUE SPECIMEN FROM SKIN / Unknown 12/16/2020 3:33 AM MALTHOUSE LABORER 12/18/2020 7:28 AM MALTHOUSE LABORER Leo Hernandez MD LAB - PATHOLOGY/CYTOLOGY ORDER NORMAN Final Result DERMATOPATHOLOGY LABORATORY [facility] - Department of Dermatology [facility] [address] [place] [address], [address] [phone] documented in this encounter Visit Diagnoses Not on filedocumented in this encounter Care Teams Punch Press Operator Relationship Specialty Start Date End Date Mango French MD [address] [place] [address] PCP - General 08/02/21 documented as of this encounter
--- OUTSIDE RECORDS SUMMARY | 2025-05-28 04:24 | XMS_ITS | Clinical Summary ---
Author Organization [facility] [employer] Address [address] [facility] [place] [address] Care Team Providers Care Licensed Prosthetist/Orthotist Name Role Phone Mango French MD Primary Care Provider [phone] Source Comments [facility] [employer],non-owned Affiliates and Associated Physician Practices is amultiple site organization consisting of ambulatory clinics and hospital sitesin [place], [place], [place] and [place]. This disclosure is being madepursuant to the Care Everywhere program and may not contain all information available regarding this patient. 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0 0.2 - 1.0 mg/dl [facility] Alkaline Phosphatase 58 38 - 126 U/L [facility] AST 22 5 - 40 U/L [facility] ALT 21 12 - 78 U/L [facility] Protein Total 7.1 6.4 - 8.2 gm/dl [facility] Albumin 3.8 3.4 - 5.0 gm/dl [facility] eGFR By MDRD >60 >60 [facility] Blood specimen (specimen) BLOOD SPECIMEN / Unknown 05/15/2012 5:05 PM CDT 05/15/2012 5:13 PM CDT us Víctor Hopper DO LAB - CHEMISTRY ORDERABLES Shanta sylvester Result [facility] [address] [id number] from Last 3 Months or Most Recently Relevant to Health Maintenance Insurance MEDICARE [facility] ([address] [address] MEDICARE [facility] Care Teams Licensed Prosthetist/Orthotist Relationship Specialty Start Date End Date Mango French MD [address] [place] [address] PCP - General 08/02/21
--- OUTSIDE RECORDS SUMMARY | 2025-05-28 04:24 | XMS_ITS | Patient Health Record ---
Author Organization [facility] [employer] [facility] Address [address] [facility] [address] [place] [address] Care Team Providers Care Tourist Home Keeper Name Role Phone Mango French MD Primary Care Provider Unavaila Leana Duran Unavailable [phone] Chanda Alaniz Unavailable [phone] Allergies No Known Allergies Results Component Value Reference Range Flag Notes Zolpidem Reviewed date:01/27/2025 12:42:09 PM Interpretation: Performing Lab: Notes/Report: Benzodiazepines Reviewed date:01/27/2025 12:42:02 PM Interpretation: Performing Lab:[address] [place] [address], [address] [place] [address], Director - [id number] Notes/Report: An exception occurred while processing this report and so it has incomplete data. Please contact [employer] for assistance. Not Medicated Consistent Not Medicated Consistent Medicated Consistent Not Medicated Consistent Not Medicated Consistent Not Medicated Consistent Not Medicated Consistent Not Medicated Consistent Not Medicated Consistent Medicated Consistent 7-Aminoclonazepam 145.9 20.0 ng/mL POSITIVE Temazepam NEGATIVE 40.0 ng/mL Oxazepam NEGATIVE 40.0 ng/mL Midazolam NEGATIVE 40.0 ng/mL Lorazepam NEGATIVE 40.0 ng/mL Nordiazepam NEGATIVE 40.0 ng/mL Diazepam NEGATIVE 40.0 ng/mL Clonazepam NEGATIVE 20.0 ng/mL Hydroxyalprazolam NEGATIVE 20.0 ng/mL Alprazolam NEGATIVE 20.0 ng/mL PDF Report CE_OUT_RAW_COMMO N_SRC_ORU Validity Testing Reviewed date:01/27/2025 12:42:15 PM Interpretation: Performing Lab: Notes/Report: Not Medicated Consistent Not Medicated Consistent Not Medicated Consistent Not Medicated Consistent Specific [place] 1.005 1.003 - 1.030 pH 6.9 3.0 - 10.9 Oxidants -10 200 g/mL Creatinine 63.3 20.0 - 300.0 mg/dL UDT Reviewed date:05/15/2025 12:10:55 PM Interpretation: Performing Lab: Notes/Report: THC n 0 - 50 ng/ml Cocaine n 0 - 300 ng/ml Amphetamine n 0 - 1000 ng/ml Buprenorphine (BUP) n 0 - 10 ng/ml Secobarbital (Bar) n 0 - 300 ng/ml Oxazepam (BZO) n 0 - 300 ng/ml 9-uxfdxxveyz-9,6-iwdlucqj-4, 3-dipheny lpyrrolidine (EDDP) n 0 - 300 ng/ml Methamphetamine (MET) n 0 - 1000 ng/ml Methylenedioxymethamphetamine (MDMA) n 0 - 500 ng /ml Morphine (MOP 300/OVV6064) n 0 - 300 ng/ml Methadone (MTD) n 0 - 300 ng/ml Phencyclidine (PCP) n 0 - 25 ng/ml Nortriptyline (TCA) n 0 - 1000 ng/ml Oxycodone n 0 - 300 ng/ml UDT Reviewed date:01/20/2025 02:51:46 PM Interpretation: Performing Lab: Notes/Report: THC NEG 0 - 50 ng/ml Cocaine NEG 0 - 300 ng/ml Amphetamine NEG 0 - 1000 ng/ml Buprenorphine (BUP) NEG 0 - 10 ng/ml Secobarbital (Bar) NEG 0 - 300 ng/ml Oxazepam (BZO) NEG 0 - 300 ng/ml 5-mkhtrzjdzu-7,8-hxtvslxa-9, 3-dipheny lpyrrolidine (EDDP) NEG 0 - 300 ng/ml Methamphetamine (MET) NEG 0 - 1000 ng/ml Methylenedioxymethamphetamine (MDMA) NEG 0 - 500 ng /ml Morphine (MOP 300/SFU2249) NEG 0 - 300 ng/ml Methadone (MTD) [...] Oxazepam (BZO) n 0 - 300 ng/ml 9-gtqfidbcfb-1,8-rsuhfegt-1, 3-dipheny lpyrrolidine (EDDP) n 0 - 300 ng/ml Methamphetamine (MET) n 0 - 1000 ng/ml Methylenedioxymethamphetamine (MDMA) n 0 - 500 ng /ml Morphine (MOP 300/NDC1605) n 0 - 300 ng/ml Methadone (MTD) n 0 - 300 ng/ml Phencyclidine (PCP) n 0 - 25 ng/ml Nortriptyline (TCA) n 0 - 1000 ng/ml Oxycodone n 0 - 300 ng/ml x n 0 - 300 ng/ml UDT Reviewed date:09/13/2024 03:54:43 PM Interpretation: Performing Lab: Notes/Report: THC n 0 - 50 ng/ml Cocaine n 0 - 300 ng/ml Amphetamine n 0 - 1000 ng/ml Buprenorphine (BUP) n 0 - 10 ng/ml Secobarbital (Bar) n 0 - 300 ng/ml Oxazepam (BZO) n 0 - 300 ng/ml 9-fsjrbdddnx-0,3-xqcghial-3, 3-dipheny lpyrrolidine (EDDP) n 0 - 300 ng/ml Methamphetamine (MET) n 0 - 1000 ng/ml Methylenedioxymethamphetamine (MDMA) n 0 - 500 ng /ml Morphine (MOP 300/GTB9982) n 0 - 300 ng/ml Methadone (MTD) [...] Oxazepam (BZO) N 0 - 300 ng/ml 6-ntdpcugxgc-5,1-yerexvdd-5, 3-dipheny lpyrrolidine (EDDP) N 0 - 300 ng/ml Methamphetamine (MET) N 0 - 1000 ng/ml Methylenedioxymethamphetamine (MDMA) N 0 - 500 ng /ml Morphine (MOP 300/QJF9038) N 0 - 300 ng/ml Methadone (MTD) N 0 - 300 ng/ml Phencyclidine (PCP) N 0 - 25 ng/ml Nortriptyline (TCA) N 0 - 1000 ng/ml Oxycodone N 0 - 300 ng/ml x N 0 - 300 ng/ml Reason For Referral No Information Medications Medication SIG (Take, Route, Frequency, Duration) Notes Start Date End Date Status busPIRone HCl 15 MG Tablet 1 tablet Orally 3 times a day; Duration: 90 days third dose may be taken as needed DC any RX available from Chanda Alaniz, taking over rx 05/15/2025 Active traMADol HCl 50 MG Tablet Oral; Duration : 30 Days Active Omeprazole 20 MG Capsule Delayed Release Oral; Duration: 90 Days Active Rosuvastatin Calcium 5 MG Tablet Oral; Duration: 30 Days Active Omeprazole 20 MG Capsule Delayed Release Oral 02/14/2024 Active Potassium Chloride ER 10 MEQ Tablet Extended Release Oral 02/14/2024 Not-Taking Vitamin B-12 1000 MCG Tablet Sublingual Sublingual 02/14/2024 Active hydroCHLOROthiazide 25 MG Tablet Oral; Duration: 90 Days Not-Taking Nitroglycerin 0.4 MG Tablet Sublingual Sublingual; Duration: 30 Days Active Lidocaine 5% Patch External 02/14/2024 Active clonazePAM 0.5 MG Tablet 1 tablet Orally Twice a day As needed 03/17/2025 Active buPROPion HCl ER (SR) 150 MG Tablet Extended Release 12 Hour 1 tablet Oral Once a day; Duration: 90 days Active Zolpidem Tartrate 10 MG Tablet 1 tablet Oral once a day As needed for insomnia 11/21/2024 Active hydrOXYzine HCl 50 MG Tablet 1-2 tablets at bedtime Orally daily; Duration: 90 days As needed for sleep, do not take with benadryl 03/17/2025 Active Immunizations Vaccine Route Administration Date Status Comme nts Pfizer [employer]ion[employer] Covid-19 Vac cine 2nd dose Unknown 01/02/2021 Administered Pfizer [employer]ion[employer] Covid-19 Vac cine 2nd dose Unknown 12/12/2021 Administered Social History Tobacco Use: Social History Observation Description Date Details (start date - stop date) Never Smoker NA - NA Sex Assigned At : Social History Observation Description Sex Assigned At Female Social History Miscellaneous: Social Info Question Answer Notes Advance Care Planning Are you your own decision-maker Yes Do you have Power of [facility] or [facility]? No Social History Social Info Question Answer Notes Household: Marital Status: Drug/Alcohol: Social Info Question Answer Notes Drugs Have you used drugs other than those for medical reasons in the past 12 months? No AUDIT-C (Standard) Did you have a drink containing alcohol in the past year? No Tobacco Use: Social Info Question Answer Notes Tobacco Control (Standard) Tobacco use: Nonsmoker Additional Details Category Social Info Options Details Migrated Social History Migrated Social History Alcohol Intake: None 09/20/2021,Tobacco Years: Never smoker 09/20/2021 Problems Problem Type SNOMED Code ICD Code Onset Dates Problem Status W/U Status Risk Notes Problem Mild recurrent major depression (60988084) Major depressive disorder, recurrent, mild (F33.0) Active confirmed Problem Severe recurrent major depression without psychotic features (13441701) Major depressive disorder, recurrent severe without psychotic features (F33.2) Active confirmed Problem Generalized anxiety disorder (53215000) Generalized anxiety disorder (F41.1) Active confirmed Problem Posttraumatic stress disorder (59198537) Post-traumatic stress disorder, chronic (F43.12) Active confirmed Problem Insomnia disorder related to another mental disorder (35996439) Insomnia due to other mental disorder (F51.05) Active confirmed Problem Recurrent major depression (77871585) Major depressive disorder, recurrent, in remission (F33.40) Active confirmed Problem Recurrent major depression in remission (10823894) MDD (major depressive disorder), recurrent, in partial remission (F33.41) Active confirmed Vital Signs Heart Rate 74 /min 05/15/2025 Height-cm 165.10 cm 05/15/2025 Blood pressure diastolic 80 mm Hg 05/15/2025 Weight-kg 66.32 kg 05/15/2025 Height 65.00 in 05/15/2025 Blood pressure systolic 140 mm Hg 05/15/2025 Weight 146.2 lbs 05/15/2025 BMI 24.33 kg/m2 05/15/2025 Encounters Encounter Location Date Provider Diagnosis [address] [address] 06/13/2024 Thena Corbin Major depressive disorder, recurrent severe without psychotic features F33.2 ; Post-traumatic stress disorder, chronic F43.12 ; Generalized anxiety disorder F41.1 and Insomnia due to other mental disorder F51.[address] [address] 07/19/2024 Thena Corbin Generalized anxiety disorder F41.1 ; Post-traumatic stress disorder, chronic F43.12 ; Major depressive disorder, recurrent, moderate F33.1 and Insomnia due to other mental disorder F51.[address] [address] 09/12/2024 Thena Corbin Generalized anxiety disorder F41.1 ; MDD (major depressive disorder), recurrent, in partial remission F33.41 ; Post-traumatic stress disorder, chronic F43.12 and Insomnia due to other mental disorder F51.[address] [address] 11/21/2024 Thena Corbin Generalized anxiety disorder F41.1 ; Post-traumatic stress disorder, chronic F43.12 ; Insomnia due to other mental disorder F51.05 ; Major depressive disorder, recurrent, moderate F33.1 and Benign essential HTN I10 [address] [address] 01/20/2025 Leana Bro Generalized anxiety disorder F41.1 ; Major depressive disorder, recurrent, in remission F33.40 ; Post-traumatic stress disorder, chronic F43.12 ; Insomnia due to other mental disorder F51.05 ; Encounter for screening for depression Z13.31 and Encounter for screening for cardiovascular disorders Z13.[address] [address] 03/17/2025 Leana Bro Generalized anxiety disorder F41.1 ; MDD (major depressive disorder), recurrent, in partial remission F33.41 ; Post-traumatic stress disorder, chronic F43.12 ; Insomnia due to other mental disorder F51.05 ; Encounter for screening for cardiovascular disorders Z13.6 and Negative depression screening Z13.31 [place] [address] [address] 05/15/2025 Leana Bro Post-traumatic stres s disorder, chronic F43.12 ; Major depressive disorder, recurrent, mild F33.0 ; Generalized anxiety disorder F41.1 and Insomnia due to other mental disorder F51.05 [place] [address] [address] 08/26/2024 Thena Corbin Generalized anxiety disorder F41.1 and Insomnia due to other mental disorder F51.05 [place] [address] [address] 11/15/2024 Thena Corbin Insomnia due to othe r mental disorder F51.05 [place] [address] [address] 05/28/2024 Thena Corbin Generalized anxiety disorder F41.1 [place] [address] [address] 05/28/2024 Thena Corbin [place] [address] [address] 09/19/2024 Thena Corbin Generalized anxiety disorder F41.1 [place] [address] [address] 09/26/2024 Thena Corbin [place] [address] [address] 11/15/2024 Thena Corbin Assessments Encounter Date Diagnosis (ICD Code) Assessment Notes Treatment Notes Treatment Clinical Notes Section Notes 06/13/2024 Major depressive disorder, recurrent severe without [...] Post-traumatic stress disorder, chronic (ICD-10 - F43.12) 05/28/2024 Generalized anxiety disorder (ICD-10 - F41.1) 07/19/2024 Generalized anxiety disorder (ICD-10 - F41.1) 07/19/2024 Post-traumatic stress disorder, chronic (ICD-10 - F43.12) 08/26/2024 Generalized anxiety disorder (ICD-10 - F41.1) 09/12/2024 Generalized anxiety disorder (ICD-10 - F41.1) 03/17/2025 MDD (major depressive disorder), recurrent, in partial remission (ICD-10 - F33.41) 05/15/2025 Major depressive disorder, recurrent, mild (ICD-10 - F33.0) 05/15/2025 Post-traumatic stress disorder, chronic (ICD-10 - F43.12) 05/15/2025 Generalized anxiety disorder (ICD-10 - F41.1) 01/20/2025 Major depressive disorder, recurrent, in remission (ICD-10 - F33.40) 09/12/2024 Post-traumatic stress disorder, chronic (ICD-10 - F43.12) 08/26/2024 Insomnia due to other mental disorder (ICD-10 - F51.05) 07/19/2024 Major depressive disorder, recurrent, moderate (ICD-10 - F33.1) 06/13/2024 Generalized anxiety disorder (ICD-10 - F41.1) [...] to other mental disorder (ICD-10 - F51.05) 05/15/2025 Insomnia due to other mental disorder (ICD-10 - F51.05) 01/20/2025 Insomnia due to other mental disorder (ICD-10 - F51.05) 03/17/2025 Encounter for screening for cardiovascular disorders (ICD-10 - Z13.6) 11/21/2024 Benign essential HTN (ICD-10 - I10) 01/20/2025 Encounter for screening for depression (ICD-10 - Z13.31) 03/17/2025 Negative depression screening (ICD-10 - Z13.31) 01/20/2025 Encounter for screening for cardiovascular disorders (ICD-10 - Z13.6) 01/20/2025 Other Sophie Bales, female patient with [...] in neurological symptoms - Encourage follow-up with admissions director for new glasses if prescribed Chronic Idiopathic Urticaria/Angioede ma Assessment: Patient reports history of recurrent episodes [...] - Continue Wellbutrin 150 mg PO daily 05/15/2025 Francisco Mckinney, female, presenting with recent hospitalization for hyponatremia, ongoing gastrointestinal issues, and anxiety/depression management. Anxiety and Depression Assessment: Patient has been managing anxiety and depression with a combination of medications. Currently on bupropion for depression, which appears to be effective. Anxiety management includes clonazepam (replacing previous Xanax use), buspirone, and hydroxyzine. Patient reports being able to reduce clonazepam use on days with less anxiety, particularly when exercising. Sleep issues have been addressed with Ambien, though long-term use is not recommended. Plan: - Continue bupropion 150 mg SR PO daily in the morning for depression - Adjust buspirone to 15 mg PO BID-TID PRN for anxiety - Continue clonazepam 0.5 mg PO BID PRN for anxiety - Encourage use as rescue medication for high anxiety days or anticipated stressful events - Patient may attempt to reduce to once daily or skip doses on low anxiety days - Continue hydroxyzine PO at bedtime for sleep and anxiety - May take 1-2 tablets or half a tablet as needed - Discontinue Xanax (already implemented) - Discontinue Ambien (long-term use not recommended) - Patient has 2 months supply remaining, advised to taper off - Follow up in 2 months to reassess medication efficacy and potential further tapering of benzodiazepines Hyponatremia Assessment: Patient was recently hospitalized for hyponatremia with sodium levels dropping to 123. This was potentially related to ongoing diarrhea and gastrointestinal issues. Blood pressure medication and potassium supplementation were discontinued during hospitalization to help normalize sodium levels. Plan: - Monitor sodium levels (specific follow-up not discussed) - Blood pressure and potassium medication management to be determined based on sodium level stabilization (details not provided) Gastrointestinal Issues Assessment: Patient reports ongoing intestinal problems, including diarrhea. A CAT scan during recent hospitalization revealed findings that warrant further investigation. Patient is scheduled for a GI doctor appointment, and upper GI endoscopy and colonoscopy have been recommended by Dr. Boswell. Plan: - Proceed with scheduled GI doctor appointment - Undergo upper GI endoscopy and colonoscopy as recommended (timing not specified) Weight Loss Assessment: Patient reports significant weight loss since the last visit, likely related to recent illness and gastrointestinal issues. Plan: - Monitor weight (specific follow-up not discussed) Medical Decision Making Sophie Mckinney is a female patient with a history of anxiety and depression, presenting with recent hospitalization for hyponatremia and ongoing gastrointestinal issues. The patient's sodium level had dropped to 123, likely due to diarrhea, leading to discontinuation of blood pressure and potassium medications. A CAT scan during hospitalization revealed findings necessitating further investigation via upper GI and colonoscopy. The clinician is managing the patient's psychiatric medications, focusing on reducing benzodiazepine use and optimizing anxiety and depression treatment. The current regimen includes bupropion for depression, with buspirone and hydroxyzine added to manage anxiety and potentially replace clonazepam. The clinician is employing a step-down approach from Xanax to clonazepam, with the ultimate goal of using it only as a rescue medication. The treatment plan aims to balance effective symptom management while minimizing the use of medications with long-term risks, such as benzodiazepines and Ambien. Plan Of Treatment Next Appt Details Provider Name:Leana Trevino ezkya, 07/08/2025 08:30:00 AM, [address] [facility] [address] [facility], [place], [address], Insurance Providers Payer Name Payer Address Payer Phone Subscriber Number Group Number Insured Name Patient Relationship to Insured Coverage Start Date Coverage End Date Medicare-I l Medicare [address] [place] [address] [id number] SOPHIE MCKINNEY Self - patient is the insured For Life [address] [place] [address] [id number] SOPHIE MCKINNEY Self - patient is the insured Medical (General) History Medical History History ICD Code Problems: Chronic post-concussion headac he Chronic post-traumatic stress disorder Concussion injury of brain Family bereavement Insomnia disorder related to another men marta disorder Severe recurrent major depression withou t psychotic features Past Psychiatric History: Anxiety Disord er undefined Surgical History Surgery Date(Month/Year) Hysterectomy/revise vagina (63679) 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
[2025-05-28 09:19] VITALS: BP 129/76; PULSE 75; RESP 18; TEMP 36.3; O2SAT 100; BMI 23.7
[2025-05-28] MEDS: LACTATED RINGERS 1,000 ML 150 ML IV CONT (09:22)
--- NOTE | 2025-05-28 09:46 | WPDANESEPPF ---
Anes - Initial Pre Proc Eval Procedure: Operation Date: 05/28/25 09:30 Proposed Procedures p EGD & Diagnostic Colonoscopy - Papi Cagle MD Date/Time: 05/28/25 09:46 Surgeon: Papi Cagle MD Pre Op Diagnosis: Gastro-esophageal reflux disease without esophagit Patient Data Age: 70 Gender: F Height: 1.65 m Weight: 64.7 kg Last Vital Signs Temp 36.3 C L 05/28/25 09:19 Pulse 75 05/28/25 09:19 Resp 18 05/28/25 09:19 BP 129/76 05/28/25 09:19 Pulse Ox 100 05/28/25 09:19 O2 Del Method Room Air 05/28/25 09:19 Allergies Allergy/AdvReac Type Severity Reaction Status Date / Time No Known Allergies Allergy Verified 05/28/25 09:13 Home Medications ?Medication ?Instructions ?Recorded ?Confirmed ?Type bupropion HCl 150 mg tablet,12 hr 150 mg PO DAILY 09/07/20 05/28/25 History sustained-release zolpidem 10 mg tablet 10 mg PO .QHS 09/07/20 05/28/25 History fexofenadine 180 mg tablet 180 mg PO DAILY 03/23/23 05/28/25 History (Linda Allergy) aspirin 81 mg tablet,delayed 81 mg PO DAILY 05/23/24 05/28/25 History release (Adult Aspirin Regimen) clonazepam 0.5 mg tablet 0.5 mg PO BID 05/23/24 05/28/25 History nitroglycerin 0.4 mg sublingual 0.4 mg sublingual ONCE PRN chest 05/23/24 05/20/25 History tablet pain rosuvastatin 5 mg tablet 5 mg PO DAILY 05/23/24 05/28/25 History valacyclovir 500 mg tablet 1,000 mg (2 x 500 mg) PO BID PRN 05/27/24 05/20/25 Rx cold sores #90 tabs ipratropium bromide 42 mcg (0.06 2 spray intranasal BID #15 mL 09/12/24 05/28/25 Rx %) nasal spray buspirone 15 mg tablet 15 mg PO TID 09/27/24 05/28/25 History calcium 200 mg (as 5 tablet PO DAILY 09/27/24 05/28/25 History citrate)-vitamin D3 6.25 mcg (250 unit) tablet (Citracal-D3 Petites) cyanocobalamin (vitamin B-12) 1,000 mcg sublingual WEEKLY 09/27/24 05/20/25 History 1,000 mcg sublingual lozenge epinephrine 0.3 mg/0.3 mL 0.3 mg (0.3 mL) IM ONCE #2 ea 10/07/24 05/20/25 Rx injection, auto-injector (EpiPen 2-Godfrey) lidocaine 5 % topical patch 1 patch topical DAILY PRN back 10/07/24 05/20/25 Rx pain #30 ea fluticasone fur. 200 mcg-umeclid 1 inh inhalation HS PRN shortness 10/15/24 05/28/25 History 62.5 mcg-vilant 25 mcg of breath or wheezing inhalat.powder (Trelegy Ellipta) omeprazole 20 mg capsule,delayed 20 mg PO DAILY PRN indigestion 10/15/24 05/28/25 History release conjugated estrogens 0.3 mg tablet 0.3 mg PO DAILY #90 tabs 11/21/24 05/28/25 Rx (Premarin) tramadol 50 mg tablet 50 mg PO Q8H PRN Headache #90 tabs 03/19/25 05/20/25 Rx hydroxyzine HCl 50 mg tablet 50 mg PO HS 04/17/25 05/28/25 History tenapanor 50 mg tablet (Ibsrela) 50 mg Tablet#6 Samples 05/16/25 05/28/25 Sample Patient hx anesthesia problems: none Family hx anesthesia problems: none Results Review: All pre-operative results and documents have been reviewed as part of the pre-operative evaluation. [facility] Past Medical History Medical History Lateral meniscus tear Right knee pain Tear meniscus knee Degenerative joint disease of knee Effusion of knee joint Left knee pain Trochanteric bursitis, right hip Colon cancer screening Non-cardiac chest pain COVID-19 virus infection Convergence insufficiency History of closed head injury Insomnia Anxiety Depression Allergic rhinitis GERD (gastroesophageal reflux disease) Hypertension Surgical History Surgical History History of lumpectomy benign History of hysterectomy History of tubal ligation History of fusion of cervical spine History of cholecystectomy Plantar fasciitis Hx of nasal septoplasty History of Yoly-en-Y gastric bypass Family History Family History Father Heart disease Mother Breast cancer Other Family history of malignant melanoma Social History Social History Social History: caffeine use Smoking status: Never smoker Second hand tobacco smoke exposure: No Alcohol intake: never Substance use: never Substance use type: does not use Do You Feel Safe in your Home?: Yes Lack of Transportation: No Lack of Food: Never True Current Housing: I Have Housing Concerned About Future Housing: No Difficulty Paying Gas/Electric Bills: No Difficulty Paying for Meds: No Currently Unemployed: No Education: High School Diploma/GED Difficulty w/ Childcare or Family Care: No Living arrangements: with family Additional living arrangements comments: [facility] Occupation/Education: retired Gender identity (if verbalized by the patient): Female Sexual Orientation (if Verbalized by the Patient): Straight or Heterosexual Spiritual care concerns: No Anes - Eval Final PreProcedure Day of Procedure 05/28/25 09:46 Patient weight: normal Heart: regular rate and rhythm Lungs: clear to auscultation Airway: Mallampati scale class II Neurological: alert and oriented Last oral intake: >/= 8 hours ASA classification: III Emergent: no Anesthetic plan: proceed Anesthesia type and monitoring: general GIVS and standard monitoring Results Review: All pre-operative results and documents have been reviewed as part of the pre-operative evaluation. Informed Consent: The patient's anesthetic plan and its attendant risks and benefits were discussed with the patient/family/POA. Questions were solicited and answers provided to the satisfaction of the patient/family/POA.
--- NOTE | 2025-05-28 09:58 | WPDHPUPDATE1 ---
History and Physical Update Update Date/Time: 05/28/25 09:58 History and Physical has been reviewed, including an updated exam of the patient. There are NO changes in the patient's condition. Risks, benefits, and alternatives have been discussed and questions answered. Patient agrees to proceed with procedure.
[2025-05-28] MEDS: BENZOCAINE (*SP) 60 ML SPRAY CAN (HURRICAINE) 1 SPRAY MUCOUS MEM (09:59)
--- NOTE | 2025-05-28 10:08 | SUR.OPER ---
EGD ended 1004 colonoscopy started 1007
--- NOTE | 2025-05-28 10:10 | S_PTH ---
PATIENT: Sophie Lara LOC: [facility]#:[id number] AGE/SX: 70/F ROOM: RE05/28/[address]: Papi Cagle MD : [id number] BED: DIS: 05/28/2025 SPEC #: [id number] RECD: 05/28/25 10:25 STATUS: LIZET RETato #: [id number] NEHA: 05/28/25 10:[address]: Papi Cagle DEPT: [facility] Surgical RECD BY: Joan Wise ENTERED: 05/28/25 10:26 SP TYPE: Surgical OTHR DR: Mango French MD Tissues: A - Small Bowel Bx B - Colon Biopsy Procedures: Hematoxylin and Eosin Stain Gross and Microscopic Level 4
[2025-05-28 10:22] VITALS: BP 98/41; PULSE 76; RESP 20; O2SAT 100
[2025-05-28 10:32] VITALS: BP 111/50; PULSE 77; RESP 20; O2SAT 100
[2025-05-28 10:42] VITALS: BP 130/58; PULSE 78; RESP 20; O2SAT 100
[2025-05-28 10:52] VITALS: BP 122/54; PULSE 73; RESP 20; O2SAT 100
== END 2025-05-28 11:02 | disposition home or self-care (01) ==
PROVIDERS: PCP Family Medicine; Referring Provider Nurse Practitioner Family; Visit Provider Internal Medicine Gastroenterology
PROC: 0DJ08ZZ Inspection of Upper Intestinal Tract, Via Natural or Artificial Opening Endoscopic (ICD-10-PCS; CPT 45378; principal; 2025-05-28 09:30)
DX: K57.32 Diverticulitis of large intestine without perforation or abscess without bleeding (principal); K64.8 Other hemorrhoids; K21.9 Gastro-esophageal reflux disease without esophagitis; I10 Essential (primary) hypertension; G47.00 Insomnia, unspecified; F41.9 Anxiety disorder, unspecified; F32.A Depression, unspecified; M17.10 Unilateral primary osteoarthritis, unspecified knee; Z79.82 Long term (current) use of aspirin; Z79.51 Long term (current) use of inhaled steroids; Z79.891 Long term (current) use of opiate analgesic; Z98.890 Other specified postprocedural states; Z90.49 Acquired absence of other specified parts of digestive tract; Z98.1 Arthrodesis status; Z98.51 Tubal ligation status; Z98.84 Bariatric surgery status; Z86.0100 Personal history of colon polyps, unspecified; Z80.3 Family history of malignant neoplasm of breast; Z80.0 Family history of malignant neoplasm of digestive organs; Z80.8 Family history of malignant neoplasm of other organs or systems; Z82.49 Family history of ischemic heart disease and other diseases of the circulatory system
CPT/HCPCS: 43239; 45380; 88305; J2003; J2704; J7120

== ENCOUNTER 2025-06-18 09:11 | Outpatient (CLI) | payer MEDICARE, OTHER, SELFPAY ==
--- NOTE | 2025-06-18 09:20 | ECG_ITS ---
Test Date: 2025-06-18 09:25:17 Measurements Intervals [place] Rate: 60 P: 66 MO: 170 QRS: 59 QRSD: 98 T: 46 QT: 430 QTc: 432 Interpretive Statements SINUS RHYTHM WITH OCCASIONAL VENTRICULAR PREMATURE COMPLEXES OTHERWISE NORMAL ECG Compared to ECG 04/13/2024 22:01:16 Ventricular premature complex(es) now present Electronically Signed On 06-18-2025 16:17:54 CDT by Dexter Choudhary M.D.
--- OUTSIDE RECORDS SUMMARY | 2025-06-18 09:57 | XMS_ITS | Clinical Summary ---
Author Organization [facility] Building C Address [address] [place] [address] Care Team Providers Care Board Certified Family Physician Name Role Phone Mango French MD Primary Care Provider Serafin Galicia DPM Unavailable [phone] Allergies No known active allergies Medications cyanocobalamin [...] (09/27/2019): Added automatically from request for surgery [id number] Hypertrophy of nasal turbinates 09/27/2019 Overview (09/27/2019): Added automatically from request for surgery [id number] Depression 08/14/2012 Overview (01/13/2017): Depression Surgical History Surgery Date Site/Laterality Comments GASTRIC [...] on file Legal Sex Female 10:58 AM 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 Gender Identity Female 12/04/2020 6:25 AM 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 Sexual Orientation Straight 12/04/2020 6: 25 AM 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 Obstetrics History Para Term AB IAB SAB [...] CDT Respiratory Rate 18 12/08/2023 9:55 AM 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 Oxygen Saturation 94% 02/17/2025 9:00 AM CDT [...] Assessment 03/02/2023 03/02/2022 Covid-19 Vaccine (4 - 2024-2 6 season) 2025 12/12/2021, 01/02/2021, 12/12/2020 Influenza Vaccine (#1) 2025 07/10/2020, 2014 DTaP/Tdap/Td Vaccine (3 - Td or Tdap) 06/17/2025 06/17/2015, 06/17/2015 Breast Cancer Screening-Mammogram 02/10/2026 02/10/2025, 11/13/2023, 09/19/2022, Additional history exists Medical Devices Implanted Type Area Scoop Operator Device Identifier Shelf Expiration Date Model / Serial / Lot Unknown N/A: Neck Implantech [employer] 3x2in 1 Short Term Implantable Thk.03in Sheeting - [id number] Implanted:Qty: 1 on 11/01/2019 by Galo Chaney MD at [facility] Bilateral : Nose Implantech [id number] 01/08/2024 / / [id number] Procedures Procedure Name Priority Date/Time Associated Diagnosis [...] age 40, based on guidelines of the [employer] (ACR Practice Parameter for the Performance of Screening and Diagnostic Mammography) and [employer]. For women [...] Hartley M.D. MD: 04:33 PM 04:33 PM [facility] [EOD] Narrative 08/06/2013 4:36 PM CDT [...] Hartley M.D. MD: 04:33 PM 04:33 PM [facility] [EOD] Delfino Lima MD IMG DXA PROCEDURES Final Result from Last 3 Months or Most Recently Relevant to Health Maintenance Insurance MEDICARE [employer] MEDICARE FOR LIFE MEDICARE FOR LIFE Advance Directives For more information, please contact: [phone] * Full Code (Latest Code Status on File) Date Activated Date Inactivated Comments 11/01/2019 2:17 PM 11/01/2019 8:39 PM Care Teams Board Certified Family Physician Relationship Specialty Start Date End Date Mango French MD [address] [facility] [address] [place] [address] PCP - General Family Medicine 07/18/21 Serafin Galicia, DPRekha [address] [facility] [address] [place] [address] Consulting Physician Podiatry 03/09/22
--- OUTSIDE RECORDS SUMMARY | 2025-06-18 09:57 | XMS_ITS | Patient Health Record ---
Author Organization [facility] As Tour Engine Address [address] [facility] [address] [place] [address] Care Team Providers Care Assistant Manager Airside Operations Name Role Phone Mango French MD Primary Care Provider Unavaila Leana Duran Unavailable [phone] Corbin Thengina Unavailable [phone] Allergies No Known Allergies Results Component Value Reference Range Flag Notes UDT Reviewed date:09/13/2024 03:54:43 PM Interpretation: Performing Lab: Notes/Report: THC n 0 - 50 ng/ml Cocaine n 0 - 300 ng/ml Amphetamine n 0 - 1000 ng/ml Buprenorphine (BUP) n 0 - 10 ng/ml Secobarbital (Bar) n 0 - 300 ng/ml Oxazepam (BZO) n 0 - 300 ng/ml 0-hysljbckjp-4,4-ohnxataq-1, 3-dipheny lpyrrolidine (EDDP) n 0 - 300 ng/ml Methamphetamine (MET) n 0 - 1000 ng/ml Methylenedioxymethamphetamine (MDMA) n 0 - 500 ng /ml Morphine (MOP 300/NIX3313) n 0 - 300 ng/ml Methadone (MTD) [...] Oxazepam (BZO) N 0 - 300 ng/ml 5-fxmmouzpem-5,2-yzlbicts-3, 3-dipheny lpyrrolidine (EDDP) N 0 - 300 ng/ml Methamphetamine (MET) N 0 - 1000 ng/ml Methylenedioxymethamphetamine (MDMA) N 0 - 500 ng /ml Morphine (MOP 300/PVC8895) N 0 - 300 ng/ml Methadone (MTD) N 0 - 300 ng/ml Phencyclidine (PCP) N 0 - 25 ng/ml Nortriptyline (TCA) N 0 - 1000 ng/ml Oxycodone N 0 - 300 ng/ml x N 0 - 300 ng/ml UDT Reviewed date:03/17/2025 12:18:06 PM Interpretation: Performing Lab: Notes/Report: THC n 0 - 50 ng/ml Cocaine n 0 - 300 ng/ml Amphetamine n 0 - 1000 ng/ml Buprenorphine (BUP) n 0 - 10 ng/ml Secobarbital (Bar) n 0 - 300 ng/ml Oxazepam (BZO) n 0 - 300 ng/ml 0-sqsenymiox-9,2-ibjnjeyj-4, 3-dipheny lpyrrolidine (EDDP) n 0 - 300 ng/ml Methamphetamine (MET) n 0 - 1000 ng/ml Methylenedioxymethamphetamine (MDMA) n 0 - 500 ng /ml Morphine (MOP 300/KZZ0622) n 0 - 300 ng/ml Methadone (MTD) n 0 - 300 ng/ml Phencyclidine (PCP) n 0 - 25 ng/ml Nortriptyline (TCA) n 0 - 1000 ng/ml Oxycodone n 0 - 300 ng/ml x n 0 - 300 ng/ml UDT Reviewed date:05/15/2025 12:10:55 PM Interpretation: Performing Lab: Notes/Report: THC n 0 - 50 ng/ml Cocaine n 0 - 300 ng/ml Amphetamine n 0 - 1000 ng/ml Buprenorphine (BUP) n 0 - 10 ng/ml Secobarbital (Bar) n 0 - 300 ng/ml Oxazepam (BZO) n 0 - 300 ng/ml 1-saaqdqsnll-0,5-rbcxzdmb-8, 3-dipheny lpyrrolidine (EDDP) n 0 - 300 ng/ml Methamphetamine (MET) n 0 - 1000 ng/ml Methylenedioxymethamphetamine (MDMA) n 0 - 500 ng /ml Morphine (MOP 300/DQO8663) n 0 - 300 ng/ml Methadone (MTD) n 0 - 300 ng/ml Phencyclidine (PCP) n 0 - 25 ng/ml Nortriptyline (TCA) n 0 - 1000 ng/ml Oxycodone n 0 - 300 ng/ml Validity Testing Reviewed date:01/27/2025 12:42:15 PM Interpretation: Performing Lab: Notes/Report: Not Medicated Consistent Not Medicated Consistent Not Medicated Consistent Not Medicated Consistent Specific [place] 1.005 1.003 - 1.030 pH 6.9 3.0 - 10.9 Oxidants -10 200 g/mL Creatinine 63.3 20.0 - 300.0 mg/dL Benzodiazepines Reviewed date:01/27/2025 12:42:02 PM Interpretation: Performing Lab:[address] [place] [address], [address] [place] [address], Director - [id number] Notes/Report: An exception occurred while processing this report and so it has incomplete data. Please contact [employer] for assistance. Not Medicated Consistent Not Medicated [...] NEGATIVE 20.0 ng/mL PDF Report [email or web address] Zolpidem Reviewed date:01/27/2025 12:42:09 PM Interpretation: Performing Lab: Notes/Report: UDT Reviewed date:01/20/2025 02:51:46 PM Interpretation: Performing Lab: Notes/Report: THC NEG 0 - 50 ng/ml Cocaine NEG 0 - 300 ng/ml Amphetamine NEG 0 - 1000 ng/ml Buprenorphine (BUP) NEG 0 - 10 ng/ml Secobarbital (Bar) NEG 0 - 300 ng/ml Oxazepam (BZO) NEG 0 - 300 ng/ml 2-jrcoulqcbf-0,8-anywaebi-6, 3-dipheny lpyrrolidine (EDDP) NEG 0 - 300 ng/ml Methamphetamine (MET) NEG 0 - 1000 ng/ml Methylenedioxymethamphetamine (MDMA) NEG 0 - 500 ng /ml Morphine (MOP 300/OFD3848) NEG 0 - 300 ng/ml Methadone (MTD) NEG 0 - 300 ng/ml Phencyclidine (PCP) NEG 0 - 25 ng/ml Nortriptyline (TCA) NEG 0 - 1000 ng/ml Oxycodone NEG 0 - 300 ng/ml x NEG 0 - 300 ng/ml Reason For Referral [...] decision-maker Yes Do you have Power of Tare Man for Health or [facility]? No Social History Social Info Question Answer [...] Risk Notes Problem Mild recurrent major depression (90329079) Major depressive disorder, recurrent, mild (F33.0) Active confirmed Problem Severe recurrent major depression without psychotic features (12928754) Major depressive disorder, recurrent severe without psychotic features (F33.2) Active confirmed Problem Generalized anxiety disorder (72473802) Generalized anxiety disorder (F41.1) Active confirmed Problem Posttraumatic stress disorder (83239426) Post-traumatic stress disorder, chronic (F43.12) Active confirmed Problem Insomnia disorder related to another mental disorder (54918105) Insomnia due to other mental disorder (F51.05) Active confirmed Problem Recurrent major depression (70219313) Major depressive disorder, recurrent, in remission (F33.40) Active confirmed Problem Recurrent major depression in remission (61230538) MDD (major depressive disorder), recurrent, in partial remission (F33.41) Active confirmed Vital Signs Heart Rate 74 /min 05/15/2025 Height-cm 165.10 cm 05/15/2025 Blood pressure diastolic 80 mm Hg 05/15/2025 Weight-kg 66.32 kg 05/15/2025 Height 65.00 in 05/15/2025 Blood pressure systolic 140 mm Hg 05/15/2025 Weight 146.2 lbs 05/15/2025 BMI 24.33 kg/m2 05/15/2025 Encounters Encounter Location Date Provider Diagnosis [address] [address] 07/19/2024 Thena Corbin Generalized anxiety disorder F41.1 ; Post-traumatic stress disorder, chronic F43.12 ; Major depressive disorder, recurrent, moderate F33.1 and Insomnia due to other mental disorder F51.[address] [address] 09/12/2024 Thena Corbin Generalized anxiety disorder F41.1 ; MDD (major depressive disorder), recurrent, in partial remission F33.41 ; Post-traumatic stress disorder, chronic F43.12 and Insomnia due to other mental disorder F51.[address] [address] 11/21/2024 Thena Corbin Generalized anxiety disorder F41.1 ; Post-traumatic stress disorder, chronic F43.12 ; Insomnia due to other mental disorder F51.05 ; Major depressive disorder, recurrent, moderate F33.1 and Benign essential HTN I10 [address] [address] 01/20/2025 Leana Bro Generalized anxiety disorder F41.1 ; Major depressive disorder, recurrent, in remission F33.40 ; Post-traumatic stress disorder, chronic F43.12 ; Insomnia due to other mental disorder F51.05 ; Encounter for screening for depression Z13.31 and Encounter for screening for cardiovascular disorders Z13.[address] [address] 03/17/2025 Leana Bro Generalized anxiety disorder F41.1 ; MDD (major depressive disorder), recurrent, in partial remission F33.41 ; Post-traumatic stress disorder, chronic F43.12 ; Insomnia due to other mental disorder F51.05 ; Encounter for screening for cardiovascular disorders Z13.6 and Negative depression screening Z13.[address] [address] 05/15/2025 Leana Bro Post-traumatic stres s disorder, chronic F43.12 ; Major depressive disorder, recurrent, mild F33.0 ; Generalized anxiety disorder F41.1 and Insomnia due to other mental disorder F51.05 [facility] [address] [address] 08/26/2024 Thena Corbin Generalized anxiety disorder F41.1 and Insomnia due to other mental disorder F51.05 [place] [address] [address] 11/15/2024 Thena Corbin Insomnia due to othe r mental disorder F51.05 [facility] [address] [address] 09/19/2024 Thena Corbin Generalized anxiety disorder F41.1 [place] [address] [address] 09/26/2024 Thena Corbin [place] [address] [address] 11/15/2024 Thena Corbin Assessments Encounter Date Diagnosis [...] delirium, and paradoxical reactions (e.g., agitation, aggression). 07/19/2024 Generalized anxiety disorder (ICD-10 - F41.1) [...] disorder, recurrent, moderate (ICD-10 - F33.1) 03/17/2025 Post-traumatic stress disorder, chronic (ICD-10 - [...] Post-traumatic stress disorder, chronic (ICD-10 - F43.12) 07/19/2024 Insomnia due to other mental disorder [...] in neurological symptoms - Encourage follow-up with auto salvage worker for new glasses if prescribed Chronic Idiopathic [...] Treatment Next Appt Details Provider Name:Leana stein, 06/24/2025 08:45:00 AM, [address], [facility] [address], [place], [address], Insurance Providers Payer Name Payer Address Payer Phone Subscriber Number Group Number Insured Name Patient Relationship to Insured Coverage Start Date Coverage End Date Medicare-I l Medicare [address] [place] [phone] [id number] SOPHIE MCKINNEY Self - patient is the insured For Life [address] [place] [address] [id number] SOPHIE MCKINNEY Self - patient is the insured Medical (General) History Medical History History ICD Code Problems: Chronic post-concussion headac he Chronic post-traumatic stress disorder Concussion injury of brain Family bereavement Insomnia disorder related to another men marta disorder Severe recurrent major depression withou t psychotic features Past Psychiatric History: Anxiety Disord er undefined Surgical History Surgery Date(Month/Year) Hysterectomy/revise vagina (99326) Bypass of stomach (729960176) Removal of gallbladder (12929) Appendectomy (20274) Sinus surgery 11/07/2000
--- OUTSIDE RECORDS SUMMARY | 2025-06-18 09:58 | XMS_ITS | Encounter Summary ---
Author Organization [facility] Address [address] [facility] [place] [address] Care Team Providers Care Medical Imaging Technician Name Role Phone Mango French MD Primary Care Provider [phone] Encounter Details Date Type Department Care Team (Late st Contact Info) Description 08/17/2022 Lab Requisition [facility] Care Derm[facility] Lab [address] [facility] [place] [address] Leo Hernandez MD [address] [place] [address] Social History Tobacco Use Types Packs/Day Years Used Date Smoking Tobacco: Never Smokeless Tobacco: Never Alcohol Use Standard Drinks/Week Comments No 0 (1 standard drink = 0.6 oz pur e alcohol) Comments No Sex and Gender Information Value Date Recorded Sex Assigned at Not on file Legal Sex Female 1:53 PM 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 ROOM ATTENDANT Gender Identity Not on file Sexual Orientation Not on file Occupation Industry Job Start Date Job End Date Retired Not on file Not on file Not on file documented as of this encounter Plan of Treatment Upcoming Encounters Date Type Department Care Team (Latest Contact Info) Description 06/27/2025 1:00 PM CDT Hospital Encounter [facility] [address] [place] [phone] Surgery General 06/27/2025 1:00 PM CDT - 06/27/2025 2:10 PM CDT Surgery [facility] [address] [place] [phone] Procedure, Nursing G_I MANOMETRY/SENSATION TESTING ANORECTAL Scheduled Procedures Name Priority Associated Diagnoses Date/Ti me MANOMETRY/SENSATION TESTING ANORECTAL Incontinence of feces, unspecified fecal incontinence type 06/27/2025 1:00 PM CDT documented as of this encounter Procedures Procedure Name Priority Date/Time Associated Diagnosis Comments DERMATOPATHOLOGY Routine 08/03/2022 12:0 0 AM CDT documented in this encounter Results * DERMATOPATHOLOGY (08/03/2022 12:00 AM CDT) Case Report Dermatopathology Report Case: [id number] Authorizing Provider: Leo Hernandez MD Collected: 08/03/2022 12:00 AM Ordering Location: [facility] Derm[facility] Lab Received: 08/17/2022 11:38 AM Pathologist: Stella Burk MD Specimen: Skin, left lower lat leg 12:37 PM [facility] Final Diagnosis Specimen A. SKIN, left lower lat leg: HYPERPLASTIC (HYPERTROPHIC) ACTINIC KERATOSIS, ERODED (L57.0) (see microscopic description) 12:37 PM [facility] DERMATOPATHOLOGY [facility]ORAT[facility] at [address] UNIFORM ROOM ATTENDANT Clinical History ISK vs SCC vs BCC. Path#[id number] 12:37 PM [facility] DERMATOPATHOLOGY [facility] Gross Description Specimen A: Received is one formalin filled container labeled with the patient's name and designated left lower lat leg. The specimen consists of a shave biopsy measuring 11x9x1 mm. Jar 0. 12:37 PM [facility] DERMATOPATHOLOGY [facility]ORATORY Microscopic Description Specimen A. SKIN, [...] characteristic determined by the Dermatopathology Laboratory at [facility], directed by Dr. Viv Tracy. These tests need not be, and therefore are not, approved by the [place] Food and Drug Administration. The tests are used for clinical purposes. Billing Codes Specimen Charges Stain Charges 68103 1 84945 46743 1 1 2 12:37 PM UNIFORM ROOM ATTENDANT DERMATOPATHOLOGY LABORATORY Embedded Images 2 12:37 PM UNIFORM ROOM ATTENDANT DERMATOPATHOLOGY LABORATORY Pathology/Cytolog y TISSUE SPECIMEN FROM SKIN / Unknown 08/03/2022 08/17/2022 11:38 AM UNIFORM ROOM ATTENDANT Leo Hernandez MD LAB - PATHOLOGY/CYTOLOGY ORDER NORMAN Final Result DERMATOPATHOLOGY LABORATORY [facility] - Department of Dermatology [facility] [address] [place] [address], [address] [phone] documented in this encounter Visit Diagnoses Not on filedocumented in this encounter Care Teams Medical Imaging Technician Relationship Specialty Start Date End Date Mango French MD [address] [place] [address] PCP - General 08/02/21 documented as of this encounter
--- OUTSIDE RECORDS SUMMARY | 2025-06-18 09:58 | XMS_ITS | Patient Health Record ---
Author Organization [facility] Address [address] [place], [place] [id number] Care Team Providers Care Laboratory Technology Teacher Name Role Phone FrenchMango cadena Unavailable Unavailable Reason For Referral No Information Medications Medication SIG (Take, Route, Frequency, Duration) Notes Start Date End Date Status 12 HR bupropion hydrochloride 150 MG Extended Release Oral Tablet [Wellbutrin] ORAL 12 HR bupropion hydrochloride 150 MG Extended Release Oral Tablet [Wellbutrin]Original [id number] HR bupropion hydrochloride 150 MG Extended Release Oral Tablet [Wellbutrin] *Reorder from [facility] for eRx and 02/09/2018 Active omeprazole 20 MG Delayed Release Oral Tablet [Prilosec] ORAL omeprazole 20 MG Delayed Release Oral Tablet [Prilosec]Original Medicationomeprazole 20 MG Delayed Release Oral Tablet [Prilosec] *Reorder from [facility] for eRx and Interaction Alerts* 02/09/2018 Active zolpidem tartrate 10 MG Oral Tablet [Ambien] ORAL zolpidem tartrate 10 MG Oral Tablet [Ambien]Original Medicationzolpidem tartrate 10 MG Oral Tablet [Ambien] *Reorder from [facility] for eRx and Interaction Alerts* 02/09/2018 Active calcium carbonate 1250 MG / cholecalciferol 1000 UNT / vitamin K 0.4 MG Chewable Tablet ORAL calcium carbonate 1250 MG / cholecalciferol 1000 UNT / vitamin K 0.4 MG Chewable TabletOriginal Medicationcalcium carbonate 1250 MG / cholecalciferol 1000 UNT / vitamin K 0.4 MG Chewable Tablet *Reorder from [place] 02/09/2018 Active cobamamide 0.1 MG / vitamin B12 5 MG Sublingual Tablet cobamamide 0.1 MG / vitamin B12 5 MG Sublingual TabletOriginal Medicationcobamamide 0.1 MG / vitamin B12 5 MG Sublingual Tablet *Reorder from [facility] for eRx and Interaction Alerts* 02/09/2018 Active estrogens, conjugated (NURSING HOME) 0.3 MG Oral Tablet [Premarin] ORAL estrogens, conjugated (NURSING HOME) 0.3 MG Oral Tablet [Premarin]Original Medicationestrogens, conjugated (NURSING HOME) 0.3 MG Oral Tablet [Premarin] *Reorder from [facility] for eRx and Interaction Alerts* 04/16/2021 Active alprazolam 0.25 MG Oral Tablet [Xanax] ORAL alprazolam 0.25 MG Oral Tablet [Xanax]Original Medicationalprazolam 0.25 MG Oral Tablet [Xanax] *Reorder from [facility] for eRx and Interaction Alerts* 02/09/2018 Active Plan Of Treatment No Information Insurance Providers Payer Name Payer Address Payer Phone Subscriber Number Group Number Insured Name Patient Relationship to Insured Coverage Start Date Coverage End Date Medicare Part B [facility] [address] [place] [address] [id number] BREEZY MCKINNEY Self - patient is the insured [employer] [address] [place], [place] [id number] [id number] ANU MCKINNEY Spouse - patient is the spouse of the insured
--- OUTSIDE RECORDS SUMMARY | 2025-06-18 09:58 | XMS_ITS | Clinical Summary ---
Author Organization [facility] Address [address] [facility] [address] Care Team Providers Care Receiving Dock Checker Name Role Phone Mango French MD Primary Care Provider [phone] [facility],non-owned Affiliates and Associated Physician Practices is amultiple site organization consisting of ambulatory clinics and hospital sitesin [place], [place], [place] and [place]. This disclosure is being madepursuant to the Care Everywhere program and may not contain all information available regarding this patient. Last updated 18.[facility] Allergies Active Allergy Reactions Criticality Noted Date [...] Chronic anxiety 12/02/2018 Post concussion syndrome 10/30/2018 Encounters Date Type Department Care Team Description 05/29/2025 Telephone [facility] [address] [place] [address] Dez Bryant RN Scheduling Outreach (Anorectal manometry scheduling attempt x1) from Last 3 Months Family History Relation Name Status Comments Father Mother Alive Social History Tobacco Use Types Packs/Day Years Used Date Smoking Tobacco: Never Smokeless Tobacco: Never Alcohol Use Standard Drinks/Week Comments No 0 (1 standard drink = 0.6 oz pur e alcohol) Comments No Sex and Gender Information Value Date Recorded Sex Assigned at Not on file Legal Sex Female 1:53 PM CLERICAL 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 ASSISTANT Gender Identity Not on file Sexual Orientation [...] 04/02/2019 12:57 PM CDT Plan of Treatment Upcoming Encounters Date Type Department Care Team (Latest Contact Info) Description 06/27/2025 1:00 PM CDT Hospital Encounter [facility] [address] [place] [address] Surgery General 06/27/2025 1:00 PM CDT - 06/27/2025 2:10 PM CDT Surgery [facility] [address] [place] [address] Procedure, Nursing G_I MANOMETRY/SENSATION TESTING ANORECTAL Scheduled Procedures Name Priority Associated Diagnoses Date/Ti me MANOMETRY/SENSATION TESTING ANORECTAL Incontinence of feces, unspecified fecal incontinence type 06/27/2025 1:00 PM CDT Health Maintenance Due Date Last Done Comments [...] series) 2016 SCREENING FOR DIABETES 10/30/2018 05/15/2012 DEPRESSION SCREENING 10/09/2024 COVID-19 VACCINE (1 - 2023-2 5 season) 2025 INFLUENZA VACCINE (#1) 2025 HEPATITIS B VACCINE [...] CDT) Glucose 116(H) 65 - 105 mg/dl [facility] BUN 9 7 - 21 mg/dl [facility] Creatinine 0.66 0.50 - 1.30 mg/dl [facility] Sodium 140 136 - 145 mmol/L [facility] Potassium 4.0 3.5 - 5.1 mmol/L [facility] Chloride 104 98 - 107 mmol/L [facility] CO2 27 22 - 30 mmol/L [facility] Calcium 9.0 8.5 - 10.1 mg/dl [facility] Bilirubin Total 1.0 0.2 - 1.0 mg/dl [facility] Alkaline Phosphatase 58 38 - 126 U/L [facility] AST 22 5 - 40 U/L [facility] ALT 21 12 - 78 U/L [facility] Protein Total 7.1 6.4 - 8.2 gm/dl [facility] Albumin 3.8 3.4 - 5.0 gm/dl [facility] eGFR By MDRD >60 >60 [facility] Blood specimen (specimen) BLOOD SPECIMEN / Unknown 05/15/2012 5:05 PM CDT 05/15/2012 5:13 PM CDT us Víctor Hopper DO LAB - CHEMISTRY ORDERABLES Shanta phan Result [facility] [address] [id number] from Last 3 Months or Most Recently Relevant to Health Maintenance Insurance MEDICARE SELF PAY NO INSURANCE Member Subscriber Plan / Payer (Ef fective for All Dates) Name:Sophie Mckinney Member ID:Not on file Relation to Subscriber:Self Name:SOPHIE MCKINNEY Subscriber ID:Not on file Payer ID:Not on file Group ID:Not on file Type:Self Pay Address: [place], [place] MEDICARE Care Teams Receiving Dock Checker Relationship Specialty Start Date End Date Mango French MD [address] [place] [address] PCP - General 08/02/21
--- OUTSIDE RECORDS SUMMARY | 2025-06-18 09:58 | XMS_ITS | Clinical Summary ---
Author Organization [facility] [place] Address [address] [place] [id number] Care Team Providers Care Director Of Pediatric Rehabilitation Name Role Phone Delfino Lima MD Primary Care Provider [phone] Family History Medical History Relation Name Comments [...] screening mammogram in one year. DICTATION LOCATION: [facility] Narrative 05/25/2020 3:33 PM CDT [...] screening mammogram in one year. DICTATION LOCATION: [facility] Vaibhav Garsia MD MAMMO ORDERABLES Final Result from Last 3 Months or Most Recently Relevant to Health Maintenance Insurance MEDICARE PART A AND B [facility] Department Address: [facility] [address] [place] [address] Care Teams Director Of Pediatric Rehabilitation Relationship Specialty Start Date End Date Delfino Lima MD [address] [place] [address] PCP - General 06/12/18
--- OUTSIDE RECORDS SUMMARY | 2025-06-18 09:58 | XMS_ITS | Encounter Summary ---
Author Organization [facility] Address [address] [facility] [place] [address] Care Team Providers Care Administrative Support Clerk Name Role Phone Mango French MD Primary Care Provider [phone] Encounter Details Date Type Department Care Team (Late st Contact Info) Description 12/18/2020 Lab Requisition [facility] D[facility] Lab [address] [facility] [place] [address] eLo Hernandez MD [address] [place] [address] Social History Tobacco Use Types Packs/Day Years Used Date Smoking Tobacco: Never Smokeless Tobacco: Never Alcohol Use Standard Drinks/Week Comments No 0 (1 standard drink = 0.6 oz pur e alcohol) Comments No Sex and Gender Information Value Date Recorded Sex Assigned at Not on file Legal Sex Female 1:53 PM 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 LOADER Gender Identity Not on file Sexual Orientation Not on file Occupation Industry Job Start Date Job End Date Retired Not on file Not on file Not on file documented as of this encounter Plan of Treatment Upcoming Encounters Date Type Department Care Team (Latest Contact Info) Description 06/27/2025 1:00 PM CDT Hospital Encounter [facility] [address] [place] [phone] Surgery General 06/27/2025 1:00 PM CDT - 06/27/2025 2:10 PM CDT Surgery [facility] [address] [place] [phone] Procedure, Nursing G_I MANOMETRY/SENSATION TESTING ANORECTAL Scheduled Procedures Name Priority Associated Diagnoses Date/Ti me MANOMETRY/SENSATION TESTING ANORECTAL Incontinence of feces, unspecified fecal incontinence type 06/27/2025 1:00 PM CDT documented as of this encounter Procedures Procedure Name Priority Date/Time Associated Diagnosis Comments DERMATOPATHOLOGY Routine 12/16/2020 3:33 AM CORE LOADER documented in this encounter Results * DERMATOPATHOLOGY (12/16/2020 3:33 AM CORE LOADER) Case Report Dermatopathology Report Case: [id number] Authorizing Provider: Leo Hernandez MD Collected: 12/16/2020 03:33 AM Ordering Location: [facility] Derm[facility] Lab Received: 12/18/2020 07:28 AM Pathologist: Stella Burk MD Specimen: Skin, right mid back 1:58 PM CDT DERMATOPATHOLOGY LABORATORY Final Diagnosis Specimen A. 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 Path#[id number] 1:58 PM CDT DERMATOPATHOLOGY LABORATORY Gross Description [...] (Junctional Loc's Nevus or Junctional Dysplastic Nevus) 1:58 PM CDT DERMATOPATHOLOGY LABORATORY Disclaimer An external and internal positive and negative controls are appropriate for the histochemical, immunohistochemical and immunofluorescence stain(s) in this case (if any), except where stated explicitly. The performance characteristics of the stain(s) cited in this report were developed and its performance characteristic determined by the Dermatopathology Laboratory at [facility], directed by Dr. Viv Tracy. These tests need not be, and therefore are not, approved by the [place] Food and Drug Administration. The tests are used for clinical purposes. Billing Codes Specimen Charges Stain Charges 40684 1 1 1:58 PM CDT DERMATOPATHOLOGY LABORATORY Embedded Images 1 1:58 PM CDT DERMATOPATHOLOGY LABORATORY Pathology/Cytolo gy TISSUE SPECIMEN FROM SKIN / Unknown 12/16/2020 3:33 AM CORE LOADER 12/18/2020 7:28 AM CORE LOADER Leo Hernandez MD LAB - PATHOLOGY/CYTOLOGY ORDER NORMAN Final Result DERMATOPATHOLOGY LABORATORY [facility] - Department of Dermatology [facility] Medicine [address] [place] [address], [address] [phone] documented in this encounter Visit Diagnoses Not on filedocumented in this encounter Care Teams Administrative Support Clerk Relationship Specialty Start Date End Date Mango French MD [address] [place] [address] PCP - General 08/02/21 documented as of this encounter
== END 2025-06-18 09:12 | disposition home or self-care (01) ==
LOC: ANHSURGERY 09:17
PROVIDERS: PCP Family Medicine; Visit Provider Surgery
DX: I10 Essential (primary) hypertension (principal); Z01.818 Encounter for other preprocedural examination
CPT/HCPCS: 93005

== ENCOUNTER 2025-06-30 00:50 | Day surgery (SDC) | payer MEDICARE, OTHER, SELFPAY ==
[2025-06-17 09:22] VITALS: BMI 23.8
--- NOTE | 2025-06-17 09:35 | PC.NURSE ---
Report to the Outpatient Waiting Room, entrance under the green pavilion located off [facility], at time __11:00am on date ___06/30/25____. Planned Procedure Time: ___1:00pm .? Time changes happen often and if your time is changed the preop area will call you the afternoon before. - You and your visitor will be asked to self-screen and do not enter if you have any COVID symptoms. Please call surgeon if you need to reschedule. - A mask is optional within the hospital at this time. Patients may have clear liquids (water, carbonated beverages, clear teas, apple juice) until 3 hours prior to surgery with a maximum of 20 ounces. - No food from midnight until time of surgery and no smoking, or chewing tobacco (or any form of nicotine). No chewing gum, candy or mints. (10:00am) Take only the following medications with a SIP of water on the morning of surgery: __ Bupropron, Clonzepam, and Inhaler as needed DO NOT STOP ANY OF YOUR OTHER PRESCRIPTION MEDICATIONS PRIOR TO SURGERY EXCEPT THE FOLLOWING Hold all vitamins and supplements for 3 days per anesthesiologist. Medications to discontinue per physician Baby Aspirin to check w Dr Becerra Date to take last dose Pending what Dr Becerra says today at appt Please no make-up, nail frisian, hairspray, perfume, deodorant, or body powder the day of surgery.? No jewelry (including any body piercings) or valuables the day of surgery, leave them at home.? Please take a shower or bath the night before, or the morning of, surgery with an antibacterial soap.? Wear comfortable, loose fitting clothing.? - Jewelry must be removed prior to entering the operating room.? Rings and piercings that are not removed may be cut off. - The hospital will not accept responsibility for valuables.? - Please leave all valuables, including medications, at home the day of surgery. If you are going home after surgery, a licensed motor coach driver must drive you home.? - NO public transportation without another adult if you receive anesthesia. - We recommend that an adult stay with you for 24 hours following discharge. - We also recommend that you do not drive, make important decision, drink alcoholic beverages, or take any drugs that were not prescribed by your health care provider for at least 24 hours after your discharge time. Follow any additional instructions given to you from your surgeon. Telephone instructions given to _Patient and asked if any additional questions and then verbalized understanding. Patient advised to call surgeon office or pre surgery nurse liaison [phone] if any additional questions.
[2025-06-30] VITALS (8 sets, daily range): BP systolic 115–139; BP diastolic 52–88; PULSE 70–82; RESP 8–20; TEMP 36.4; O2SAT 99–100
--- NOTE | 2025-06-30 07:09 | SUR.PREOP ---
0673 PT INFORMED OF SURGERY TIME DELAY
--- NOTE | 2025-06-30 07:42 | WPDANESEPPF ---
Anes - Initial Pre Proc Eval Procedure: Operation Date: 06/30/25 07:30 Proposed Procedures p Excisional Biopsy of Left Lateral Intramuscular Thigh Mass, Excisional Biopsy of Left Howe Mass - Milagros Becerra MD Date/Time: 06/30/25 07:42 Surgeon: Milagros Becerra MD Pre Op Diagnosis: Left Lateral Intramuscular Thigh Mass Patient Data Age: 70 Gender: F Height: 1.65 m Weight: 64.9 kg Last Vital Signs Temp 36.4 C L 06/30/25 06:10 Pulse 82 06/30/25 06:10 BP 130/77 06/30/25 06:10 Pulse Ox 100 06/30/25 06:10 O2 Del Method Room Air 06/30/25 06:10 Allergies Allergy/AdvReac Type Severity Reaction Status Date / Time No Known Allergies Allergy Verified 06/30/25 07:08 Home Medications ?Medication ?Instructions ?Recorded ?Confirmed ?Type bupropion HCl 150 mg tablet,12 hr 150 mg PO DAILY 09/07/20 06/30/25 History sustained-release zolpidem 10 mg tablet 10 mg PO .QHS 09/07/20 06/30/25 History aspirin 81 mg tablet,delayed 81 mg PO DAILY 05/23/24 06/30/25 History release (Adult Aspirin Regimen) clonazepam 0.5 mg tablet 0.5 mg PO BID 05/23/24 06/30/25 History nitroglycerin 0.4 mg sublingual 0.4 mg sublingual ONCE PRN chest 05/23/24 06/17/25 History tablet pain rosuvastatin 5 mg tablet 5 mg PO DAILY 05/23/24 06/30/25 History valacyclovir 500 mg tablet 1,000 mg (2 x 500 mg) PO BID PRN 05/27/24 06/17/25 Rx cold sores #90 tabs ipratropium bromide 42 mcg (0.06 2 spray intranasal BID #15 mL 09/12/24 06/17/25 Rx %) nasal spray calcium 200 mg (as 5 tablet PO DAILY 09/27/24 06/30/25 History citrate)-vitamin D3 6.25 mcg (250 unit) tablet (Citracal-D3 Petites) cyanocobalamin (vitamin B-12) 1,000 mcg sublingual WEEKLY 09/27/24 06/30/25 History 1,000 mcg sublingual lozenge epinephrine 0.3 mg/0.3 mL 0.3 mg (0.3 mL) IM ONCE #2 ea 10/07/24 06/17/25 Rx injection, auto-injector (EpiPen 2-Godfrey) lidocaine 5 % topical patch 1 patch topical DAILY PRN back 10/07/24 06/17/25 Rx pain #30 ea fluticasone fur. 200 mcg-umeclid 1 inh inhalation HS PRN shortness 10/15/24 06/17/25 History 62.5 mcg-vilant 25 mcg of breath or wheezing inhalat.powder (Trelegy Ellipta) omeprazole 20 mg capsule,delayed 20 mg PO DAILY PRN indigestion 10/15/24 06/17/25 History release conjugated estrogens 0.3 mg tablet 0.3 mg PO DAILY #90 tabs 11/21/24 06/30/25 Rx (Premarin) tramadol 50 mg tablet 50 mg PO Q8H PRN Headache #90 tabs 03/19/25 06/17/25 Rx fexofenadine 180 mg tablet 180 mg PO DAILY #90 tabs 06/02/25 06/30/25 Rx buspirone 15 mg tablet 15 mg PO TID 06/30/25 06/30/25 History hydroxyzine HCl 50 mg tablet 25 mg PO HS 06/30/25 06/30/25 History Patient hx anesthesia problems: post op nausea/vomiting Family hx anesthesia problems: none Results Review: All pre-operative results and documents have been reviewed as part of the pre-operative evaluation. [facility] Past Medical History Medical History Lateral meniscus tear Right knee pain Tear meniscus knee Degenerative joint disease of knee Effusion of knee joint Left knee pain Trochanteric bursitis, right hip Colon cancer screening Non-cardiac chest pain COVID-19 virus infection Convergence insufficiency History of closed head injury Insomnia Anxiety Depression Allergic rhinitis GERD (gastroesophageal reflux disease) Hypertension Surgical History Surgical History History of lumpectomy benign History of hysterectomy History of tubal ligation History of fusion of cervical spine History of cholecystectomy Plantar fasciitis Hx of nasal septoplasty History of Yoly-en-Y gastric bypass Family History Family History Father Heart disease Mother Breast cancer Other Family history of malignant melanoma Social History Social History Social History: caffeine use Smoking status: Never smoker Second hand tobacco smoke exposure: No Alcohol intake: never Substance use: current Substance use type: painkillers Other substance usage details: Occasional tramadol as needed Do You Feel Safe in your Home?: Yes Lack of Transportation: No Lack of Food: Never True Current Housing: I Have Housing Concerned About Future Housing: No Difficulty Paying Gas/Electric Bills: No Difficulty Paying for Meds: No Currently Unemployed: No Education: High School Diploma/GED Difficulty w/ Childcare or Family Care: No Living arrangements: with family Additional living arrangements comments: Occupation/Education: retired Gender identity (if verbalized by the patient): Female Sexual Orientation (if Verbalized by the Patient): Straight or Heterosexual Spiritual care concerns: No Anes - Eval Final PreProcedure Day of Procedure 06/30/25 07:42 Patient weight: normal Heart: regular rate and rhythm Lungs: clear to auscultation Airway: Mallampati scale class II Neurological: alert and oriented Last oral intake: >/= 8 hours ASA classification: III Emergent: no Anesthetic plan: proceed Anesthesia type and monitoring: general LMA and standard monitoring Results Review: All pre-operative results and documents have been reviewed as part of the pre-operative evaluation. Informed Consent: The patient's anesthetic plan and its attendant risks and benefits were discussed with the patient/family/POA. Questions were solicited and answers provided to the satisfaction of the patient/family/POA.
--- NOTE | 2025-06-30 08:19 | WPDHPUPDATE1 ---
History and Physical Update Update Date/Time: 06/30/25 08:19 History and Physical has been reviewed, including an updated exam of the patient. There are NO changes in the patient's condition. Risks, benefits, and alternatives have been discussed and questions answered. Patient agrees to proceed with procedure.
[2025-06-30] MEDS: ceFAZolin 2 GM in SODIUM CHLORIDE 0.9% IV 50 ML 100 ML IVPB (08:27)
[2025-06-30] MEDS: LIDO 1%/EPINEPHRINE 1:100,000 20 ML VIAL INFILTRATE (08:45)
--- NOTE | 2025-06-30 09:13 | S_PTH ---
PATIENT: Sophie Lara LOC: [facility] U#:[id number] AGE/SX: 70/F ROOM: RE06/30/[address]: Milagros Becerra MD : 1955 BED: DIS: 06/30/2025 SPEC #: [id number] RECD: 06/30/25 10:09 STATUS: LIZET RETato #: [id number] NEHA: 06/30/25 09:[address]: Milagros Becerra DEPT: [facility] Surgical RECD BY: Rubi Cai ENTERED: 06/30/25 10:10 SP TYPE: Surgical OTHR DR: Mango French MD Tissues: A - Mass B - Mass Procedures: Hematoxylin and Eosin Stain Gross and Microscopic Level 3
[2025-06-30] MEDS: LACTATED RINGERS 1,000 ML 30 ML IV CONT (09:37)
--- NOTE | 2025-06-30 09:42 | W.PM.PROC2 ---
Procedure Note - Detailed Date of Procedure 06/30/25 Pre-op Diagnosis Left proximal lateral intramuscular thigh mass measuring 11 x 9 cm, left anterior munoz subcutaneous mass measuring 6 x 5 cm Post-op Diagnosis Same Procedure Performed excisional biopsy left proximal lateral intramuscular thigh mass measuring 11 x 9 cm, excisional biopsy left anterior munoz subcutaneous mass measuring 6 x 5 cm Surgeon Milagros Becerra MD Anesthesia General and Local Indications 70-year-old female presenting to the office with a enlarging left lateral thigh mass. Patient had previous imaging showing intramuscular thigh mass in the area measuring 11 cm. Patient also with a 2nd subcutaneous mass in her left anterior munoz. Findings 11 x 9 cm left proximal lateral intramuscular thigh mass most consistent with multi lobular lipoma, 6 x 5 cm left anterior munoz subcutaneous mass most consistent with multi lobular lipoma Description of Procedure The patient was taken the operating room and placed in the supine position. After adequate induction of general anesthesia, the patient was prepped and draped in the normal sterile fashion. A time-out was then done to verify the patient's identity, as well as the procedure being performed. I began by identifying both these areas that were previously marked. I then locally anesthetized the overlying skin in both areas. Using a 15 blade scalpel I incised the dermis in the left proximal lateral thigh overlying the mass. This was carried down into the subcutaneous tissue. At this point, a large multi lobular lipoma was encountered. This was noted to extend into the intramuscular space. This did not extend into any of the underlying muscle. Using very tedious dissection, both bluntly and sharply with the Bovie cautery, I was able to excise this mass. It was difficult to excise as 1 mass as this was a multi lobular lipoma with multiple septations. Once excised, the area measured 11 x 9 cm. I then gained hemostasis with the Bovie cautery. No other pathology was seen in the area. I then copiously irrigated the area and further local anesthetic was placed. The subcutaneous tissue was then closed with 3-0 Vicryl suture. The skin was closed with 4-0 Monocryl subcuticular suture. Dermabond was then placed on the wound. I then used a 15 blade scalpel to incise the dermis over the left anterior munoz mass. This was again carried into the subcutaneous tissue. Again he a multi lobular lipoma was encountered at this point. Using the Bovie cautery I was able to dissect around this area. Again there were multiple pieces all consistent with multi lobular lipoma. The lipoma also had multiple septations. It did not invade into the underlying muscle or fascia. Once this area was excised, it measured 6 x 5 cm. Again hemostasis was obtained with the Bovie cautery. Further local anesthetic was placed. In the area was then washed out. The subcutaneous tissue was closed with 3-0 Vicryl suture. The skin was closed with 4-0 Monocryl subcuticular suture. Dermabond was then placed on the wound. The patient tolerated these procedures well and was extubated postoperatively. She will be sent to the recovery room in stable condition. Estimated Blood Loss 10 Drains No Packing No Pathology Yes Complications No immediate complications Condition Stable Disposition PACU [facility] Billing Surgery - Charge Forward: Surgery Billing
[2025-06-30] MEDS: fentaNYL CITRATE INJ (*CRX) 100 MCG/2 ML VIAL 25 MCG IV PUSH ×2 (10:05→10:14)
[2025-06-30] MEDS: oxyCODONE HCL (*CRX) 5 MG TAB IR PO (10:56)
== END 2025-06-30 11:26 | disposition home or self-care (01) ==
PROVIDERS: PCP Family Medicine; Visit Provider Surgery
PROC: (CPT 27339; principal; 2025-06-30 07:30)
DX: D17.24 Benign lipomatous neoplasm of skin and subcutaneous tissue of left leg (principal)
CPT/HCPCS: 27339; 27632; 88304; J0690; A9270; J1100; J2003; J2004; J2405; J2704; J3010; J7120

== ENCOUNTER 2025-08-13 10:50 | Emergency (ER) | payer MEDICARE, OTHER, SELFPAY ==
--- OUTSIDE RECORDS SUMMARY | 2003-07-07 18:00 | XMS_ITS | Continuity of Care Document ---
Author Organization [facility] Address [address] [place] [address] Phone Care Team Providers Care Office Rep Name Role Phone Raheem Larkin Unavailable Unavailable Advance Directives Directive Yes / No Effective Date File Name No Information Encounters Encounter Description Practice Location Reason(s) For Visit Diagnoses Date Provider Providers Copied on Encounter [facility], [address], [place], [place], [id number], [place] tel:[phone] [facility] No Information Sep-3 0-200 3 Chaya Maciel. [address] , [address], [place], [address], [place]. tel:[phone] Family History Family Member Type Diagnosis Age At Onset No Information Payers Payer name Insurance type Covered alliance party ID Authoriza tion(s) No Information Social History Type Description Quantity Date Captured Comments Sex Female Smoking Status No Information Chief Complaint And Reason For Visit No Information Reason For Referral Reason For Referral No Information History Of Present Illness Encounter Date Complaint History Of Prese nt Illness No Information Functional Status Date Functional Assessmen t No Information Instructions Date Instruction Additional Infor mation No Information Assessments Type Assessment Date No Information Patient Care Teams Name Effective Dates (start - stop) Status Members No Information
--- OUTSIDE RECORDS SUMMARY | 2013-07-22 07:45 | XMS_ITS | Continuity of Care Document ---
Author Organization [facility] Address [address] [place] [address] Phone Care Team Providers Care Game Producer Name Role Phone Bipin Mondragon MD Unavailable Unavailable Allergies, Adverse Reactions, Alerts Substance Reaction Status Criticality No Known allergies Medications Medication Instructions Dosage Effective Dates (start - stop) Status Comments Ultram 50 mg tablet take 1 tablet by oral route every 6 hours as needed - Active Joice 5 mg-325 mg tablet take 1 -2 tablet by oral route every 4- 6 hours as needed for pain not to exceed 8 tablets per day - Active Keflex 500 mg capsule take 1 capsule (500MG) by oral route four times a day until bottle is emtpy - Active tramadol 50 mg tablet take 1- 2 tablet (100MG) by oral route 4 - 6 hours as needed not to exceed 8 tablets per 24hrs - Active PRILOSEC OTC (unknown strength) Not Available - Active WELLBUTRIN (unknown strength) Not Available - Active XANAX (unknown strength) Not Available - Active TRAMADOL HCL (unknown strength) as needed Not Available - Active Procedures Procedure Date MU Reporting MU Reporting POSTOP FOLLOW-UP VISIT MU Reporting POSTOP FOLLOW-UP VISIT MU Reporting POSTOP FOLLOW-UP VISIT MU Reporting POSTOP FOLLOW-UP VISIT MU Reporting OFFICE/OUTPATIENT VISIT EST MU Reporting OFFICE/OUTPATIENT VISIT EST MU Reporting OFFICE/OUTPATIENT VISIT EST MU Reporting POSTOP FOLLOW-UP VISIT MU Reporting MU Reporting Advance Directives Directive Yes / No Effective Date File Name Resuscitation Not Answered N/A N/A Life Support Not Answered N/A N/A Intubation Not Answered N/A N/A Antibiotics Not Answered N/A N/A IV Fluid Support Not Answered N/A N/A Tube Feed Not Answered N/A N/A Other Directive N/A N/A WARNING:The information contained in this section is historical and is provided for information only and does not constitute a legal document or any assurance that the information is still accurate. Please verify the information with the thomson of the legal document before using it for clinical purposes. Encounters Encounter Description Practice Location Reason(s) For Visit Diagnoses Date Provider Providers Copied on Encounter [facility], [address], [address], tel:[phone] [facility] [place] s/p R PF release (chief complaint) Other ankle sprainPlantar fascial fibromatosis 3 [address]. [address] [place], [place], [id number] . tel: [phone] Referring Provider: Efren Walter, [address] [place] [address], [address]. tel:[phone] [facility], [address] [place] [address], [address], [place] tel:[phone] [facility] s/p R PF release (chief complaint) Plantar fascial fibromatosis Sep-2 3 [address]. [address] [place], [place], [id number] . tel: [phone] Referring Provider: Efren Walter, [address] [place], [address]. tel:[phone] [facility], [address], [address], [place] tel:[phone] [facility] [place] Plantar fascial fibromatosis Jun- 3 [address] B[address]. [address] [place], [place], [id number] . tel: [phone] Referring Provider: Efren Walter, [address], [place], [address]. tel:[phone] [facility], [address], [address], [place] tel:[phone] [facility] [place] s/p R PF (chief complaint) Plantar fascial fibromatosis 3 [address]. [address] , [place], [place], [id number] . tel: [phone] Referring Provider: Efren Walter, [address], [place], [address]. tel:[phone] [facility], [address] [facility] [address], [address], [place] tel:[phone] [facility] No Information 3 [address]. [address] [facility] [address] , [place], [place], [id number] . tel:[phone] OFFICE/OUTPA TIENT VISIT EST [facility], [address] [facility] [address], [address], [place] tel:[phone] [facility] [place] R PF (chief complaint) Plantar fascial fibromatosis 3 [address]. [address] , [place], [place], [id number] . tel:[phone] Referring Provider: Efren Walter, [address], [place], [address]. tel:[phone] OFFICE/OUTPA TIENT VISIT EST [facility], [address] [facility] [address], [address], [place] tel:[phone] [facility] [place] R PF (chief complaint) Plantar fascial fibromatosis 3 [address]. [address] [place], [place], [id number] . tel:[phone] Referring Provider: Efren Walter, [address] [place], [address]. tel:[phone] OFFICE/OUTPA TIENT VISIT EST [facility], [address] [facility] [address] [address], [place], [address], [place] tel:[phone] [facility] [place] R heel pain (chief complaint) Plantar fascial fibromatosis 3 [address]. [address] [facility] [address] , [place], [place], [id number] . tel:[phone] Referring Provider: Efren Walter, [facility] [place], [address]. tel:[phone] [facility], [address] [facility] [address], [address], [place] tel:[phone] [facility] [place] s/p R peroneal tendon explor (chief complaint) Dietary surveillance and counselingOther enthesopathy of ankle and tarsus 2 [address]. [address] [facility] [address] , [place], [place], [id number] . tel:[phone] Referring Provider: Efren Walter, [address] [facility], [place], [address]. tel:[phone] [facility], [address] [facility] [address], [address], [place] tel:[phone] [facility] [place] s/p R peroneal tendon explor (chief complaint) Other enthesopathy of ankle and tarsus 2 [address]. [address] [facility] [address] [place], [place], [address] . tel:[phone] Referring Provider: Efren Walter, [address] [facility], [place], [address]. tel:[phone] [facility], [address] [facility] [address], [address], [place] tel:[phone] [facility] [place] s/p rt peroneal tendon exploration (chief complaint) Other ankle sprain 2 [address]. [address] [facility] [address] [place], [place], [id number] . tel: [phone] Referring Provider: Efren Walter, [address], [place], [address]. tel:[phone] [facility], [address], [place], [address], tel:[phone] [facility] [place] right foot pain (chief complaint) Other ankle sprain 2 [address]. [address], [place], [place], [id number] . tel: [phone] Referring Provider: Efren Walter, [address], [place], [address]. tel:[phone] Family History Family Member Type Diagnosis Age At Onset Father Problem (finding) Heart disease Mother Problem (finding) malignant neop lasm of breast in first degree relative Mother Problem (finding) Heart disease Payers Payer name Insurance type Covered constitution party ID Authoriza tion(s) No Information Social History Type Description Quantity Date Captured Comments Alcohol Use Details No Caffeine Use Details Unknown Tobacco Use Status No Information Smoking Status Unknown if ever smoked 14 Sex Female Chief Complaint And Reason For Visit From encounter dated '07/22/2013 13:45'. s/p R PF release (chief complaint) Reason For Referral Reason For Referral No Information Plan Of Treatment Date Type Action Status Referral Ordered: RADEX ANKLE COMPL MINIMUM 3 VIEWS RT ordered Referral Ordered: RADEX FOOT COMPL MINIMUM 3 VIEWS RT ordered History Of Present Illness Encounter Date Complaint History Of Prese nt Illness No Information Functional Status Date Functional Assessmen t No Information Instructions Date Instruction Additional Infor mation Dietary counseling Related to Di etary surveillance counseling Resume normal activity Progress until full strength Progress until full ROM Advance activity as tolerated Discussed wound care Discussed post op care/precautio ns Elevate as needed Follow exercise program Progress until full ROM Begin weight bearing Advance activity as tolerated Progress until full strength Progress until full strength Progress until full ROM Ice as needed Begin weight bearing Advance activity as tolerated Assessments Type Assessment Date No Information Patient Care Teams Name Effective Dates (start - stop) Status Members No Information
[2025-08-13 11:02] VITALS: BP 138/73; PULSE 76; RESP 18; TEMP 36.5; O2SAT 100
--- NOTE | 2025-08-13 11:24 | ED.BACK ---
HPI - Back Pain/Injury General Chief Complaint: Back Pain/Injury Stated Complaint: back pain Time Seen by Provider: 08/13/25 11:11 Source: patient and RN notes reviewed Mode of arrival: ambulatory Limitations: no limitations History of Present Illness HPI Narrative: Patient presents today complaining of low back pain radiating to the left buttock since last night. Denies injury or trauma, numbness or tingling, loss of bowel or bladder control. Pain started she was doing some housework. She currently rates her pain 7/10, which increases to 9/10 with movement. She has been taking Tylenol without improvement. Patient states she has had pain like this in the past and was told by her PCP to come in for a Toradol injection he cannot get her in for a few more days and she did not want to go to the ER. Related Data Home Medications ?Medication ?Instructions ?Recorded ?Confirmed ?Last Taken ?Type bupropion HCl 150 mg tablet,12 hr 150 mg PO DAILY 09/07/20 07/31/25 06/30/25 History sustained-release zolpidem 10 mg tablet 10 mg PO .QHS 09/07/20 07/31/25 06/29/25 History aspirin 81 mg tablet,delayed 81 mg PO DAILY 05/23/24 07/31/25 06/29/25 History release (Adult Aspirin Regimen) clonazepam 0.5 mg tablet 0.5 mg PO BID 05/23/24 07/31/25 06/30/25 History nitroglycerin 0.4 mg sublingual 0.4 mg sublingual ONCE PRN chest 05/23/24 07/31/25 04/21/25 History tablet pain rosuvastatin 5 mg tablet 5 mg PO DAILY 05/23/24 07/31/25 06/29/25 History calcium 200 mg (as 5 tablet PO DAILY 09/27/24 07/31/25 06/27/25 History citrate)-vitamin D3 6.25 mcg (250 unit) tablet (Citracal-D3 Petites) cyanocobalamin (vitamin B-12) 1,000 mcg sublingual WEEKLY 09/27/24 07/31/25 06/27/25 History 1,000 mcg sublingual lozenge fluticasone fur. 200 mcg-umeclid 1 inh inhalation HS PRN shortness 10/15/24 07/31/25 05/27/25 History 62.5 mcg-vilant 25 mcg of breath or wheezing inhalat.powder (Trelegy Ellipta) omeprazole 20 mg capsule,delayed 20 mg PO DAILY PRN indigestion 10/15/24 07/31/25 05/28/25 History release buspirone 15 mg tablet 15 mg PO TID 06/30/25 07/31/25 06/29/25 History hydroxyzine HCl 50 mg tablet 25 mg PO HS 06/30/25 07/31/25 06/29/25 History Allergies Allergy/AdvReac Type Severity Reaction Status Date / Time No Known Allergies Allergy Verified 08/13/25 10:52 [facility] Past Medical History Medical History Lateral meniscus tear Right knee pain Tear meniscus knee Degenerative joint disease of knee Effusion of knee joint Left knee pain Trochanteric bursitis, right hip Colon cancer screening Non-cardiac chest pain COVID-19 virus infection Convergence insufficiency History of closed head injury Insomnia Anxiety Depression Allergic rhinitis GERD (gastroesophageal reflux disease) Hypertension Surgical History Surgical History History of lumpectomy benign History of hysterectomy History of tubal ligation History of fusion of cervical spine History of cholecystectomy Plantar fasciitis Hx of nasal septoplasty History of Yoyl-en-Y gastric bypass Family History Family History Father Heart disease Mother Breast cancer Other Family history of malignant melanoma Social History Social History Social History: caffeine use Second hand tobacco smoke exposure: No Alcohol intake: never Substance use: current Substance use type: painkillers Other substance usage details: Occasional tramadol as needed Do You Feel Safe in your Home?: Yes Lack of Transportation: No Lack of Food: Never True Current Housing: I Have Housing Concerned About Future Housing: No Difficulty Paying Gas/Electric Bills: No Difficulty Paying for Meds: No Currently Unemployed: No Education: High School Diploma/GED Difficulty w/ Childcare or Family Care: No Living arrangements: with family Additional living arrangements comments: Occupation/Education: retired Gender identity (if verbalized by the patient): Female Sexual Orientation (if Verbalized by the Patient): Straight or Heterosexual Spiritual care concerns: No Comments At time of signature, I have reviewed and agree with nursing past medical, surgical, social and family history unless otherwise noted. Please see nursing chart for further information. There is no relevant family history pertinent to the presenting complaint Exam Narrative: GENERAL: Well-appearing, well-nourished, and in no acute distress. HEAD: Normocephalic, atraumatic. EYES: EOMI. No redness or drainage. Conjunctivae normal. ENT: Mucous membranes pink and moist. NECK: Normal AROM. CHEST: No respiratory distress. MUSCULOSKELETAL: No bony tenderness of the thoracic or lumbar spine. No tenderness of the right thoracic or lumbar paraspinal muscles. Patient has some mild tenderness to the left lower lumbar paraspinal muscles extending to the left SI joint and surrounding musculature. Normal patellar reflexes bilaterally. 5/5 strength in BLE. Distal sensation intact. Saddle sensation intact. Capillary refill normal. EXTREMITIES: Normal range of motion. No edema. SKIN: Warm, dry, no rash. Capillary refill normal. Normal skin turgor. NEURO: No focal deficits. Alert and oriented x3. Gait steady. PSYCH: Normal affect. No signs of depression or anxiety. Course Course Level of Care: Express Care Visit Vital Signs Vital signs: Vital Signs Temperature 97.7 F 08/13/25 11:02 Pulse Rate 76 08/13/25 11:02 Respiratory Rate 18 08/13/25 11:02 Blood Pressure 138/73 08/13/25 11:02 Pulse Oximetry 100 08/13/25 11:02 Oxygen Delivery Room Air 08/13/25 11:02 Temperature 97.7 F 08/13/25 11:02 Pulse Rate 76 08/13/25 11:02 Respiratory Rate 18 08/13/25 11:02 Blood Pressure 138/73 08/13/25 11:02 Pulse Oximetry 100 08/13/25 11:02 Oxygen Delivery Room Air 08/13/25 11:02 Reviewed MDM - Back Pain/Injury MDM Narrative Medical decision making narrative: Patient presents today complaining of low back pain radiating to the left buttock since last night. Denies injury or trauma, numbness or tingling, loss of bowel or bladder control. Pain started she was doing some housework. She currently rates her pain 7/10, which increases to 9/10 with movement. She has been taking Tylenol without improvement. Patient states she has had pain like this in the past and was told by her PCP to come in for a Toradol injection he cannot get her in for a few more days and she did not want to go to the ER. Upon exam, Patient has some mild tenderness to the left lower lumbar paraspinal muscles extending to the left SI joint and surrounding musculature. Normal patellar reflexes bilaterally. 5/5 strength in BLE. Distal sensation intact. Saddle sensation intact. Capillary refill normal. Patient was given 30 mg IM of ketorolac. Recommend continuing Tylenol and heating pad to left low back. Vital signs stable. Recommend PCP follow-up in a few days if symptoms are not improving. Strict ED precautions given patient agrees with plan Differential Diagnosis Differential diagnosis: Likely lumbar radiculopathy, sciatica and strain of lumbar region Critical Care Time Critical Care Time Critical Care Time: No Discharge Plan Discharge Clinical Impression: Acute left-sided low back pain with left-sided sciatica Patient Disposition: Home Condition: Stable Instructions: Sciatica (ED) Additional Instructions: You have been given an injection Toradol today for your back pain. Continue Tylenol if needed. Use a heating pad to help relax your muscles. Follow-up with your PCP in a few days if symptoms are not improving. As discussed, please go to the ER immediately if symptoms worsen to include numbness or tingling in your legs or genitalia, loss of bowel or bladder control, or significant worsening in your pain. Patient Language: Lebanese Prescriptions: No Action clonazepam 0.5 mg tablet 0.5 mg PO BID rosuvastatin 5 mg tablet 5 mg PO DAILY nitroglycerin 0.4 mg tablet, sublingual 0.4 mg sublingual ONCE PRN (Reason: chest pain) aspirin [Adult Aspirin Regimen] 81 mg tablet,delayed release (DR/EC) 81 mg PO DAILY Premarin 0.3 mg tablet 0.3 mg PO DAILY Qty: 90 2RF Rx Instructions: cyclically lidocaine 5 % adhesive patch,medicated 1 patch topical DAILY PRN (Reason: back pain) Qty: 30 2RF Patient Comments: TO BACK NEEDED Rx Instructions: leave on most painful area for up to 12 hrs epinephrine [EpiPen 2-Godfrey] 0.3 mg/0.3 mL auto-injector 0.3 mg IM ONCE Qty: 2 3RF Patient Comments: hx of reaction, seen it service technician, could not diagnose cause. EYE ISSUES Rx Instructions: as a single dose; may repeat once dicyclomine 10 mg capsule 10 mg PO BID Qty: 180 1RF bupropion HCl 150 mg tablet sustained-release 12 hr 150 mg PO DAILY zolpidem 10 mg tablet 10 mg PO .QHS calcium citrate-vitamin D3 [Citracal-D3 Petites] 200 mg-6.25 mcg (250 unit) tablet 5 tablet PO DAILY cyanocobalamin (vitamin B-12) 1,000 mcg lozenge 1,000 mcg sublingual WEEKLY omeprazole 20 mg capsule,delayed release(DR/EC) 20 mg PO DAILY PRN (Reason: indigestion) Trelegy Ellipta 200-62.5-25 mcg blister with device 1 inh inhalation HS PRN (Reason: shortness of breath or wheezing) Patient Comments: PT STATES SHE TAKES PRN buspirone 15 mg tablet 15 mg PO TID hydroxyzine HCl 50 mg tablet 25 mg PO HS valacyclovir 500 mg tablet 1,000 mg PO BID PRN (Reason: cold sores) Qty: 90 0RF Rx Instructions: Take 2 tabs (1000 mg) twice daily for one day as needed for cold sores ipratropium bromide 42 mcg (0.06 %) spray,non-aerosol 2 spray intranasal BID Qty: 15 3RF Rx Instructions: administer into each nostril tramadol 50 mg tablet 50 mg PO Q8H PRN (Reason: Headache) Qty: 90 0RF fexofenadine 180 mg tablet 360 mg PO DAILY PRN (Reason: allergies) Qty: 180 1RF Rx Instructions: take 1-2 tablets daily Follow-up/Referrals: Mango French MD [Primary Care Provider, Family Practice] Time of Disposition: 11:30
[2025-08-13] MEDS: KETOROLAC 30 MG/ML VIAL (*BKC) IM (11:29)
--- OUTSIDE RECORDS SUMMARY | 2025-08-14 10:28 | XMS_ITS | Patient Health Record ---
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 Name Role Phone Mango French MD Primary Care Provider Unavaila Leana Duran Unavailable [phone] CorbinChanda lucio Unavailable [phone] Allergies No Known Allergies Results Component Value Reference Range Flag Notes UDT Reviewed date:09/13/2024 03:54:43 PM Interpretation: Performing Lab: Notes/Report: Amphetamine (AMP) n 0 - 1000 ng/ml Buprenorphine (BUP) n 0 - 10 ng/ml Oxazepam (BZO) n 0 - 300 ng/ml Cocaine (SHANTEL) n 0 - 300 ng/ml Methamphetamine (mAMP) n 0 - 300 ng/ml Methylenedioxymethamphetamine (MDMA) n 0 - 500 ng /ml Morphine (MOP) n 0 - 25 ng/ml Methadone (MTD) n 0 - 300 ng/ml Oxycodone (OXY) n 0 - 300 ng/ml THC n 0 - 50 ng/ml x n 0 - 1000 ng/ml x n 0 - 1000 ng/ml x n 0 - 300 ng/ml x n 0 - 300 ng/ml x n 0 - 300 ng/ml UDT Reviewed date:11/21/2024 02:52:23 PM Interpretation: Performing Lab: Notes/Report: Amphetamine (AMP) N 0 - 1000 ng/ml Buprenorphine (BUP) N 0 - 10 ng/ml Oxazepam (BZO) N 0 - 300 ng/ml Cocaine (SHANTEL) N 0 - 300 ng/ml Methamphetamine (mAMP) N 0 - 300 ng/ml Methylenedioxymethamphetamine (MDMA) N 0 - 500 ng /ml Morphine (MOP) N 0 - 25 ng/ml Methadone (MTD) N 0 - 300 ng/ml Oxycodone (OXY) N 0 - 300 ng/ml THC N 0 - 50 ng/ml x N 0 - 1000 ng/ml x N 0 - 1000 ng/ml x N 0 - 300 ng/ml x N 0 - 300 ng/ml x N 0 - 300 ng/ml UDT Reviewed date:01/20/2025 02:51:46 PM Interpretation: Performing Lab: Notes/Report: Amphetamine (AMP) NEG 0 - 1000 ng/ml Buprenorphine (BUP) NEG 0 - 10 ng/ml Oxazepam (BZO) NEG 0 - 300 ng/ml Cocaine (SHANTEL) NEG 0 - 300 ng/ml Methamphetamine (mAMP) NEG 0 - 300 ng/ml Methylenedioxymethamphetamine (MDMA) NEG 0 - 500 ng /ml Morphine (MOP) NEG 0 - 25 ng/ml Methadone (MTD) NEG 0 - 300 ng/ml Oxycodone (OXY) NEG 0 - 300 ng/ml THC NEG 0 - 50 ng/ml x NEG 0 - 1000 ng/ml x NEG 0 - 1000 ng/ml x NEG 0 - 300 ng/ml x NEG 0 - 300 ng/ml x NEG 0 - 300 ng/ml UDT (10 Panel) Reviewed date:08/05/2025 10:01:41 PM Interpretation: Performing Lab: Notes/Report: Amphetamine (AMP) N Buprenorphine (BUP) N Oxazepam (BZO) N Cocaine (SHANTEL) N Methamphetamine (mAMP) N Methylenedioxymethamphetamine (MDMA) N Morphine (MOP) N Methadone (MTD) N Oxycodone (OXY) N THC N UDT Reviewed date:03/17/2025 12:18:06 PM Interpretation: Performing Lab: Notes/Report: Amphetamine (AMP) n 0 - 1000 ng/ml Buprenorphine (BUP) n 0 - 10 ng/ml Oxazepam (BZO) n 0 - 300 ng/ml Cocaine (SHANTEL) n 0 - 300 ng/ml Methamphetamine (mAMP) n 0 - 300 ng/ml Methylenedioxymethamphetamine (MDMA) n 0 - 500 ng /ml Morphine (MOP) n 0 - 25 ng/ml Methadone (MTD) n 0 - 300 ng/ml Oxycodone (OXY) n 0 - 300 ng/ml THC n 0 - 50 ng/ml x n 0 - 1000 ng/ml x n 0 - 1000 ng/ml x n 0 - 300 ng/ml x n 0 - 300 ng/ml x n 0 - 300 ng/ml Validity Testing Reviewed date:01/27/2025 12:42:15 PM Interpretation: Performing Lab: Notes/Report: Not Medicated Consistent Not Medicated Consistent Not Medicated Consistent Not Medicated Consistent Specific [place] 1.005 1.003 - 1.030 pH 6.9 3.0 - 10.9 Oxidants -10 200 g/mL Creatinine 63.3 20.0 - 300.0 mg/dL Benzodiazepines Reviewed date:01/27/2025 12:42:02 PM Interpretation: Performing Lab:[address] [place] [address], [address] [place] [address], Director - [id number] Notes/Report: An exception occurred while processing this report and so it has incomplete data. Please contact [employer] for assistance. Not Medicated Consistent Not [...] PM Interpretation: Performing Lab: Notes/Report: UDT Reviewed date:05/15/2025 12:10:55 PM Interpretation: Performing Lab: Notes/Report: Amphetamine (AMP) n 0 - 1000 ng/ml Buprenorphine (BUP) n 0 - 10 ng/ml Oxazepam (BZO) n 0 - 300 ng/ml Cocaine (SHANTEL) n 0 - 300 ng/ml Methamphetamine (mAMP) n 0 - 300 ng/ml Methylenedioxymethamphetamine (MDMA) n 0 - 500 ng /ml Morphine (MOP) n 0 - 25 ng/ml Methadone (MTD) n 0 - 300 ng/ml Oxycodone (OXY) n 0 - 300 ng/ml THC n 0 - 50 ng/ml x n 0 - 1000 ng/ml x n 0 - 1000 ng/ml x n 0 - 300 ng/ml x n 0 - 300 ng/ml UDT Reviewed date:06/25/2025 01:03:03 PM Interpretation: Performing Lab: Notes/Report: Amphetamine (AMP) N 0 - 1000 ng/ml Buprenorphine (BUP) N 0 - 10 ng/ml Oxazepam (BZO) N 0 - 300 ng/ml Cocaine (SHANTEL) N 0 - 300 ng/ml Methamphetamine (mAMP) N 0 - 300 ng/ml Methylenedioxymethamphetamine (MDMA) N 0 - 500 ng /ml Morphine (MOP) N 0 - 25 ng/ml Methadone (MTD) N 0 - 300 ng/ml Oxycodone (OXY) N 0 - 300 ng/ml THC N 0 - 50 ng/ml x N 0 - 1000 ng/ml x N 0 - 1000 ng/ml x N 0 - 300 ng/ml x N 0 - 300 ng/ml Reason For Referral No Information Medications Medication SIG (Take, Route, Frequency, Duration) Notes Start Date End Date Status buPROPion HCl ER (SR) 150 MG Tablet Extended Release 12 Hour 1 tablet Oral Once a day; Duration: 90 days 08/05/2025 Active clonazePAM 0.5 MG Tablet 1 tablet Orally Twice a day; Duration: 30 days As needed 08/05/2025 Active busPIRone HCl 15 MG Tablet 1 tablet Oral Twice a day; Duration: 90 days 08/05/2025 Active Sertraline HCl 100 MG Tablet 1 tablet Orally Once a day; Duration: 30 days increasing 08/05/2025 Active hydrOXYzine Pamoate 50 MG Capsule 1 capsule at bedtime Orally Once a day; Duration: 30 days As needed for sleep, do not take with benadryl increasing, DC 25 mg if available 08/05/2025 Active Vitamin B-12 1000 MCG Tablet Sublingual Sublingual 02/14/2024 Active Omeprazole 20 MG Capsule Delayed Release Oral 02/14/2024 Not-Taking Zolpidem Tartrate 10 MG Tablet 1 tablet at bedtime Oral daily; Duration: 30 days As needed for insomnia 08/05/2025 Active Lidocaine 5% Patch External 02/14/2024 Active Potassium Chloride ER 10 MEQ Tablet Extended Release Oral 02/14/2024 Not-Taking diphenhydrAMINE HCl 25 MG Capsule 1 capsule at bedtime as needed Orally Once a day Active Ibsrela 50 MG Tablet 1 tablet Orally daily As needed Active valACYclovir HCl 500 MG Tablet 1 tablet Orally Once a day As needed Active Omeprazole 20 MG Capsule Delayed Release Oral; Duration: 90 Days Active traMADol HCl 50 MG Tablet Oral; Duration : 30 Days Active Nitroglycerin 0.4 MG Tablet Sublingual Sublingual; Duration: 30 Days Active hydroCHLOROthiazide 25 MG Tablet Oral; Duration: 90 Days Not-Taking Rosuvastatin Calcium 5 MG Tablet Oral; Duration: 30 Days Active Immunizations Vaccine Route Administration [...] decision-maker Yes Do you have Power of Maintenance Aide for Health or [facility]? No Social History Social Info Question Answer Notes Household: Marital Status: Household: Social Info Question Answer Notes Household Marital status: Drug/Alcohol: Social Info Question Answer Notes Drugs [...] Risk Notes Problem Mild recurrent major depression (21373540) Major depressive disorder, recurrent, mild (F33.0) Active confirmed Problem Severe recurrent major depression without psychotic features (46144864) Major depressive disorder, recurrent severe without psychotic features (F33.2) Active confirmed Problem Generalized anxiety disorder (51097167) Generalized anxiety disorder (F41.1) Active confirmed Problem Posttraumatic stress disorder (76260995) Post-traumatic stress disorder, chronic (F43.12) Active confirmed Problem Insomnia disorder related to another mental disorder (88922429) Insomnia due to other mental disorder (F51.05) Active confirmed Problem Recurrent major depression (92567798) Major depressive disorder, recurrent, in remission (F33.40) Active confirmed Problem Recurrent major depression in remission (89109150) MDD (major depressive disorder), recurrent, in partial remission (F33.41) Active confirmed Vital Signs Heart Rate 71 /min 08/05/2025 Height-cm 165.1 cm 08/05/2025 Blood pressure diastolic 73 mm Hg 08/05/2025 Weight-kg 63.96 kg 08/05/2025 Height 65.00 in 08/05/2025 Blood pressure systolic 121 mm Hg 08/05/2025 Weight 141 lbs 08/05/2025 BMI 23.46 kg/m2 08/05/2025 Encounters Encounter Location Date Provider Diagnosis [address] [address] 09/12/2024 Thena Corbin Generalized anxiety disorder F41.1 ; MDD (major depressive disorder), recurrent, in partial remission F33.41 ; Post-traumatic stress disorder, chronic F43.12 and Insomnia due to other mental disorder F51.[address] [address] 11/21/2024 Thena Corbin Generalized anxiety disorder F41.1 ; Post-traumatic stress disorder, chronic F43.12 ; Insomnia due to other mental disorder F51.05 ; Major depressive disorder, recurrent, moderate F33.1 and Benign essential HTN I10 [address] [address] 01/20/2025 Leana Bro Generalized anxiety disorder F41.1 ; Major depressive disorder, recurrent, in remission F33.40 ; Post-traumatic stress disorder, chronic F43.12 ; Insomnia due to other mental disorder F51.05 ; Encounter for screening for depression Z13.31 and Encounter for screening for cardiovascular disorders Z13.[address] [address] 03/17/2025 Leana Bro Generalized anxiety disorder F41.1 ; MDD (major depressive disorder), recurrent, in partial remission F33.41 ; Post-traumatic stress disorder, chronic F43.12 ; Insomnia due to other mental disorder F51.05 ; Encounter for screening for cardiovascular disorders Z13.6 and Negative depression screening Z13.31 [facility] [address] [place] [address] 05/15/2025 Leana Bro Post-traumatic stres s disorder, chronic F43.12 ; Major depressive disorder, recurrent, mild F33.0 ; Generalized anxiety disorder F41.1 and Insomnia due to other mental disorder F51.05 [facility] [address] [place] [address] 06/24/2025 Leana Bro Major depressive disorder, recurrent, mild F33.0 ; Generalized anxiety disorder F41.1 ; Post-traumatic stress disorder, chronic F43.12 and Insomnia due to other mental disorder F51.05 [facility] [address] [place] [address] 08/05/2025 Leana Bro Major depressive disorder, recurrent, mild F33.0 ; Generalized anxiety disorder F41.1 ; Post-traumatic stress disorder, chronic F43.12 and Insomnia due to other mental disorder F51.05 [facility] [address] [place] [address] 08/26/2024 Thena Corbin Generalized anxiety disorder F41.1 and Insomnia due to other mental disorder F51.05 [facility] [address] [place] [address] 11/15/2024 Thena Corbin Insomnia due to othe r mental disorder F51.05 [facility] [address] [place] [address] 07/03/2025 Leana Bro [facility] [address] [place] [address] 07/14/2025 Leana Bro Generalized anxiety disorder F41.1 [facility] [address] [place] [address] 07/15/2025 Leana Bro [facility] [address] [place] [address] 09/19/2024 Logina HerCorbin Generalized anxiety disorder F41.1 [facility] [employer] [facility] [address] [place] [address] 09/26/2024 Loa Corbin [facility] [employer] [facility] [address] [place] [address] 11/15/2024 Chanda Corbin Assessments Encounter Date Diagnosis (ICD Code) [...] delirium, and paradoxical reactions (e.g., agitation, aggression). 08/26/2024 Generalized anxiety disorder (ICD-10 - F41.1) 09/12/2024 Generalized anxiety disorder (ICD-10 - F41.1) 03/17/2025 MDD (major depressive disorder), recurrent, in partial remission (ICD-10 - F33.41) 05/15/2025 Major depressive disorder, recurrent, mild (ICD-10 - F33.0) 05/15/2025 Post-traumatic stress disorder, chronic (ICD-10 - F43.12) 06/24/2025 Major depressive disorder, recurrent, mild (ICD-10 - F33.0) 06/24/2025 Generalized anxiety disorder (ICD-10 - F41.1) 07/14/2025 Generalized anxiety disorder (ICD-10 - F41.1) 08/05/2025 Major depressive disorder, recurrent, mild (ICD-10 - F33.0) 08/05/2025 Generalized anxiety disorder (ICD-10 - F41.1) 06/24/2025 Post-traumatic stress disorder, chronic (ICD-10 - F43.12) 05/15/2025 Generalized anxiety disorder (ICD-10 - F41.1) 01/20/2025 Major depressive disorder, recurrent, in remission (ICD-10 - F33.40) 09/12/2024 Post-traumatic stress disorder, chronic (ICD-10 - F43.12) 08/26/2024 Insomnia due to other mental disorder (ICD-10 - F51.05) 03/17/2025 Post-traumatic stress disorder, chronic (ICD-10 - [...] stress disorder, chronic (ICD-10 - F43.12) 09/12/2024 Insomnia due to other mental disorder (ICD-10 - F51.05) 05/15/2025 Insomnia due to other mental disorder (ICD-10 - F51.05) 06/24/2025 Insomnia due to other mental disorder (ICD-10 - F51.05) 08/05/2025 Post-traumatic stress disorder, chronic (ICD-10 - F43.12) 08/05/2025 Insomnia due to other mental disorder (ICD-10 [...] in neurological symptoms - Encourage follow-up with society reporter for new glasses if prescribed Chronic Idiopathic [...] Continue Wellbutrin 150 mg PO daily 05/15/2025 Other Sophie Mckinney, female, presenting with recent hospitalization for [...] long-term risks, such as benzodiazepines and Ambien. 06/24/2025 Other Sophie Mckinney, female, presents with anxiety, sleep disturbances, and gastrointestinal issues, with upcoming surgery for intramuscular lipomas. Anxiety Assessment: Patient reports ongoing anxiety symptoms, including physical manifestations such as shaking and feeling heat through her arms. Current medications (buspirone and clonazepam) are not providing adequate relief. Buspirone is causing dizziness as a side effect. The patient's anxiety has worsened, possibly due to upcoming surgery and recent health issues. Plan: - Continue buspirone for now, plan to stop after surgery once sertraline built up. due to ineffectiveness and side effects - Continue clonazepam 0.5 mg twice daily as needed - Start sertraline (Zoloft) on July 07 (one week post-surgery): - Week 1: 25 mg PO daily - Week 2 and onwards: Increase to 50 mg PO daily - Take consistently in the morning or evening - Follow up in 5-6 weeks to assess efficacy of sertraline and consider dose adjustments - Informed patient about potential benefits of sertraline for anxiety and timeline for seeing effects (typically 4 weeks) Insomnia Assessment: Patient reports long-term use of zolpidem (Ambien) for sleep, with recent addition of diphenhydramine (Benadryl) due to difficulty falling and staying asleep. Hydroxyzine has been tried but causes morning grogginess. Patient expresses interest in alternatives to help with sleep. 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 No active depressive symptoms reported. Plan: - Continue bupropion SR 150 mg Intramuscular Lipomas Assessment: Patient scheduled for surgery on February 27 to remove intramuscular lipomas in left thigh and munoz. CT scan revealed a mass extending from left thigh into abdomen. Surgeon anticipates a painful procedure due to the need to cut through muscle tissue. Plan: - Proceed with scheduled surgery on February 27 - Advised patient to be cautious with pain medications post-surgery, especially when taken with clonazepam and zolpidem - Follow up after surgery to assess recovery and medication management Gastrointestinal Issues Assessment: Patient reports ongoing intestinal problems following recent hospitalization for low sodium levels and diverticulitis. Currently using MiraLAX and another unspecified medication, which causes severe diarrhea. Plan: - Continue current gastrointestinal medication regimen as prescribed by other providers - Start probiotic one month after completing antibiotic course for diverticulitis Medical Decision Making Sophie Mckinney is a female patient with a history of anxiety, depression, and insomnia, presenting with increased anxiety, intestinal issues, and concerns about upcoming surgery for intramuscular lipomas. The patient's recent ER visit for intestinal issues and low sodium levels, along with the discovery of intramuscular masses, has exacerbated her anxiety. Current medications, including buspirone and hydroxyzine, have been ineffective in managing anxiety and causing side effects. The decision to discontinue buspirone is based on its lack of efficacy and associated dizziness. Clonazepam is providing some anxiety relief, but additional management is needed. The patient's long-term use of Ambien for insomnia is noted, with concerns about tolerance and rebound insomnia if discontinued abruptly. Given the patient's complex presentation and upcoming surgery, the decision was made to delay starting sertraline (Zoloft) until after the procedure to avoid potential medication interactions and allow for post-surgical healing. The switch from hydroxyzine tablets to capsules at a lower dose is intended to address sleep issues while minimizing morning grogginess. The continuation of bupropion for depression management is maintained, as it has been effective. 08/05/2025 Francisco Mckinney is a female patient with history of depression and anxiety who recently underwent surgery for fatty masses 5 weeks ago and is experiencing ongoing physical anxiety symptoms including hand tremors. Anxiety with physical symptoms Patient reports ongoing physical anxiety symptoms, particularly hand tremors and shaking, occurring more days than not. Symptoms are described as physical rather than mental distress, with no panic attacks or overwhelming mental aspects. Anxiety tends to worsen in the afternoon hours from 11 AM to 3-4 PM. Patient has history of gastric bypass with malabsorption affecting medication metabolism. Currently on buspirone 15 mg three times daily but experiencing dizziness at least once weekly, usually with the afternoon dose. Also taking clonazepam 0.5 mg twice daily as needed for anxiety symptoms. Recently started sertraline but has only been taking one pill daily due to supply issues. Plan: - Increase sertraline to 100 mg daily for anxiety management - Reduce buspirone from three times daily to twice daily (morning and evening), eliminating afternoon dose to address dizziness - Continue clonazepam 0.5 mg twice daily as needed for anxiety - Plan to gradually taper buspirone once sertraline reaches therapeutic levels - Goal to eventually reduce or eliminate clonazepam once anxiety is better managed with sertraline Depression Patient reports significant improvement in depression symptoms compared to previous episodes when she would cry daily and had to quit work due to functional impairment. Currently not experiencing depressive symptoms. Taking bupropion 150 mg sustained release once daily in the morning, which appears to be effective for depression management. Plan: - Continue bupropion 150 mg sustained release once daily in the morning Insomnia Patient reports difficulty falling asleep, taking 1.5-2 hours to fall asleep despite using Ambien. Once asleep, gets 7-8 hours of sleep. Sleep difficulties appear related to anxiety and inability to shut brain down. Currently taking hydroxyzine 25 mg at bedtime as needed but not finding significant benefit. Has discontinued Benadryl to avoid interaction with hydroxyzine. Plan: - Increase hydroxyzine from 25 mg to 50 mg at bedtime as needed - Continue Ambien as currently prescribed Medical Decision Making Sophie Mckinney is a female patient with a history of depression and anxiety presenting for psychiatric medication management approximately 5 weeks post-surgery for removal of fatty masses. The patient reports ongoing physical anxiety symptoms, particularly hand tremors and shakiness, occurring more days than not, with symptoms typically manifesting in the afternoon hours from 11 AM to 3-4 PM. Depression symptoms appear well-controlled on current bupropion therapy, with the patient reporting significant improvement from her previous baseline of daily crying episodes that had previously impaired her work functioning. Sleep difficulties persist despite current hydroxyzine and zolpidem use, with sleep latency of 1.5-2 hours attributed to anxiety preventing mental quieting. The patient reports intermittent dizziness with buspirone, occurring at least once weekly, typically in the afternoon after dosing. Given the patient's history of gastric bypass surgery with associated malabsorption, medication metabolism considerations factor into dosing decisions. The clinical picture suggests inadequate anxiety control with current regimen, warranting sertraline dose optimization as the primary anxiolytic agent while considering reduction of buspirone due to side effects and the goal of medication simplification. Plan Of Treatment Next Appt Details Provider Name:Leana Pooja stein, 09/10/2025 08:00:00 AM, [facility] [facility] [address], [facility] [address], [place], [address], Insurance Providers Payer Name Payer Address Payer Phone Subscriber Number Group Number Insured Name Patient Relationship to Insured Coverage Start Date Coverage End Date Medicare-I l Medicare [address] [place] [id number] SOPHIE MCKINNEY Self - patient is the insured For Life [address] [place] [address] [id number] SOPHIE MCKINNEY Self - patient is the insured Medical (General) History Medical History History ICD Code Problems: Chronic post-concussion headac he Chronic post-traumatic stress disorder Concussion injury of brain Family bereavement Insomnia disorder related to another men marta disorder Severe recurrent major depression withou t psychotic features Past Psychiatric History: Anxiety Disord er undefined Surgical History Surgery Date(Month/Year) Hysterectomy/revise vagina (65236) Bypass of stomach (123437496) Removal of gallbladder (00864) Appendectomy (41031) Sinus surgery 11/07/2000 Lipoma removal x2 06/30/2025
--- OUTSIDE RECORDS SUMMARY | 2025-08-14 10:28 | XMS_ITS | Data Portability ---
Author Organization [place] [facility],, Myriam morales Address [address] [place] [address] Assessment No assessment recorded. Plan of Treatment Reminders Order Date Submit Date Provider Last Modified By Organization Details Last Modified Time Details Appointments None recorde d. Lab allergy test, skin 2018 bandar [facility], [address], , [phone], 9 15:59:15 Referral None recorde d. Procedures None recorde d. Surgeries None recorde d. Imaging None recorde d. Medication Orders ipratro pium bromide 42 mcg (0.06 %) nasal spray 2018 bandar Not available 9 13:00:02 Spiriva Respima t 2.5 mcg/act uation solutio n for inhalat ion 2018 019 [id number], [address], [place], [id number], 9 14:48:31 Trelegy Ellipta 100 mcg-62. 5 mcg-25 mcg powder for inhalat ion 2018 019 [facility], [address], [place], [id number], 9 11:22:06 ipratro pium bromide 42 mcg (0.06 %) nasal spray 2018 019 [id number], [address], [place], [place], [id number], 9 12:54:21 azelast ine 137 mcg (0.1 %) nasal spray 2018 019 [facility] Not available 9 11:21:42 azelast ine 137 mcg (0.1 %) nasal spray 2018 019 [place]44628, [address], [place], [place], [id number], 9 11:21:42 Patient TargetsNo targets recorded. Patient Instructions Encounter Date Encounter Id Patient Instructions Last Modified By Organization Details Last Modified Time 05/27/2019 [id number] managing your allergies: care instructions [email or web address] Not available 05/27/2019 14:42:14 seasonal allergies: care instructions [email or web address] Not available 05/27/2019 14:42:14 06/25/2019 [id number] asthma in adults: care instructions [email or web address] Not available 06/25/2019 12:53:42 learning about asthma [email or web address] Not available 06/25/2019 12:53:41 07/25/2019 [id number] asthma in adults: care instructions [email or web address] Not available 07/25/2019 13:00:03 learning about asthma [email or web address] Not available 07/25/2019 13:00:03 08/23/2019 [id number] rhinitis: care instructions [email or web address] Not available 08/23/2019 11:24:24 Reason for Referral None Reported. Results Created Date Observation Date Name Description Value Unit Range Abnormal Flag Note LastModifiedBy Organization Detail LastModifiedTime 05/27/2005/27/2019 aller gy test, skin Mites positi ve Not Available [facility] [address], , [address], 05/27/2019 13:13:32 05/27/2005/27/2019 aller gy test, skin Mold positi ve Not Available [facility] [address], , [phone], 05/27/2019 13:13:32 05/27/20 19 05/27/2019 aller gy test, skin Cat positi ve Not Available [facility] [address], , [phone], 05/27/2019 13:13:32 05/27/2005/27/2019 aller gy test, skin Dog positi ve Not Available [facility] [address] [facility] [address], , [address], 05/27/2019 13:13:32 05/27/2005/27/2019 aller gy test, skin Trees positi ve Not Available [facility] [address] [facility] [address], , [address], 05/27/2019 13:13:32 05/27/2005/27/2019 aller gy test, skin Grass positi ve Not Available [facility] [address] [facility] [address], , [address], 05/27/2019 13:13:32 05/27/2005/27/2019 aller gy test, skin Ragweed negati ve Not Available [facility] [address] [facility] [address], , [address], 05/27/2019 13:13:32 05/21/2005/13/2019 XR, chest , 2 view No observ ation record ed. [facility] [address] [facility] [address], [place], [address], 05/21/2019 15:07:32 Result Notes None recorded. Problems [...] azelastine 137 mcg (0.1 %) nasal spray Dunreith 2 sprays twice a day by intranasa l route. 08/23 completed Not Available Not Available Not Available zolpidem 10 mg tablet active Not Available Not Available No t Available ipratropium bromide 42 mcg (0.06 %) nasal spray Dunreith 2 sprays 3 times a day by [...] Updated DateTime 05/27/2019 165.1 cm 29.1 kg/m2 80623.6 6 g 98.1 [degF] 200/98 mm[Hg] Minal [facility], 9 13:00:37 Date Recorded Body height Body mass index (BMI) Body weight Body temperature Systolic And Diastolic Provider Name and Address Organization Details Last Updated DateTime 06/25/2019 165.1 cm 29 kg/m2 13951.0 7 g 97.6 [degF] 145/75 mm[Hg] Minal [facility], 9 12:12:58 Date Recorded Body height Body mass index (BMI) Body weight Body temperature Systolic And Diastolic Provider Name and Address Organization Details Last Updated DateTime 07/25/2019 165.1 cm 28.5 kg/m2 96618.3 g 98.3 [degF] 130/75 mm[Hg] Minal Wu [place] [facility], 9 12:29:45 Date Recorded Body height Body mass index (BMI) Body weight Body temperature Systolic And Diastolic Provider Name and Address Organization Details Last Updated DateTime 08/23/2019 165.1 cm 28.1 kg/m2 88012.1 1 g 97.7 [degF] 148/82 mm[Hg] Minal [...] Diagnosis SNOMED-CT Code Diagnosis ICD10 Code Diagnosis IMO Codes Diagnosis Note [id number] Jermaine yanez MD OFFICE [address] [place] [phone] 8 05/27/2019 12:47:59 05/27/2019 15:09:11 Allergic rhinitis caused by pollen [id number] J30.1 The patient's symptoms are compatible with [...] was started on Nasacort and azelastine . [id number] Jermaine yanez MD OFFICE [address] [place] [address]077 8 06/25/2019 11:53:40 06/25/2019 13:03:25 Cough variant asthma [id number] J45.991 We will try her on Trelegy as well as a ipratropiu m bromide nasal spray. Will return in 1 month for repeat evaluation . [id number] Jermaine yanez MD OFFICE [address] [place] [address] [place] [address]344 8 07/25/2019 12:08:15 07/25/2019 13:07:38 Cough variant asthma [id number] J45.991 We will try switching her to Spiriva and continue him on the ipratropiu m bromide [id number] Jermaine yanez MD OFFICE [address] [place] [address] 8 08/23/2019 10:10:06 08/23/2019 11:28:38 Chronic rhinitis 21200749 J31.0 Chronic nasal congestion unresponsi ve to [...] 08/21/2019 1 MEDICARE [place]: [facility] Sophie Lara [id number] Sophie [place] 08/21/2019 2 FOR LIFE ( - MEDICARE SUPPLEMENT) Wade Lara [id number] Sophie Duval Lara Notes Date Note Type Note Provider [...] She has no other significant medical history. MD Alton [address], , [address], [facility], 05/27/2019 15:59:41 06/25/2019 text/html Shelley comes in with a cough which is productive of clear [...] this cough. MD [address], , [address], [facility], 06/25/2019 17:27:34 07/25/2019 text/html Shelley comes in for follow-up of her cough variant asthma. She is really been doing well taking ipratropium bromide nasal spray as well as trilogy. She however got oral irritation from the trilogy and stopped it. Her cough did return she wondering if there something else she could use. MD [address], , [address], [facility], 07/25/2019 14:50:49 [...] were negative. MD [address], , [address], [facility], 08/23/2019 12:52:21 OBGyn Episode No OBEpisode recorded.
--- OUTSIDE RECORDS SUMMARY | 2025-08-14 10:31 | XMS_ITS | Clinical Summary ---
Author Organization [employer] [place] Address [address] [place] [address] Care Team Providers Care Portable Trackman Name Role Phone Delfino Lima MD Primary [...] mammogram in one year. DICTATION LOCATION: [facility] Narrative 05/25/2020 3:33 PM CDT [...] mammogram in one year. DICTATION LOCATION: [facility] Vaibhav Garsia MD MAMMO ORDERABLES Final Result from Last 3 Months or Most Recently Relevant to Health Maintenance Insurance MEDICARE PART A AND B [facility] FOR [facility] Care Teams Portable Trackman Relationship Specialty Start Date End Date Delfino Lima MD [address] [place] [address] PCP - General 06/12/18
--- OUTSIDE RECORDS SUMMARY | 2025-08-14 10:31 | XMS_ITS | Clinical Summary ---
Author Organization [facility] Address [address] [place] [address] Care Team Providers Care Financial Services Consultant Name Role Phone Mango French MD Primary Care Provider [phone] Source Comments [facility],non-owned Affiliates and Associated Physician Practices is amultiple site organization consisting of ambulatory clinics and hospital sitesin [place], [place], [place] and [place]. This disclosure is being madepursuant to the Care Everywhere program and may not contain all information available regarding this patient. Last updated 18.[facility] Allergies Active Allergy Reactions Criticality Noted Date [...] synthetic B, (ENJUVIA) 0.3 MG tablet Take 1 (one) tablet by mouth once daily Active omeprazole (PRILOSEC) 20 MG capsule Take 1 (one) capsule by mouth daily before breakfast Active calcium citrate (CITRACAL 950) 950 MG tablet Take by mouth 4 times daily. Active ondansetron (ZOFRAN) 4 MG tablet Take 1 Tab by mouth every 4 hours as needed for Nausea/Vomiting. 12 Tab 0 2 Active Additional Information Patient not taking.Reason: Other, Reported on 06/27/2025 WELLBUTRIN SR 150 MG tablet 8 Active PREMARIN 0.3 MG tablet 9 Active zolpidem (AMBIEN) 10 MG tablet 8 Active valACYclovir (VALTREX) 500 MG tablet PRN 9 Active Tenapanor HCl (Ibsrela) 50 MG TABS Take 50 mg by mouth once daily Active Active Problems Problem Noted Date Diagnosed Date Chronic migraine 12/28/2018 Peripheral vestibulopathy, left 12/02/2018 Chronic anxiety 12/02/2018 Post concussion syndrome 10/30/2018 Encounters Date Type Department Care Team Description 06/27/2025 1:00 PM CDT - 06/27/2025 2:[address] [facility] [address] [place] [address] Procedure, Nursing G_I MANOMETRY/SENSATION TESTING ANORECTAL 06/27/2025 11:51 AM CDT - 06/27/2025 1:47 PM CDT Hospital Encounter [facility] [address] [place] [address] Claudio Aguayo MD Surgery General Discharge Disposition: Home or Self Care 06/27/2025 Travel 05/29/[address] 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 Gender Identity Not on file Sexual Orientation [...] Health Maintenance Due Date Last Done Comments COLOGUARD (AGES 45-75) - COLON CA SCREENING 1956 COLON MONITORING 1956 COLONOSCOPY - COLON CA SCREENING 1956 CT COLONOGRAPHY - COLON CA SCREENING 1955 Colorectal Cancer Screening 1956 FIT - COLON CA SCREENING 1956 FLEX SIG - COLON CA SCREENING 1956 LIPID TESTING 1955 MEDICARE AWV 12 MONTHS 1956 HEPATITIS C SCREENING 02/03/1974 DTAP/TDAP/TD VACCINES (1 - Tdap) 02/07/1975 PNEUMOCOCCAL VACCINE 50+ (1 of 1 - PCV) 02/07/2006 ZOSTER VACCINE (1 of 2) 02/07/2006 Respiratory Syncytial Virus (RSV) Vaccine Pt: or over 60 yrs (1 - Risk 60-74 years 1-dose series) 2016 SCREENING FOR DIABETES 10/30/2018 05/15/2012 DEPRESSION SCREENING 10/09/2024 COVID-19 VACCINE ( season) 2025 12/12/2021, 01/02/2021, 12/12/2020 INFLUENZA VACCINE (#1) 2025 MAMMOGRAM 02/10/2027 02/10/2025, 05/0 02/2025, 11/13/2023, Additional history exists BONE DENSITY TESTING Completed 08/06/2013 HEPATITIS B VACCINE Aged Out No longe r eligible based on patient's age to complete this topic HIB VACCINE Aged Out No longer eligi ble based on patient's age to complete this topic HPV VACCINE Aged Out No longer eligi ble based on patient's age to complete this topic MENINGOCOCCAL (Group B) VACCINE SHARED DECISION-MAKING Aged Out No longer eligible based on patient's age to complete this topic MENINGOCOCCAL GROUPS A/C/Y/W VACCINE Aged Out No longer eligible based on patient's age to complete this topic Procedures Procedure Name Priority Date/Time Associated Diagnosis Comments ANORECTAL MANOMETRY Routine 06/27/2025 1:47 PM CDT [place] RECTAL SENSATION TONE AND COMPLIANCE TEST 06/27/2025 12:55 PM CDT Incontinence of feces, unspecified fecal incontinence type COMPREHENSIVE METABOLIC PANEL STAT 05/15/2012 5:05 PM CDT from Last 3 Months or Most Recently Relevant to Health Maintenance Results * Anorectal Manometry (06/27/2025 1:47 PM CDT) Narrative [facility] - 06/27/2025 1:47 PM CDT Claudio Aguayo MD 07/01/2025 1:58 PM GI Physiology Note Ms. Mckinney attended [facility] for anorectal manometry. Please see media tab for full report and interpretation. Please note that the physical written reports are scanned to [employer] and can take 24-48 hours to be available to view.It was a pleasure participating in your patient's care. Please feel free to contact me if you have any questions or if I can be of any further assistance to your patients. Sincerely, Claudio Aguayo MD PhD Professor of Internal Medicine Director of Neurogastroenterology & Motility Division of Gastroenterology and Hepatology Teaching physician attestation and verification: I attest that I have personally reviewed this patient's GI physiology results with Dr Toussaint Neurogastroenterology and Motility Fellow. I have participated in medical decision making (or other relevant process) for this service as noted above. us Papi Cagle MD GI PROCEDURE ORDERA BLES Final Result [facility] * (ABNORMAL) COMPREHENSIVE METABOLIC PANEL (05/15/2012 5:05 PM CDT) Glucose 116(H) 65 - 105 mg/dl [facility] BUN 9 7 - 21 mg/dl [facility] Creatinine 0.66 0.50 - 1.30 mg/dl [facility] Sodium 140 136 - 145 mmol/L [facility] Potassium 4.0 3.5 - 5.1 mmol/L [facility] Chloride 104 98 - 107 mmol/L [facility] CO2 27 22 - 30 mmol/L [facility] Calcium 9.0 8.5 - 10.1 mg/dl [facility] Bilirubin Total 1.0 0.2 - 1.0 mg/dl [facility] Alkaline Phosphatase 58 38 - 126 U/L [facility] AST 22 5 - 40 U/L [facility] ALT 21 12 - 78 U/L [facility] Protein Total 7.1 6.4 - 8.2 gm/dl [facility] Albumin 3.8 3.4 - 5.0 gm/dl [facility] eGFR By MDRD >60 >60 [facility] Blood specimen (specimen) BLOOD SPECIMEN / Unknown 05/15/2012 5:05 PM CDT 05/15/2012 5:13 PM CDT us Víctor Hopper DO LAB - CHEMISTRY ORDERABLES Shanta phan Result [facility] [address] [place] [address] from Last 3 Months or Most Recently Relevant to Health Maintenance Insurance MEDICARE [facility] SELF PAY NO INSURANCE Member Subscriber Plan / Payer (Ef fective for All Dates) Name:Sophie Mckinney Member ID:Not on file Relation to Subscriber:Self Name:SOPHIE MCKINNEY Subscriber ID:Not on file Payer ID:Not on file Group ID:Not on file Type:Self Pay Address: [place], [place] MEDICARE Care Teams Financial Services Consultant Relationship Specialty Start Date End Date Mango French MD [address] [place] [address] PCP - General 08/02/21
--- OUTSIDE RECORDS SUMMARY | 2025-08-14 10:31 | XMS_ITS | Clinical Summary ---
Author Organization [facility] Address [address] [place] [address] Care Team Providers Care Solar Panel Installation Supervisor Name Role Phone Mango French MD Primary Care Provider Serafin Galicia DPM Unavailable [phone] Allergies No known active allergies Medications cyanocobalamin [...] (09/27/2019): Added automatically from request for surgery [id number] Hypertrophy of nasal turbinates 09/27/2019 Overview (09/27/2019): Added automatically from request for surgery [id number] Depression 08/14/2012 Overview (01/13/2017): Depression Surgical History [...] on file Legal Sex Female 10:58 AM SENIOR VALIDATION ENGINEER Gender Identity Female 12/04/2020 6:25 AM SENIOR VALIDATION ENGINEER Sexual Orientation Straight 12/04/2020 6: 25 AM SENIOR VALIDATION ENGINEER Obstetrics History Para Term AB IAB SAB [...] CDT Respiratory Rate 18 12/08/2023 9:55 AM SENIOR VALIDATION ENGINEER Oxygen Saturation 94% 02/17/2025 9:00 AM CDT [...] history exists Medical Devices Implanted Type Area Playground Monitor Device Identifier Shelf Expiration Date Model / Serial / Lot Unknown N/A: Neck Implantech [employer] 3x2in 1 Short Term Implantable Thk.03in Sheeting - [id number] Implanted:Qty: 1 on 11/01/2019 by Galo Chaney MD at [facility] Bilateral : Nose Implantech [id number] 01/08/2024 / / [id number] Procedures Procedure Name Priority Date/Time Associated Diagnosis [...] age 40, based on guidelines of the [employer] (ACR Practice Parameter for the Performance of Screening and Diagnostic Mammography) and [employer] Obstetric[employer] Gynec[employer]. For women [...] Hartley M.D. MD: 04:33 PM 04:33 PM [facility] [EOD] Narrative 08/06/2013 4:36 PM CDT EXAMINATION: [...] Hartley M.D. MD: 04:33 PM 04:33 PM [facility] [EOD] Delfino Lima MD IMG DXA PROCEDURES Final Result from Last 3 Months or Most Recently Relevant to Health Maintenance Insurance MEDICARE [employer] MEDICARE FOR LIFE MEDICARE FOR LIFE Advance Directives For more information, please contact: [phone] * Full Code (Latest Code Status on File) Date Activated Date Inactivated Comments 11/01/2019 2:17 PM 11/01/2019 8:39 PM Care Teams Solar Panel Installation Supervisor Relationship Specialty Start Date End Date Mango French MD [address] [facility] [address] [place] [address] PCP - General Family Medicine 07/18/21 Serafin Galicia, DPRekha [address] [facility] [address] [place] [address] Consulting Physician Podiatry 03/09/22
--- OUTSIDE RECORDS SUMMARY | 2025-08-14 10:31 | XMS_ITS | Encounter Summary ---
Author Organization [facility] Address [address] [place] [address] Care Team Providers Care Color Paste Mixer Name Role Phone Mango French MD Primary Care Provider [phone] Encounter Details Date Type Department Care Team (Late st Contact Info) Description 08/17/2022 Lab Requisition [facility] D[facility] [address] [place] [id number] Leo Hernandez MD [address] [place] [address] Social History Tobacco Use Types Packs/Day Years Used Date Smoking Tobacco: Never Smokeless Tobacco: Never Alcohol Use Standard Drinks/Week Comments No 0 (1 standard drink = 0.6 oz pur e alcohol) Comments No Sex and Gender Information Value Date Recorded Sex Assigned at Not on file Legal Sex Female 1:53 PM DESTINATION COORDINATOR Gender Identity Not on file Sexual Orientation [...] AM CDT) Case Report Dermatopathology Report Case: [id number] Authorizing Provider: Leo Hernandez MD Collected: 08/03/2022 12:00 AM Ordering Location: [facility] Lab Received: 08/17/2022 11:38 AM Pathologist: Stella Burk MD Specimen: Skin, left lower lat leg 12:37 PM [facility] Final Diagnosis Specimen A. SKIN, left lower lat leg: HYPERPLASTIC (HYPERTROPHIC) ACTINIC KERATOSIS, ERODED (L57.0) (see microscopic description) 12:37 PM [facility] DERMATOPATHOLOGY [facility]ORATORY at [address]37 DESTINATION COORDINATOR Clinical History ISK vs SCC vs BCC. Path#[id number] 12:37 PM [facility] Gross Description Specimen A: Received is one formalin filled container labeled with the patient's name and designated left lower lat leg. The specimen consists of a shave biopsy measuring 11x9x1 mm. Jar 0. 12:37 PM [facility] Microscopic Description Specimen A. [...] lower half of the epidermis. 12:37 PM [facility]MAT[facility]ATH[facility] Disclaimer An external and internal positive and negative controls are appropriate for the histochemical, immunohistochemical and immunofluorescence stain(s) in this case (if any), except where stated explicitly. The performance characteristics of the stain(s) cited in this report were developed and its performance characteristic determined by the Dermatopathology Laboratory at [facility], directed by Dr. Viv Tracy. These tests need not be, and therefore are not, approved by the [place] Food and Drug Administration. The tests are used for clinical purposes. Billing Codes Specimen Charges Stain Charges 14317 1 97704 55182 1 1 12:37 PM [facility]MAT[facility] Embedded Images 12:37 PM [facility] Pathology/Cytolog y TISSUE SPECIMEN FROM SKIN / Unknown 08/03/2022 08/17/2022 11:38 AM DESTINATION COORDINATOR us Leo Hernandez MD LAB - PATHOLOGY/CYTOLOGY ORDER NORMAN Final Result DERMATOPATHOLOGY LABORATORY [facility] - Department of Dermatology [facility] [address] [place] [address], [address] [phone] documented in this encounter Visit Diagnoses Not on filedocumented in this encounter Care Teams Color Paste Mixer Relationship Specialty Start Date End Date Mango French MD [address] [place] [address] PCP - General 08/02/21 documented as of this encounter
--- OUTSIDE RECORDS SUMMARY | 2025-08-14 10:31 | XMS_ITS | Encounter Summary ---
Author Organization [facility] Address [address] [place] [address] Care Team Providers Care Sack Filler Name Role Phone Mango French MD Primary Care Provider [phone] Encounter Details Date Type Department Care Team (Late st Contact Info) Description 12/18/2020 Lab Requisition [facility] [address] [place] [id number] Leo Hernandez MD [address] [place] [address] Social History Tobacco Use Types Packs/Day Years Used Date Smoking Tobacco: Never Smokeless Tobacco: Never Alcohol Use Standard Drinks/Week Comments No 0 (1 standard drink = 0.6 oz pur e alcohol) Comments No Sex and Gender Information Value Date Recorded Sex Assigned at Not on file Legal Sex Female 1:53 PM LADIES SUIT OPERATOR Gender Identity Not on file Sexual Orientation Not on file Occupation Industry Job Start Date Job End Date Retired Not on file Not on file Not on file documented as of this encounter Plan of Treatment Not on file documented as of this encounter Procedures Procedure Name Priority Date/Time Associated Diagnosis Comments DERMATOPATHOLOGY Routine 12/16/2020 3:33 AM LADIES SUIT OPERATOR documented in this encounter Results * DERMATOPATHOLOGY (12/16/2020 3:33 AM LADIES SUIT OPERATOR) Case Report Dermatopathology Report Case: [id number] Authorizing Provider: Leo Hernandez MD Collected: 12/16/2020 03:33 AM Ordering Location: [facility] Lab Received: 12/18/2020 07:28 AM Pathologist: Stella Burk MD Specimen: Skin, right mid back 1:58 PM CDT DERMATOPATHOLOGY LABORATORY Final Diagnosis Specimen A. 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 Path#[id number] 1:58 PM CDT DERMATOPATHOLOGY LABORATORY Gross Description [...] characteristic determined by the Dermatopathology Laboratory at [facility], directed by Dr. Viv Tracy. These tests need not be, and therefore are not, approved by the [place] Food and Drug Administration. The tests are used for clinical purposes. Billing Codes Specimen Charges Stain Charges 26626 1 1:58 PM CDT DERMATOPATHOLOGY LABORATORY Embedded Images 1:58 PM CDT DERMATOPATHOLOGY LABORATORY Pathology/Cytolo gy TISSUE SPECIMEN FROM SKIN / Unknown 12/16/2020 3:33 AM LADIES SUIT OPERATOR 12/18/2020 7:28 AM LADIES SUIT OPERATOR us Leo Hernandez MD LAB - PATHOLOGY/CYTOLOGY ORDER NORMAN Final Result DERMATOPATHOLOGY LABORATORY [facility] - Department of Dermatology [facility] Medicine [address] [place] [address], [address] [place] [address], [facility] [phone] documented in this encounter Visit Diagnoses Not on filedocumented in this encounter Care Teams Sack Filler Relationship Specialty Start Date End Date Mango French MD [address] [place] [address] PCP - General 08/02/21 documented as of this encounter
--- OUTSIDE RECORDS SUMMARY | 2025-08-14 10:31 | XMS_ITS | Patient Health Record ---
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 Name Role Phone FrenchMango cadena Unavailable Unavailable Reason For Referral No Information Medications Medication SIG (Take, Route, Frequency, Duration) Notes Start Date End Date Status 12 HR bupropion hydrochloride 150 MG Extended Release Oral Tablet [Wellbutrin] ORAL 12 HR bupropion hydrochloride 150 MG Extended Release Oral Tablet [Wellbutrin]Original [id number] HR bupropion hydrochloride 150 MG Extended Release Oral Tablet [Wellbutrin] *Reorder from [facility] for eRx and 02/09/2018 Active omeprazole 20 MG Delayed Release Oral Tablet [Prilosec] ORAL omeprazole 20 MG Delayed Release Oral Tablet [Prilosec]Original Medicationomeprazole 20 MG Delayed Release Oral Tablet [Prilosec] *Reorder from [facility] for eRx and Interaction Alerts* 02/09/2018 Active zolpidem tartrate 10 MG Oral Tablet [Ambien] ORAL zolpidem tartrate 10 MG Oral Tablet [Ambien]Original Medicationzolpidem tartrate 10 MG Oral Tablet [Ambien] *Reorder from [facility] for eRx and Interaction Alerts* 02/09/2018 Active calcium carbonate 1250 MG / cholecalciferol 1000 UNT / vitamin K 0.4 MG Chewable Tablet ORAL calcium carbonate 1250 MG / cholecalciferol 1000 UNT / vitamin K 0.4 MG Chewable TabletOriginal Medicationcalcium carbonate 1250 MG / cholecalciferol 1000 UNT / vitamin K 0.4 MG Chewable Tablet *Reorder from [facility] 02/09/2018 Active cobamamide 0.1 MG / vitamin B12 5 MG Sublingual Tablet cobamamide 0.1 MG / vitamin B12 5 MG Sublingual TabletOriginal Medicationcobamamide 0.1 MG / vitamin B12 5 MG Sublingual Tablet *Reorder from [facility] for eRx and Interaction Alerts* 02/09/2018 Active estrogens, conjugated ([facility] HOME) 0.3 MG Oral Tablet [Premarin] ORAL estrogens, conjugated (GROUP HOME) 0.3 MG Oral Tablet [Premarin]Original Medicationestrogens, conjugated (GROUP HOME) 0.3 MG Oral Tablet [Premarin] *Reorder from [facility] for eRx and Interaction Alerts* 04/16/2021 Active alprazolam 0.25 MG Oral Tablet [Xanax] ORAL alprazolam 0.25 MG Oral Tablet [Xanax]Original Medicationalprazolam 0.25 MG Oral Tablet [Xanax] *Reorder from [facility] for eRx and Interaction Alerts* 02/09/2018 Active Social History Social History Additional Details Category Social Info Options Details Migrated Social History Migrated Social History History of tobacco use : , Smoking Status : Never smoked Plan Of Treatment No Information Insurance Providers Payer Name Payer Address Payer Phone Subscriber Number Group Number Insured Name Patient Relationship to Insured Coverage Start Date Coverage End Date Medicare Part B [facility] [address] [place] [address] [id number] BREEZY MCKINNEY Self - patient is the insured for Life ([employer]) [address] [place], [place] [phone] [id number] ANU MCKINNEY Spouse - patient is the spouse of the insured
== END 2025-08-13 11:35 | disposition home or self-care (01) ==
PROVIDERS: Emergency Provider Nurse Practitioner; PCP Family Medicine
DX: M54.42 Lumbago with sciatica, left side (principal); I10 Essential (primary) hypertension; K21.9 Gastro-esophageal reflux disease without esophagitis; F41.9 Anxiety disorder, unspecified; F32.A Depression, unspecified; Z86.16 Personal history of COVID-19; Z79.82 Long term (current) use of aspirin
CPT/HCPCS: 96372; 99213; G0463; J1885

== ENCOUNTER 2025-09-11 18:22 | Emergency (ER) | payer MEDICARE, OTHER, SELFPAY ==
--- OUTSIDE RECORDS SUMMARY | 2025-09-10 02:00 | XMS_ITS ---
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 Role Phone Mango French MD Primary Care Provider Leana Tomlinson Unavailable [phone] REASON FOR VISIT 1 month f/u Medications Medication SIG (Take, Route, Frequency, Duration) Notes Start Date End Date Status clonazePAM 0.5 MG Tablet 0.5 to 1 whole tablet Orally Twice a day; Duration: 30 days As needed 09/10/2025 Active Zolpidem Tartrate 10 MG Tablet 1 tablet at bedtime Oral daily; Duration: 30 days As needed for insomnia 09/10/2025 10/10/2025 Active Sertraline HCl 100 MG Tablet 1.5 tablets Orally daily; Duration: 30 days increasing 09/10/2025 Active busPIRone HCl 15 MG Tablet 1 tablet Oral Once a day; Duration: 90 days 09/10/2025 03/09/2026 Active hydrOXYzine Pamoate 50 MG Capsule 1 capsule at bedtime Orally Once a day; Duration: 30 days As needed for sleep 09/10/2025 Active buPROPion HCl ER (SR) 150 MG Tablet Extended Release 12 Hour 1 tablet Oral Once a day; Duration: 90 days 09/10/2025 Active traMADol HCl 50 MG Tablet Oral; Duration: 30 Days Active Lidocaine 5% Patch External 02/14/2024 Active Omeprazole 20 MG Capsule Delayed Release Oral; Duration: 90 Days Active Rosuvastatin Calcium 5 MG Tablet 1 tablet Oral three times a week; Duration: 30 days Active Nitroglycerin 0.4 MG Tablet Sublingual Sublingual; Duration: 30 Days Not-Taking Vitamin B-12 1000 MCG Tablet Sublingual Sublingual 02/14/2024 Active valACYclovir HCl 500 MG Tablet 1 tablet Orally Once a day As needed Active Aspirin 81 81 MG Tablet Delayed Release 1 tablet Orally Once a day Active Ibsrela 50 MG Tablet 1 tablet Orally daily As needed Active Social History Tobacco Use: Social History Observation Description Date Details (start date - stop date) Never Smoker NA - NA Sex Assigned At : Social History Observation Description Sex Assigned At Female Social History Miscellaneous: Social Info Question Answer Notes Advance Care Planning Are you your own decision-maker Yes Do you have Power of Managed Care Director for Health or Medi levy? No Social History Social Info Question Answer [...] Intake: None 09/20/2021,Tobacco Years: Never smoker 09/20/2021 Encounters Encounter Location Date Provider Diagnosis [facility] [employer] [address] [place] [id number] 09/10/2025 Leana Dieudonne Major depressive disorder, recurrent, mild F33.0 ; Generalized anxiety disorder F41.1 ; Post-traumatic stress disorder, chronic F43.12 and Insomnia due to other mental disorder F51.05 Assessments Encounter Date Diagnosis (ICD Code) Assessment Notes Treatment Notes Treatment Clinical Notes Section Notes 09/10/2025 Major depressive disorder, recurrent, mild (ICD-10 - F33.0) 09/10/2025 Generalized anxiety disorder (ICD-10 - F41.1) 09/10/2025 Post-traumatic stress disorder, chronic (ICD-10 - F43.12) 09/10/2025 Insomnia due to other mental disorder (ICD-10 - F51.05) 09/10/2025 Francisco Mckinney is a female patient with anxiety and depression who reports variable anxiety symptoms with physical manifestations including hand tremors, while mood remains stable on current psychiatric medications. Anxiety with physical symptoms Patient reports variable anxiety with some good days and some difficult days. Physical manifestations include hand tremors that interfere with daily activities like eating, and internal sensations of warmth in arms during severe episodes. Patient has history of Xanax use for many years, which became less effective over time as it would work initially but wear off quickly. Currently on clonazepam which is a related medication but tends to be less of a heavy hitter and lasts longer. Patient was previously on 3 clonazepam tablets and is now down to 2. Has history of gastric bypass surgery which may affect medication absorption due to malabsorption. Current sertraline dose of 100 mg represents a milestone in treatment, with potential to increase up to 200 mg total for better 24 anxiety control. Plan: - Increase sertraline to 150 mg daily (tablet and a half taken all at once) - Continue clonazepam 1 tablet twice daily as needed; patient may try skipping doses if not needed or try half tablet - Continue buspirone morning dose only, discontinue nighttime dose - Continue hydroxyzine at bedtime for sleep support - Refills to be sent for all medications except buspirone Sleep disturbances Patient reports sleeping longer than usual, possibly too much. Previously had difficulty returning to sleep after bathroom trips but this has improved. Sleep quality has improved overall, leading to better mood and less irritability. Patient feels less tired since sleeping better. Currently on Ambien 10 mg nightly and hydroxyzine at bedtime. Long-term use of Ambien is not always recommended, making dose reduction a goal. Plan: - Continue hydroxyzine at bedtime - Continue Ambien at bedtime but try half tablet (5 mg) to reduce dose while maintaining sleep quality - Patient can return to full dose if sleep worsens with dose reduction Depression Patient reports depression is well-controlled and mood has been good. No concerns with suicidal thoughts. Mood improvement correlates with better sleep quality. Patient has history of depression worsening when buspirone was reduced in the past, requiring return to therapy and outpatient treatment. This occurred after gastric bypass surgery. Plan: - Continue Wellbutrin sustained release 150 mg in the morning - Increase sertraline to 150 mg daily for improved mood stabilization Medical Decision Making Sophie Mckinney is a female patient with anxiety and depression presenting for psychiatric follow-up with mixed response to current treatment regimen. The patient reports good mood control and resolution of previous depression symptoms, indicating effective antidepressant therapy with sertraline at current dosing. However, persistent anxiety symptoms with physical manifestations including tremor and internal sensations of warmth suggest suboptimal anxiolytic control despite multiple medications including clonazepam, buspirone, and hydroxyzine. The patient's improved sleep quality but excessive sleep duration indicates possible medication-related sedation effects. Given the patient's history of gastric bypass surgery, malabsorption may be affecting medication efficacy, requiring consideration of dosing adjustments. The patient's previous poor response to buspirone reduction with resulting depression relapse and need for intensive therapy demonstrates the complexity of her medication regimen and sensitivity to changes. Current anxiety breakthrough symptoms occurring on some days despite multiple anxiolytics suggests need for optimization of the primary anxiolytic medication rather than relying solely on adjunctive treatments. Plan Of Treatment Medication Medication Name Sig Start Date Stop Date Notes clonazePAM 0.5 MG Tablet 0.5 to 1 whole tablet Orally Twice a day; Duration: 30 days 09/10/2025 Zolpidem Tartrate 10 MG Tablet 1 tablet at bedtime Oral daily; Duration: 30 days 09/10/2025 10/10/2025 Sertraline HCl 100 MG Tablet 1.5 tablets Orally daily; Duration: 30 days 09/10/2025 increasing busPIRone HCl 15 MG Tablet 1 tablet Oral Once a day; Duration: 90 days 09/10/2025 03/09/2026 hydrOXYzine Pamoate 50 MG Capsule 1 capsule at bedtime Orally Once a day; Duration: 30 days 09/10/2025 buPROPion HCl ER (SR) 150 MG Tablet Extended Release 12 Hour 1 tablet Oral Once a day; Duration: 90 days 09/10/2025 Next Appt Details Follow Up: 6 Weeks, Reason: Provider Name:Leana stein, 10/22/2025 08:00:00 AM, [address] [facility] [address], [facility] [address], [place], [address], History and Physical Notes * HPI (History of Present Illness) Category Sub-Category Detail Notes Category Not es Depression screening PHQ-9 Little inte rest or pleasure in doing things: Not at all Feeling down, depressed, or hopeless: No t at all Trouble falling or staying asleep, or sl eeping too much: Not at all Feeling tired or having little energy: S everal days Poor appetite or overeating: Not at all Feeling bad about yourself o r that you are a failure, or have let yourself or your family down: Not at all Trouble concentrating on thi ngs, such as reading the newspaper or watching television: Not at all Moving or speaking so slowly that other people could have noticed; or the opposite, being so fidgety or restless that you have been moving around a lot more than usual: Not at all Thoughts that you would be b collin off or of hurting yourself in some way: Not at all Total Score: 1 Interpretation: Minimal Depression Intervention Depression Screening Findings: N egative Follow-Up for Depression: Psychiatric fo llow-up Suicide Risk Assessment Performed: --sonal e Functional Status Functional Status Assessment F all Risk Assessment:: No falls in the past year Depression Screening KACIE-7 (2018 Edition) Feelin g nervous, anxious, or on edge: More than half the days Not being able to stop or control worryi ng: Several days Worrying too much about different things : Several days Trouble relaxing: Not at all Being so restless that it is hard to sit still: Not at all Becoming easily annoyed or irritable: Se veral days Feeling afraid as if something awful rocael ht happen: Not at all Total KACIE-7 Score: 5 If you checked any problems, how difficult have they made it for you to do your work, take care of things at home, or get along with other people?: Somewhat difficult Interpretation of Total: (5 to 9) Mild [place]-Suicide Severity Rating Scale Suicide Risk (CSRS-screener) in the past one month Have you wished you were or wished you could go to sleep and not wake up?: No in the past one month Have y ou actually had any thoughts of killing yourself?: No Examination Category Sub-Category Detail Notes Category Not es General Examination Mental Status Exam - Behavior: Cooperative with the evaluation process. - Appearance: Groomed, well nourished, in no acute distress. - Motor: Reports hand tremors that vary in severity from day to day, describing hands as real shaky on some days. - Mood: Reports mood has been good, not feeling down or struggling with depression - Affect: Appropriate, mood-congruent. - Thought Process: Linear and goal-directed, as evidenced by appropriate responses to questions. - Thought Content: Denies suicidal ideations when directly asked. No hallucinations, delusion, paranoia evident. - Cognition: Alert and oriented. Able to engage in conversation and discuss medication effects. - Insight: Good insight demonstrated by awareness of mental health symptoms and medication needs. - Judgment: Good judgment evident by proactive communication about symptoms, medications, and adherence to treatment plan. Progress Notes * SOPHIE MCKINNEY SDOB:1954 (70 yo F)Acc No.[id number]:09/10/2025 Patient: SOPHIE BONE Provider: Leeann Bro :1955 A ge:70 Y S ex:Female Date:09/10/2025 Address:[facility] [address], [facility], [id number] Pcp:Mango French MD Subjective: * Chief Complaints: * 1 month f/u * HPI: H istory of Presenting Problem: 70 y/o female, , hx of depression, anxiety, insomnia. Long-term benzodiazepine use, currently trying to wean down, and ambien use. Context: had TBI 5 yrs ago, struggles with symptoms since: light and sound sensitivity, which she states will be with me the rest of my life. and memory concerns. This note is transcribed using speech recognition software. It is a reflection of a visit with the patient. It might have some inaccuracy, including medication names and transcribing errors, though efforts have been made to correct them. History of Present Illness Sophie Mckinney is a female patient with a history of anxiety and depression who presents for psychiatric follow-up reporting mixed progress with anxiety symptoms. She reports that her mood has been good and she is not struggling with depression, but anxiety continues to be problematic with variable days - some good and some not so good. She experiences physical manifestations of anxiety including hand tremors that are particularly bothersome when eating, causing her to avoid eating in front of others except her . During severe episodes, she describes feeling like her arms are hot and experiencing internal warmth. The patient reports improved sleep patterns since her last visit, noting she can now fall back asleep after getting up to use the bathroom, whereas previously she would remain awake. However, she is concerned about sleeping longer than usual, possibly too much. She denies suicidal thoughts and reports her appetite has been okay. Regarding medication adherence, she has been taking sertraline 100mg daily in the afternoon, which was increased at the last visit. She continues clonazepam one tablet twice daily as needed, buspirone twice daily (morning and bedtime), hydroxyzine at bedtime, and Ambien 10mg nightly. She discontinued Benadryl when hydroxyzine was started and has not needed to use nitroglycerin as she has not experienced chest pain. The patient had recent cardiology follow-up where her component overhaul operator made medication adjustments, changing rosuvastatin from daily to three times weekly and adding baby aspirin three times weekly. She reports significant weight loss of 40 pounds since her last cardiology visit, and her blood pressure has improved to the point where she is no longer on blood pressure medication. She mentions having a history of heart issues on her father's side of the family and had one bad cardiac episode a few years ago, for which she continues to carry nitroglycerin as a precaution. The patient acknowledges being on multiple medications but feels they are working overall, with only occasional problematic days. She expresses a desire for her anxiety to completely resolve and notes her previous experience with Xanax, which she was on for many years before switching to clonazepam due to tolerance issues where Xanax would work initially but wear off quickly. Medications and Supplements Rosuvastatin 5 mg three times weekly as changed by component overhaul operator from daily dosing. Baby aspirin three times weekly as changed by component overhaul operator from daily dosing. Sertraline 100 mg daily taken in the afternoon, increased from previous dose last visit, with mood reported as fine and anxiety coming and going. Wellbutrin sustained release 150 mg taken in the morning. BuSpar 2 tablets daily with one in the morning and one at bedtime. Clonazepam 1 tablet twice daily as needed, previously on 3 tablets daily. Hydroxyzine at bedtime for sleep and anxiety, replaced Benadryl which was discontinued when hydroxyzine was started. Ambien 10 mg at bedtime daily for sleep with patient reporting sleeping longer and possibly too much. Previously took Xanax for many years but discontinued as it would work initially then wear off quickly and was no longer effective. Previously took blood pressure medication but no longer on it. Carries nitroglycerin in purse as instructed by component overhaul operator but has not needed to use it, had one bad episode a few years ago. Medical History - Anxiety disorder - Depression, currently in remission - Heart issues with family history on paternal side - History of chest pain episode requiring nitroglycerin prescription - Gastric bypass surgery with associated malabsorption issues - Previous hypertension, no longer requiring medication - History of outpatient therapy following gastric bypass surgery when depression worsened Social History - Living Situation: Lives with who is supportive and understanding of her condition Review of Systems Constitutional: Reports significant weight loss of 40 pounds since last visit with component overhaul operator, denies appetite changes. Psychiatric: Reports anxiety with good and bad days, experiences hand tremors/shakiness, mood has been good, denies depression or suicidal ideations, reports sleeping longer than usual but able to fall asleep and return to sleep after waking. Neurological: Reports hand tremors/shakiness on some days, describes feeling of warmth in arms during anxiety episodes. Cardiovascular: Denies chest pains, no longer on blood pressure medication, carries nitroglycerin as precaution but has not needed to use it. Gastrointestinal: History of gastric bypass surgery with malabsorption concerns affecting medication absorption. C ontributing Factors: ongoing notes: former Dr. Alaniz pt -Xanax hx: t aken for over 20 years, up to 3-4 tablets daily. tapered off and switched to clonazepam around 1 year ago - Long-term use of Ambien for sleep (approximately 15 years). D epression Screening: KACIE-7 (2018 Edition) F eeling nervous, anxious, or on edge M ore than half the days N ot being able to stop or control worrying?Several days W orrying too much about different things S everal days T rouble relaxing N ot at all B eing so restless that it is hard to sit still N ot at all B ecoming easily annoyed or irritable S everal days F eeling afraid as if something awful might happen N ot at all T otal KACIE-7 Score 5 I f you checked any problems, how difficult have they made it for you to do your work, take care of things at home, or get along with other people? S omewhat difficult I nterpretation of Total ( 5 to 9) Mild [place]-Suicide Severity Rating Scale: Suicide Risk (CSRS-screener) i n the past one month Have you wished you were or wished you could go to sleep and not wake up? N o i n the past one month Have you actually had any thoughts of killing yourself? N o D epression screening: PHQ-9 L ittle interest or pleasure in doing things?Not at all F eeling down, depressed, or hopeless N ot at all T rouble falling or staying asleep, or sleeping too much N ot at all F eeling tired or having little energy S everal days P oor appetite or overeating N ot at all F eeling bad about yourself or that you are a failure, or have let yourself or your family down N ot at all T rouble concentrating on things, such as reading the newspaper or watching television N ot at all M oving or speaking so slowly that other people could have noticed; or the opposite, being so fidgety or restless that you have been moving around a lot more than usual N ot at all T houghts that you would be better off or of hurting yourself in some way N ot at all T otal Score 1 I nterpretation M inimal Depression Intervention D epression Screening Findings N egative F ollow-Up for Depression P sychiatric follow-up S uicide Risk Assessment Performed - -date F unctional Status: Functional Status Assessment F all Risk Assessment: N o falls in the past year * Medical History: Problems: Chronic post-concussion headache Chronic post-traumatic stress disorder Concussion injury of brain Family bereavement Insomnia disorder related to another mental disorder Severe recurrent major depression without psychotic features Past Psychiatric History: Anxiety Disorder * Surgical History: Hysterectomy/revise vagina (80824) Bypass of stomach ([id number]) Removal of gallbladder (67865) Appendectomy (75429) Sinus surgery 11/07/2000 Lipoma removal x2 06/30/2025 * Social History: T obacco Use: T obacco Control (Standard) T obacco use: N onsmoker M igrated Social History: M igrated Social History: Alcohol Intake: None 09/20/2021,Tobacco Years: Never smoker 09/20/2021. D rug/Alcohol: D rugs H ave you used drugs other than those for medical reasons in the past 12 months? N o AUDIT-C (Standard) D id you have a drink containing alcohol in the past year? N o H ousehold: H ousehold M arital status: brain arried M iscellaneous: A dvance Care Planning A re you your own decision-maker Y es D o you have Power of Managed Care Director for Health or Medical? N o S ocial History: Lauren Da Silva arital Status: Brain arried * Medications: T akingAspirin 81 81 MG Tablet Delayed Release 1 tablet Orally Once a day valACYclovir HCl 500 MG Tablet 1 tablet Orally Once a day As neededIbsrela 50 MG Tablet 1 tablet Orally daily As neededVitamin B-12 1000 MCG Tablet Sublingual Sublingual Lidocaine 5% Patch External Rosuvastatin Calcium 5 MG Tablet 1 tablet Oral three times a week Omeprazole 20 MG Capsule Delayed Release Oral traMADol HCl 50 MG Tablet Oral buPROPion HCl ER (SR) 150 MG Tablet Extended Release 12 Hour 1 tablet Oral Once a day clonazePAM 0.5 MG Tablet 1 tablet Orally Twice a day As neededbusPIRone HCl 15 MG Tablet 1 tablet Oral Twice a day , stop date 02/01/2026Sertraline HCl 100 MG Tablet 1 tablet Orally Once a day , Notes to Pharmacist: increasinghydrOXYzine Pamoate 50 MG Capsule 1 capsule at bedtime Orally Once a day As needed for sleep, do not take with benadryl, Notes to Pharmacist: increasing, DC 25 mg if availableTaking Aspirin 81 81 MG Tablet Delayed Release 1 tablet Orally Once a day Taking valACYclovir HCl 500 MG Tablet 1 tablet Orally Once a day As neededTaking Ibsrela 50 MG Tablet 1 tablet Orally daily As neededTaking Vitamin B-12 1000 MCG Tablet Sublingual Sublingual Taking Lidocaine 5% Patch External Taking Rosuvastatin Calcium 5 MG Tablet 1 tablet Oral three times a week Taking Omeprazole 20 MG Capsule Delayed Release Oral Taking traMADol HCl 50 MG Tablet Oral Taking buPROPion HCl ER (SR) 150 MG Tablet Extended Release 12 Hour 1 tablet Oral Once a day Taking clonazePAM 0.5 MG Tablet 1 tablet Orally Twice a day As neededTaking busPIRone HCl 15 MG Tablet 1 tablet Oral Twice a day , stop date 02/01/2026Taking Sertraline HCl 100 MG Tablet 1 tablet Orally Once a day , Notes to Pharmacist: increasingTaking hydrOXYzine Pamoate 50 MG Capsule 1 capsule at bedtime Orally Once a day As needed for sleep, do not take with benadryl, Notes to Pharmacist: increasing, DC 25 mg if availableNot-TakingNitroglycerin 0.4 MG Tablet Sublingual Sublingual Not-Taking Nitroglycerin 0.4 MG Tablet Sublingual Sublingual DiscontinueddiphenhydrAMINE HCl 25 MG Capsule 1 capsule at bedtime as needed Orally Once a day Omeprazole 20 MG Capsule Delayed Release Oral Potassium Chloride ER 10 MEQ Tablet Extended Release Oral hydroCHLOROthiazide 25 MG Tablet Oral Discontinued diphenhydrAMINE HCl 25 MG Capsule 1 capsule at bedtime as needed Orally Once a day Discontinued Omeprazole 20 MG Capsule Delayed Release Oral Discontinued Potassium Chloride ER 10 MEQ Tablet Extended Release Oral Discontinued hydroCHLOROthiazide 25 MG Tablet Oral * Allergies: y esAllergies Verified. Objective: * Examination: G eneral Examination: M ental Status Exam - Behavior: Cooperative with the evaluation process. - Appearance: Groomed, well nourished, in no acute distress. - Motor: Reports hand tremors that vary in severity from day to day, describing hands as real shaky on some days. - Mood: Reports mood has been good, not feeling down or struggling with depression - Affect: Appropriate, mood-congruent. - Thought Process: Linear and goal-directed, as evidenced by appropriate responses to questions. - Thought Content: Denies suicidal ideations when directly asked. No hallucinations, delusion, paranoia evident. - Cognition: Alert and oriented. Able to engage in conversation and discuss medication effects. - Insight: Good insight demonstrated by awareness of mental health symptoms and medication needs. - Judgment: Good judgment evident by proactive communication about symptoms, medications, and adherence to treatment plan. Assessment: * Assessment: 1. M ajor depressive disorder, recurrent, mild - F33.0 (Primary) 2 . G eneralized anxiety disorder - F41.1 3 . P ost-traumatic stress disorder, chronic - F43.12 4 . I nsomnia due to other mental disorder - F51.05 Plan: * Treatment: 2. G eneralized anxiety disorder Refill clonazePAM Tablet, 0.5 MG, 0.5 to 1 whole tablet, Orally, Twice a day As needed, 30 days, 60 Tablet, Refills 0; D ecrease busPIRone HCl Tablet, 15 MG, 1 tablet, Oral, Once a day, 90 days, 90 Tablet, Refills 1; I ncrease Sertraline HCl Tablet, 100 MG, 1.5 tablets, Orally, daily, 30 days, 45 Tablet, Notes to Pharmacist: increasing. 3. I nsomnia due to other mental disorder Refill hydrOXYzine Pamoate Capsule, 50 MG, 1 capsule at bedtime, Orally, Once a day As needed for sleep, 30 days, 30 Capsule; R efill Zolpidem Tartrate Tablet, 10 MG, 1 tablet at bedtime, Oral, daily As needed for insomnia, 30 days, 30 Tablet. 4. O thers Clinical Notes: Sophie Mckinney is a female patient with anxiety and depression who reports variable anxiety symptoms with physical manifestations including hand tremors, while mood remains stable on current psychiatric medications. Anxiety with physical symptoms Patient reports variable anxiety with some good days and some difficult days. Physical manifestations include hand tremors that interfere with daily activities like eating, and internal sensations of warmth in arms during severe episodes. Patient has history of Xanax use for many years, which became less effective over time as it would work initially but wear off quickly. Currently on clonazepam which is a related medication but tends to be less of a heavy hitter and lasts longer. Patient was previously on 3 clonazepam tablets and is now down to 2. Has history of gastric bypass surgery which may affect medication absorption due to malabsorption. Current sertraline dose of 100 mg represents a milestone in treatment, with potential to increase up to 200 mg total for better 24/7 anxiety control. Plan: - Increase sertraline to 150 mg daily (tablet and a half taken all at once) - Continue clonazepam 1 tablet twice daily as needed; patient may try skipping doses if not needed or try half tablet - Continue buspirone morning dose only, discontinue nighttime dose - Continue hydroxyzine at bedtime for sleep support - Refills to be sent for all medications except buspirone Sleep disturbances Patient reports sleeping longer than usual, possibly too much. Previously had difficulty returning to sleep after bathroom trips but this has improved. Sleep quality has improved overall, leading to better mood and less irritability. Patient feels less tired since sleeping better. Currently on Ambien 10 mg nightly and hydroxyzine at bedtime. Long-term use of Ambien is not always recommended, making dose reduction a goal. Plan: - Continue hydroxyzine at bedtime - Continue Ambien at bedtime but try half tablet (5 mg) to reduce dose while maintaining sleep quality - Patient can return to full dose if sleep worsens with dose reduction Depression Patient reports depression is well-controlled and mood has been good. No concerns with suicidal thoughts. Mood improvement correlates with better sleep quality. Patient has history of depression worsening when buspirone was reduced in the past, requiring return to therapy and outpatient treatment. This occurred after gastric bypass surgery. Plan: - Continue Wellbutrin sustained release 150 mg in the morning - Increase sertraline to 150 mg daily for improved mood stabilization Medical Decision Making Sophie Mckinney is a female patient with anxiety and depression presenting for psychiatric follow-up with mixed response to current treatment regimen. The patient reports good mood control and resolution of previous depression symptoms, indicating effective antidepressant therapy with sertraline at current dosing. However, persistent anxiety symptoms with physical manifestations including tremor and internal sensations of warmth suggest suboptimal anxiolytic control despite multiple medications including clonazepam, buspirone, and hydroxyzine. The patient's improved sleep quality but excessive sleep duration indicates possible medication-related sedation effects. Given the patient's history of gastric bypass surgery, malabsorption may be affecting medication efficacy, requiring consideration of dosing adjustments. The patient's previous poor response to buspirone reduction with resulting depression relapse and need for intensive therapy demonstrates the complexity of her medication regimen and sensitivity to changes. Current anxiety breakthrough symptoms occurring on some days despite multiple anxiolytics suggests need for optimization of the primary anxiolytic medication rather than relying solely on adjunctive treatments. * Procedure Codes: 1 036F TOBACCO [id number] BEHAV ASSMT W/SCORE & DOCD/STAND [id number] VISIT COMPLEXITY INHERENT TO ONGOING CARE RELATED TO A PATIENT'S SINGLE, SERIOUS CONDITION OR A COMPLEX CONDITION * Preventive Medicine: Screenings: D epression screening Have you had a recent depression screening? Y es * Follow Up: 6 Weeks Billing Information: * Visit Code: 01842 OFFICE OUTPATIENT VISIT 25 MINUTES DETAILED HISTORY AND EXAM/MODERATE MEDICAL DECISION MAKING. * Procedure Codes: 1036F TOBACCO NON-USER. 78863 BEHAV ASSMT W/SCORE & DOCD/STAND INSTRUMENT. G2211 VISIT COMPLEXITY INHERENT TO ONGOING CARE RELATED TO A PATIENT'S SINGLE, SERIOUS CONDITION OR A COMPLEX CONDITION. * DATA DEVELOPER Sign off status: Completed true * Provider: Leeann Bro Date: 11/11/2024 Generated for Yaa elena/[place] on: 1 11/12/2024 06:24 PM TERADATA DEVELOPER
--- OUTSIDE RECORDS SUMMARY | 2025-09-11 18:25 | XMS_ITS | Clinical Summary ---
Author Organization [facility] Address [address] [place] [address] Care Team Providers Care Die Out Worker Name Role Phone Delfino Lima MD Primary [...] screening mammogram in one year. DICTATION LOCATION: [facility] Narrative 05/25/2020 3:33 PM CDT MAMMO [...] screening mammogram in one year. DICTATION LOCATION: [facility] Vaibhav Garsia MD MAMMO ORDERABLES Final Result from Last 3 Months or Most Recently Relevant to Health Maintenance Insurance MEDICARE PART A AND B [facility] Address: [place] [id number] Care Teams Die Out Worker Relationship Specialty Start Date End Date Delfino Lima MD [address] [place] [address] PCP - General 06/12/18
--- OUTSIDE RECORDS SUMMARY | 2025-09-11 18:25 | XMS_ITS | Encounter Summary ---
Author Organization [facility] Address [address] [place] [address] Care Team Providers Care Supervisor Finish End Name Role Phone Mango French MD Primary Care Provider [phone] Encounter Details Date Type Department Care Team (Late st Contact Info) Description 12/18/2020 Lab Requisition [facility] Care DermPath Lab [address] [place] [id number] Leo Hernandez MD [address] [place] [address] Social History Tobacco Use Types Packs/Day Years Used Date Smoking Tobacco: Never Smokeless Tobacco: Never Alcohol Use Standard Drinks/Week Comments No 0 (1 standard drink = 0.6 oz pur e alcohol) Comments No Sex and Gender Information Value Date Recorded Sex Assigned at Not on file Legal Sex Female 1:53 PM ASSISTANT DRAFTER Gender Identity Not on file Sexual Orientation Not on file Occupation Industry Job Start Date Job End Date Retired Not on file Not on file Not on file documented as of this encounter Plan of Treatment Not on file documented as of this encounter Procedures Procedure Name Priority Date/Time Associated Diagnosis Comments DERMATOPATHOLOGY Routine 12/16/2020 3:33 AM ASSISTANT DRAFTER documented in this encounter Results * DERMATOPATHOLOGY (12/16/2020 3:33 AM ASSISTANT DRAFTER) Case Report Dermatopathology Report Case: [id number] Authorizing Provider: Leo Hernandez MD Collected: 12/16/2020 03:33 AM Ordering Location: [facility] DermPath Lab Received: 12/18/2020 07:28 AM Pathologist: Stella Burk MD Specimen: Skin, right mid back 1:58 PM CDT DERMATOPATHOLOGY LABORATORY Final Diagnosis Specimen A. 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 Path#[id number] 1:58 PM CDT DERMATOPATHOLOGY LABORATORY Gross Description [...] characteristic determined by the Dermatopathology Laboratory at [facility], directed by Dr. Viv Tracy. These tests need not be, and therefore are not, approved by the [place] Food and Drug Administration. The tests are used for clinical purposes. Billing Codes Specimen Charges Stain Charges 91586 1 1:58 PM CDT DERMATOPATHOLOGY LABORATORY Embedded Images 1:58 PM CDT DERMATOPATHOLOGY LABORATORY Pathology/Cytolo gy TISSUE SPECIMEN FROM SKIN / Unknown 12/16/2020 3:33 AM ASSISTANT DRAFTER 12/18/2020 7:28 AM ASSISTANT DRAFTER us Leo Hernandez MD LAB - PATHOLOGY/CYTOLOGY ORDER NORMAN Final Result DERMATOPATHOLOGY LABORATORY [facility] - Department of Dermatology [facility] Medicine [address] [place] [address], [address] [place] [address], [facility] [phone] documented in this encounter Visit Diagnoses Not on filedocumented in this encounter Care Teams Supervisor Finish End Relationship Specialty Start Date End Date Mango French MD [address] [place] [address] PCP - General 08/02/21 documented as of this encounter
--- OUTSIDE RECORDS SUMMARY | 2025-09-11 18:25 | XMS_ITS | Clinical Summary ---
Author Organization [facility] Address [address] [place] [address] Care Team Providers Care Heel Brusher Name Role Phone Mango French MD Primary Care Provider Source Comments [facility],non-owned Affiliates and Associated Physician Practices is amultiple site organization consisting of ambulatory clinics and hospital sitesin [place], [place], [place] and [place]. This disclosure is being madepursuant to the Care Everywhere program and may not contain all information available regarding this patient. Last updated 18.[facility] Allergies Active Allergy Reactions Criticality Noted Date [...] CDT - 06/27/2025 2:10 PM CDT Surgery [facility] [address] [place] [address] Procedure, Nursing G_I MANOMETRY/SENSATION TESTING ANORECTAL 06/27/2025 11:51 AM CDT - 06/27/2025 1:47 PM CDT Hospital Encounter [facility] OP [address] [place] [address] Claudio Aguayo MD Surgery General Discharge Disposition: Home or Self Care 06/27/2025 Travel from Last 3 Months Family History Relation [...] on file Legal Sex Female 1:53 PM TRUCK UNLOADER Gender Identity Not on file Sexual Orientation [...] 50+ (1 of 1 - PCV) 02/07/2006 Respiratory Syncytial Virus (RSV) Vaccine Pt: or over 60 yrs (1 - Risk 50-74 years 1-dose series) 02/07/2006 ZOSTER VACCINE (1 of 2) 02/07/2006 SCREENING FOR DIABETES 10/30/2018 05/15/2012 DEPRESSION SCREENING [...] Associated Diagnosis Comments ANORECTAL MANOMETRY Routine 06/27/2025 1 :47 PM CDT DE RECTAL SENSATION TONE AND COMPLIANCE TEST 06/27/2025 12:55 PM CDT Incontinence of feces, unspecified fecal incontinence type COMPREHENSIVE METABOLIC PANEL STAT 05/15/2012 5:05 PM CDT from Last 3 Months or Most Recently Relevant to Health Maintenance Results * Anorectal Manometry (06/27/2025 1:47 PM CDT) Narrative [facility] - 06/27/2025 1:47 PM CDT Claudio Aguayo MD 07/01/2025 1:58 PM GI Physiology Note Ms. Mckinney attended [facility] for anorectal manometry. Please see media tab for full report and interpretation. Please note that the physical written reports are scanned to [employer] and can take 24-48 hours to be [...] process) for this service as noted above. Papi Cagle MD GI PROCEDURE ORDERA BLES Final Result [facility] * (ABNORMAL) COMPREHENSIVE METABOLIC PANEL (05/15/2012 5:05 PM CDT) Glucose 116(H) 65 - 105 mg/dl [facility] BUN 9 7 - 21 mg/dl [facility] Creatinine 0.66 0.50 - 1.30 mg/dl [facility] Sodium 140 136 - 145 mmol/L [facility] Potassium 4.0 3.5 - 5.1 mmol/L [facility] Chloride 104 98 - 107 mmol/L [facility] CO2 27 22 - 30 mmol/L [facility] Calcium 9.0 8.5 - 10.1 mg/dl [facility] Bilirubin Total 1.0 0.2 - 1.0 mg/dl [facility] Alkaline Phosphatase 58 38 - 126 U/L [facility] AST 22 5 - 40 U/L [facility] ALT 21 12 - 78 U/L [facility] Protein Total 7.1 6.4 - 8.2 gm/dl [facility] Albumin 3.8 3.4 - 5.0 gm/dl [facility] eGFR By MDRD >60 >60 [facility] Blood specimen (specimen) BLOOD SPECIMEN / Unknown 05/15/2012 5:05 PM CDT 05/15/2012 5:13 PM CDT us Víctor Hopper DO LAB - CHEMISTRY ORDERABLES Shanta phan Result [facility] [address] [place] [id number] from Last 3 Months or Most Recently Relevant to Health Maintenance Insurance MEDICARE [facility] SELF PAY NO INSURANCE Member Subscriber Plan / Payer (Ef fective for All Dates) Name:Sophie Mckinney Member ID:Not on file Relation to Subscriber:Self Name:SOPHIE MCKINNEY Subscriber ID:Not on file Payer ID:Not on file Group ID:Not on file Type:Self Pay Address: [place], [place] MEDICARE Care Teams Heel Brusher Relationship Specialty Start Date End Date Mango French MD [address] [place] [address] PCP - General 08/02/21
--- OUTSIDE RECORDS SUMMARY | 2025-09-11 18:25 | XMS_ITS | Clinical Summary ---
Author Organization [facility] Address [address] [place] [address] Care Team Providers Care Latex Dipper Name Role Phone Mango French MD Primary Care Provider Serafin Galicia DPM Unavailable [phone] Allergies No known active allergies Medications cyanocobalamin (Vitamin B-12) 1,000 mcg tabletIndicati ons:Prevention of Vitamin B12 Deficiency Take 1 tablet (1,000 mcg total) by mouth once a week Active calcium citrate/vitami n D3 (CITRACAL + D ORAL) Take 5 tablets by mouth daily Active folic acid/multivit- min/lutein (CENTRUM SILVER ORAL) Take 2 tablets by mouth daily Active omeprazole (PriLOSEC) 20 mg capsule Take 1 capsule (20 mg total) by mouth daily Active buPROPion SR (WELLBUTRIN SR) 150 mg 12 hr tablet Take 1 tablet (150 mg total) by mouth daily Active Trelegy Ellipta 200-62.5-25 mcg inhaler Inhale 1 puff as needed 2 Active zolpidem (AMBIEN) 10 mg tablet Take 1 tablet (10 mg total) by mouth nightly 8 Active traMADoL (ULTRAM) 50 mg tablet Take 1 tablet (50 mg total) by mouth every 6 (six) hours for 7 days 28 tablet 2 Active Additional Information Patient taking differently:50 mg oralAs needed, Reported on 08/25/2025 valACYclovir (VALTREX) 1 gram tablet Take 1 tablet (1,000 mg total) by mouth as needed Active Premarin 0.3 mg tablet 4 Active lidocaine (LIDODERM) 5 % daily as needed 4 Active clonazePAM (KlonoPIN) 0.5 mg tablet Take 1 tablet (0.5 mg total) by mouth 2 (two) times a day Active fexofenadine (JOHN) 180 mg tablet Take 1 tablet (180 mg total) by mouth daily Active buspirone HCl (BUSPIRONE ORAL) Take 15 mg by mouth 3 (three) times a day 4 Active docusate sodium (COLACE) 100 mg capsuleIndicat ions:constipat ion Take 3 capsules (300 mg total) by [...] a day 360 mL 3 5 Active hydrOXYzine (ATARAX) 50 mg tablet 5 Active sertraline (ZOLOFT) 100 mg tablet daily 5 Active rosuvastatin (CRESTOR) 5 mg tablet TAKE ONE TABLET BY MOUTH THREE TIMES WEEKLY 36 tablet 3 5 Active HYDROCHLOROTHI AZIDE ORAL Take 25 mg by mouth daily after lunch 08/25/20 25 Discontin ued(Patie nt Reported) potassium chloride ER 10 mEq CR tablet 4 08/25/20 25 Discontin ued(Patie nt Reported) rosuvastatin (CRESTOR) 5 mg tablet Take 1 tablet (5 mg total) by mouth daily 90 tablet 3 5 08/29/20 25 Discontin ued(Reord er) Active Problems Problem Noted Date Diagnosed Date Family history of ischemic heart disease 024 Essential hypertension 12/08/2023 WHEELER (dyspnea on exertion) 12/08/2023 Other chest pain 12/08/2023 Mild intermittent asthma without complication Deviated nasal septum 09/27/2019 Overview (09/27/2019): Added automatically from request for surgery [id number] Hypertrophy of nasal turbinates 09/27/2019 Overview (09/27/2019): Added automatically from request for surgery [id number] Depression 08/14/2012 Overview (01/13/2017): Depression Encounters Date Type Department Care Team Description 08/28/[address] [facility] Cardiology [address] [place] [phone] Martha Nguyen MD 08/25/2025 9:30 AM SIGN MAINTENANCE Office Visit [facility] [address] [place] [phone] Martha Nguyen MD Family history of ischemic heart disease (Primary Dx); Essential hypertension; Other chest pain; WHEELER (dyspnea on exertion) 08/25/[address] [facility] [address] [place] [phone] Shira Melendez MA Rosuvastatin 5 mg from Last 3 Months Surgical History Surgery [...] on file Legal Sex Female 10:58 AM SIGN MAINTENANCE Gender Identity Female 12/04/2020 6:25 AM SIGN MAINTENANCE Sexual Orientation Straight 12/04/2020 6: 25 AM SIGN MAINTENANCE Obstetrics History Para Term AB IAB SAB Ectopic Multiple Livin g Live Births 1 Date Outcome GA Total Labor Labor/2nd/3rd Weight Sex Type Anes PTL Brooke A1 A5 Name Clin Last Filed Vital Signs Vital Sign Reading Time Taken Comments Blood Pressure 110/68 08/25/2025 9:20 AM SIGN MAINTENANCE Pulse 84 08/25/2025 9:20 AM SIGN MAINTENANCE Temperature 36.8 C (98.2 F) 07/02/2023 8:54 AM CDT Respiratory Rate 18 12/08/2023 9:55 AM SIGN MAINTENANCE Oxygen Saturation 97% 08/25/2025 9:2 0 AM SIGN MAINTENANCE Inhaled Oxygen Concentration - - Weight 62.8 kg (138 lb 6.4 oz) 08/25/2025 9:20 AM SIGN MAINTENANCE Height 165.1 cm (5' 5) 08/25/2025 9:20 AM SIGN MAINTENANCE height updated per pt request Body Mass Index 23.03 08/25/2025 9:20 AM SIGN MAINTENANCE Plan of Treatment Health Maintenance Due Date Last Done Comments Colon Cancer Screening-Colonoscopy 1955 Depression Screening 1955 Hepatitis C Screening 1955 Hepatitis B Screening 02/07/1974 Pneumococcal vaccine 65+ (1 of 2 - PCV) 02/07/1975 Zoster Vaccine (1 of 2) 02/07/2006 Osteoporosis Screening-Bone Density Scan 08/06/2015 08/06/2013 Well Visit 65+ 02/07/2021 Fall Risk Assessment 03/02/2023 03/02/2022 Covid-19 Vaccine (4 - 2025-2 6 season) 2025 12/12/2021, 01/02/2021, 12/12/2020 Influenza Vaccine (#1) 2025 07/10/2020, 2014 DTaP/Tdap/Td Vaccine (3 - Td or Tdap) 06/17/2025 06/17/2015, 06/17/2015 Breast Cancer Screening-Mammogram 02/10/2026 02/10/2025, 11/13/2023, 09/19/2022, Additional history exists Medical Devices Implanted Type Area Esl Professor Device Identifier Shelf Expiration Date Model / Serial / Lot Unknown N/A: Neck [employer]plant[employer] 3x2in 1 Short Term Implantable Thk.03in Sheeting - [id number] Implanted:Qty: 1 on 11/01/2019 by Galo Chaney MD at [facility] Bilateral : Nose Implantech [id number] 01/08/2024 / / [id number] Procedures Procedure Name Priority Date/Time Associated Diagnosis [...] age 40, based on guidelines of the [employer] (ACR Practice Parameter for the Performance of Screening and Diagnostic Mammography) and [employer]. For women [...] PM: Lenny Hartley M.D. Lenny Hartley M.D. : 04:33 PM 04:33 PM [facility] [EOD] Narrative 08/06/2013 4:36 PM CDT [...] Hartley M.D. MD: 04:33 PM 04:33 PM [facility] [EOD] Delfino Lima MD IMG DXA PROCEDURES Final Result from Last 3 Months or Most Recently Relevant to Health Maintenance Insurance MEDICARE [employer] FOR [place] [address] FOR LIFE Advance Directives For more information, please contact: [phone] * Full Code (Latest Code Status on File) Date Activated Date Inactivated Comments 11/01/2019 2:17 PM 11/01/2019 8:39 PM Care Teams Latex Dipper Relationship Specialty Start Date End Date Mango French MD [address] [facility] [address] [place] [address] PCP - General Family Medicine 07/18/21 Serafin Galicia, CAROL [address] [facility] [address] [facility] [address] [place] [address] Consulting Physician Podiatry 03/09/22
--- OUTSIDE RECORDS SUMMARY | 2025-09-11 18:25 | XMS_ITS | Encounter Summary ---
Author Organization [facility] Address [address] [place] [address] Care Team Providers Care Dental Laboratory Technician Apprentice Name Role Phone Mango French MD Primary Care Provider [phone] Encounter Details Date Type Department Care Team (Late st Contact Info) Description 08/17/2022 Lab Requisition [facility] Care DermPath Lab [address] [place] [id number] Leo Hernandez MD [address] [place] [address] Social History Tobacco Use Types Packs/Day Years Used Date Smoking Tobacco: Never Smokeless Tobacco: Never Alcohol Use Standard Drinks/Week Comments No 0 (1 standard drink = 0.6 oz pur e alcohol) Comments No Sex and Gender Information Value Date Recorded Sex Assigned at Not on file Legal Sex Female 1:53 PM CLINICAL SUPPORT MANAGER Gender Identity Not on file Sexual [...] AM CDT) Case Report Dermatopathology Report Case: [id number] Authorizing Provider: Leo Hernandez MD Collected: 08/03/2022 12:00 AM Ordering Location: [facility] DermPath Lab Received: 08/17/2022 11:38 AM Pathologist: Stella Burk MD Specimen: Skin, left lower lat leg 12:37 PM [facility] DERMATOPATHOLOGY LABORATORY Final Diagnosis Specimen A. SKIN, left lower lat leg: HYPERPLASTIC (HYPERTROPHIC) ACTINIC KERATOSIS, ERODED (L57.0) (see microscopic description) 12:37 PM [facility] DERMATOPATHOLOGY LABORATORY at 1237 CLINICAL SUPPORT MANAGER Clinical History ISK vs SCC vs BCC. Path#[id number] 12:37 PM [facility] DERMATOPATHOLOGY LABORATORY Gross Description Specimen A: Received is one formalin filled container labeled with the patient's name and designated left lower lat leg. The specimen consists of a shave biopsy measuring 11x9x1 mm. Jar 0. 12:37 PM [facility] DERMATOPATHOLOGY LABORATORY Microscopic Description Specimen A. SKIN, left lower lat leg: There is hyperkeratosis alternating with parakeratosis. There is epidermal hyperplasia with disorderly maturation of keratinocytes with nuclear pleomorphism confined to the lower half of the epidermis. The epidermis is focally eroded. BerEP4 stains with lower epidermis only weakly. Mib-1 stain highlights proliferating keratinocytes within the lower half of the epidermis. 12:37 PM [facility] DERMATOPATHOLOGY LABORATORY Disclaimer An external and internal positive and negative controls are appropriate for the histochemical, immunohistochemical and immunofluorescence stain(s) in this case (if any), except where stated explicitly. The performance characteristics of the stain(s) cited in this report were developed and its performance characteristic determined by the Dermatopathology Laboratory at [facility], directed by Dr. Viv Tracy. These tests need not be, and therefore are not, approved by the [place] Food and Drug Administration. The tests are used for clinical purposes. Billing Codes Specimen Charges Stain Charges 59888 1 [id number] 1 1 12:37 PM [facility] DERMATOPATHOLOGY LABORATORY Embedded Images 12:37 PM [facility] DERMATOPATHOLOGY LABORATORY Pathology/Cytolog y TISSUE SPECIMEN FROM SKIN / Unknown 08/03/2022 08/17/2022 11:38 AM CLINICAL SUPPORT MANAGER us Leo Hernandez MD LAB - PATHOLOGY/CYTOLOGY ORDER NORMAN Final Result DERMATOPATHOLOGY LABORATORY [facility] - Department of Dermatology [facility] Special[facility] Medicine [address] [place] [address], [address] [phone] documented in this encounter Visit Diagnoses Not on filedocumented in this encounter Care Teams Dental Laboratory Technician Apprentice Relationship Specialty Start Date End Date Mango French MD [address] [place] [address] PCP - General 08/02/21 documented as of this encounter
--- OUTSIDE RECORDS SUMMARY | 2025-09-11 18:25 | XMS_ITS | Clinical Summary ---
Author Organization [facility] Address [address] [place] [address] Care Team Providers Care City Wellness Coordinator Name Role Phone Mango French MD Primary Care Provider Allergies Active Allergy Reactions Criticality Noted Date [...] mg by mouth every morning. Active Multiple Vitamins-Filter Washer als (MULTIVITAMIN ADULTS OR) Take 2 tablets [...] Comments Blood Pressure 137/74 10/13/2021 12:46 PM LAUNDERER HAND Pulse 64 10/13/2021 12:46 PM LAUNDERER HAND Temperature 36.8 C (98.3 F) 10/13/2021 12:46 PM LAUNDERER HAND Respiratory Rate 16 10/13/2021 12:46 PM LAUNDERER HAND Oxygen Saturation 100% 10/13/2021 12:46 PM LAUNDERER HAND Inhaled Oxygen Concentration - - Weight 67.4 kg (148 lb 9.4 oz) 10/13/2021 8:00 A M LAUNDERER HAND Height 166.4 cm (5' 5.5) 10/13/2021 8:00 AM LAUNDERER HAND Body Mass Index 24.35 10/13/2021 8:00 AM LAUNDERER HAND Plan of Treatment Health Maintenance Due Date Last Done Comments Colorectal Cancer Screening Colonoscopy (10 Years) 1956 Hepatitis C 02/07/1974 Mammogram Screening 1996 Pneumococcal Vaccine: 50+ Years (1 of 1 - PCV) 02/07/2006 Zoster Vaccines (1 of 2) 02/07/2006 Annual Medicare Wellness Visit 02/07/2021 Dexa Scan (General) 02/07/2021 COVID-19 Vaccine (2024-2 6 season) 2025 01/02/2021, 12/12/2020 DTaP, Tdap and Td Vaccines ( 2 - Td or Tdap) 06/17/2025 06/17/2015 Influenza Adult (#1) 2025 07/10/2020, 07/11/2015 RSV Immunization or 60+ Years (1 - 1-dose 75+ series) 02/07/2031 Hepatitis A Vaccines Aged Out No long er eligible based on patient's age to complete this topic Meningococcal B Vaccine Aged Out No l onger eligible based on patient's age to complete this topic Meningococcal Vaccine Aged Out No linda gaviota eligible based on patient's age to complete this topic RSV Immunizations Under 20 Months Aged Out No longer eligible b ased on patient's age to complete this topic Insurance Ex[employer]ite MEDICARE Care Teams City Wellness Coordinator Relationship Specialty Start Date End Date Mango French MD [address] [place] [phone] PCP - General FAMILY PRACTICE 10/07/21
--- OUTSIDE RECORDS SUMMARY | 2025-09-11 18:25 | XMS_ITS | Patient Health Record ---
Author Organization [facility] Address [address] [place], [place] [id number] Care Team Providers Care Gymnastics Coach Name Role Phone FrenchMango cadena Unavailable Unavailable Reason For Referral No Information Medications Medication SIG (Take, Route, Frequency, Duration) Notes Start Date End Date Status 12 HR bupropion hydrochloride 150 MG Extended Release Oral Tablet [Wellbutrin] ORAL 12 HR bupropion hydrochloride 150 MG Extended Release Oral Tablet [Wellbutrin]Original [id number] HR bupropion hydrochloride 150 MG Extended Release Oral Tablet [Wellbutrin] *Reorder from [facility] for eRx and 02/09/2018 Active omeprazole 20 MG Delayed Release Oral Tablet [Prilosec] ORAL omeprazole 20 MG Delayed Release Oral Tablet [Prilosec]Original Medicationomeprazole 20 MG Delayed Release Oral Tablet [Prilosec] *Reorder from [facility] for eRx and Interaction Alerts* 02/09/2018 Active zolpidem tartrate 10 MG Oral Tablet [Ambien] ORAL zolpidem tartrate 10 MG Oral Tablet [Ambien]Original Medicationzolpidem tartrate 10 MG Oral Tablet [Ambien] *Reorder from [facility] for eRx and Interaction Alerts* 02/09/2018 Active calcium carbonate 1250 MG / cholecalciferol 1000 UNT / vitamin K 0.4 MG Chewable Tablet ORAL calcium carbonate 1250 MG / cholecalciferol 1000 UNT / vitamin K 0.4 MG Chewable TabletOriginal Medicationcalcium carbonate 1250 MG / cholecalciferol 1000 UNT / vitamin K 0.4 MG Chewable Tablet *Reorder from Ca 02/09/2018 Active cobamamide 0.1 MG / vitamin B12 5 MG Sublingual Tablet cobamamide 0.1 MG / vitamin B12 5 MG Sublingual TabletOriginal Medicationcobamamide 0.1 MG / vitamin B12 5 MG Sublingual Tablet *Reorder from [facility] for eRx and Interaction Alerts* 02/09/2018 Active estrogens, conjugated (FCI) 0.3 MG Oral Tablet [Premarin] ORAL estrogens, conjugated (FCI) 0.3 MG Oral Tablet [Premarin]Original Medicationestrogens, conjugated (FCI) 0.3 MG Oral Tablet [Premarin] *Reorder from [facility] for eRx and Interaction Alerts* 04/16/2021 Active alprazolam 0.25 MG Oral Tablet [Xanax] ORAL alprazolam 0.25 MG Oral Tablet [Xanax]Original Medicationalprazolam 0.25 MG Oral Tablet [Xanax] *Reorder from [facility] for eRx and Interaction Alerts* 02/09/2018 Active [...] Date Coverage End Date Medicare Part B [employer] [facility] [address] [place] [address] [id number] BREEZY MCKINNEY Self - patient is the insured for Life ([employer]) [address] [place], [place] [phone] [id number] ANU MCKINNEY Spouse - patient is the spouse of the insured
[2025-09-11 18:29] VITALS: BP 185/91; PULSE 106; RESP 18; TEMP 36.7; O2SAT 100
--- NOTE | 2025-09-11 18:40 | PC.NURSE ---
Clemencia choudhary and Lenoa given to in room.
--- NOTE | 2025-09-11 19:08 | ED.EPISTAXIS ---
HPI - Epistaxis General Chief complaint: Epistaxis Stated complaint: nose bleed for an hour and a half, bleeding eye Time Seen by Provider: 09/11/25 18:35 History of Present Illness HPI Narrative: Patient is a 70-year-old female who presents ER with epistaxis. She was at a local restaurant when she started to bleed at of her right nose. She has been holding pressure but it will not stop bleeding. She is not on any blood thinners. She does take a baby aspirin. She has swallowed some blood. No chest pain or shortness of breath. No nausea or vomiting. She has not been having runny nose or sore throat or cough. She was not picking her nose or blowing her nose. Related Data Home Medications ?Medication ?Instructions ?Recorded ?Confirmed ?Last Taken ?Type bupropion HCl 150 mg tablet,12 hr 150 mg PO DAILY 09/07/20 07/31/25 06/30/25 History sustained-release zolpidem 10 mg tablet 10 mg PO .QHS 09/07/20 07/31/25 06/29/25 History aspirin 81 mg tablet,delayed 81 mg PO DAILY 05/23/24 07/31/25 06/29/25 History release (Adult Aspirin Regimen) clonazepam 0.5 mg tablet 0.5 mg PO BID 05/23/24 07/31/25 06/30/25 History nitroglycerin 0.4 mg sublingual 0.4 mg sublingual ONCE PRN chest 05/23/24 07/31/25 04/21/25 History tablet pain rosuvastatin 5 mg tablet 5 mg PO DAILY 05/23/24 07/31/25 06/29/25 History calcium 200 mg (as 5 tablet PO DAILY 09/27/24 07/31/25 06/27/25 History citrate)-vitamin D3 6.25 mcg (250 unit) tablet (Citracal-D3 Petites) cyanocobalamin (vitamin B-12) 1,000 mcg sublingual WEEKLY 09/27/24 07/31/25 06/27/25 History 1,000 mcg sublingual lozenge fluticasone fur. 200 mcg-umeclid 1 inh inhalation HS PRN shortness 10/15/24 07/31/25 05/27/25 History 62.5 mcg-vilant 25 mcg of breath or wheezing inhalat.powder (Trelegy Ellipta) omeprazole 20 mg capsule,delayed 20 mg PO DAILY PRN indigestion 10/15/24 07/31/25 05/28/25 History release buspirone 15 mg tablet 15 mg PO TID 06/30/25 07/31/25 06/29/25 History hydroxyzine HCl 50 mg tablet 25 mg PO HS 06/30/25 07/31/25 06/29/25 History Allergies Allergy/AdvReac Type Severity Reaction Status Date / Time No Known Allergies Allergy Verified 08/13/25 10:52 Review of Systems Review of Systems: All systems reviewed & are unremarkable except as noted in HPI and below Constitutional: Constitutional: Reports no additional constitutional complaints ENT: Reports system reviewed and no additional complaints, except as documented Cardiovascular: Cardiovascular: Reports no additional cardiovascular complaints Respiratory: Respiratory: Reports no additional respiratory complaints [facility] Past Medical History Medical History Lateral meniscus tear Right knee pain Tear meniscus knee Degenerative joint disease of knee Effusion of knee joint Left knee pain Trochanteric bursitis, right hip Colon cancer screening Non-cardiac chest pain COVID-19 virus infection Convergence insufficiency History of closed head injury Insomnia Anxiety Depression Allergic rhinitis GERD (gastroesophageal reflux disease) Hypertension Surgical History Surgical History History of lumpectomy benign History of hysterectomy History of tubal ligation History of fusion of cervical spine History of cholecystectomy Plantar fasciitis Hx of nasal septoplasty History of Yoly-en-Y gastric bypass Family History Family History Father Heart disease Mother Breast cancer Other Family history of malignant melanoma Social History Social History Social History: caffeine use Smoking status: Never smoker Second hand tobacco smoke exposure: No Alcohol intake: never Substance use: current Substance use type: painkillers Other substance usage details: Occasional tramadol as needed Lack of Transportation: No Lack of Food: Never True Current Housing: I Have Housing Concerned About Future Housing: No Difficulty Paying Gas/Electric Bills: No Difficulty Paying for Meds: No Currently Unemployed: No Education: High School Diploma/GED Difficulty w/ Childcare or Family Care: No Living arrangements: with family Additional living arrangements comments: Occupation/Education: retired Gender identity (if verbalized by the patient): Female Sexual Orientation (if Verbalized by the Patient): Straight or Heterosexual Spiritual care concerns: No Exam Narrative: GENERAL: Well-appearing, well-nourished, and in no acute distress. HEAD: Normocephalic, atraumatic. EYES: PERRL and EOMI. Bleeding from right medial canthus. ENT: Mucous membranes moist. Active bleeding from anterior medial source in the right nose. Controlled with cautery. Clot evacuated with irrigation. NECK: Supple. EXTREMITIES: Normal range of motion. No edema. SKIN: Warm, dry, no rash. NEURO: Alert and oriented x3. PSYCH: Normal mood and affect. Course Course Emergency Course: Bleeding controlled with cautery. Appropriate for discharge home. Vital Signs Vital signs: Vital Signs Temperature 98.0 F 09/11/25 18:29 Pulse Rate 106 H 09/11/25 18:29 Respiratory Rate 18 09/11/25 18:29 Blood Pressure 185/91 H 09/11/25 18:29 Pulse Oximetry 100 09/11/25 18:29 Oxygen Delivery Room Air 09/11/25 18:29 Temperature 98.0 F 09/11/25 18:29 Pulse Rate 106 H 09/11/25 18:29 Respiratory Rate 18 09/11/25 18:29 Blood Pressure 185/91 H 09/11/25 18:29 Pulse Oximetry 100 09/11/25 18:29 Oxygen Delivery Room Air 09/11/25 18:29 Procedures Epistaxis Control right: Nose Prepped With: oxymetazoline Direct Inspection: yes and anterior source identified Clots Removed by: blowing nose and manually Cautery Used: silver nitrate Patient Tolerated Procedure: well Complications: continued epistaxis MDM Differential Diagnosis Differential Diagnosis: Epistaxis, nasal foreign body, septum perforation Discharge Plan Discharge Clinical Impression: Epistaxis Patient Disposition: Home Condition: Stable Instructions: Nosebleed (ED) Additional Instructions: Return to the ER if you have severe uncontrolled bleeding that lasts longer than 20 minutes, you lose consciousness, or you are not able to breathe. After a severe episode of nosebleeding you may have a bowel movement that appears to have blood in it. This is due to the fact that you have swallowed a lot of blood. In order to prevent nosebleeds it is recommended that you use Ladora nasal spray to increase moisture in your nose, you apply Vaseline as a barrier cream with a Q-tip, and that you use a humidifier/vaporizer in your bedroom at night. If you have oxymetazoline (Afrin) available, this can be used twice a day for no longer than 3 days. It can help control your bleeding. You may use claritin or zyrtec as nasal decongestants if your have a runny/stuffy nose. Patient Language: Bhutanese Prescriptions: No Action clonazepam 0.5 mg tablet 0.5 mg PO BID rosuvastatin 5 mg tablet 5 mg PO DAILY nitroglycerin 0.4 mg tablet, sublingual 0.4 mg sublingual ONCE PRN (Reason: chest pain) aspirin [Adult Aspirin Regimen] 81 mg tablet,delayed release (DR/EC) 81 mg PO DAILY Premarin 0.3 mg tablet 0.3 mg PO DAILY Qty: 90 2RF Rx Instructions: cyclically lidocaine 5 % adhesive patch,medicated 1 patch topical DAILY PRN (Reason: back pain) Qty: 30 2RF Patient Comments: TO BACK NEEDED Rx Instructions: leave on most painful area for up to 12 hrs epinephrine [EpiPen 2-Godfrey] 0.3 mg/0.3 mL auto-injector 0.3 mg IM ONCE Qty: 2 3RF Patient Comments: hx of reaction, seen furniture mover driver, could not diagnose cause. EYE ISSUES Rx Instructions: as a single dose; may repeat once dicyclomine 10 mg capsule 10 mg PO BID Qty: 180 1RF bupropion HCl 150 mg tablet sustained-release 12 hr 150 mg PO DAILY zolpidem 10 mg tablet 10 mg PO .QHS calcium citrate-vitamin D3 [Citracal-D3 Petites] 200 mg-6.25 mcg (250 unit) tablet 5 tablet PO DAILY cyanocobalamin (vitamin B-12) 1,000 mcg lozenge 1,000 mcg sublingual WEEKLY omeprazole 20 mg capsule,delayed release(DR/EC) 20 mg PO DAILY PRN (Reason: indigestion) Trelegy Ellipta 200-62.5-25 mcg blister with device 1 inh inhalation HS PRN (Reason: shortness of breath or wheezing) Patient Comments: PT STATES SHE TAKES PRN buspirone 15 mg tablet 15 mg PO TID hydroxyzine HCl 50 mg tablet 25 mg PO HS valacyclovir 500 mg tablet 1,000 mg PO BID PRN (Reason: cold sores) Qty: 90 0RF Rx Instructions: Take 2 tabs (1000 mg) twice daily for one day as needed for cold sores tramadol 50 mg tablet 50 mg PO Q8H PRN (Reason: Headache) Qty: 90 0RF fexofenadine 180 mg tablet 360 mg PO DAILY PRN (Reason: allergies) Qty: 180 1RF Rx Instructions: take 1-2 tablets daily ipratropium bromide 42 mcg (0.06 %) spray,non-aerosol 2 spray intranasal BID Qty: 15 3RF Rx Instructions: administer into each nostril Follow-up/Referrals: Mango French MD [Primary Care Provider, Family Practice] David Parrish MD [Physician, Ear, Nose, Throat] - 3 Days
[2025-09-11 20:03] VITALS: BP 152/87; PULSE 71; RESP 12; O2SAT 100
== END 2025-09-11 20:05 | disposition home or self-care (01) ==
LOC: ANHED 19:53
PROVIDERS: Emergency Provider Emergency Medicine; PCP Family Medicine
DX: R04.0 Epistaxis (principal); I10 Essential (primary) hypertension; M17.9 Osteoarthritis of knee, unspecified; K21.9 Gastro-esophageal reflux disease without esophagitis; F41.9 Anxiety disorder, unspecified; F32.A Depression, unspecified; Z86.16 Personal history of COVID-19; H51.11 Convergence insufficiency; Z98.1 Arthrodesis status; Z98.84 Bariatric surgery status; Z90.710 Acquired absence of both cervix and uterus; Z90.49 Acquired absence of other specified parts of digestive tract; Z79.899 Other long term (current) drug therapy; Z79.82 Long term (current) use of aspirin
CPT/HCPCS: 30901; 99282; A9270